=== PATIENT | female | born 1940 | race Caucasian/White ===

== ENCOUNTER 2020-10-26 08:07 | Outpatient (REF) | payer MEDICARE, SELFPAY ==
[2020-10-26 09:08] LABS: MANUAL DIFF FLAG NO
[2020-10-26 09:15] LABS: Basophils Absolute Auto 0.1 X10*3/uL (0.0-0.2); Basophils Percent Auto 1.1 % (0-2); Eosinophils Absolute Auto 0.1 X10*3/uL (0.0-0.4); Eosinophils Percent Auto 2.1 % (0-4); Hematocrit 38.9 % (37-47); Hemoglobin 12.4 g/dl (12.0-16.0); Imm Gran Abs Auto 0.01 X10*3/uL (0.00-0.03); Imm Gran Pct Auto 0.2 % (0.0-0.4); Lymphocytes Absolute Auto 2.2 X10*3/uL (1.2-4.9); Lymphocytes Percent Auto 32.9 % (20-40); Mean Corpuscular HGB Conc 31.9 g/dl (31.0-35.0); Mean Corpuscular Volume 87.8 fL (80-98); Mean Platelet Volume 10.6 fL (9.4-12.3); Monocytes Absolute Auto 0.7 X10*3/uL (0.1-1.2); Monocytes Percent Auto 11.2 % (2-11); Neutrophils Absolute Auto 3.5 X10*3/uL (2.0-8.3); Neutrophils Percent Auto 52.5 % (45-73); Platelet Count 296 X10*3/uL (160-400); Red Blood Count 4.43 X10*6/uL (4.20-5.50); Red Cell Distribution Width 13.1 % (11.0-16.0); White Blood Count 6.6 X10*3/uL (4.8-10.8)
[2020-10-26 09:27] LABS: Appearance Urine CLEAR; Color Urine YELLOW; Glucose Urine UA NEG (NEG); Leukocyte Esterase Urine NEG (NEG); Nitrite Urine NEG (NEG); Urine Blood NEG (NEG); Urine Ketones NEG (NEG); Urine Protein NEG (NEG-TRACE)
[2020-10-26 09:39] LABS: Alanine Aminotransferase 8 U/L (0-31); Albumin Level 4.3 g/dL (3.5-5.0); Alkaline Phosphatase 101 U/L (39-117); Anion Gap 11 (12-20); Aspartate Amino Transferase 13 U/L (5-31); Bilirubin Total 0.9 mg/dL (0.0-1.0); Blood Urea Nitrogen 17 mg/dL (9-16); Calcium 9.2 mg/dL (8.4-10.2); Carbon Dioxide 30 mmol/L (22-29); Chloride 104 mmol/L (96-108); Cholesterol 167 mg/dL; Estimated Glomerular Filt Rate > 60; Glucose Random 97 mg/dL (60-115); HDL Cholesterol 55 mg/dL; LDL Cholesterol Calculated 91 mg/dl; Potassium 4.1 mmol/l (3.3-5.1); Sodium 141 mmol/L (135-145); Total Protein 6.9 g/dL (6.5-8.0); Triglycerides 109 mg/dL
[2020-10-26 09:48] LABS: Reflex LDLD? No
[2020-10-26 09:49] LABS: Estimated Average Glucose 105 mg/dL; Hemoglobin A1c % 5.3 %
[2020-10-26 10:02] LABS: Microalbum/Creatinine Ratio Ur 17.9 ug/mg cr
== END 2020-10-26 08:08 | disposition home or self-care (01) ==
LOC: HO.LAB 08:07
PROVIDERS: PCP Internal Medicine; Visit Provider Internal Medicine
DX: Z00.00 Encounter for general adult medical examination without abnormal findings (principal); R73.09 Other abnormal glucose; E78.00 Pure hypercholesterolemia, unspecified; D72.820 Lymphocytosis (symptomatic); Z87.448 Personal history of other diseases of urinary system; R09.89 Other specified symptoms and signs involving the circulatory and respiratory systems
CPT/HCPCS: 36415; 80053; 80061; 81003; 82043; 83036; 85025

== ENCOUNTER 2020-11-11 14:43 | Outpatient (REF) | payer MEDICARE, SELFPAY ==
--- NOTE | ~2020-11-11 | MM_ITS ---
EXAMINATION: BONE DENSITOMETRY CLINICAL INDICATION: Menopausal. COMPARISON: Previous BD dated 10/23/2018 and baseline BD dated 04/09/2008. TECHNIQUE: Using a Zazum DXA System (software version: 13.1) manufactured by [employer], dual-energy x-ray absorptiometry was performed of the lumbar spine and left hip. The images are of good technical quality. Summary results are attached. FINDINGS: AP SPINE L1-L2 L3 and L4 are excluded due to increased density from degenerative change. Current: BMD 1.028 g/cm2, Z-score 0.9, T-score -1.1, osteopenia, 0.7% increase from previous, 0.6% increase from baseline (<5% change is not significant). Prior: BMD 1.021 g/cm2. Baseline: BMD 1.022 g/cm2. LEFT FEMUR, NECK: Current: BMD 0.679 g/cm2, Z-score -0.3, T-score -2.6, osteoporosis. Prior: BMD 0.712 g/cm2. Baseline: BMD 0.794 g/cm2. LEFT FEMUR, TOTAL: Current: BMD 0.713 g/cm2, Z-score -0.2, T-score -2.3, osteopenia, 1.9% decrease from previous, 14.5% decrease from baseline (<5% change is not significant). Prior: BMD 0.727 g/cm2. Baseline: BMD 0.834 g/cm2. IDENTIFIED RISK FACTORS: Menopause, height loss, secondary osteoporosis. HISTORY OF FRACTURE: None listed. MEDICATIONS: Vitamin D. MM/XR DEXA axial skeleton IMPRESSION: 1. DIAGNOSIS: Osteoporosis based on the lowest T-score value of -2.6 in the femoral neck applying World Health Organization criteria. 2. 10-YEAR FRACTURE RISK PREDICTION, FRAX: Major osteoporotic fracture (clinical spine, forearm, hip or shoulder) 20.1%. Hip fracture 7.2%. 3. Treatment Recommendations: NOF guidelines recommend consideration for treatment in postmenopausal women and men age 50 and older presenting with the following: -A hip or vertebral (clinical or morphometric) fracture. -T-score less than or equal to -2.5 at the femoral neck or spine after appropriate evaluation to exclude secondary causes. -Low bone mass at the hip or spine and a 10-year fracture probability by FRAX of greater than or equal to 3% for hip fracture or greater than or equal to 20% for major osteoporotic fracture based on the [place] adapted WHO algorithm. 4. Other Recommendations: All treatment decisions require clinical judgment and consideration of individual patient factors, including patient preferences, comorbidities, previous drug use, risk factors not captured in the FRAX model (e.g. frailty, falls, vitamin D deficiency, increased bone turnover, interval significant decline in bone density) and possible under or overestimation of fracture risk by FRAX. Additional medical evaluation for secondary cause of low bone mineral density may be appropriate. FUTURE SCAN RECOMMENDATION: People with diagnosed cases of osteoporosis or at high risk for fracture should have regular bone mineral density tests. For patients eligible for Medicare, routine testing is allowed once every 2 years. The testing frequency can be increased to one year for patients who have rapidly progressing disease, those who are receiving or discontinuing medical therapy to restore bone mass, or have additional risk factors.
== END 2020-11-11 14:44 | disposition home or self-care (01) ==
LOC: HO.MAMMO 14:43
PROVIDERS: Visit Provider Internal Medicine
DX: Z13.820 Encounter for screening for osteoporosis (principal); Z78.0 Asymptomatic menopausal state; R29.890 Loss of height
CPT/HCPCS: 77080

== ENCOUNTER 2021-05-03 10:15 | Outpatient (REF) | payer MEDICARE, SELFPAY ==
[2021-05-03 10:52] LABS: Estimated Average Glucose 108 mg/dL; Hemoglobin A1c % 5.4 %
[2021-05-03 11:06] LABS: Alanine Aminotransferase 8 U/L (0-31); Albumin Level 4.2 g/dL (3.5-5.0); Alkaline Phosphatase 96 U/L (39-117); Aspartate Amino Transferase 13 U/L (5-31); Bilirubin Direct 0.4 mg/dL (0.0-0.5); Bilirubin Total 1.4 mg/dL (0.0-1.0); Cholesterol 213 mg/dL; Glucose Fasting 97 mg/dL (60-99); HDL Cholesterol 54 mg/dL; LDL Cholesterol Calculated 138 mg/dl; Total Protein 6.9 g/dL (6.5-8.0); Triglycerides 107 mg/dL
[2021-05-03 11:22] LABS: Reflex LDLD? No
== END 2021-05-03 10:16 | disposition home or self-care (01) ==
LOC: HO.LNP 10:15
PROVIDERS: Visit Provider Internal Medicine
DX: E78.00 Pure hypercholesterolemia, unspecified (principal); R73.09 Other abnormal glucose
CPT/HCPCS: 80061; 80076; 82947; 83036

== ENCOUNTER 2021-12-20 10:44 | Outpatient (REF) | payer MEDICARE, SELFPAY ==
[2021-12-20 10:47] LABS: MANUAL DIFF FLAG NO
[2021-12-20 10:55] LABS: Basophils Absolute Auto 0.1 X10*3/uL (0.0-0.2); Basophils Percent Auto 1.1 % (0-2); Eosinophils Absolute Auto 0.2 X10*3/uL (0.0-0.4); Eosinophils Percent Auto 2.2 % (0-4); Hemoglobin 12.3 g/dl (12.0-16.0); Imm Gran Abs Auto 0.02 X10*3/uL (0.00-0.03); Imm Gran Pct Auto 0.3 % (0.0-0.4); Lymphocytes Absolute Auto 2.6 X10*3/uL (1.2-4.9); Lymphocytes Percent Auto 34.8 % (20-40); Mean Corpuscular HGB Conc 31.5 g/dl (31.0-35.0); Mean Corpuscular Hemoglobin 27.8 pg (27.0-33.0); Mean Platelet Volume 10.7 fL (9.4-12.3); Monocytes Absolute Auto 0.8 X10*3/uL (0.1-1.2); Monocytes Percent Auto 10.9 % (2-11); Neutrophils Absolute Auto 3.8 x10*3/uL (2.0-8.3); Neutrophils Percent Auto 50.7 % (45-73); Platelet Count 315 X10*3/uL (160-400); Red Blood Count 4.43 X10*6/uL (4.20-5.50); Red Cell Distribution Width 13.3 % (11.0-16.0); White Blood Count 7.4 X10*3/uL (4.8-10.8)
[2021-12-20 10:56] LABS: Appearance Urine CLEAR; Color Urine YELLOW; Glucose Urine UA NEG (NEG); Leukocyte Esterase Urine 1+ (NEG); Nitrite Urine NEG (NEG); Specific Gravity - Urine 1.015 (1.005-1.025); Urine Blood NEG (NEG); Urine Ketones NEG (NEG); Urine Protein NEG (NEG-TRACE)
[2021-12-20 11:06] LABS: Alanine Aminotransferase 12 U/L (0-31); Albumin Level 4.3 g/dL (3.5-5.0); Alkaline Phosphatase 117 U/L (39-117); Anion Gap 12 (12-20); Aspartate Amino Transferase 15 U/L (5-31); Bilirubin Total 0.8 mg/dL (0.0-1.0); Blood Urea Nitrogen 18 mg/dL (9-16); Calcium 9.6 mg/dL (8.4-10.2); Carbon Dioxide 26 mmol/L (22-29); Chloride 106 mmol/L (96-108); Cholesterol 172 mg/dL; Estimated Glomerular Filt Rate 59; Glucose Fasting 102 mg/dL (60-99); HDL Cholesterol 58 mg/dL; LDL Cholesterol Calculated 98 mg/dl; Potassium 4.2 mmol/L (3.3-5.1); Sodium 140 mmol/L (135-145); Total Protein 7.1 g/dL (6.5-8.0); Triglycerides 81 mg/dL
[2021-12-20 11:07] LABS: Estimated Average Glucose 108 mg/dL; Hemoglobin A1C 118.4112 umol/L; Hemoglobin A1c % 5.4 %
[2021-12-20 11:25] LABS: Creatinine Urine 100.74 mg/dL; Microalbum/Creatinine Ratio Ur 11.9 ug/mg cr
[2021-12-20 11:35] LABS: Bacteria Urine 1+ /LPF; Mucus Urine 2+ /LPF; RBC Urine 0-2 /HPF (0); Squamous Epithelial Cell Urine 1+ /LPF
== END 2021-12-20 10:45 | disposition home or self-care (01) ==
LOC: HO.LNP 10:44
PROVIDERS: PCP Internal Medicine; Visit Provider Internal Medicine
DX: Z00.00 Encounter for general adult medical examination without abnormal findings (principal); R73.03 Prediabetes; D72.820 Lymphocytosis (symptomatic); E78.00 Pure hypercholesterolemia, unspecified; I10 Essential (primary) hypertension
CPT/HCPCS: 80053; 80061; 81001; 81003; 82043; 83036; 85025

== ENCOUNTER 2022-07-03 10:41 | Outpatient (REF) | payer MEDICARE, SELFPAY ==
[2022-07-03 11:44] LABS: Estimated Average Glucose 105 mg/dL; Hemoglobin A1c % 5.3 %
[2022-07-03 11:50] LABS: Alanine Aminotransferase 13 U/L (0-31); Albumin Level 4.4 g/dL (3.5-5.0); Alkaline Phosphatase 105 U/L (39-117); Aspartate Amino Transferase 16 U/L (5-31); Bilirubin Direct 0.4 mg/dL (0.0-0.5); Cholesterol 182 mg/dL; Glucose Fasting 103 mg/dL (60-99); HDL Cholesterol 58 mg/dL; LDL Cholesterol Calculated 106 mg/dl; Triglycerides 92 mg/dL
[2022-07-03 13:55] LABS: Reflex LDLD? No
== END 2022-07-03 10:42 | disposition home or self-care (01) ==
LOC: HO.LNP 10:41
PROVIDERS: Visit Provider Internal Medicine
DX: E78.00 Pure hypercholesterolemia, unspecified (principal); R73.03 Prediabetes
CPT/HCPCS: 80061; 80076; 82947; 83036

== ENCOUNTER 2022-12-29 10:57 | Outpatient (REF) | payer MEDICARE, SELFPAY ==
[2022-12-29 11:02] LABS: MANUAL DIFF FLAG NO
[2022-12-29 11:51] LABS: Basophils Absolute Auto 0.1 X10*3/uL (0.0-0.2); Eosinophils Absolute Auto 0.1 X10*3/uL (0.0-0.4); Eosinophils Percent Auto 2.1 % (0-4); Hematocrit 39.7 % (37.0-47.0); Hemoglobin 12.8 g/dl (12.0-16.0); Imm Gran Abs Auto 0.01 X10*3/uL (0.00-0.03); Imm Gran Pct Auto 0.1 % (0.0-0.4); Lymphocytes Absolute Auto 2.2 X10*3/uL (1.2-4.9); Lymphocytes Percent Auto 32.2 % (20-40); Mean Corpuscular HGB Conc 32.2 g/dl (31.0-35.0); Mean Corpuscular Hemoglobin 28.4 pg (27.0-33.0); Mean Corpuscular Volume 88.2 fL (80.0-98.0); Monocytes Absolute Auto 0.8 X10*3/uL (0.1-1.2); Monocytes Percent Auto 11.7 % (2-11); Neutrophils Absolute Auto 3.6 x10*3/uL (2.0-8.3); Neutrophils Percent Auto 52.9 % (45-73); Platelet Count 320 X10*3/uL (160-400); Red Cell Distribution Width 13.2 % (11.0-16.0); White Blood Count 6.8 X10*3/uL (4.8-10.8)
[2022-12-29 12:08] LABS: Alanine Aminotransferase 7 U/L (0-31); Albumin Level 4.2 g/dL (3.5-5.0); Alkaline Phosphatase 110 U/L (39-117); Anion Gap 14 (12-20); Aspartate Amino Transferase 13 U/L (5-31); Bilirubin Total 1.2 mg/dL (0.0-1.0); Blood Urea Nitrogen 17 mg/dL (9-16); Calcium 9.4 mg/dL (8.4-10.2); Carbon Dioxide 26 mmol/L (22-29); Chloride 106 mmol/L (96-108); Cholesterol 194 mg/dL; Estimated Glomerular Filt Rate > 60; Glucose Fasting 99 mg/dL (60-99); HDL Cholesterol 53 mg/dL; LDL Cholesterol Calculated 119 mg/dl; Sodium 142 mmol/L (135-145); Total Protein 6.9 g/dL (6.5-8.0); Triglycerides 112 mg/dL
[2022-12-29 12:10] LABS: Estimated Average Glucose 108 mg/dL; Hemoglobin A1C 115.6139 umol/L; Hemoglobin A1c % 5.4 %
== END 2022-12-29 10:58 | disposition home or self-care (01) ==
LOC: HO.LNP 10:57
PROVIDERS: Visit Provider Internal Medicine
DX: Z00.00 Encounter for general adult medical examination without abnormal findings (principal); R73.03 Prediabetes; D72.820 Lymphocytosis (symptomatic); E78.00 Pure hypercholesterolemia, unspecified; I10 Essential (primary) hypertension
CPT/HCPCS: 80053; 80061; 83036; 85025

== ENCOUNTER 2023-01-04 16:24 | Outpatient (REF) | payer MEDICARE, SELFPAY ==
[2023-01-04 17:32] LABS: Creatinine Urine 51.75 mg/dL; Microalbum/Creatinine Ratio Ur 11.5 ug/mg cr
[2023-01-04 17:53] LABS: Appearance Urine Cloudy; Color Urine Yellow; Glucose Urine UA Negative (Negative); Leukocyte Esterase Urine Small (1+) (Negative); Nitrite Urine Negative (Negative); UMIC TRIGGER UACC YES; Urine Blood Negative (Negative); Urine Ketones Negative (Negative); Urine Protein Negative (Neg-Trace)
[2023-01-04 18:06] LABS: Bacteria Urine None Seen (None Seen); Hyaline Casts Urine 0-2 /LPF (0-2); RBC Urine 0-2 /HPF (0-2); Squamous Epithelial Cell Urine 0-2 /HPF (0-2); UACC Culture Trigger YES; WBC Urine 0-5 /HPF (0-5)
== END 2023-01-04 16:25 | disposition home or self-care (01) ==
LOC: HO.LNP 16:24
PROVIDERS: Visit Provider Internal Medicine
DX: I10 Essential (primary) hypertension (principal); R73.03 Prediabetes
CPT/HCPCS: 81001; 82043; 87086

== ENCOUNTER 2023-06-29 11:55 | Outpatient (REF) | payer MEDICARE, SELFPAY ==
[2023-06-29 12:15] LABS: Estimated Average Glucose 105 mg/dL; Hemoglobin A1c % 5.3 % (<6.0)
[2023-06-29 12:54] LABS: Alanine Aminotransferase 9 U/L (0-31); Albumin Level 4.1 g/dL (3.5-5.0); Alkaline Phosphatase 104 U/L (39-117); Aspartate Amino Transferase 14 U/L (5-31); Bilirubin Direct 0.3 mg/dL (0.0-0.5); Bilirubin Total 0.9 mg/dL (0.0-1.0); Glucose Fasting 101 mg/dL (60-99); Total Protein 7.2 g/dL (6.5-8.0)
[2023-06-29 12:55] LABS: Cholesterol 179 mg/dL (<200); HDL Cholesterol 56 mg/dL (>40); LDL Cholesterol Calculated 106 mg/dL (<100); Triglycerides 87 mg/dL (<150)
[2023-06-29 13:58] LABS: Reflex LDLD? No
== END 2023-06-29 11:56 | disposition home or self-care (01) ==
LOC: HO.LNP 11:55
PROVIDERS: Visit Provider Internal Medicine
DX: E78.00 Pure hypercholesterolemia, unspecified (principal); R73.09 Other abnormal glucose
CPT/HCPCS: 80061; 80076; 82947; 83036

== ENCOUNTER 2023-08-23 15:20 | Outpatient (REF) | payer MEDICARE, SELFPAY ==
[2023-08-23 17:43] LABS: Appearance Urine Clear; Color Urine Yellow; Glucose Urine UA Negative (Negative); Leukocyte Esterase Urine Moderate (2+) (Negative); Nitrite Urine Negative (Negative); PH 6.5 (5.0-9.0); Specific Gravity - Urine <= 1.005 (1.005-1.025); UMIC TRIGGER UACC YES; Urine Blood Negative (Negative); Urine Ketones Negative (Negative); Urine Protein Negative (Neg-Trace)
[2023-08-23 18:15] LABS: Bacteria Urine None Seen (None Seen); Hyaline Casts Urine 0-2 /LPF (0-2); RBC Urine 0-2 /HPF (0-2); Squamous Epithelial Cell Urine 0-2 /HPF (0-2); UACC Culture Trigger YES
== END 2023-08-23 15:21 | disposition home or self-care (01) ==
LOC: HO.LAB 15:20
PROVIDERS: PCP Internal Medicine; Visit Provider Internal Medicine
DX: N39.0 Urinary tract infection, site not specified (principal)
CPT/HCPCS: 81001; 87086

== ENCOUNTER 2024-01-01 11:00 | Outpatient (REF) | payer MEDICARE, SELFPAY ==
[2024-01-01 11:04] LABS: MANUAL DIFF FLAG NO
[2024-01-01 11:34] LABS: Basophils Absolute Auto 0.1 X10*3/uL (0.0-0.2); Basophils Percent Auto 1.5 % (0-2); Eosinophils Absolute Auto 0.1 X10*3/uL (0.0-0.4); Eosinophils Percent Auto 2.1 % (0-4); Hematocrit 41.1 % (37.0-47.0); Hemoglobin 12.9 g/dl (12.0-16.0); Imm Gran Abs Auto 0.01 X10*3/uL (0.00-0.03); Imm Gran Pct Auto 0.2 % (0.0-0.4); Lymphocytes Absolute Auto 2.4 X10*3/uL (1.2-4.9); Lymphocytes Percent Auto 35.9 % (20-40); Mean Corpuscular HGB Conc 31.4 g/dl (31.0-35.0); Mean Corpuscular Hemoglobin 27.7 pg (27.0-33.0); Mean Corpuscular Volume 88.4 fL (80.0-98.0); Mean Platelet Volume 11.3 fL (9.4-12.3); Monocytes Absolute Auto 0.8 X10*3/uL (0.1-1.2); Monocytes Percent Auto 11.7 % (2-11); Neutrophils Absolute Auto 3.2 x10*3/uL (2.0-8.3); Neutrophils Percent Auto 48.6 % (45-73); Platelet Count 332 X10*3/uL (160-400); Red Blood Count 4.65 X10*6/uL (4.20-5.50); Red Cell Distribution Width 14.2 % (11.0-16.0); White Blood Count 6.6 X10*3/uL (4.8-10.8)
[2024-01-01 11:36] LABS: Estimated Average Glucose 100 mg/dL; Hemoglobin A1c % 5.1 % (<6.0)
[2024-01-01 11:37] LABS: Alanine Aminotransferase 9 U/L (0-31); Albumin Level 4.4 g/dL (3.5-5.0); Alkaline Phosphatase 107 U/L (39-117); Anion Gap 13 (12-20); Aspartate Amino Transferase 16 U/L (5-31); Bilirubin Total 0.9 mg/dL (0.0-1.0); Blood Urea Nitrogen 17 mg/dL (9-16); Calcium 10.2 mg/dL (8.4-10.2); Carbon Dioxide 29 mmol/L (22-29); Chloride 104 mmol/L (96-108); Cholesterol 182 mg/dL (<200); Estimated Glomerular Filt Rate 59; Glucose Fasting 97 mg/dL (60-99); HDL Cholesterol 71 mg/dL (>40); LDL Cholesterol Calculated 92 mg/dL (<100); Potassium 3.6 mmol/L (3.3-5.1); Sodium 142 mmol/L (135-145); Total Protein 7.6 g/dL (6.5-8.0); Triglycerides 98 mg/dL (<150)
[2024-01-01 11:40] LABS: Appearance Urine Clear; Color Urine Yellow; Glucose Urine UA Negative (Negative); Leukocyte Esterase Urine Small (1+) (Negative); Nitrite Urine Negative (Negative); Specific Gravity - Urine <= 1.005 (1.005-1.025); UMIC TRIGGER UACC YES; Urine Blood Negative (Negative); Urine Ketones Negative (Negative); Urine Protein Negative (Neg-Trace)
[2024-01-01 12:44] LABS: Creatinine Urine 26.08 mg/dL; Microalbumin Urine < 5.0 mg/L
[2024-01-01 15:04] LABS: Bacteria Urine None Seen (None Seen); Hyaline Casts Urine 0-2 /LPF (0-2); RBC Urine 0-2 /HPF (0-2); Squamous Epithelial Cell Urine 0-2 /HPF (0-2); UACC Culture Trigger YES; WBC Urine 0-5 /HPF (0-5)
== END 2024-01-01 11:01 | disposition home or self-care (01) ==
LOC: HO.LNP 11:00
PROVIDERS: Visit Provider Internal Medicine
DX: Z00.00 Encounter for general adult medical examination without abnormal findings (principal); R73.03 Prediabetes; E78.00 Pure hypercholesterolemia, unspecified; I10 Essential (primary) hypertension
CPT/HCPCS: 80053; 80061; 81001; 82043; 82570; 83036; 85025; 87086

== ENCOUNTER 2024-06-19 12:19 | Outpatient (AMB) | payer MEDICARE, SELFPAY ==
--- NOTE | 2024-06-19 12:20 | AM.OFFWIN_ITS ---
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 Started 1 week ago. Patient Tobacco Use Status: Former Tobacco user Allergies No Known Allergies Allergy (Verified 06/19/24 12:32) Do you need a note to return to daycare/school/sports/work: No HPI HPI Comments History of Present Illness Details 84 y/o female patient who presents to [facility] in clinic with c/o Urin liliane symptoms for few days now. C/o Urinary burning, urgency and frequency. PFSH Social History Patient Tobacco Use Status: Former Tobacco user Review of Systems Const All systems reviewed & are unremarkable except as noted in HPI and below Physical Exam Vital Signs: Last Vital Signs Temp 97.9 F 06/19/24 12:21 Pulse 96 06/19/24 12:21 BP 132/86 06/19/24 12:21 Pulse Ox 99 06/19/24 12:21 Oxygen Delivery Method Room Air 06/19/24 12:21 BMI result Body Mass Index 25.5 Const General: cooperative Orientation/consciousness: patient oriented x3 Resp Effort & Inspection: normal respiratory effort Auscultation: clear to auscultation bilaterally Cardio Heart sounds: S1 normal heart sound present and S2 normal heart sound present General: Yes no CVA tenderness Back/Spine/Pelvis Back: no CVA tenderness Neuro General: patient oriented x3, gait normal and moves all extremities Psych Speech and movement: Normal speech and movement present Results AMB Urinalysis, Automated UA Leukoctes 125 Shahram/uL Last Edit by Yasir Quezada CMA on 06/19/24 12:36 UA Nitrite Negative Last Edit by Yasir Quezada CMA on 06/19/24 12:36 UA Urobilinogen 0.2 mg/dL Last Edit by Yasir Quezada CMA on 06/19/24 12:36 UA Protein 0 mg/dL Last Edit by Yasir Quezada CMA on 06/19/24 12:36 UA pH 6.0 Last Edit by Yasir Quezada CMA on 06/19/24 12:36 UA Blood 0 Deandre/uL Last Edit by Yasir Quezada CMA on 06/19/24 12:36 UA Specific Addison 1.005 Last Edit by Yasir Quezada CMA on 06/19/24 12:36 UA Ketone Negative Last Edit by Yasir Quezada CMA on 06/19/24 12:36 UA Bilirubin 0 mg/dL Last Edit by Yasir Quezada CMA on 06/19/24 12:36 UA Glucose 0 mg/dL Last Edit by Yasir Quezada CMA on 06/19/24 12:36 Results Reviewed Results Reviewed: Laboratory Last Values Urine pH (Auto) 6.0 06/19/24 12:34 Specific Addison (Auto) 1.005 06/19/24 12:34 Urine Protein (Auto) 0 mg/dL 06/19/24 12:34 Glucose (UA)(Auto) 0 mg/dL 06/19/24 12:34 Urine Ketones (Auto) Negative 06/19/24 12:34 Urine Blood (Auto) 0 Deandre/uL 06/19/24 12:34 Urine Nitrite (Auto) Negative 06/19/24 12:34 Urine Bilirubin (Auto) 0 mg/dL 06/19/24 12:34 Urine Urobilinogen (Auto) 0.2 mg/dL 06/19/24 12:34 Leukocyte Esterase (Auto) 125 Shahram/uL 06/19/24 12:34 Assessment & Plan Assessment & Plan (1) Urinary tract infection symptoms: Code(s): R39.9 - Unspecified symptoms and signs involving the genitourinary system Plan: Push fluids Ordered Macrobid Orders: Orders AMB Urinalysis Automated Today Z13.9 - Encounter for screening, unspecified Medications: New nitrofurantoin monohyd/m-cryst 100 mg (Macrobid) must administer with a meal/food 100 mg PO Q12H 7 days 14 caps 0RF R39.9 - Unspecified symptoms and signs involving the genitourinary system Coding Level of Care Code New Pt Level 3 (98428) Diagnoses Urinary tract infection symptoms R39.9 Time Spent (min) 15
[2024-06-19 12:21] VITALS: BP 132/86; PULSE 96; TEMP 36.6; O2SAT 99; BMI 25.5
== END 2024-06-19 12:46 | disposition home or self-care (01) ==
PROVIDERS: PCP Internal Medicine; Visit Provider Nurse Practitioner Family
DX: R35.0 Frequency of micturition (principal); R30.9 Painful micturition, unspecified
CPT/HCPCS: 81003; 99203

== ENCOUNTER 2024-07-10 10:49 | Outpatient (REF) | payer MEDICARE, SELFPAY ==
[2024-07-10 12:26] LABS: Estimated Average Glucose 103 mg/dL; Hemoglobin A1c % 5.2 % (<6.0); Total Hemoglobin (HGBA1C) 2903.4953 umol/L
[2024-07-10 12:37] LABS: Alanine Aminotransferase 9 U/L (0-31); Albumin Level 4.2 g/dL (3.5-5.0); Alkaline Phosphatase 92 U/L (39-117); Aspartate Amino Transferase 15 U/L (5-31); Bilirubin Direct 0.3 mg/dL (0.0-0.5); Bilirubin Total 0.7 mg/dL (0.0-1.0); Cholesterol 163 mg/dL (<200); Glucose Fasting 100 mg/dL (60-99); HDL Cholesterol 61 mg/dL (>40); LDL Cholesterol Calculated 89 mg/dL (<100); Total Protein 7.3 g/dL (6.5-8.0); Triglycerides 66 mg/dL (<150)
[2024-07-10 12:57] LABS: Reflex LDLD? No
== END 2024-07-10 10:50 | disposition home or self-care (01) ==
LOC: HO.LNP 10:49
PROVIDERS: Visit Provider Internal Medicine
DX: E78.00 Pure hypercholesterolemia, unspecified (principal); R73.09 Other abnormal glucose
CPT/HCPCS: 80061; 80076; 82947; 83036

== ENCOUNTER 2024-07-31 12:01 | Outpatient (AMB) | payer MEDICARE, SELFPAY ==
[2024-07-31 12:13] VITALS: BP 138/80; PULSE 90; TEMP 36.9; O2SAT 98; BMI 26.1
--- NOTE | 2024-07-31 12:13 | AM.OFFWIN_ITS ---
Intake Vital Signs 07/31/24 12:13 Height 4 ft 10 in Weight 125 lb 2 oz BMI 26.1 BP 138/80 Blood Pressure Location Lt brachial Position Sitting Pulse 90 Pulse Source Pulse Oximeter Temp 98.4 F Temp Source Oral Pulse Oximetry (%) 98 Oxygen Delivery Method Room Air Intake Visit Reasons: EP ? UTI Patient Tobacco Use Status: Former Tobacco user Allergies No Known Allergies Allergy (Verified 07/31/24 12:14) Do you need a note to return to daycare/school/sports/work: No HPI HPI Comments History of Present Illness Details Patient is an 84-year-old female complaining of a few days of burning with urination, increased frequency of urination. She denies any blood in her urine, low back pain or fevers. She denies a history of kidney stones. She tells me she was just diagnosed with a UTI and took a medication for that she has never taken before and had difficulty with the timing of the medication and taking it with food and she feels like her symptoms mostly resolved but never went away completely and now she feels like they are happening again. She is requesting not to get the same medication she got last time. [facility] Social History Patient Tobacco Use Status: Former Tobacco user Review of Systems Const All systems reviewed & are unremarkable except as noted in HPI and below Physical Exam Vital Signs: BMI result Body Mass Index 26.1 Const General: cooperative, healthy appearing, comfortable and no acute distress Orientation/consciousness: patient oriented x3 HEENT Head: Yes normal to inspection Ears: hearing grossly normal bilaterally General nose exam: Normal external nose present Face and sinus: Yes normal facial exam Neck Neck: Yes normal visual inspection, Yes trachea midline and Yes supple Resp Effort & Inspection: normal respiratory effort and able to speak in complete sentences Skin General skin exam: no rashes or lesions noted Neuro General: patient oriented x3 Psych Appearance: grossly normal Speech and movement: Normal speech and movement present Attitude: cooperative Thought process: Normal thought process present Insight: Good insight present (Psych) Judgement: Good judgement present (Psych) Results AMB Urinalysis, Automated UA Leukoctes 15 Shahram/uL Last Edit by BRODY Bradley on 07/31/24 12:3 1 UA Nitrite Negative Last Edit by BRODY Bradley on 07/31/24 12:31 UA Urobilinogen 0.2 mg/dL Last Edit by BRODY Bradley on 07/31/24 12:31 UA Protein 0 mg/dL Last Edit by BRODY Bradley on 07/31/24 12:31 UA pH 6.0 Last Edit by BRODY Bradley on 07/31/24 12:31 UA Blood 0 Deandre/uL Last Edit by Matthew Donahue CCM on 07/31/24 12:31 UA Specific [place] 1.010 Last Edit by BRODY Bradley on 07/31/24 12:31 UA Ketone Negative Last Edit by BRODY Bradley on 07/31/24 12:31 UA Bilirubin 0 mg/dL Last Edit by BRODY Bradley on 07/31/24 12:31 UA Glucose 0 mg/dL Last Edit by BRODY Bradley on 07/31/24 12:31 Assessment & Plan Assessment & Plan (1) UTI (urinary tract infection): Code(s): N39.0 - Urinary tract infection, site not specified Qualifiers: Urinary tract infection type: acute cystitis Hematuria presence: without hematuria Qualified Code(s): N30.00 - Acute cystitis without hematuria Plan: Patient was prescribed Macrobid on June 19, sounds like her symptoms never really went away and she may not have taken it properly. I am prescribing cefuroxime twice a day for 5 days. Urinalysis was positive for leukocyte esterase negative for nitrites or blood Plan See above Orders: Orders AMB Urinalysis Automated Today Z13.9 - Encounter for screening, unspecified Medications: New cefuroxime axetil 500 mg PO Q12H 10 tabs 0RF Coding Level of Care Code New Pt Level 3 (48118) Diagnoses Acute cystitis without hematuria N30.00 Urinary tract infection type: acute cystitis Hematuria presence: without hematuria
== END 2024-07-31 13:00 | disposition home or self-care (01) ==
PROVIDERS: PCP Internal Medicine; Visit Provider Physician Assistant
DX: N30.00 Acute cystitis without hematuria (principal); Z13.9 Encounter for screening, unspecified

== ENCOUNTER → 2024-07-31 12:01 | Outpatient (BNVA) | payer MEDICARE, SELFPAY | PROVIDERS: PCP Internal Medicine; Visit Provider Physician Assistant | DX: N30.00 Acute cystitis without hematuria (principal) | CPT/HCPCS: 81003; 99202 ==

== ENCOUNTER 2024-10-06 13:29 | Outpatient (AMB) | payer MEDICARE, SELFPAY ==
--- OUTSIDE RECORDS SUMMARY | 2024-10-06 13:32 | XMS_ITS ---
Author Organization [facility] Address [address] [place] [address] Care Team Providers Care Special Diet Cook Name Role Phone Robert RICHMOND, Crescencio Primary Care Provider Petros Munroe Jr, Enzo Bolaños REASON FOR VISIT Pt no show Encounters Encounter Location Date Provider Diagnosis [facility] [address] [facility] [address] [place] [address] 08/14/2024 Enzo Munroe Jr PLAN OF TREATMENT Next Appt Details Provider Name:Enzo laboy Jr, 11/20/2024 02:55:00 PM, [address] [facility], [address], [place], [address],
--- OUTSIDE RECORDS SUMMARY | 2024-10-06 13:32 | XMS_ITS ---
Author Organization [facility] Address [address] [place] [address] Care Team Providers Care Bag Builder Name Role Phone Robert RICHMOND, Crescencio Primary Care Provider Petros Munroe Jr, Enzo Bolaños REASON FOR VISIT question regarding medication Encounters Encounter Location Date Provider Diagnosis [facility] [address] [place] [address] 08/11/2024 Enzo Munroe Jr PLAN OF TREATMENT Next Appt Details Provider Name:Enzo laboy Jr, 11/20/2024 02:55:00 PM, [address] [facility], [address], [place], [address],
--- OUTSIDE RECORDS SUMMARY | 2024-10-06 13:32 | XMS_ITS | Patient Health Record ---
Author Organization [facility] Address [address] [facility] [address] [place] [address] Care Team Providers Care Die Casting Machine Maintainer Name Role Phone Robert RICHMOND, Crescencio Primary Care Provider Enzo Donaldson Jr Unavailable [phone] ALLERGIES Allergen (clinical drug ingredient) Drug/Non Drug Allergy documented on EMR Reaction Allergy Type Onset Date Status Codeine Phosphate Unknown Drug Allergy Active REASON FOR REFERRAL Referring Provider First Name Crescencio Referring Provider Last Name Robert Referring Provider Speciality Internal M edicine Referred Organization [facility] Referred Provider Enzo Munroe Jr Referred Address [address] [place] [address], [address],[place], [place],[address], Referred Provider Specialty Gastroentero logy General Notes Carmencita Quick 024 11:27:23 AM EDT > call dr forbes's office [phone] to request a new [place] referral for visit with Dr. Munroe on 08-14-2024, Carmencita Quick 07/03/2024 09:07:10 AM EDT > REQUESTED REFERRAL FROM Abdelrahman SMITH Dawn 07/15/2024 02:02:15 PM EDT > spoke with Bryanna at Dr. Forbes's office and she was told by Ashutosh at [place] that no referral is required since Dr. Forbes and Dr. Munroe are in the same [facility]. Conf _# [id number] Referral Priority Routine Referred Organization [facility] Referred Provider Enzo Munroe Jr Referred Address [address] [facility], [address],[place], [place],[address], Referred Provider Specialty Gastroentero logy General Notes Carmencita Quick 023 11:16:25 AM EDT > no referral required per Dr. Forbes's office since patient is in the same [facility]. Referral Priority Routine MEDICATIONS Medication SIG (Take, Route, Frequency, Duration) Notes Start Date End Date Status Ursodiol 300 MG TAKE 1 CAPSULE BY MO UTH THREE TIMES DAILY *APPOINTMENT NEEDED FOR FURTHER REFILLS* for 30 Active Vitamin D 1000 UNIT 1 tablet Orally Once a day Active Atorvastatin Calcium 20mg Active Ursodiol 250 MG take 1 tablet by jessika th 4 times a day for 30 days Active Latanoprost 0.005 % INSTILL 1 DROP INTO EACH EYE AT BEDTIME Ophthalmic for 18 Active amLODIPine Besylate 10 MG TAKE 1 TABLET BY MOUTH ONCE DAILY Oral for 90 Active IMMUNIZATIONS Vaccine Route Administration Date Status Comme nts Influenza Unknown 10/08/2018 Administered Influenza Unknown 08/09/2019 Administered Influenza Unknown 08/08/2023 Administered SOCIAL HISTORY Tobacco Use: Social History Observation Description Date Details (start date - stop date) Former Smoker NA - NA Sex Assigned At : Social History Observation Description Sex Assigned At Unknown Tobacco Use/Smoking Question Answer Notes Patient is a former smoker How long has it been since you last smoked? > 10 years PROBLEMS Problem Type ICD Code Onset Dates Problem Status W/U Status Risk SNOMED Code Notes Problem Biliary cirrhosis (K74.5) Active confirmed 3284261 Problem Gastroesophageal reflux disease, unspecified whether esophagitis present (K21.9) Active confirmed [id number] Encounters Encounter Location Date Provider Diagnosis [facility] [address] [place] [address] 08/14/2024 Enzo Munroe Jr [facility] [address] [place] [address] 08/11/2024 Enzo Munroe Jr [facility] [address] [place] [address] 08/14/2024 Enzo Munroe Jr PLAN OF TREATMENT Future Test Test Name Order Date COLONOSCOPY 07/16/2014 Next Appt Details Provider Name:Enzo laboy Jr, 11/20/2024 02:55:00 PM, [address] [facility], [address], [place], [address], Insurance Providers Payer Name Payer Address Payer Phone Subscriber Number Group Number Insured Name Patient Relationship to Insured Coverage Start Date Coverage End Date [facility] [address] [place] [phone] [id number] GILBERT RENÉ Self - patient is the insured MEDICAL (GENERAL) HISTORY Medical History History ICD Code hyperlipidemia colonoscopy 09/23/14, hyperplastic polyp , followup p.r.n. 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 On ursodiol. Surgical History Surgery Date(Month/Year) lasik bilateral eyes
--- OUTSIDE RECORDS SUMMARY | 2024-10-06 13:32 | XMS_ITS ---
Author Organization [facility] Address [address] [place] [address] Care Team Providers Care Field Crop Technical Officer Name Role Phone Robert RICHMOND, Crescencio Primary Care Provider Petros Munroe Jr, Enzo Bolaños REASON FOR VISIT Patient presents today for biliary cirrhosis Encounters Encounter Location Date Provider Diagnosis [facility] [address] [place] [address] 08/14/2024 Enzo Mnuroe Jr PLAN OF TREATMENT Next Appt Details Provider Name:Enzo laboy Jr, 11/20/2024 02:55:00 PM, [address], [address], [place], [address],
--- OUTSIDE RECORDS SUMMARY | 2024-10-06 13:32 | XMS_ITS ---
Author Organization Crescencio Jones MD Address [address] [place] [phone] Care Team Providers Care Public Events Facilities Rental Manager Name Role Phone Crescencio Jones Primary Care Provider [phone] ALLERGIES Allergen (clinical drug ingredient) Drug/Non Drug Allergy documented on EMR Reaction Allergy Type Onset Date Status codeine Codeine Sulfate n/v Drug Allergy A ctive REASON FOR VISIT 6 month MEDICATIONS Medication SIG (Take, Route, Frequency, Duration) [...] 1 TABLET BY MOUTH ONCE DAILY Active VITAL SIGNS BMI 24.02 kg/m2 07/17/2024 Blood pressure systolic 112 mm Hg 07/17/20 24 Blood pressure diastolic 64 mm Hg 024 Height 60 in 07/17/2024 Weight 123 lbs 07/17/2024 weight is down 4 pounds sin e 4-2-24 Encounters Encounter Location Date Provider Diagnosis Crescencio Jones MD [address] [place] [phone] 07/17/2024 Crescencio Jones Shortness of breath on exertion R06.02 ; Prediabetes R73.09 ; Pure hypercholesterolemia E78.00 and Essential (primary) hypertension I10 ASSESSMENTS Encounter Date Diagnosis Assessment Notes Treatment Notes Treatment Clinical Notes 07/17/2024 Shortness of breath on exertion (ICD-10 - R06.02) has not been active. sounds as though she has just lost her conditioning. advised her to get active. does not sound cardiac at all. 07/17/2024 Prediabetes (ICD-10 - R73.09) stable, will cntinue to monitor, no need for medication at this time 07/17/2024 Pure hypercholestero lemia (ICD-10 - E78.00) stable, will cntinue current regiment 07/17/2024 Essential (primary) hypertension (ICD-10 - I10) stable, will continue current regiment PLAN OF TREATMENT Medication Medication Name Sig Start Date Stop [...] regiment Next Appt Details Provider Name:Crescencio hernandez, 01/06/2025 07:00:00 AM, [address] [place] [address], [address], [phone], Provider Name:Crescencio hernandez, 01/13/2025 09:30:00 AM, [address] [place] [address], [address], [phone], Progress Notes * Examination Category Sub-Category Detail Notes General Examination GENERAL APPEARANCE: alert, w ell hydrated, in no distress HEART: regular rate and rhy thm, no murmurs, rubs, gallops LUNGS: no wheezes, rales, r honchi, good air movement, clear to auscultation bilaterally SKIN: good turgor
--- OUTSIDE RECORDS SUMMARY | 2024-10-06 13:33 | XMS_ITS ---
Author Organization Crescencio Jones MD Address [address] [place] [phone] Care Team Providers Care Superintendent Pipelines Name Role Phone Crescencio Jones Primary Care Provider REASON FOR VISIT [place] Referral Encounters Encounter Location Date Provider Diagnosis Crescencio Jones MD [address] [place] [address] [address] [place], [place] [phone] 07/15/2024 Crescencio Jones PLAN OF TREATMENT Next Appt Details Provider Name:Crescencio hernandez, 01/06/2025 07:00:00 AM, [address] [place] [address], [place] [address], [place], [place], [phone], Provider Name:Crescencio hernandez, 01/13/2025 09:30:00 AM, [address] [place] [address], [place] [address], [place], [place], [phone],
--- OUTSIDE RECORDS SUMMARY | 2024-10-06 13:33 | XMS_ITS | Patient Health Record ---
Author Organization Crescencio Jones MD Address [address] [place], [place] [phone] Care Team Providers Care Channel Development Director Name Role Phone Crescencio Jones Primary Care Provider [phone] ALLERGIES Allergen (clinical drug ingredient) Drug/Non Drug Allergy documented on EMR Reaction Allergy Type Onset Date Status codeine Codeine Sulfate n/v Drug Allergy A ctive RESULTS Component Value Reference Range Notes Leslie Colin Reviewed date:01/01/2024 11:47:33 AM Interpretation: Performing Lab:[facility], [address] [place] [phone] Notes/Report: Leslie Colin See Note Specimen held untested for 24 hours; Call to request Chemistry testing. Urine Culture Reviewed date:01/02/2024 04:49:00 PM Interpretation: Performing Lab:[facility], [address] [place] [phone] Notes/Report: Urine Culture No growth. Complete Blood Count Auto Di ff Reviewed date:01/01/2024 12:44:50 PM Interpretation: Performing Lab:[facility], [address] [place] [phone] Notes/Report: White Blood Count 6.6 4.8-10.8 X10*3/uL Red Blood Count 4.65 4.20-5.50 X10*6/uL Hemoglobin 12.9 12.0-16.0 g/dl Hematocrit 41.1 37.0-47.0 % Mean Corpuscular Volume 88.4 80.0-98.0 fL Mean Corpuscular Hemoglobin 27.7 27.0-33.0 pg Mean Corpuscular HGB Conc 31.4 31.0-35.0 g/dl Red Cell Distribution Width 14.2 11.0-16.0 % Platelet Count 332 160-400 X10*3/uL Mean Platelet Volume 11.3 9.4-12.3 fL Neutrophils Percent Auto 48.6 45-73 % Imm Gran Pct Auto 0.2 0.0-0.4 % Lymphocytes Percent Auto 35.9 20-40 % Monocytes Percent Auto 11.7 2-11 % Eosinophils Percent Auto 2.1 0-4 % Basophils Percent Auto 1.5 0-2 % NRBC Pct Auto 0.0 0.0-0.2 /100WBC Neutrophils Absolute Auto 3.2 2.0-8.3 x10*3/u L Imm Gran Abs Auto 0.01 0.00-0.03 X10*3/uL Lymphocytes Absolute Auto 2.4 1.2-4.9 X10*3/u L Monocytes Absolute Auto 0.8 0.1-1.2 X10*3/uL Eosinophils Absolute Auto 0.1 0.0-0.4 X10*3/u L Basophils Absolute Auto 0.1 0.0-0.2 X10*3/uL NRBC Abs Auto 0.000 0.0-0.012 X10*3/uL Comprehensive Big Arm. Panel Fa st Reviewed date:01/01/2024 12:44:31 PM Interpretation: Performing Lab:[facility], [address] [place] [phone] Notes/Report: Sodium 142 135-145 mmol/L Potassium 3.6 3.3-5.1 mmol/L Chloride 104 96-108 mmol/L Carbon Dioxide 29 22-29 mmol/L Anion Gap 13 12-20 Blood Urea Nitrogen 17 9-16 mg/dL Creatinine 0.91 0.5-1.4 mg/dL Estimated Glomerular Filt Rate 59 NOTE: For -[place]ib[place] individuals, multiply the result by 1.210. Chronic Kidney Disease: Estimated GFR < 60 mL/min/1.73m2 Severe Kidney Disease: Estimated GFR < 15 mL/min/1.73m2 Glucose Fasting 97 60-99 mg/dL Calcium 10.2 8.4-10.2 mg/dL Bilirubin Total 0.9 0.0-1.0 mg/dL Aspartate Amino Transferase 16 5-31 U/L Alanine Aminotransferase 9 0-31 U/L Total Protein 7.6 6.5-8.0 g/dL Albumin Level 4.4 3.5-5.0 g/dL Alkaline Phosphatase 107 39-117 U/L Lipid Panel Reviewed date:01/01/2024 11:47:02 AM Interpretation: Performing Lab:[facility], [address] [place] [phone] Notes/Report: Triglycerides 98 <150 mg/dL Desirable Triglyceride: less than 150 mg/dL Borderline High Triglyceride 150-199 mg/dL High Triglyceride: 200-499 mg/dL Very High Triglyceride: greater than or equal to 5OO mg/dL Cholesterol 182 <200 mg/dL Desirable Cholesterol: less than 200 mg/dL Borderline High Cholesterol: 200-239 mg/dL High Cholesterol: greater than 239 mg/dL LDL Cholesterol Calculated 92 <100 mg/dL Desirable LDL: less than 100 mg/dL Near Optimal/Above Optimal LDL: 110-129 mg/dL Borderline High LDL: 130-159 mg/dL High LDL: 160-189 mg/dL Very High LDL: greater than or equal to 190 mg/dL HDL Cholesterol 71 >40 mg/dL Desirable HDL: greater than 40 mg/dL Note: This HDL assay may give artificially low results in patients with liver disease. Microalbumin, Random Reviewed date:01/01/2024 12:47:30 PM Interpretation: Performing Lab:[facility], [address] [place] [phone] Notes/Report: Creatinine Urine 26.08 Microalbumin Urine < 5.0 Microalbum/Creatinine Ratio Ur TNP <30 ug/mg cr Unable to calculate albumin/creatinine ratio due to low microalbumin or creatinine result. Hemoglobin A1c Reviewed date:01/01/2024 11:45:05 AM Interpretation: Performing Lab:[facility], [address] [place] [phone] Notes/Report: Hemoglobin A1c % 5.1 <6.0 % Hemoglobin A1C Reference Range Adults: 4.8 - 6.0 % Non diabetic: < 6.0 % Goal: < 7.0 % Additional Action Suggested: > 8.0 % Note: Hemoglobin A1c results are invalid for patients with abnormal amounts of HbF. Blood transfusions may impact the HbA1c concentration in the patient sample. Estimated Average Glucose 100 eAG = Estimated average glucose which is %A1C expressed as average glucose, using the formula of the R3N-Wxxrajf Average Glucose study (ADAG), Diabetes Care, Vol.31,#8, 2007 UA ClnCatch+Micro w/rflx Cul t Reviewed date:01/02/2024 04:48:43 PM Interpretation: Performing Lab:[facility], [address] [place] [phone] Notes/Report: Urine, Clean Catch Color Urine Yellow Appearance Urine Clear PH 7.0 5.0-9.0 Glucose Urine UA Negative Negative mg/dL Urine Blood Negative Negative Specific Stacy - Urine <= 1.005 1.005-1.025 Urine Protein Negative Neg-Trace mg/dL Urine Ketones Negative Negative mg/dL Nitrite Urine Negative Negative Leukocyte Esterase Urine Small (1+) Negative RBC Urine 0-2 0-2 /HPF WBC Urine 0-5 0-5 /HPF Squamous Epithelial Cell Urine 0-2 0-2 /HPF Bacteria Urine None Seen None Seen Hyaline Casts Urine 0-2 0-2 /LPF Hold Gold Reviewed date:07/10/2024 12:21:45 PM Interpretation: Performing Lab:[address] [phone] Notes/Report: Leslie Colin See Note Specimen held untested for 24 hours; Call to request Chemistry testing. Liver Panel Reviewed date:07/10/2024 04:17:04 PM Interpretation: Performing Lab:[facility], [address] [place] [phone] Notes/Report: Bilirubin Total 0.7 0.0-1.0 mg/dL Bilirubin Direct 0.3 0.0-0.5 mg/dL Aspartate Amino Transferase 15 5-31 U/L Alanine Aminotransferase 9 0-31 U/L Total Protein 7.3 6.5-8.0 g/dL Albumin Level 4.2 3.5-5.0 g/dL Alkaline Phosphatase 92 39-117 U/L Glucose Fasting Reviewed date:07/10/2024 01:04:19 PM Interpretation: Performing Lab:[facility], [address] [place] [phone] Notes/Report: Glucose Fasting 100 60-99 mg/dL A fasting glucose from 100-125 mg/dl is considered impaired (pre-diabetes). Lipid Panel with Reflex Reviewed date:07/10/2024 04:20:47 PM Interpretation: Performing Lab:[facility], [address] [place] [phone] Notes/Report: Triglycerides 66 <150 mg/dL Desirable Triglyceride: [...] A1c Reviewed date:07/10/2024 12:32:52 PM Interpretation: Performing Lab:[facility], [address] [place] [phone] Notes/Report: Hemoglobin A1c % 5.2 <6.0 % [...] average glucose, using the formula of the X9V-Czzrjsv Average Glucose study (ADAG), Diabetes Care, Vol.31,#8, 2007 REASON FOR REFERRAL No Information MEDICATIONS Medication SIG (Take, Route, Frequency, Duration) Notes Start Date End Date Status Cholecalciferol 25 MCG (1000 UT) 1 capsule Orally Once a day for 30 day(s) Active Ursodiol 250 MG 1 tab QID Acti ve amLODIPine Besylate 10 MG TAKE 1 TABLET BY MOUTH ONCE DAILY for 100 Active Aspir-Low 81 MG 1 tablet Orally Once a day for 30 day(s) Not-Taking Atorvastatin Calcium 10 MG TAKE 1 TABLET BY MOUTH ONCE DAILY Active IMMUNIZATIONS Vaccine Route Administration Date Status Commadele nts Shingles Unknown 02/22/2012 Administered Flu Vaccine Unknown 08/22/2012 Administered PPSV23 (Pnemovax) Unknown 08/22/2012 Administered Flu Vaccine IM Intramuscular 08/28/2013 Administered TDaP IM Intramuscular 08/28/2013 Administered [id number] A - Lot # Flu Vaccine IM Intramuscular 09/17/2014 Administered zFluzone Quadrivalent IM Intramuscular 08/09/2015 Administered Fluarix Quadrivalent IM Intramuscular 09/25/2016 Administe red Fluarix Quadrivalent IM Intramuscular 09/24/2017 Administe red Prevnar 13 IM Intramuscular 10/04/2017 Administered Fluarix Quadrivalent IM Intramuscular 09/03/2018 Administadele red PPSV23 (Pnemovax) IM Intramuscular 10/17/2018 Administered Fluarix Quadrivalent Unknown 09/15/2019 Administered Fluarix Quadrivalent IM Intramuscular 08/13/2020 Administe red SARS-COV-2 Pfizer Unknown 11/18/2020 Administered SARS-COV-2 Pfizer Unknown 12/09/2020 Administered SARS-COV-2 Pfizer Unknown 08/31/2021 Administered Influenza High Dose Unknown 10/11/2021 Administered Influenza High Dose Unknown 08/28/[address] [facility] Influenza High Dose IM Intramuscular 06/29/2023 Administer ed Influenza High Dose IM Intramuscular 07/10/2024 Administer ed SOCIAL HISTORY Tobacco Use: Social History Observation Description Date Details (start date - stop date) Former Smoker NA - NA Sex Assigned At : Social History Observation Description Sex Assigned At Unknown Tobacco Use/Smoking Question Answer Notes Patient is a former smoker How long has it been since y ou last smoked? > 10 years Additional Findings: Tobacco Non-User Fo rmer smoker, currently using no form of tobacco Alcohol Screen Question Answer Notes Did you have a drink contain ing alcohol in the past year? Yes How often did you have a dri nk containing alcohol in the past year? Monthly or less (1 point) How many drinks did you have on a typical day when you were drinking in the past year? 1 or 2 drinks (0 point) How often did you have 6 or more drinks on one occasion in the past year? Never (0 point) Points 1 Interpretation Negative PROBLEMS Problem Type ICD Code Onset Dates Problem Status W/U Status Risk SNOMED Code Notes Problem Age-related osteoporosis without current pathological fracture (M81.0) Active confirmed 96676771 Problem Lymphocytosis (D72.820) Active confirmed 26255977 Problem Essential (primary) hypertension (I10) Active confirmed Essential hypertension (39690205) Problem Other specified menopausal and perimenopausal disorders (N95.8) Active confirmed 349192913 Problem Abnormal results of liver function studies (R94.5) Active confirmed 588920988 Problem Prediabetes (R73.09) Active confirmed 9 014673 Problem History of hematuria (Z87.448) Active confirmed 223009316 Problem Pure hypercholesterolemia (E78.00) Active confirmed 256292436 Problem Osteopenia determine d by x-ray (M85.80) Active confirmed 897129244 Problem Biliary cirrhosis (K74.5) Active confirmed 2813251 VITAL SIGNS Blood pressure diastolic 64 mm Hg 07/17/2024 carine ght is down 4 pounds since 01-08-24 Height 60 in 07/17/2024 weight is down 4 pounds since 01-08-24 Blood pressure systolic 112 mm Hg 07/17/2024 weig ht is down 4 pounds since 01-08-24 Weight 123 lbs 07/17/2024 weight is down 4 pounds since 01-08-24 BMI 24.02 kg/m2 07/17/2024 weight is down 4 pounds since 01-08-24 Encounters Encounter Location Date Provider Diagnosis Crescencio Jones MD [address] [place] [address] [address] [place] [id number] 01/08/2024 Crescencio Jones Prediabetes R73.09 ; Annual physical exam Z00.00 ; Pure hypercholesterolemia E78.00 ; Abnormal results of liver function studies R94.5 ; Biliary cirrhosis K74.5 ; Essential (primary) hypertension I10 ; Colon cancer screening Z12.11 and Depression screening Z13.31 Crescencio Jones MD [address] [place] [address] [address] [place] [id number] 01/01/2024 Crescencio Jones Blood tests for rout ine general physical examination Z00.00 ; Prediabetes R73.09 ; Pure hypercholesterolemia E78.00 and Essential (primary) hypertension I10 Crescencio Jones MD [address] [place] [address] Drive [address] [place] [id number] 07/10/2024 Crescencio Jones Pure hypercholestero lemia E78.00 ; Prediabetes R73.09 and Encounter for immunization Z23 Crescencio Jones MD [address] [place] [id number] 07/17/2024 Crescencio Jones Shortness of breath on exertion R06.02 ; Prediabetes R73.09 ; Pure hypercholesterolemia E78.00 and Essential (primary) hypertension I10 Crescencio Jones MD [address] [place] [id number] 10/11/2023 Crescencio Jones MD [address] [place] [id number] 02/07/2024 Crescencio Jones MD [address] [id number] 07/03/2024 Crescencio Jones MD [address] [place] [id number] 07/15/2024 Crescencio Jones ASSESSMENTS Encounter Date Diagnosis Assessment Notes Treatment Notes Treatment Clinical Notes 01/08/2024 Annual physical exam (ICD-10 - Z00.00) labs reviewed and discussed with patient 01/08/2024 Prediabetes (ICD-10 - R73.09) excellent a1c, no need for medication 01/01/2024 Prediabetes (ICD-10 - R73.09) 01/01/[address] ine general physical examination (ICD-10 - Z00.00) 07/10/2024 Prediabetes (ICD-10 - R73.09) 07/10/2024 Pure hypercholestero lemia (ICD-10 - E78.00) 07/17/2024 Shortness of breath on exertion (ICD-10 - R06.02) has not been active. sounds as though she has just lost her conditioning. advised her to get active. does not sound cardiac at all. 01/08/2024 Pure hypercholestero lemia (ICD-10 - E78.00) at goal, will continue current regiment 01/01/2024 Pure hypercholestero lemia (ICD-10 - E78.00) 07/10/2024 Encounter for immuni zation (ICD-10 - Z23) 07/17/2024 Prediabetes (ICD-10 - R73.09) stable, will cntinue to monitor, no need for medication at this time 01/08/2024 Abnormal results of liver function studies (ICD-10 - R94.5) are normal at present, will contiue to monitor 01/01/2024 Essential (primary) hypertension (ICD-10 - I10) 07/17/2024 Pure hypercholestero lemia (ICD-10 - E78.00) stable, will cntinue current regiment 01/08/2024 Biliary cirrhosis (I CD-10 - K74.5) on ursadiol, stable, will contiue current regiment 07/17/2024 Essential (primary) hypertension (ICD-10 - I10) stable, will continue current regiment 01/08/2024 Essential (primary) hypertension (ICD-10 - I10) stable, will contiue current regiment 01/08/2024 Colon cancer screeni ng (ICD-10 - Z12.11) guaiac negative 01/08/2024 Depression screening (ICD-10 - Z13.31) negative screen PLAN OF TREATMENT Pending Test Test Name Order Date Electrocardiogram (EKG) 10/24/2019 Electrocardiogram (EKG) 08/28/2013 Electrocardiogram (EKG) 10/04/2017 Electrocardiogram (EKG) 10/17/2018 BONE DENSITY DEXA 10/24/2019 Future Test Test Name Order Date BONE DENSITY DEXA 12/01/2020 Next Appt Details Provider Name:Crescencio hernandez, 01/06/2025 07:00:00 AM, [address] [place] [address], [address], [phone], Provider Name:Crescencio Banerjee ier, 01/13/2025 09:30:00 AM, [address] [place] [address], [place] [address], [place], [place], [phone], Insurance Providers Payer Name Payer Address Payer Phone Subscriber Number Group Number Insured Name Patient Relationship to Insured Coverage Start Date Coverage End Date [facility] [address] [place] [phone] [id number] Cynthia Michele Self - patient is the insured MEDICAL (GENERAL) HISTORY Medical History History ICD Code hematuria worked up 2008 colonoscopy 2003; colon[facility] Dr[facility] Munroe osteoporosis doesn't want meds 2020
--- OUTSIDE RECORDS SUMMARY | 2024-10-06 13:33 | XMS_ITS ---
Author Organization Crescencio Jones MD Address [address] [place], [place] [phone] Care Team Providers Care Product Manager Name Role Phone Crescencio Jones Primary Care Provider [phone] RESULTS Component Value Reference Range Notes Liver Panel Reviewed date:07/10/2024 04:17:04 PM Interpretation: Performing Lab:[facility], [address] [place] [place] [phone] Notes/Report: Bilirubin Total 0.7 0.0-1.0 mg/dL Bilirubin Direct 0.3 0.0-0.5 mg/dL Aspartate Amino Transferase 15 5-31 U/L Alanine Aminotransferase 9 0-31 U/L Total Protein 7.3 6.5-8.0 g/dL Albumin Level 4.2 3.5-5.0 g/dL Alkaline Phosphatase 92 39-117 U/L Glucose Fasting Reviewed date:07/10/2024 01:04:19 PM Interpretation: Performing Lab:[facility], [address] [place] [phone] Notes/Report: Glucose Fasting 100 60-99 mg/dL A fasting glucose from 100-125 mg/dl is considered impaired (pre-diabetes). Lipid Panel with Reflex Reviewed date:07/10/2024 04:20:47 PM Interpretation: Performing Lab:[facility], [address] [place] [place] [phone] Notes/Report: Triglycerides 66 <150 mg/dL Desirable Triglyceride: [...] A1c Reviewed date:07/10/2024 12:32:52 PM Interpretation: Performing Lab:[facility], [address] [place] [place] [phone] Notes/Report: Hemoglobin A1c % 5.2 <6.0 % [...] average glucose, using the formula of the Z4C-Doubgxx Average Glucose study (ADAG), Diabetes Care, Vol.31,#8, May. 2007 REASON FOR VISIT fasting lipids IMMUNIZATIONS Vaccine Route Administration Date Status Comme nts Influenza High Dose IM Intramuscular 07/10/2024 Administer ed Encounters Encounter Location Date Provider Diagnosis Crescencio Jones MD [address] [place] [address] [place] [id number] 07/10/2024 Crescencio Jones Pure hypercholestero lemia E78.00 ; Prediabetes R73.09 and Encounter for immunization Z23 ASSESSMENTS Encounter Date Diagnosis Assessment Notes Treatment Notes Treatment Clinical Notes 07/10/2024 Pure hypercholestero lemia (ICD-10 - E78.00) 07/10/2024 Prediabetes (ICD-10 - R73.09) 07/10/2024 Encounter for immuni zation (ICD-10 - Z23) PLAN OF TREATMENT Next Appt Details Provider Name:Crescencio hernandez, 01/06/2025 07:00:00 AM, [address], [address], [place], [phone], Provider Name:Crescencio hernandez, 01/13/2025 09:30:00 AM, [address], [address], [place], [phone],
--- NOTE | 2024-10-06 13:46 | MHC.OFFWIV ---
Intake Vital Signs 10/06/24 13:59 BP 130/78 Blood Pressure Location Rt brachial Position Sitting Pulse 80 Pulse Source Pulse Oximeter Temp 97.8 F Temp Source Oral Pulse Oximetry (%) 98 Oxygen Delivery Method Room Air Intake Visit Reasons: EP UTI? Intake Note: Patient here for burning when urinating, feels off which has been going on for about 1 month. Patient Tobacco Use Status: Former Tobacco user Allergies No Known Allergies Allergy (Verified 10/06/24 13:58) HPI EP UTI? HPI Details This note is constructed using voice recognition software. While every effort has been made to ensure accuracy, dental chair assembler errors may have been included. The patient is a 84 year old female who presents to the clinic today with burning with urination intermittently for the past month. She denies urinary frequency, urgency, change in color or volume of urine. She notes she was treated for a UTI 2 months ago, and the symptoms got better, but she got worried due to the burning in the urination. She denies fever, chills, back pain, suprapubic pain. [facility] Social History Patient Tobacco Use Status: Former Tobacco user Review of Systems Const All systems reviewed & are unremarkable except as noted in HPI and below Physical Exam Vital Signs: Last Vital Signs Temp 97.8 F 10/06/24 13:59 Pulse 80 10/06/24 13:59 BP 130/78 10/06/24 13:59 Pulse Ox 98 10/06/24 13:59 Oxygen Delivery Method Room Air 10/06/24 13:59 Const General: cooperative, healthy appearing, comfortable, no acute distress and alert Orientation/consciousness: patient oriented x3 Limitations: no limitations Resp Effort & Inspection: normal respiratory effort and able to speak in complete sentences Other: Deferred General: Yes no CVA tenderness Back/Spine/Pelvis Back: no CVA tenderness Skin General skin exam: no rashes or lesions noted, elasticity normal and turgor normal Neuro General: patient oriented x3 Psych Appearance: grossly normal Mental Status: mental status grossly normal Speech and movement: Normal speech and movement present Affect: normal affect Assessment & Plan Assessment & Plan (1) Dysuria: Code(s): R30.0 - Dysuria Plan: In office urine not consistent with UTI. Urine sent for urinalysis, micro and culture appropriate to verify. Advised to increase hydration. Advised follow up as needed with worsening or failure to resolve. Plan See above for full details and plan. Orders: Orders UA CC w/rflx Micro + Cult Today R30.0 - Dysuria Coding Level of Care Code Est Pt Level 3 (99705) Diagnoses Dysuria R30.0
[2024-10-06 13:59] VITALS: BP 130/78; PULSE 80; TEMP 36.6; O2SAT 98
== END 2024-10-06 14:17 | disposition home or self-care (01) ==
PROVIDERS: PCP Internal Medicine; Visit Provider Registered Nurse
DX: R30.0 Dysuria (principal)

== ENCOUNTER 2024-10-06 13:29 | Outpatient (REF) | payer MEDICARE, SELFPAY ==
[2024-10-06 16:22] LABS: Appearance Urine Clear; Color Urine Yellow; Glucose Urine UA Negative (Negative); Leukocyte Esterase Urine Negative (Negative); Nitrite Urine Negative (Negative); PH 6.5 (5.0-9.0); Specific Gravity - Urine <= 1.005 (1.005-1.025); Urine Blood Negative (Negative); Urine Ketones Negative (Negative); Urine Protein Negative (Neg-Trace)
== END 2024-10-06 13:30 | disposition home or self-care (01) ==
LOC: HO.LNP 13:29
PROVIDERS: PCP Internal Medicine; Visit Provider Registered Nurse
DX: R30.0 Dysuria (principal)
CPT/HCPCS: 81003; 99212

== ENCOUNTER 2025-01-06 09:50 | Outpatient (REF) | payer MEDICARE, SELFPAY ==
[2025-01-06 09:53] LABS: MANUAL DIFF FLAG NO
[2025-01-06 10:05] LABS: Basophils Absolute Auto 0.1 X10*3/uL (0.0-0.2); Eosinophils Absolute Auto 0.1 X10*3/uL (0.0-0.4); Eosinophils Percent Auto 1.3 % (0-4); Hematocrit 32.2 % (37.0-47.0); Hemoglobin 10.1 g/dl (12.0-16.0); Imm Gran Abs Auto 0.03 X10*3/uL (0.00-0.03); Imm Gran Pct Auto 0.4 % (0.0-0.4); Lymphocytes Percent Auto 29.7 % (20-40); Mean Corpuscular HGB Conc 31.4 g/dl (31.0-35.0); Mean Corpuscular Volume 76.7 fL (80.0-98.0); Mean Platelet Volume 10.9 fL (9.4-12.3); Monocytes Absolute Auto 0.7 X10*3/uL (0.1-1.2); Monocytes Percent Auto 10.6 % (2-11); Neutrophils Absolute Auto 3.9 x10*3/uL (2.0-8.3); Platelet Count 360 X10*3/uL (160-400); Red Cell Distribution Width 15.2 % (11.0-16.0); White Blood Count 6.8 X10*3/uL (4.8-10.8)
[2025-01-06 10:18] LABS: Estimated Average Glucose 111 mg/dL; Hemoglobin A1c % 5.5 % (<6.0)
[2025-01-06 10:21] LABS: Alanine Aminotransferase 10 U/L (0-31); Albumin Level 4.3 g/dL (3.5-5.0); Alkaline Phosphatase 113 U/L (39-117); Anion Gap 10 (12-20); Aspartate Amino Transferase 19 U/L (5-31); Bilirubin Total 0.7 mg/dL (0.0-1.0); Blood Urea Nitrogen 14 mg/dL (9-16); Calcium 9.8 mg/dL (8.4-10.2); Carbon Dioxide 26 mmol/L (22-29); Chloride 108 mmol/L (96-108); Cholesterol 166 mg/dL (<200); Estimated Glomerular Filt Rate 57; Glucose Fasting 107 mg/dL (60-99); HDL Cholesterol 67 mg/dL (>40); LDL Cholesterol Calculated 87 mg/dL (<100); Potassium 3.7 mmol/L (3.3-5.1); Sodium 140 mmol/L (135-145); Total Protein 7.2 g/dL (6.5-8.0); Triglycerides 64 mg/dL (<150)
--- OUTSIDE RECORDS SUMMARY | 2025-01-06 11:31 | XMS_ITS ---
Author Organization [facility] Address [address] [place] [phone] Care Team Providers Care Pump House Operator Name Role Phone Crescencio Jones MD Primary Care Provider Enzo Donaldson Jr Allergies Allergen (clinical drug ingredient) Drug/Non Drug Allergy documented on EMR Reaction Allergy Type Onset Date Status Codeine Phosphate Unknown Drug Allergy Active REASON FOR VISIT Patient presents today for biliary cirrhosis Medications Medication SIG (Take, Route, Frequency, Duration) Notes Start Date End Date Status Ursodiol 250 MG take 1 tablet by jessika 4 times a day for 30 days Active Ursodiol 300 MG TAKE 1 CAPSULE BY [facility] THREE TIMES DAILY *APPOINTMENT NEEDED FOR FURTHER REFILLS* for 30 Active Atorvastatin Calcium 20mg Active Latanoprost 0.005 % INSTILL 1 DROP INTO EACH EYE AT BEDTIME Ophthalmic for 18 Active Vitamin D 1000 UNIT 1 tablet Orally Once a day Active amLODIPine Besylate 10 MG TAKE 1 TABLET BY MOUTH ONCE DAILY Oral for 90 Active Social History Tobacco Use: Social History Observation Description Date Details (start date - stop date) Former Smoker NA - NA Tobacco Use/Smoking Question Answer Notes Patient is a former smoker How long has it been since you last smoked? > 10 years Vital Signs Blood pressure systolic 00 mm Hg 11/20/19 25 Blood pressure diastolic 00 mm Hg 025 Height 60 in 11/20/2024 Weight 120 lbs 11/20/2024 BMI 23.43 kg/m2 11/20/2024 Encounters Encounter Location Date Provider Diagnosis [facility] [address] [place] [phone] 11/20/2024 Enzo Munroe Jr Biliary cirrhosis K74.5 Assessments Encounter Date Diagnosis (ICD Code) Assessment Notes Treatment Notes Treatment Clinical Notes Section Notes 11/20/2024 Biliary cirrhosis (ICD-10 - K74.5) Liver disease - resources material was printed She is doing very well at this time. She'll continue ursodiol. Liver function tests will be rechecked at her followup office visit with her PCP. Followup with us will be in one year. Plan Of Treatment Treatment Notes Assessment Notes Biliary cirrhosis Liver disease - reso urces material was printed Next Appt Details Follow Up: 1 Year, Reason: Provider Name:Enzo laboy Jr, 02/04/2026 01:15:00 PM, [address] [place] [address], [address], [place], [phone], Progress Notes * GILBERTRONALD PAIGESOPHIEOB:1940 (84 yo F)Acc No.[id number]:11/20/2024 Progress Notes Patient:?RENÉ HUNT Provider:?Enzo Munroe MD :1940???Age:84 Y???Sex:Female D ate:11/20/2024 Address:[address] [place] [address] Pcp:Crescencio Jones MD Subjective: * Chief Complaints: * ???1. Patient presents today for biliary cirrhosis. * HPI: ???New symptom(s):? Nayana is a pleasant 84-year-old woman seen today in followup of primary biliary cirrhosis. Since we saw her last, she's been doing well. She has no complaints of jaundice, pruritus, or fatigue. She continues on ursodiol tablets, 250 mg 2-4 tablets daily. Liver function tests were last checked in July and were normal. We reviewed this today. 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 On ursodiol., Hx of chronic uti's. * Surgical History:?lasik bila teral eyes . * Family History:?Father: dece ased 77 yrs, diagnosed with HTN (hypertension).?Mother: .?Siblings: has a sister with thyroid cancer. One sister from obesity Has a brother with coronary No other family history of colon cancer or polyps.? no known hx of colon ca polyps or liver ds. * Social History:?Tobacco Use:?Tobacco Use/Smoking?Patient is a?former smoker,?How long has it been since you last smoked??> 10 years.?Drugs/Alcohol:?Alcohol Screen?Points: 2, Interpretation: Negative.?Miscellaneous:?Marital status: Single. Occupation: Works at [employer] nov 2023. * Medications:?Taking Atorvast atin Calcium 20mg , Taking Vitamin D 1000 UNIT Tablet 1 tablet Orally Once a day, Taking Latanoprost 0.005 % Solution INSTILL 1 DROP INTO EACH EYE AT BEDTIME Ophthalmic , Taking amLODIPine Besylate 10 MG Tablet TAKE 1 TABLET BY MOUTH ONCE DAILY Oral , Taking Ursodiol 250 MG Tablet take 1 tablet by mouth 4 times a day , Taking Ursodiol 300 MG Capsule TAKE 1 CAPSULE BY MOUTH THREE TIMES DAILY *APPOINTMENT NEEDED FOR FURTHER REFILLS* , Medication List reviewed and reconciled with the patient * Allergies:?Codeine Phosphate . Objective: * Vitals:?Wt: 120 lbs, Ht: 60 in, BMI:23.43 Index, BP: 00/00 mm Hg. * Examination: ???General Examination: ???On examination today, she appears well. Skin is anicteric. Lungs are clear. Heart shows a regular rate and rhythm. Abdomen is soft without focal mass or tenderness. Extremities are without edema. Assessment: * Assessment: 1.?Biliary cirrhosis - K74.5 (Primary)? She is doing very well at th is time. She'll continue ursodiol. Liver function tests will be rechecked at her followup office visit with her PCP. Followup with us will be in one year. Plan: * Treatment: * Preventive Medicine:? ??Urinary Incontinence:?Urinary Incontinence?Assessment:?Absent,?Plan of care documented:?No, reason not specified.? ??Screenings:?Fall Risk Screening?Fall Risk Assessment:?No falls in the past year,?Screening:?No falls in the past year,?Assessment:?Not performed, no reason specified,?Plan of Care:?Not documented, no reason specified.? * Follow Up:?1 Year * * Sign off status: Completed true * Provider:?Enzo Munroe MD Date:?0 11/20/2024 Generated for Printi karlo/Jacquelin/eTransmitting on:?01/06/2025 11:31 AM EDT History and Physical Notes * HPI (History of Present Illness) Category Sub-Category Detail Notes Category Not es New symptom(s) Nayana is a ple asant 84-year-old woman seen today in followup of primary biliary cirrhosis. Since we saw her last, she's been doing well. She has no complaints of jaundice, pruritus, or fatigue. She continues on ursodiol tablets, 250 mg 2-4 tablets daily. Liver function tests were last checked in July and were normal. We reviewed this today. Examination Category Sub-Category Detail Notes Category Not es General Examination On exami nation today, she appears well. Skin is anicteric. Lungs are clear. Heart shows a regular rate and rhythm. Abdomen is soft without focal mass or tenderness. Extremities are without edema.
--- OUTSIDE RECORDS SUMMARY | 2025-01-06 11:31 | XMS_ITS ---
Author Organization Crescencio Jones MD Address [address] [place] [phone] Care Team Providers Care Manager Strategic Sourcing Name Role Phone Crescencio Jones Primary Care [...] kg/m2 07/17/2024 weight is down 4 pounds [facility] e 4-2-24 Encounters Encounter Location Date Provider Diagnosis Crescencio Jones MD [address] [place] [phone] 07/17/2024 Crescencio Jones Shortness of breath on [...] current regiment Next Appt Details Provider Name:Crescencio Banerjee ier, 01/13/2025 09:30:00 AM, [address] [place] [address], [facility], [place], [place], [phone], Progress Notes * Cynthia MICHELE MDOB:[birth year] (84 yo F)Acc No.[id number]:07/17/2024 Progress Notes Patient:?Cynthia Michele Provider:?Crescencio Jones MD :1940???Age:84 Y???Sex:Female D ate:07/17/2024 Address:[address] [place], [place] [phone] Subjective: * Chief Complaints: * ???6 month * HPI: ???Symptom(s):? patient is s 84 yo female here for 6 month follow up. gets winded if she does too much. climbing stairs. [facility] and not short of breath. no chest pain. * ROS:?General/Constitutional:?Denies?Chills.?Denies?Fatigue.?Denies?Fever.?Denies?Headache.?ENT:?Patient denies?decreased sense of smell , any loss of taste , sore throat.?Denies?Sore throat.?Respiratory:?Denies?Cough.?Denies?Shortness of breath at rest.?Denies?Shortness of breath with exertion.?Cardiovascular:?Denies?Chest pain at rest.?Denies?Chest pain with exertion.?Denies?Dizziness.?Admits?Shortness of breath,?SOB? with exertion.?Gastrointestinal:?Denies?Diarrhea.?Denies?Nausea.?Musculoskeletal:?Patient denies?muscle aches.?Peripheral Vascular:?Patient denies?red and blue toes.? * Medical History:? * Surgical History:? * Hospitalization/Major Diagno stic Procedure:? * Medications:?TakingCholecalc iferol 25 MCG (1000 UT) Capsule 1 capsule [...] List reviewed and reconciled with the patientNot-Taking/PRN Aspir-Low 81 MG Tablet Delayed Release 1 tablet Orally Once a dayMedication List reviewed and reconciled with the patient * Allergies:?Codeine Sulfate: n/vyes[Allergies Verified] Objective: * Vitals:?Ht: 60, Wt:123, BMI: 24.02, BP:112/64 weight is down 4 pounds since 01-08-24. * ???Past Orders: ???Lab:Liver Panel (Order Da te 07/10/2024) (Collection Date - 07/10/2024) ? Value Reference Range ?Bilirubin Total 0.7 0.0- 1.0 - mg/dL ?Bilirubin Direct 0.3 0.0 -0.5 - mg/dL ?Aspartate Amino Transferase 15 5-31 - U/L ?Alanine Aminotransferase 9 0-31 - U/L ?Total Protein 7.3 6.5-8. 0 - g/dL ?Albumin Level 4.2 3.5-5. 0 - g/dL ?Alkaline Phosphatase 92 39-117 - U/L ???Lab:Glucose Fasting (Orde r - 07/10/2024) (Collection Date - 07/10/2024) ? Value Reference Range ?Glucose Fasting 100 H 60-9 9 - mg/dL ???Lab:Lipid Panel with Refl ex (Order Date - 07/10/2024) (Collection Date - 07/10/2024) ? Value Reference Range ?Triglycerides 66 <150 - mg/dL ?Cholesterol 163 <200 - m g/dL ?LDL Cholesterol Calculated 89 <100 - mg/dL ?HDL Cholesterol 61 >40 - mg/dL ???Lab:Hemoglobin A1c (Order Date - 07/10/2024) (Collection Date - 07/10/2024) ? Value Reference Range ?Hemoglobin A1c % 5.2 <6. 0 - % ?Estimated Average Glucose 103 - mg/dL * Examination: ???General Examination: ?GENERAL APPEARANCE:? alert, well hydrated, in no distress .?SKIN:? good turgor.?HEART:? regular rate and rhythm, no murmurs, rubs, gallops.?LUNGS:? no wheezes, rales, rhonchi, good air movement, clear to auscultation bilaterally.? Assessment: * Assessment: 1.?Shortness of breath on ex ertion - R06.02 (Primary)?2.?Prediabetes - R73.09?3.?Pure hypercholesterolemia - E78.00?4.?Essential (primary) hypertension - I10? Plan: * Treatment: 2.?Prediabetes? Notes: stable, will cntinue to monitor, no need for medication at this time?? 3.?Pure hypercholesterolemia ? Continue Atorvastatin Calcium Tablet, 10 MG, TAKE 1 TABLET BY MOUTH ONCE DAILY.?? Notes: stable, will cntinue current regiment?? 4.?Essential (primary) hyper tension? Continue amLODIPine Besylate Tablet, 10 MG, Take 1 tablet by mouth once daily.?? Notes: stable, will continue current regiment?? * Procedure Codes:? * * Sign off status: Completed true * Provider:?Crescencio Jones MD Date:?1 Generated for Justin dietrich/Jacquelin/eTransmitting on:?01/06/2025 11:31 AM EDT History and Physical [...]
--- OUTSIDE RECORDS SUMMARY | 2025-01-06 11:31 | XMS_ITS ---
Author Organization Crescencio Jones MD Address [address] [facility] [address] [place] [phone] Care Team Providers Care Director Of Nursing Name Role Phone Crescencio Jones Primary Care Provider [phone] REASON FOR VISIT [place] Referral Encounters Encounter Location Date Provider Diagnosis Crescencio Jones MD [address] [facility] [address] [place] [phone] 07/15/2024 Crescencio Jones Plan Of Treatment Next Appt Details Provider Name:Crescencio Banerjee ier, 01/13/2025 09:30:00 AM, [address] [place] [address], Suite [facility], [place], [place], [phone], Progress Notes * Cynthia MICHELE MDOB:[birth year] (84 yo F)Acc No.[id number]:07/15/2024 Patient:?Cynthia Michele :1940???Age:84 Y???Sex:Female Address:[address] [place] [phone] * true * Date:? Generated for Printi karlo/Jacquelin/eTransmitting on:?01/06/2025 11:30 AM EDT
--- OUTSIDE RECORDS SUMMARY | 2025-01-06 11:31 | XMS_ITS | Patient Health Record ---
Author Organization [facility] Address [address] [place] [address] Care Team Providers Care Bioprocess Development Engineer Name Role Phone Robert RICHMOND, Crescencio Primary Care Provider Enzo Donaldson Jr Unavailable Allergies Allergen (clinical drug ingredient) Drug/Non Drug Allergy documented on EMR Reaction Allergy Type Onset Date Status Codeine Phosphate Unknown Drug Allergy Active Reason For Referral Referring Provider First Name Crescencio Referring Provider Last Name Robert Referring Provider Speciality Internal M edicine Referred Organization [facility] Referred Provider Enzo Munroe Jr Referred Address [address], [address] [facility],[place], [place],[address],[place] Referred Provider Specialty Gastroentero logy General Notes Carmencita Quick 2023 11:27:23 AM EDT > call dr forbes's office [phone] to request a new [place] referral for visit with Dr. Munroe on 08-14-2024, Carmencita Quick 07/03/2024 09:07:10 AM EDT > REQUESTED REFERRAL FROM Abdelrahman SMITH Dawn 07/15/2024 02:02:15 PM EDT > spoke with Bryanna at Dr. Forbes's office and she was told by Ashutosh at [facility] that no referral is required since Dr. Forbes and Dr. Munroe are in the same [facility]. Conf _# [id number] Referral Priority Routine Referred Organization [facility] Referred Provider Enzo Munroe Jr Referred Address [address],[place], [place],[address],[place] Referred Provider Specialty Gastroentero logy General Notes Carmencita Quick 023 11:16:25 AM EDT > no referral required per Dr. Forbes's office since patient is in the same [facility]. Referral Priority Routine Medications Medication SIG (Take, Route, Frequency, Duration) Notes Start Date End Date Status amLODIPine Besylate 10 MG TAKE 1 TABLET BY MOUTH ONCE DAILY Oral for 90 Active Ursodiol 250 MG take 1 tablet by jessika 4 times a day for 90 days Active Ursodiol 300 MG TAKE 1 CAPSULE BY [facility] THREE TIMES DAILY *APPOINTMENT NEEDED FOR FURTHER REFILLS* for 30 Active Atorvastatin Calcium 20mg Active Latanoprost 0.005 % INSTILL 1 DROP INTO EACH EYE AT BEDTIME Ophthalmic for 18 Active Vitamin D 1000 UNIT 1 tablet Orally Once a day Active Immunizations Vaccine Route Administration Date Status Comme nts Influenza Unknown 10/08/2018 Administered Influenza Unknown 08/09/2019 Administered Influenza Unknown 08/08/2023 Administered Social History Tobacco Use: Social History Observation Description Date Details (start date - stop date) Former Smoker NA - NA Tobacco Use/Smoking Question Answer Notes Patient is a former smoker How long has it been since you last smoked? > 10 years Problems Problem Type SNOMED Code ICD Code Onset Dates Problem Status W/U Status Risk Notes Problem 0798569 Biliary cirrhosi s (K74.5) Active confirmed Problem 134797210 Gastroesophageal reflux disease, unspecified whether esophagitis present (K21.9) Active confirmed Vital Signs Blood pressure diastolic 00 mm Hg 11/20/2024 Height 60 in 11/20/2024 Blood pressure systolic 00 mm Hg 11/20/2024 Weight 120 lbs 11/20/2024 BMI 23.43 kg/m2 11/20/2024 Encounters Encounter Location Date Provider Diagnosis [facility] [address] [place] [phone] 11/20/2024 Enzo Munroe Jr Biliary cirrhosis K74.5 [facility] [address] [place] [phone] 08/11/2024 Enzo Munroe Jr [facility] [address] [place] [phone] 08/14/2024 Enzo Munroe Jr [facility] [address] [place] [phone] 12/17/2024 Enzo Munroe Jr Biliary cirrhosis K74.5 Assessments [...] with us will be in one year. 12/17/2024 Biliary cirrhosis (ICD-10 - K74.5) Plan Of Treatment Future Test Test Name Order Date COLONOSCOPY 07/16/2014 Next Appt Details Provider Name:Enzo Lernerif laboy , 02/04/2026 01:15:00 PM, [address], [place], [address], Insurance Providers Payer Name Payer Address Payer Phone Subscriber Number Group Number Insured Name Patient Relationship to Insured Coverage Start Date Coverage End Date [facility] [address] [place] [phone] [id number] RENÉ HUNT Self - patient is the insured Medical (General) History Medical History History ICD Code hyperlipidemia colonoscopy 09/23/14, hyperplastic polyp , followup p.r.n. 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 On ursodiol. hx of chronic uti's Surgical History Surgery Date(Month/Year) lasik bilateral eyes
--- OUTSIDE RECORDS SUMMARY | 2025-01-06 11:31 | XMS_ITS ---
Author Organization [facility] Address [address] [place] [address] [place] [phone] Care Team Providers Care Engine Buildup Mechanic Name Role Phone Crescencio Jones MD Primary Care Provider Petros Munroe Jr, Enzo Bolaños Medications Medication SIG (Take, Route, Fr equency, Duration) Notes Start Date End Date Status Ursodiol 250 MG take 1 tablet by jessika th 4 times a day for 90 days Active Encounters Encounter Location Date Provider Diagnosis [facility] [address] [place] [phone] 12/17/2024 Enzo Munroe Jr Biliary cirrhosis K74.5 Assessments Encounter Date Diagnosis (ICD Code) Assessment Notes Treatment Notes Treatment Clinical Notes Section Notes 12/17/2024 Biliary cirrhosis (ICD-10 - K74.5) Plan Of Treatment Medication Medication Name Sig Start Date Stop Date Notes Ursodiol 250 MG take 1 tablet by jessika th 4 times a day for 90 days Next Appt Details Provider Name:Enzo laboy Jr, 02/04/2026 01:15:00 PM, [address] [place] [address], Suite [facility], [place], [address], Progress Notes * RONALD HUNTSOPHIEOB:1940 (84 yo F)Acc No.[id number]:12/17/2024 Patient:?RENÉ HUNT :1940???Age:84 Y???Sex:Female Address:[address] [place] [address] * Refills? Refill Ursodiol Tablet, 250 MG, 360, take 1 tablet by mouth 4 times a day, 90 days, Refills=3 * true * Date:? Generated for Justin dietrich/Jacquelin/Shirlene on:?01/06/2025 11:30 AM EDT
--- OUTSIDE RECORDS SUMMARY | 2025-01-06 11:31 | XMS_ITS ---
Author Organization Crescencio Jones MD Address [address] [place], [place] [phone] Care Team Providers Care Packing House Laborer Name Role Phone Crescencio Jones Primary Care Provider [phone] Results Component Value Reference Range Notes Complete Blood Count Auto Di ff (Not yet reviewed by provider) Interpretation: Performing Lab:[facility], [address] [place] [phone] Notes/Report: White Blood Count 6.8 4.8-10.8 X10*3/uL [...] NRBC Abs Auto 0.000 0.0-0.012 X10*3/uL [facility] [place]. Panel Fa (Not yet reviewed by provider) Interpretation: Performing Lab:[facility], [address] [place] [phone] Notes/Report: Sodium 140 135-145 mmol/L Potassium 3.7 [...] Alkaline Phosphatase 113 39-117 U/L Lipid Panel (Not yet reviewe d by provider) Interpretation: Performing Lab:[facility], [address] [place] [phone] Notes/Report: Triglycerides 64 <150 mg/dL Desirable Triglyceride: [...] in patients with liver disease. Hemoglobin A1c (Not yet revi ewed by provider) Interpretation: Performing Lab:[facility], [address] [place] [phone] Notes/Report: Hemoglobin A1c % 5.5 <6.0 % [...] average glucose, using the formula of the P8G-Fwscwut Average Glucose study (ADAG), Diabetes Care, Vol.31,#8, May. 2007 REASON FOR VISIT yearly fasting labs Encounters Encounter Location Date Provider Diagnosis Crescencio Jones MD [address] [place] [address] [address] [place], [place] [phone] 01/06/2025 Crescencio Jones Blood tests for rout [...] Treatment Pending Test Test Name Order Date Complete Blood Count Auto Diff 5 Comprehensive [place]. Panel Fast Lipid Panel 01/06/2025 Microalbumin, Random 01/06/2025 Hemoglobin A1c 01/06/2025 UA ClnCatch+Micro w/rflx Cult 01/06/2025 Next Appt Details Provider Name:Crescencio Banerjee ier, 01/13/2025 09:30:00 AM, [address] [facility], [address], [place], [phone], Progress Notes * Cynthia MICHELE MDOB:[birth year] (84 yo F)Acc No.[id number]:01/06/2025 Progress Note Patient:?GILBERT Cynthia M Provider:?Crescencio Jones MD :1940???Age:84 Y???Sex:Female D ate:01/06/2025 Address:[address] [place], [place] [phone] Subjective: * Chief Complaints: * ???1. Yearly fasting labs. * Medical History:? Objective: * Vitals:? Assessment: * Assessment: 1.?Blood tests for routine g eneral physical examination - Z00.00 (Primary)???2.?Prediabetes - R73.09???3.?Pure hypercholesterolemia - E78.00???4.?Essential (primary) hypertension - I10??? Plan: * Treatment: 2.?Prediabetes?LAB: Complete Blood Count Auto Diff (Collection Date & Time - 01/06/2025 07:00 AM) ?LAB: [facility] [place]. Panel Fast (Collection Date & Time - 01/06/2025 07:00 AM) ?LAB: Lipid Panel (Collection Date & Time - 01/06/2025 07:00 AM) ?LAB: Microalbumin, Random ?LAB: Hemoglobin A1c (Collection Date & Time - 01/06/2025 07:00 AM) ?LAB: UA ClnCatch+Micro w/rflx Cult 3.?Pure hypercholesterolemia ?LAB: Complete Blood Count Auto Diff (Collection Date & Time - 01/06/2025 07:00 AM) ?LAB: [facility] [place]. Panel Fast (Collection Date & Time - 01/06/2025 07:00 AM) ?LAB: Lipid Panel (Collection Date & Time - 01/06/2025 07:00 AM) ?LAB: Microalbumin, Random ?LAB: Hemoglobin A1c (Collection Date & Time - 01/06/2025 07:00 AM) ?LAB: UA ClnCatch+Micro w/rflx Cult 4.?Essential (primary) hyper tension?LAB: Complete Blood Count Auto Diff (Collection Date & Time - 01/06/2025 07:00 AM) ?LAB: Comprehensive [place]. Panel Fast (Collection Date & Time - 01/06/2025 07:00 AM) ?LAB: Lipid Panel (Collection Date & Time - 01/06/2025 07:00 AM) ?LAB: Microalbumin, Random ?LAB: Hemoglobin A1c (Collection Date & Time - 01/06/2025 07:00 AM) ?LAB: UA ClnCatch+Micro w/rflx Cult * Procedure Codes:?97766 VENIP UNCT, ROUTINE* * * The named appointment provid er may or may not be the originator of this progress note, and it is not deemed complete until electronically signed by the appointment provider. Sign off status: Pending * Provider:?Crescencio Jones MD Date:?0 01/06/2025 Generated for Justin dietrich/Jacquelin/Evetteitting on:?01/06/2025 11:30 AM EDT
--- OUTSIDE RECORDS SUMMARY | 2025-01-06 11:31 | XMS_ITS ---
Author Organization [facility] Address [address] [place] [phone] Care Team Providers Care Automatic Pinsetter Adjuster Name Role Phone Crescencio Jones MD Primary Care Provider Petros Munroe Jr, Enzo Bolaños REASON FOR VISIT Pt no show Encounters Encounter Location Date Provider Diagnosis [facility] [address] [facility] [address] [place] [phone] 08/14/2024 Enzo Munroe Jr Plan Of Treatment Next Appt Details Provider Name:Enzo laboy Jr, 02/04/2026 01:15:00 PM, [address], [address], [place], [address], Progress Notes * RONALD HUNTSOPHIEOB:1940 (84 yo F)Acc No.[id number]:08/14/2024 Patient:?RENÉ HUNT :1940???Age:84 Y???Sex:Female Address:[address] [place] [address] * true * Date:? Generated for Printi ng/Fajohnsong/eTransmitting on:?01/06/2025 11:31 AM EDT
== END 2025-01-06 09:51 | disposition home or self-care (01) ==
LOC: HO.LNP 09:50
PROVIDERS: Visit Provider Internal Medicine
DX: Z00.00 Encounter for general adult medical examination without abnormal findings (principal); R73.09 Other abnormal glucose; E78.00 Pure hypercholesterolemia, unspecified; I10 Essential (primary) hypertension
CPT/HCPCS: 80053; 80061; 83036; 85025

== ENCOUNTER 2025-01-13 13:14 | Outpatient (REF) | payer MEDICARE, SELFPAY ==
[2025-01-13 13:16] LABS: MANUAL DIFF FLAG NO
[2025-01-13 13:22] LABS: Appearance Urine Clear; Color Urine Yellow; Glucose Urine UA Negative (Negative); Leukocyte Esterase Urine Small (1+) (Negative); Nitrite Urine Negative (Negative); PH 7.5 (5.0-9.0); Specific Gravity - Urine <= 1.005 (1.005-1.025); UMIC TRIGGER UACC YES; Urine Blood Negative (Negative); Urine Ketones Negative (Negative); Urine Protein Negative (Neg-Trace)
[2025-01-13 13:23] LABS: Basophils Absolute Auto 0.1 X10*3/uL (0.0-0.2); Basophils Percent Auto 1.3 % (0-2); Eosinophils Absolute Auto 0.1 X10*3/uL (0.0-0.4); Hematocrit 30.9 % (37.0-47.0); Hemoglobin 9.7 g/dl (12.0-16.0); Imm Gran Abs Auto 0.02 X10*3/uL (0.00-0.03); Imm Gran Pct Auto 0.3 % (0.0-0.4); Lymphocytes Absolute Auto 1.6 X10*3/uL (1.2-4.9); Lymphocytes Percent Auto 26.9 % (20-40); Mean Corpuscular HGB Conc 31.4 g/dl (31.0-35.0); Mean Corpuscular Hemoglobin 23.6 pg (27.0-33.0); Mean Corpuscular Volume 75.2 fL (80.0-98.0); Mean Platelet Volume 11.3 fL (9.4-12.3); Monocytes Absolute Auto 0.8 X10*3/uL (0.1-1.2); Monocytes Percent Auto 12.6 % (2-11); NRBC Pct Auto 0.8 /100WBC (0.0-0.2); Neutrophils Absolute Auto 3.4 x10*3/uL (2.0-8.3); Neutrophils Percent Auto 57.9 % (45-73); Platelet Count 312 X10*3/uL (160-400); Red Blood Count 4.11 X10*6/uL (4.20-5.50); Red Cell Distribution Width 15.6 % (11.0-16.0); White Blood Count 5.9 X10*3/uL (4.8-10.8)
[2025-01-13 13:40] LABS: Bacteria Urine 1+ (None Seen); Hyaline Casts Urine 0-2 /LPF (0-2); RBC Urine 0-2 /HPF (0-2); Squamous Epithelial Cell Urine 0-2 /HPF (0-2); UACC Culture Trigger YES; WBC Urine 0-5 /HPF (0-5)
[2025-01-13 13:59] LABS: Microalbumin Urine < 5.0 mg/L
[2025-01-13 14:18] LABS: Iron 21 mcg/dL (30-160); Percent Iron Saturation 5 % (15-50); Total Iron Binding Capacity 389 mcg/dL (228-428); Unsaturated Iron Binding 368 ug/dL
--- OUTSIDE RECORDS SUMMARY | 2025-01-13 16:08 | XMS_ITS ---
Author Organization Crescencio Jones MD Address [address] [place], [place] [phone] Care Team Providers Care Wood Buffer Name Role Phone Crescencio Jones Primary Care Provider [phone] Allergies Allergen (clinical drug ingredient) Drug/Non Drug Allergy documented on EMR Reaction Allergy Type Onset Date Status codeine Codeine Sulfate n/v Drug Allergy A ctive Results Component Value Reference Range Notes Complete Blood Count Auto Di ff (Not yet reviewed by provider) Interpretation: Performing Lab:[facility], [address] [place] [phone] Notes/Report: White Blood Count 5.9 4.8-10.8 X10*3/uL [...] Abs Auto 0.050 0.0-0.012 X10*3/uL IRON PROFILE (Not yet review ed by provider) Interpretation: Performing Lab:[address] [phone] Notes/Report: Iron 21 30-160 mcg/dL Total Iron Binding Capacity 389 228-428 mcg/d L Percent Iron Saturation 5 15-50 % Unsaturated Iron Binding 368 Microalbumin, Random (Not ye t reviewed by provider) Interpretation: Performing Lab:[address] [phone] Notes/Report: Creatinine Urine 17.30 Microalbumin Urine < 5.0 Microalbum/Creatinine Ratio Ur TNP <30 ug/mg cr Unable to calculate albumin/creatinine ratio due to low microalbumin or creatinine result. UA ClnCatch+Micro w/rflx Cul t (Not yet reviewed by provider) Interpretation: Performing Lab:[facility], [address] [place] [phone] Notes/Report: Urine, Clean Catch Color Urine Yellow Appearance Urine Clear PH 7.5 5.0-9.0 Glucose Urine UA Negative Negative mg/dL Urine Blood Negative Negative Specific [place] - Urine <= 1.005 1.005-1.025 Urine Protein Negative Neg-Trace mg/dL Urine Ketones Negative Negative mg/dL Nitrite Urine Negative Negative Leukocyte Esterase Urine Small (1+) Negative RBC Urine 0-2 0-2 /HPF WBC Urine 0-5 0-5 /HPF Squamous Epithelial Cell Urine 0-2 0-2 /HPF Bacteria Urine 1+ None Seen Hyaline Casts Urine 0-2 0-2 /LPF Occult Blood, Stool, Guaiac Reviewed date:01/13/2025 10:47:09 AM Interpretation:Negative Performing Lab: Notes/Report: Negative Occult Blood, Stool, Guaiac Neg REASON FOR VISIT annual visit, Draw CBC [...] kg/m2 01/13/2025 weight is down 2 pounds [facility] 10--24 Encounters Encounter Location Date Provider Diagnosis Crescencio Jones MD [address] [place] [address] [place] [phone] 01/13/2025 Crescencio Jones Annual physical exam Z00.00 [...] screening guaiac negative Depression screening negative screen Pending Test Test Name Order Date Complete Blood Count Auto Diff IRON PROFILE 01/13/2025 Microalbumin, Random 01/13/2025 UA ClnCatch+Micro w/rflx Cult 01/13/2025 Next Appt Details Follow Up: 6 Months, Reason: Provider Name:Crescencio hernandez, 07/27/2025 07:00:00 AM, [address] [place] [address], [address], [place], [place], [phone], Provider Name:Crescencio hernandez, 08/03/2025 01:30:00 PM, [address] [place] [address], [address], [place], [place], [phone], Provider Name:Crescencio Banerjee ier, 01/11/2026 07:15:00 AM, [address], [address], [place], [phone], Provider Name:Crescencio Banerjee ier, 01/18/2026 01:00:00 PM, [address], [address], [place], [phone], Progress Notes * Cynthia MICHELE MDOB:[birth year] (84 yo F)Acc No.[id number]:01/13/2025 Progress Notes Patient:?GILBERT Cynthia Mik Provider:?Crescencio Jones MD :1940???Age:84 Y???Sex:Female D ate:01/13/2025 Address:[address] [place], [place] [phone] Subjective: * Chief Complaints: * ???1. Annual visit. 2. Draw [facility]. * HPI: ???Depression Screening:?PHQ-9?Little interest or pleasure in doing things?Not at all,?Feeling down, depressed, or hopeless?Not at all,?Trouble falling or staying asleep, or sleeping too much?Not at all,?Feeling tired or having little energy?Not at all,?Poor appetite or overeating?Not at all,?Feeling bad about yourself or that you are a failure, or have let yourself or your family down?Not at all,?Trouble concentrating on things, such as reading the newspaper or watching television?Not at all,?Moving or speaking so slowly that other people could have noticed; or the opposite, being so fidgety or restless that you have been moving around a lot more than usual?Not at all,?Thoughts that you would be better off or of hurting yourself in some way?Not at all,?Total Score?0.?Interpretation and Intervention?Depression Screening Findings?Negative,?Follow-Up for Depression?: review of PHQ-9 found negative result, no follow-up needed.?Communication Needs:?Communication Needs?Does the patient have a hearing impairment?No,?Does the patient have a vision impairment??Yes,?If yes, what is the vision impairment??Glasses,?Does the patient have a cognition impairment??No.?Fall Risk:?History?Have you had any falls with injury in the past year??No,?Have you had two or more falls in the past year??No.?Symptom(s):? patient is a 84 yo female here for annual visit with review of recent labs and follow up of chronic issues here for yearly exam, goes to the [facility] 3 times per week. ???SDOH Questions:?SDOH Questions?In the past year have you been worried about losing housing??No,?In the past year have you or any family members you live with been unable to get any of the following when it was really needed? Check all that apply:?None.? * ROS:?General/Constitutional:?Change in appetite?denies.?Chills?denies.?Fever?denies.?Ophthalmologic:?Blurred vision?denies.?Discharge?denies.?Pain?denies.?ENT:?Decreased hearing?denies.?Sore throat?denies.?Swollen glands?denies.?Endocrine:?Cold intolerance?denies.?Excessive thirst?denies.?Heat intolerance?denies.?Weight loss?denies.?Respiratory:?Cough?denies.?Shortness of breath at rest?denies.?Shortness of breath with exertion?denies.?Wheezing?denies.?Cardiovascular:?Chest pain at rest?denies.?Chest pain with exertion?denies.?Irregular heartbeat?denies.?Shortness of breath?denies.?Gastrointestinal:?Abdominal pain?denies.?Change in bowel habits?denies.?Diarrhea?denies.?Nausea?denies.?Rectal bleeding?denies.?Vomiting?denies .?Genitourinary:?Blood in urine?denies.?Difficulty urinating?denies.?Frequent urination?denies.?Urinary incontinence?Denies.?Musculoskeletal:?Painful joints?denies.?Weakness?denies.?Skin:?Dry skin?denies.?Itching?denies.?Denies?Mole(s),? changes in moles, new moles or any lesions of concern.?Denies?Photosensitivity.?Rash?denies.?Neurologic:?Dizziness?denies.?Fainting?denies.?Headache?denies.? * Medical History:?Hematuria w orked up 2008, colonoscopy 2003; colonoscopy 09/25/[address] Alicia, Osteoporosis doesn't want meds 2020. * Family History:?Father: dece ased 77 yrs.?Mother: 94 yrs.?2 sister(s) . 4 son(s) , 2 daughter(s) . .? 2 sisters and 1 brother Father-Cardiac Mother- old age, No pertinent family medical history. olderst son Bipolar. No substance abuse in family, No pertinent family medical history, No pertinent family medical history. * Social History:?Tobacco Use:?Tobacco Use/Smoking?Patient is a?former smoker,?How long has it been since you last smoked??> 10 years,?Additional Findings: Tobacco Non-User?Former smoker, currently using no form of tobacco.?Drugs/Alcohol:?Alcohol Screen?Did you have a drink containing alcohol in the past year??Yes,?How often did you have a drink containing alcohol in the past year??Monthly or less (1 point),?How many drinks did you have on a typical day when you were drinking in the past year??1 or 2 drinks (0 point),?How often did you have 6 or more drinks on one occasion in the past year??Never (0 point),?Points?1,?Interpretation?Negative.?Miscellaneous:?Caffeine: yes, frequency:, 1-2 cups per day. Children: yes. Exercise: no. Home smoke detector use: yes. Housing: owning. Marital status: single. Occupation: works full-time. Pets: none. Travel outside of the [place]: no. * Medications:?Taking Cholecal ciferol 25 MCG (1000 UT) Capsule 1 capsule Orally Once a day , Taking Ursodiol 250 MG Tablet 1 tab QID , Taking Atorvastatin Calcium 10 MG Tablet TAKE 1 TABLET BY MOUTH ONCE DAILY , Taking amLODIPine Besylate 10 MG Tablet TAKE 1 TABLET BY MOUTH ONCE DAILY , Not-Taking/PRN Aspir-Low 81 MG Tablet Delayed Release 1 tablet Orally Once a day , Medication List reviewed and reconciled with the patient * Allergies:?Codeine Sulfate: n/v. Objective: * Vitals:?Ht: 60, Wt: 121, BMI :23.63, BP:124/70, Wt-k.89. weight is down 2 pounds since 07-17-24. * ???Past Orders: ???Lab:Hemoglobin A1c (Order Date - 01/06/2025) (Collection Date & Time - 01/06/2025 07:00 AM) ? Value Reference Range ?Hemoglobin A1c % 5.5 <6. 0 - % ?Estimated Average Glucose 111 - mg/dL ???Lab:Complete Blood Count Auto Diff (Order Date - 01/06/2025) (Collection Date & Time - 01/06/2025 07:00 AM) ? Value Reference Range ?White Blood Count 6.8 4. 8-10.8 - X10*3/uL ?Red Blood Count 4.20 4.20 -5.50 - X10*6/uL ?Hemoglobin 10.1 L 12.0-16.0 - g/dl ?Hematocrit 32.2 L 37.0-47.0 - % ?Mean Corpuscular Volume 76.7 L 80.0-98.0 - fL ?Mean Corpuscular Hemoglobin 24.0 L 27.0-33.0 - pg ?Mean Corpuscular HGB Conc 31.4 31.0-35.0 - g/dl ?Red Cell Distribution Width 15.2 11.0-16.0 - % ?Platelet Count 360 160-4 00 - X10*3/uL ?Mean Platelet Volume 10.9 9.4-12.3 - fL ?Neutrophils Percent Auto 57.0 45-73 - % ?Imm Gran Pct Auto 0.4 0. 0-0.4 - % ?Lymphocytes Percent Auto 29.7 20-40 - % ?Monocytes Percent Auto 10.6 2-11 - % ?Eosinophils Percent Auto 1.3 0-4 - % ?Basophils Percent Auto 1.0 0-2 - % ?NRBC Pct Auto 0.0 0.0-0. 2 - /100WBC ?Neutrophils Absolute Auto 3.9 2.0-8.3 - x10*3/uL ?Imm Gran Abs Auto 0.03 0. 00-0.03 - X10*3/uL ?Lymphocytes Absolute Auto 2.0 1.2-4.9 - X10*3/uL ?Monocytes Absolute Auto 0.7 0.1-1.2 - X10*3/uL ?Eosinophils Absolute Auto 0.1 0.0-0.4 - X10*3/uL ?Basophils Absolute Auto 0.1 0.0-0.2 - X10*3/uL ?NRBC Abs Auto 0.000 0.0-0. 012 - X10*3/uL ???Lab:Comprehensive [place]. P ignacio Fast (Order Date - 01/06/2025) (Collection Date & Time - 01/06/2025 07:00 AM) ? Value Reference Range ?Sodium 140 135-145 - mmo l/L ?Bilirubin Total 0.7 0.0- 1.0 - mg/dL ?Aspartate Amino Transferase 19 5-31 - U/L ?Alanine Aminotransferase 10 0-31 - U/L ?Total Protein 7.2 6.5-8. 0 - g/dL ?Albumin Level 4.3 3.5-5. 0 - g/dL ?Alkaline Phosphatase 113 39-117 - U/L ?Potassium 3.7 3.3-5.1 - mmol/L ?Chloride 108 96-108 - mm ol/L ?Carbon Dioxide 26 22-29 - mmol/L ?Anion Gap 10 L 12-20 - ?Blood Urea Nitrogen 14 9-16 - mg/dL ?Creatinine 0.94 0.5-1.4 - mg/dL ?Estimated Glomerular Filt Rate 57 - ?Glucose Fasting 107 H 60-9 9 - mg/dL ?Calcium 9.8 8.4-10.2 - m g/dL ???Lab:Lipid Panel (Order Da te - 01/06/2025) (Collection Date & Time - 01/06/2025 07:00 AM) ? Value Reference Range ?Triglycerides 64 <150 - mg/dL ?Cholesterol 166 <200 - m g/dL ?LDL Cholesterol Calculated 87 <100 - mg/dL ?HDL Cholesterol 67 >40 - mg/dL * Examination: ???General Examination: ?GENERAL APPEARANCE:?well developed, well nourished, in no acute distress.?HEAD:?normocephalic, atraumatic.?EYES:?pupils equal, round, reactive to light and accommodation, sclera non-icteric.?EARS:?normal.?ORAL CAVITY:?mucosa moist.?THROAT:?clear.?NECK/THYROID:?neck supple, full range of motion, no cervical lymphadenopathy, no bruits.?SKIN:?warm and dry, no suspicious lesions.?HEART:?regular rate and rhythm, S1, S2 normal, no murmurs.?LUNGS:?clear to auscultation bilaterally.?BREASTS:?No mass, no lump.?ABDOMEN:?soft, nontender, nondistended, bowel sounds present, normal, no organomegaly , no masses palpable.?RECTAL EXAM:?stool guaiac negative, no masses palpable.?FEMALE GENITOURINARY:?not done.?EXTREMITIES:?no clubbing, cyanosis, or edema.?NEUROLOGIC:?nonfocal, motor strength normal upper and lower extremities, sensory exam intact.? Assessment: * Assessment: 1.?Annual physical exam - Z0 0.00 (Primary)???2.?Prediabetes - R73.09???3.?Essential (primary) hypertension - I10???4.?Anemia - D64.9???5.?Pure hypercholesterolemia - E78.00???6.?Colon cancer screening - Z12.11???7.?Depression screening - Z13.31??? Plan: * Treatment: 2.?Prediabetes?LAB: IRON PROFILE (Collection Date & Time - 01/13/2025 09:30 AM) ?LAB: Microalbumin, Random (Collection Date & Time - 01/13/2025 09:30 AM) ?LAB: UA ClnCatch+Micro w/rflx Cult (Collection Date & Time - 01/13/2025 09:30 AM) Notes: doing well, no need for medication at this time?? 3.?Essential (primary) hyper tension? Continue amLODIPine Besylate Tablet, 10 MG, TAKE 1 TABLET BY MOUTH ONCE DAILY.?LAB: IRON PROFILE (Collection Date & Time - 01/13/2025 09:30 AM) ?LAB: Microalbumin, Random (Collection Date & Time - 01/13/2025 09:30 AM) ?LAB: UA ClnCatch+Micro w/rflx Cult (Collection Date & Time - 01/13/2025 09:30 AM) Notes: well controlled, will contnue current regiment?? 4.?Anemia?LAB: Complete Blood Count Auto Diff (Collection Date & Time - 01/13/2025 09:30 AM) Notes: have explained to her that if she has an iron defi will need to send her back to dr alicia, labs pending?? 5.?Pure hypercholesterolemia ? Continue Atorvastatin Calcium Tablet, 10 MG, TAKE 1 TABLET BY MOUTH ONCE DAILY.?? Notes: stable, will continue current regiment?? 6.?Colon cancer screening?LAB: Occult Blood, Stool, Guaiac (Collection Date & Time - 01/13/2025)?Negative ? Value Reference Range ?Occult Blood, Stool, Guaiac Neg Notes: guaiac negative??7.?Depression screening? Notes: negative screen?? * Procedure Codes:?66106 VENIP UNCT, ROUTINE*, 50626 TEST FOR BLOOD, FECES * Follow Up:?6 Months * * The named appointment provid er may or may not be the originator of this progress note, and it is not deemed complete until electronically signed by the appointment provider. Sign off status: Pending * Provider:?Crescencio Jones MD Date:?0 01/13/2025 Generated for Justin dietrich/Jacquelin/Evetteitting on:?01/13/2025 04:08 PM EDT History and Physical Notes * HPI (History of Present Illness) Category Sub-Category Detail Notes Category Not es Symptom(s) patient is a 84 yo female here for annual visit with review of recent labs and follow up of chronic issues here for yearly exam[facility] Depression Screening PHQ-9 [...] had two or more falls in the st year?: No Communication Needs Communication Needs Does the patient have a hearing impairment: No Does the patient have a vision impairmen t?: Yes ?If yes, what is the vision impairment?: Glasses Does the patient have a cognition impair ment?: No Examination Category Sub-Category Detail Notes Category Not es General Examination GENERAL APPEARANCE: well dev eloped, well nourished, in no acute distress HEAD: normocephalic, atrau matic EYES: pupils equal, round, reactive to light and accommodation, sclera non- icteric EARS: normal THROAT: clear NECK/THYROID: neck supple, [...]
--- OUTSIDE RECORDS SUMMARY | 2025-01-13 16:08 | XMS_ITS ---
Author Organization Crescencio Jones MD Address [address] [place] [phone] Care Team Providers Care Orthopedic Radiologic Technologist Name Role Phone Crescencio Jones Primary Care Provider [phone] Results Component Value Reference Range Notes Complete Blood Count Auto Di ff Reviewed date:01/06/2025 02:01:38 PM Interpretation: Performing Lab:[facility], [address] [place] [phone] Notes/Report: White Blood Count 6.8 4.8-10.8 X10*3/uL [...] NRBC Abs Auto 0.000 0.0-0.012 X10*3/uL Comprehensive [place]. Panel Fa st Reviewed date:01/06/2025 12:23:15 PM Interpretation: Performing Lab:[address] [phone] Notes/Report: Sodium 140 135-145 mmol/L Potassium 3.7 [...] Panel Reviewed date:01/06/2025 12:21:16 PM Interpretation: Performing Lab:[address] [phone] Notes/Report: Triglycerides 64 <150 mg/dL Desirable Triglyceride: [...] A1c Reviewed date:01/06/2025 12:21:25 PM Interpretation: Performing Lab:[facility], [address] [place] [phone] Notes/Report: Hemoglobin A1c % 5.5 <6.0 % [...] average glucose, using the formula of the T1Q-Aazppud Average Glucose study (ADAG), Diabetes Care, Vol.31,#8, May. 2007 REASON FOR VISIT yearly fasting labs Encounters Encounter Location Date Provider Diagnosis Crescencio Jones MD [address] [place] [address] [address] [place], [place] [phone] 01/06/2025 Crescencio Jones Blood tests for rout [...] Next Appt Details Provider Name:Crescencio Banerjee ier, 07/27/2025 07:00:00 AM, [address], [address], [place], [phone], Provider Name:Crescencio aBnerjee ier, 08/03/2025 01:30:00 PM, [address], [address], [place], [phone], Provider Name:Crescencio Banerjee ier, 01/11/2026 07:15:00 AM, [address] [place] [address] Drive, [address], [place], [phone], Provider Name:Crescencio Banerjee ier, 01/18/2026 01:00:00 PM, [address] [place] [address], [address], [place], [phone], Progress Notes * Cynthia MICHELE MDOB:[birth year] (84 yo F)Acc No.[id number]:01/06/2025 Progress Note Patient:?Cynthia MICHELE M Provider:?Crescencio Jones MD :1940???Age:84 Y???Sex:Female D ate:01/06/2025 Address:[address] [place], [place] [phone] Subjective: * Chief Complaints: * ???1. Yearly fasting labs. * Medical History:? Objective: * Vitals:? Assessment: * Assessment: 1.?Blood tests for routine g eneral physical examination - Z00.00 (Primary)???2.?Prediabetes - R73.09???3.?Pure hypercholesterolemia - E78.00???4.?Essential (primary) hypertension - I10??? Plan: * Treatment: 2.?Prediabetes?LAB: Microalbumin, Random ?LAB: UA ClnCatch+Micro w/rflx Cult ?LAB: Complete Blood Count Auto Diff (Collection Date & Time - 01/06/2025 07:00 AM) ?LAB: Comprehensive [place]. Panel Fast (Collection Date & Time 01/06/2025 07:00 AM) ?LAB: Lipid Panel (Collection Date & Time 01/06/2025 07:00 AM) ?LAB: Hemoglobin A1c (Collection Date & Time - 01/06/2025 07:00 AM) 3.?Pure hypercholesterolemia ?LAB: Microalbumin, Random ?LAB: UA ClnCatch+Micro w/rflx Cult ?LAB: Complete Blood Count Auto Diff (Collection Date & Time - 01/06/2025 07:00 AM) ?LAB: Comprehensive [place]. Panel Fast (Collection Date & Time 01/06/2025 07:00 AM) ?LAB: Lipid Panel (Collection Date & Time 01/06/2025 07:00 AM) ?LAB: Hemoglobin A1c (Collection Date & Time 01/06/2025 07:00 AM) 4.?Essential (primary) hyper tension?LAB: Microalbumin, Random ?LAB: UA ClnCatch+Micro w/rflx Cult ?LAB: Complete Blood Count Auto Diff (Collection Date & Time - 01/06/2025 07:00 AM) ?LAB: Comprehensive [place]. Panel Fast (Collection Date & Time 01/06/2025 07:00 AM) ?LAB: Lipid Panel (Collection Date & Time 01/06/2025 07:00 AM) ?LAB: Hemoglobin A1c (Collection Date & Time - 01/06/2025 07:00 AM) * Procedure Codes:?77967 VENIP UNCT, ROUTINE* * * The named appointment provid er may or may not be the originator of this progress note, and it is not deemed complete until electronically signed by the appointment provider. Sign off status: Pending * Provider:?Crescencio Jones MD Date:?0 01/06/2025 Generated for Navini ng/Cesarg/eTransmitting on:?01/13/2025 04:08 PM EDT
--- OUTSIDE RECORDS SUMMARY | 2025-01-13 16:08 | XMS_ITS ---
Author Organization [facility] Address [address] [place] [address] [place] [address] Care Team Providers Care Castings Drafter Name Role Phone Crescencio Jones MD Primary Care Provider Petros Munroe Jr, Enzo Bolaños [phone] Medications Medication SIG (Take, Route, Fr equency, Duration) Notes Start Date End Date Status Ursodiol 250 MG take 1 tablet by jessika th 4 times a day for 90 days Active Encounters Encounter Location Date Provider Diagnosis [facility] [address] [place] [address] 12/17/2024 Enzo Munroe Jr Biliary cirrhosis K74.5 [...] Provider Name:Enzo laboy Jr, 02/04/2026 01:15:00 PM, [address] [place] [address], Suite [facility], [place], [address], Progress Notes * RONALD HUNTSOPHIEOB:1940 (84 yo F)Acc No.[id number]:12/17/2024 Patient:?RENÉ HUNT :1940???Age:84 Y???Sex:Female Address:[address] [place] [address] * Refills? Refill Ursodiol Tablet, 250 MG, 360, take 1 tablet by mouth 4 times a day, 90 days, Refills=3 * true * Date:? Generated for Justin dietrich/Jacquelin/Shirlene on:?01/13/2025 04:07 PM EDT
--- OUTSIDE RECORDS SUMMARY | 2025-01-13 16:08 | XMS_ITS | Patient Health Record ---
Author Organization [facility] Address [address] [place] [address] Care Team Providers Care Labor Arbitrator Name Role Phone Robert RICHMOND, Crescencio Primary Care Provider Enzo Donaldson Jr Unavailable [phone] Allergies Allergen (clinical drug ingredient) Drug/Non Drug Allergy documented on EMR Reaction Allergy Type Onset Date Status Codeine Phosphate Unknown Drug Allergy Active Reason For Referral Referring Provider First Name Crescencio Referring Provider Last Name Robert Referring Provider Speciality Internal M edicine Referred Organization [facility] Referred Provider Enzo Munroe Jr Referred Address [address], [address] [facility],[place],[address],[place] Referred Provider Specialty Gastroentero logy General Notes Carmencita Quick 2023 11:27:23 AM EDT > call dr forbes's office [phone] to request a [place] referral for visit with Dr. Munroe on 08-14-2024, Carmencita Quick 07/03/2024 09:07:10 AM EDT > REQUESTED REFERRAL FROM Abdelrahman SMITH Dawn 07/15/2024 02:02:15 PM EDT > spoke with Bryanna at Dr. Forbes's office and she was told by Ashutosh at [facility] that no referral is required since Dr. Forbes and Dr. Munroe are in the same [facility]. Conf _# [id number] Referral Priority Routine Referred Organization [facility] Referred Provider Enzo Munroe Jr Referred Address [address], [address],[place], [place],[address],[place] Referred Provider Specialty Gastroentero logy General Notes Carmencita Quick 023 11:16:25 AM EDT > no referral required per Dr. Forbes's office since patient is in the same [place] [facility]. Referral Priority Routine Medications Medication SIG (Take, Route, Frequency, Duration) Notes Start Date End Date Status amLODIPine Besylate 10 MG TAKE 1 TABLET BY MOUTH ONCE DAILY Oral for 90 Active Ursodiol 250 MG take 1 tablet by jessika 4 times a day for 90 days Active Ursodiol 300 MG TAKE 1 CAPSULE BY [facility] THREE TIMES DAILY *APPOINTMENT NEEDED FOR [...] Problem Status W/U Status Risk Notes Problem [id number] Biliary cirrhosi s (K74.5) Active confirmed Problem 875457403 Gastroesophageal reflux disease, unspecified whether esophagitis present (K21.9) Active confirmed Vital Signs Blood pressure diastolic 00 mm Hg 11/20/2024 Height 60 in 11/20/2024 Blood pressure systolic 00 mm Hg 11/20/2024 Weight 120 lbs 11/20/2024 BMI 23.43 kg/m2 11/20/2024 Encounters Encounter Location Date Provider Diagnosis [facility] [address] [place] [phone] 11/20/2024 Enzo Munroe Jr Biliary cirrhosis K74.5 [facility] [address] [place] [phone] 08/11/2024 Enzo Munroe Jr [facility] [address] [place] [phone] 08/14/2024 Enzo Munroe Jr [facility] [address] [place] [phone] 12/17/2024 Enzo Munroe Jr Biliary cirrhosis K74.5 [...] Lernerif laboy , 02/04/2026 01:15:00 PM, [address], [address], [place], [address], Insurance Providers Payer Name Payer Address Payer Phone Subscriber Number Group Number Insured Name Patient Relationship to Insured Coverage Start Date Coverage End Date [facility] [address] [place] [address] [id number] RENÉ HUNT Self - patient is the insured Medical (General) History Medical History History ICD Code hyperlipidemia colonoscopy 09/23/14, hyperplastic polyp , followup p.r.n. 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 On ursodiol. hx of chronic uti's Surgical History Surgery Date(Month/Year) lasik bilateral eyes
--- OUTSIDE RECORDS SUMMARY | 2025-01-13 16:08 | XMS_ITS ---
Author Organization [facility] Address [address] [place] [address] Care Team Providers Care Plant Operations Manager Name Role Phone Crescencio Jones MD Primary Care Provider Petros Munroe Jr, Enzo Bolaños [phone] REASON FOR VISIT Pt no show Encounters Encounter Location Date Provider Diagnosis [facility] [address] [facility] [address] [place] [phone] 08/14/2024 Enzo Munroe Jr Plan Of Treatment Next Appt Details Provider Name:Enzo laboy Jr, 02/04/2026 01:15:00 PM, [address], [address], [place], [address], Progress Notes * RONALD HUNTSOPHIEOB:1940 (84 yo F)Acc No.[id number]:08/14/2024 Patient:?RENÉ HUNT :1940???Age:84 Y???Sex:Female Address:[address] [place] [address] * true * Date:? Generated for Printi ng/Fajohnsong/eTransmitting on:?01/13/2025 04:08 PM EDT
--- OUTSIDE RECORDS SUMMARY | 2025-01-13 16:09 | XMS_ITS ---
Author Organization Crescencio Jones MD Address [address] [place] [phone] Care Team Providers Care Ship Liner Name Role Phone Crescencio Jones Primary Care [...] kg/m2 07/17/2024 weight is down 4 pounds [facility] 4-2-24 Encounters Encounter Location Date Provider Diagnosis Crescencio Jones MD [address] [place] [phone] 07/17/2024 Crescencio Jones Shortness of breath on [...] continue current regiment Next Appt Details Provider Name:Cerscencio hernandez, 07/27/2025 07:00:00 AM, [address] [place] [address], [phone], Provider Name:Crescencio hernandez, 08/03/2025 01:30:00 PM, [address] [place] [address], [phone], Provider Name:Crescencio hernandez, 01/11/2026 07:15:00 AM, [address] [place] [address], [phone], Provider Name:Crescencio hernandez, 01/18/2026 01:00:00 PM, [address] [place] [address], [phone], Progress Notes * Cynthia MICHELE MDOB:[birth year] (84 yo F)Acc No.[id number]:07/17/2024 Progress Notes Patient:?Cynthia Michele Provider:?Crescencio Jones MD :1940???Age:84 Y???Sex:Female D ate:07/17/2024 Address:[address] [place] [address] [address]nie [address] [id number] Subjective: * Chief Complaints: * ???6 month * HPI: ???Symptom(s):? patient is s 84 yo female here for 6 month follow up. gets winded if she does too much. climbing stairs. goes to exercise at [employer] and not short of breath. no chest [...] ???Past Orders: ???Lab:Liver Panel (Order Da te - 07/10/2024) (Collection Date - 07/10/2024) ? Value Reference Range ?Bilirubin Total 0.7 0.0- 1.0 - mg/dL ?Bilirubin Direct 0.3 0.0 -0.5 - mg/dL ?Aspartate Amino Transferase 15 5-31 - U/L ?Alanine Aminotransferase 9 0-31 - U/L ?Total Protein 7.3 6.5-8. 0 - g/dL ?Albumin Level 4.2 3.5-5. 0 - g/dL ?Alkaline Phosphatase 92 39-117 - U/L ???Lab:Glucose Fasting (Orde r Date - 07/10/2024) (Collection Date - 07/10/2024) [...] Provider:?Crescencio Jones MD Date:?1 Generated for Justin dietrich/Jacquelin/eTindiosmti on:?01/13/2025 04:08 PM EDT History and Physical [...]
--- OUTSIDE RECORDS SUMMARY | 2025-01-13 16:09 | XMS_ITS ---
Author Organization [facility] Address [address] [place] [phone] Care Team Providers Care Staff Midwife Name Role Phone Crescencio Jones MD Primary [...] 300 MG TAKE 1 CAPSULE BY [facility] THREE TIMES DAILY *APPOINTMENT NEEDED [...] 11/20/2024 Encounters Encounter Location Date Provider Diagnosis [facility] [address] [place] [phone] 11/20/2024 Enzo Munroe Jr Biliary cirrhosis K74.5 [...] Provider Name:Enzo laboy Jr, 02/04/2026 01:15:00 PM, [address] [place] [address], [address], [place], [address], Progress Notes * GILBERTRONALD PAIGESOPHIEOB:1940 (84 yo F)Acc No.[id number]:11/20/2024 Progress Notes Patient:?RENÉ HUNT Provider:?Enzo Munroe MD :1940???Age:84 Y???Sex:Female D ate:11/20/2024 Address:[address] [place] [address] Pcp:Crescencio Jones MD Subjective: * Chief Complaints: [...] Interpretation: Negative.?Miscellaneous:?Marital status: Single. Occupation: Works at [employer] nov 2023. * Medications:?Taking Atorvast atin Calcium [...] Munroe MD Date:?0 11/20/2024 Generated for Printi ng/Fajohnsong/eTransmitting on:?01/13/2025 04:08 PM EDT History and Physical [...]
== END 2025-01-13 13:15 | disposition home or self-care (01) ==
LOC: HO.LNP 13:14
PROVIDERS: Visit Provider Internal Medicine
DX: Z00.00 Encounter for general adult medical examination without abnormal findings (principal); D64.9 Anemia, unspecified; R73.03 Prediabetes; I10 Essential (primary) hypertension
CPT/HCPCS: 81001; 82570; 83540; 85025; 87086

== ENCOUNTER 2025-02-18 13:34 | Outpatient (REF) | payer MEDICARE, SELFPAY | END 2025-02-18 13:35 | disposition home or self-care (01) | LOC: HO.LNP 13:34 | PROVIDERS: PCP Internal Medicine; Visit Provider Physician Assistant | DX: N30.00 Acute cystitis without hematuria (principal) | CPT/HCPCS: 81003; 87086; 99212 ==

== ENCOUNTER 2025-02-18 13:34 | Outpatient (AMB) | payer MEDICARE, SELFPAY ==
[2025-02-18 13:38] VITALS: BP 120/70; PULSE 77; TEMP 36.4; O2SAT 100
--- NOTE | 2025-02-18 13:38 | AM.OFFWIN_ITS ---
Intake Vital Signs 02/18/25 13:38 Height 4 ft 10 in BP 120/70 Blood Pressure Location Rt brachial Position Sitting Pulse 77 Pulse Source Pulse Oximeter Temp 97.5 F Temp Source Oral Pulse Oximetry (%) 100 Oxygen Delivery Method Room Air Intake Visit Reasons: EP ? UTI * Patient Tobacco Use Status: Former Tobacco user Allergies No Known Allergies Allergy (Verified 02/18/25 13:38) Do you need a note to return to daycare/school/sports/work: No HPI HPI Comments History of Present Illness Details History of Present Illness - The patient is an 84-year-old female p resenting with her daughter with urinary symptoms and associated abdominal discomfort. - The patient suspects the presence of a UTI due to occasional abdominal pressure and nighttime burning sensation during urination. - She denies hematuria and fever and harjit ks back pain to a chronic condition unrelated to her current complaint. - Experiencing occasional urgency to uri jaime, without increased frequency. - Dr. Munroe addresses her gastritis a nd plans an upper endoscopy at the end of the month due to pressure and aggravation in the stomach region. The patient currently experiences anemia and nausea, treating GERD with omeprazole. Physical Exam General: Cooperative, healthy appearing, comfortable, no acute distress and well developed Orientation: Patient oriented x3 Limitations: No limitations Head: Normal to inspection Ears: Hearing grossly normal bilaterally Nose: Normal External nose present Face and sinus: Normal facial exam Eyes: Appearance normal, both eyes and all related structures Neck: Normal visual inspection and Yes full ROM Respiratory: Normal respiratory effort and able to speak in complete sentences. Skin: No rashes or lesions noted Neuro: Patient oriented x3 Extremities: Normal to inspection [facility] Social History Patient Tobacco Use Status: Former Tobacco user Review of Systems Const All systems reviewed & are unremarkable except as noted in HPI and below Physical Exam Vital Signs: Last Vital Signs Temp 97.5 F 02/18/25 13:38 Pulse 77 02/18/25 13:38 BP 120/70 02/18/25 13:38 Pulse Ox 100 02/18/25 13:38 Oxygen Delivery Method Room Air 02/18/25 13:38 Assessment & Plan Assessment & Plan (1) UTI (urinary tract infection): Code(s): N39.0 - Urinary tract infection, site not specified Qualifiers: Urinary tract infection type: acute cystitis Hematuria presence: without hematuria Qualified Code(s): N30.00 - Acute cystitis without hematuria Plan: UA neg for blood or infection, culture likely contaminated. Will treat based on symptoms. The patient will receive antibiotics for a suspected urinary tract infection despite negative urinalysis, due to nocturnal burning sensation and perceived urgency. She will temporarily replace omeprazole with Tums during antibiotic therapy to prevent interaction. Further, a clean catch urine culture will be conducted to confirm infection presence. She will follow up with Dr. Jones if symptoms persist. An upper endoscopy is planned with Dr. Munroe for ongoing stomach symptoms and anemia evaluation later in the month. Patient was informed and verbally consented to the use of an ambient scribe for clinic note documentation during this visit. Medications: New cefuroxime axetil 500 mg PO Q12H 10 tabs 0RF Coding Level of Care Code Est Pt Level 3 (60549) Diagnoses Acute cystitis without hematuria N30.00 Urinary tract infection type: acute cystitis Hematuria presence: without hematuria
--- OUTSIDE RECORDS SUMMARY | 2025-02-18 13:38 | XMS_ITS ---
Author Organization [facility] Address [address] [place] [address] [place] [phone] Care Team Providers Care Special Population Paraprofessional Name Role Phone Crescencio Jones MD Primary Care Provider Enzo Donaldson Jr Unavailable Medications Medication SIG (Take, Route, Fr equency, Duration) Notes Start Date End Date Status Ursodiol 250 MG take 1 tablet by jessika th 4 times a day for 90 days Active Encounters Encounter Location Date Provider Diagnosis [facility] [address] [place] [address] [place] [phone] 12/17/2024 Enzo Munroe Jr Biliary cirrhosis K74.5 [...] Name:Enzo laboy Jr, 03/06/2025 11:00:00 AM, [address] [place] [address], [phone], Provider Name:Enzo laboy Jr, 02/04/2026 01:15:00 PM, [address] [place] [address], [place] [address], [place], [phone], Progress Notes * JELANI HUNTOB:1940 (84 yo F)Acc No.[id number]:12/17/2024 Patient:?GILBERT, RENÉ :1940???Age:84 Y???Sex:Female Address:[address] [place] [address] * Refills? Refill Ursodiol Tablet, 250 MG, 360, take 1 tablet by mouth 4 times a day, 90 days, Refills=3 * true * Date:? Generated for Justin dietrich/Jacquelin/Kwamesmitting on:?02/18/2025 01:38 PM EDT
--- OUTSIDE RECORDS SUMMARY | 2025-02-18 13:39 | XMS_ITS ---
Author Organization [facility] Address [address] [place] [phone] Care Team Providers Care Setter Out Name Role Phone Crescencio Jones MD Primary [...] 300 MG TAKE 1 CAPSULE BY MO [facility] THREE TIMES DAILY *APPOINTMENT NEEDED FOR [...] 11/20/2024 Encounters Encounter Location Date Provider Diagnosis [facility] [address] [place] [phone] 11/20/2024 Enzo Munroe Jr Biliary cirrhosis K74.5 [...] Provider Name:Enzo laboy Jr, 03/06/2025 11:00:00 AM, [address] [place] [address], [phone], Provider Name:Enzo laboy Jr, 02/04/2026 01:15:00 PM, [address] [place] [address], [facility], [place], [phone], Progress Notes * JELANI HUNTOB:1940 (84 yo F)Acc No.[id number]:11/20/2024 Progress Notes Patient:?RENÉ HUNT Provider:?Enzo Munroe MD :1940???Age:84 Y???Sex:Female D ate:11/20/2024 Address:[address] [place] [address] Pcp:Crescencio Jones MD Subjective: * Chief Complaints: [...] Interpretation: Negative.?Miscellaneous:?Marital status: Single. Occupation: Works at [employer]/ [employer] nov 2023. * Medications:?Taking Atorvast atin Calcium [...] MD Date:?0 11/20/2024 Generated for Justin dietrich/Jacquelin/eTransmitting on:?02/18/2025 01:39 PM EDT History and Physical Notes * [...]
--- OUTSIDE RECORDS SUMMARY | 2025-02-18 13:39 | XMS_ITS ---
Author Organization Crescencio Jones MD Address [address] [place], [place] [phone] Care Team Providers Care C T Tech Name Role Phone Crescencio Jones Primary Care [...] ff Reviewed date:01/14/2025 07:55:49 AM Interpretation: Performing Lab:[facility], [address] [place] [phone] Notes/Report: White Blood Count 5.9 4.8-10.8 X10*3/uL [...] PROFILE Reviewed date:01/15/2025 10:45:18 AM Interpretation: Performing Lab:[facility], [address] [place] [phone] Notes/Report: Iron 21 30-160 mcg/dL Total Iron Binding Capacity 389 228-428 mcg/d L Percent Iron Saturation 5 15-50 % Unsaturated Iron Binding 368 Microalbumin, Random Reviewed date:01/15/2025 06:41:26 PM Interpretation: Performing Lab:[facility], [address] [place] [phone] Notes/Report: Creatinine Urine 17.30 Microalbumin Urine < 5.0 Microalbum/Creatinine Ratio Ur TNP <30 ug/mg cr Unable to calculate albumin/creatinine ratio due to low microalbumin or creatinine result. UA ClnCatch+Micro w/rflx Cul t Reviewed date:01/14/2025 07:57:02 AM Interpretation: Performing Lab:[facility], [address] [place] [phone] Notes/Report: Urine, Clean Catch Color Urine Yellow Appearance Urine Clear PH 7.5 5.0-9.0 Glucose Urine UA Negative Negative mg/dL Urine Blood Negative Negative Specific Y[place]y - Urine <= 1.005 1.005-1.025 Urine Protein [...] kg/m2 01/13/2025 weight is down [address] [facility] 07-17-24 Encounters Encounter Location Date Provider Diagnosis Crescencio Jones MD [address] [place] [address] [address] [place], [place] [phone] 01/13/2025 Crescencio Jones Annual physical exam Z00.00 [...] Reason: Provider Name:Crescencio hernandez, 07/27/2025 07:00:00 AM, [address] [place] [address], [address], [place], [place], [phone], Provider Name:Crescencio hernandez, 08/03/2025 01:30:00 PM, [address] [place] [address], [address], [place], [place], [phone], Provider Name:Crescencio hernandez, 01/11/2026 07:15:00 AM, [address] [place] [address], [address], [place], [phone], Provider Name:Crescencio finkr, 01/18/2026 01:00:00 PM, [address] [facility], [address], [place], [phone], Progress Notes * Cynthia MICHELE MDOB:[birth year] (84 yo F)Acc No.[id number]:01/13/2025 Progress Notes Patient:?GILBERT Cynthia Mik Provider:?Crescencio Jones MD :1940???Age:84 Y???Sex:Female D ate:01/13/2025 Address:[address] [place], [place] [phone] Subjective: * Chief Complaints: * ???[facility] * HPI: ???Depression Screening:?PHQ-9?Little interest or [...] here for yearly exam, goes to the [facility] 3 times per week. ???SDOH Questions:?SDOH [...] Auto 0.000 0.0-0. 012 - X10*3/uL ???Lab:[facility] [place]. P ignacio Fast (Order Date - 01/06/2025) [...] negative??7.?Depression screening? Notes: negative screen?? * Procedure Codes:?49664 VENIP UNCT, ROUTINE*70409 TEST FOR BLOOD, FECES * Follow Up:?6 Months * * Sign off status: Completed true * Provider:?Crescencio Jones MD Date:?0 01/13/2025 Generated for Printi ng/Fajohnsong/eTransmitting on:?02/18/2025 01:39 PM EDT History and Physical [...]
--- OUTSIDE RECORDS SUMMARY | 2025-02-18 13:39 | XMS_ITS ---
Author Organization Crescencio Jones MD Address [address] [place] [phone] Care Team Providers Care Printed Circuit Designer Name Role Phone Crescencio Jones Primary Care Provider Results Component Value Reference Range Notes Complete Blood Count Auto Di ff Reviewed date:01/06/2025 02:01:38 PM Interpretation: Performing Lab:[facility], [address] [place] [phone] Notes/Report: White Blood Count 6.8 4.8-10.8 X10*3/uL [...] NRBC Abs Auto 0.000 0.0-0.012 X10*3/uL [facility] [place]. Panel Fa st Reviewed date:01/06/2025 12:23:15 PM Interpretation: Performing Lab:[address] [phone] Notes/Report: Sodium 140 135-145 mmol/L Potassium 3.7 [...] Panel Reviewed date:01/06/2025 12:21:16 PM Interpretation: Performing Lab:[address] [phone] Notes/Report: Triglycerides 64 <150 mg/dL Desirable Triglyceride: [...] A1c Reviewed date:01/06/2025 12:21:25 PM Interpretation: Performing Lab:[facility], [address] [place] [phone] Notes/Report: Hemoglobin A1c % 5.5 <6.0 % [...] average glucose, using the formula of the T2N-Qjohnld Average Glucose study (ADAG), Diabetes Care, Vol.31,#8, May. 2007 REASON FOR VISIT yearly fasting labs Encounters Encounter Location Date Provider Diagnosis Crescencio Jones MD [address] [place] [address] [address] [place], [place] [phone] 01/06/2025 Crescencio Jones Blood tests for rout [...] 07:00:00 AM, [address], [address], [place], [phone], Provider Name:Crescencio Banerjee ier, 08/03/2025 01:30:00 PM, [address], [address], [place], [phone], Provider Name:Crescencio Banerjee ier, 01/11/2026 07:15:00 AM, [address] [place] [address] Drive, [address], [place], [phone], Provider Name:Crescencio Banerjee ier, 01/18/2026 01:00:00 PM, [address] [place] [address], [address], [place], [phone], Progress Notes * Cynthia MICHELE MDOB:[birth year] (84 yo F)Acc No.[id number]:01/06/2025 Progress Note Patient:?Cynthia MICHELE M Provider:?Crescencio Jones MD :1940???Age:84 Y???Sex:Female D ate:01/06/2025 Address:[address] [place], [place] [phone] Subjective: * Chief Complaints: * ???1. Yearly [...] Time - 01/06/2025 07:00 AM) ?LAB: [facility] [place]. Panel Fast (Collection Date & Time 01/06/2025 07:00 AM) ?LAB: Lipid Panel (Collection Date & Time 01/06/2025 07:00 AM) ?LAB: Hemoglobin A1c (Collection Date & Time - 01/06/2025 07:00 AM) 3.?Pure hypercholesterolemia ?LAB: Microalbumin, Random ?LAB: UA ClnCatch+Micro w/rflx Cult ?LAB: Complete Blood Count Auto Diff (Collection Date & Time - 01/06/2025 07:00 AM) ?LAB: [facility] [place]. Panel Fast (Collection Date & Time 01/06/2025 07:00 AM) ?LAB: Lipid Panel (Collection Date & Time 01/06/2025 07:00 AM) ?LAB: Hemoglobin A1c (Collection Date & Time 01/06/2025 07:00 AM) 4.?Essential (primary) hyper tension?LAB: Microalbumin, Random ?LAB: UA ClnCatch+Micro w/rflx Cult ?LAB: Complete Blood Count Auto Diff (Collection Date & Time - 01/06/2025 07:00 AM) ?LAB: [facility] [place]. Panel Fast (Collection Date & Time 01/06/2025 07:00 AM) ?LAB: Lipid Panel (Collection Date & Time 01/06/2025 07:00 AM) ?LAB: Hemoglobin A1c (Collection Date & Time - 01/06/2025 07:00 AM) * Procedure Codes:?55516 VENIP UNCT, ROUTINE* * * The named appointment provid er may or may not be the originator of this progress note, and it is not deemed complete until electronically signed by the appointment provider. Sign off status: Pending * Provider:?Crescencio Jones MD Date:?0 01/06/2025 Generated for Navini ng/Fajohnsong/eTransmitting on:?02/18/2025 01:38 PM EDT
--- OUTSIDE RECORDS SUMMARY | 2025-02-18 13:39 | XMS_ITS ---
Author Organization [facility] Address [address] [place] [phone] Care Team Providers Care Manager Ed Name Role Phone Crescencio Jones MD Primary Care Provider nEzo Donaldson Jr Unavailable Allergies Allergen (clinical drug [...] 300 MG TAKE 1 CAPSULE BY MO [facility] THREE TIMES DAILY *APPOINTMENT NEEDED FOR FURTHER [...] 02/11/2025 Encounters Encounter Location Date Provider Diagnosis [facility] [address] [place] [address] 02/11/2025 Enzo Munroe Jr Anemia D64.9 ; Nausea R11.0 and Biliary cirrhosis K74.5 Assessments Encounter Date Diagnosis (ICD Code) Assessment Notes Treatment Notes Treatment Clinical Notes Section Notes 02/11/2025 Anemia (ICD-10 - D64.9) We discussed her symptoms today. We recommended a trial of omeprazole 20 mg daily for her upper GI symptoms. Because of these and her iron deficiency anemia, she should have endoscopy and colonoscopy. We discussed this in detail. She declines colonoscopy at this time. We will arrange upper endoscopy for further evaluation. She will start iron supplementation . Follow-up will be pending the results of endoscopy. Today's visit was 30 minutes. 02/11/2025 Nausea (ICD-10 - R11.0) We discussed her symptoms today. We recommended a trial of omeprazole 20 mg daily for her upper GI symptoms. Because of these and her iron deficiency anemia, she should have endoscopy and colonoscopy. We discussed this in detail. She declines colonoscopy at this time. We will arrange upper endoscopy for further evaluation. She will start iron supplementation . Follow-up will be pending the results of endoscopy. Today's visit was 30 minutes. 02/11/2025 Biliary cirrhosis (ICD-10 - K74.5) We discussed her symptoms today. We recommended a trial of omeprazole 20 mg daily for her upper GI symptoms. Because of these and her iron deficiency anemia, she should have endoscopy and colonoscopy. We discussed this in detail. She declines colonoscopy at this time. We will arrange upper endoscopy for further evaluation. She will start iron supplementation . Follow-up will be pending the results of endoscopy. Today's visit was 30 minutes. Plan Of Treatment Medication Medication Name Sig Start Date Stop Date Notes Omeprazole 20 MG 1 capsule 1/2 to 1 h our before morning meal Orally Once a day for 30 days 02/11/2025 Ferrous Sulfate 325 (65 Fe) MG 1 tablet Orally daily for 30 days 02/11/2025 Future Test Test Name Order Date UPPER GI ENDOSCOPY 02/11/2025 Next Appt Details Follow Up: 1 Year, Reason: Provider Name:Enzo laboy Jr, 03/06/2025 11:00:00 AM, [address] [facility] , [place], [place], [phone], Provider Name:Enzo laboy Jr, 02/04/2026 01:15:00 PM, [address] [facility], [address], [place], [phone], Progress Notes * JELANI HUNTOB:1940 (84 yo F)Acc No.[id number]:02/11/2025 Progress Notes Patient:?CYNTHIA HUNT Provider:?Enzo Munroe MD :1940???Age:84 Y???Sex:Female D ate:02/11/2025 Address:[address] [place], [place] [phone] Pcp:Crescencio Jones MD Subjective: * Chief Complaints: * ???1. Patient presents today for ? IRON LOW. * HPI: ???New symptom(s):? Cynthia is a pleasant 84-year-old woman seen today in follow-up. She was last seen in November of this year for follow-up of primary biliary cirrhosis. Liver function tests were normal and she continues on ursodiol. She is referred by her primary care provider for iron deficiency in the setting of anemia with a hematocrit of 32.2 on 01/06. Stool occult blood testing was negative on 01/13. Follow-up laboratory studies showed a hematocrit of 30.9 on 01/13 with an iron saturation of 5. She reports no rectal bleeding. Her stomach bothers her and she reports nauseous with the ursodiol. She went from capsules to pills which helped lessen the nausea. She does have some constipation. She last underwent colonoscopy in 2013. This showed a hyperplastic polyp. We reviewed this today. * Medical History:?Hyperlipide [...] Interpretation: Negative.?Miscellaneous:?Marital status: Single. Occupation: Works at [employer]/ [employer] nov 2023. * Medications:?Taking Atorvast atin Calcium [...] BP: 001/01 mm Hg, Temp: 98.3, Wt-k.69. * Examination: ???General Examination: ???On examination today she presents as a well-appearing female in no acute distress. Skin is anicteric. Lungs are clear. Heart shows a regular rate and rhythm. Abdomen is soft without focal masses or tenderness. Extremities are without edema. Assessment: * Assessment: 1.?Anemia - D64.9 (Primary)? ??2.?Nausea - R11.0???3.?Biliary cirrhosis - K74.5??? We discussed her symptoms to day. We recommended a trial of omeprazole 20 mg daily for her upper GI symptoms. Because of these and her iron deficiency anemia, she should have endoscopy and colonoscopy. We discussed this in detail. She declines colonoscopy at this time. We will arrange upper endoscopy for further evaluation. She will start iron supplementation. Follow-up will be pending the results of endoscopy. Today's visit was 30 minutes. Plan: * Treatment: 2.?Nausea? Start Omeprazole Capsule Delayed Release, 20 MG, 1 capsule 1/2 to 1 hour before morning meal, Orally, Once a day, 30 days, 30, Refills 5.?Procedure: UPPER GI ENDOSCOPY (Ordered for 02/11/2025)* sched for 03/06/25 at 11:00 a [facility] * Procedure Codes:?G9902 Pt sc rn tbco and id as user, G9744 PATIENT NOT ELIG D/T ACTIVE DX HTN * Preventive Medicine:? ??Urinary Incontinence:?Urinary Incontinence?Assessment:?Absent,?Plan of care documented:?No, reason not specified.? ??Screenings:?Fall Risk Screening?Fall Risk Assessment:?No falls in the past year,?Screening:?No falls in the past year,?Assessment:?Not performed, no reason specified,?Plan of Care:?Not documented, no reason specified.? * Follow Up:?1 Year * * Sign off status: Completed true * Provider:?Enzo Munroe MD Date:?0 02/11/2025 Generated for Justin dietrich/Jacquelin/Evetteitting on:?02/18/2025 01:38 PM EDT History and Physical Notes * HPI (History of Present Illness) Category Sub-Category Detail Notes Category Not es New symptom(s) Cynthia is a pleasant 84-year-old woman seen today in follow-up. She was last seen in November of this year for follow-up of primary biliary cirrhosis. Liver function tests were normal and she continues on ursodiol. She is referred by her primary care provider for iron deficiency in the setting of anemia with a hematocrit of 32.2 on 01/06. Stool occult blood testing was negative on 01/13. Follow-up laboratory studies showed a hematocrit of 30.9 on 01/13 with an iron saturation of 5. She reports no rectal bleeding. Her stomach bothers her and she reports nauseous with the ursodiol. She went from capsules to pills which helped lessen the nausea. She does have some constipation. She last underwent colonoscopy in 2013. This showed a hyperplastic polyp. We reviewed this today. Examination Category Sub-Category Detail Notes Category Not es General Examination On exami nation today she presents as a well-appearing female in no acute distress. Skin is anicteric. Lungs are clear. Heart shows a regular rate and rhythm. Abdomen is soft without focal masses or tenderness. Extremities are without edema.
--- OUTSIDE RECORDS SUMMARY | 2025-02-18 13:39 | XMS_ITS ---
Author Organization Crescencio Jones MD Address [address] [place] [phone] Care Team Providers Care Office Helper Name Role Phone Crescencio Jones Primary Care [...] kg/m2 07/17/2024 weight is down 4 pounds [facility] e 4-2-24 Encounters Encounter Location Date Provider Diagnosis Crescencio Jones MD [address] [place] [phone] 07/17/2024 Crescencio Jones Shortness of breath on [...] Details Provider Name:Crescencio hernandez, 07/27/2025 07:00:00 AM, [address] [place] [address], [phone], Provider Name:Crescencio hernandez, 08/03/2025 01:30:00 PM, [address] [place] [address], [phone], Provider Name:Crescencio hernandez, 01/11/2026 07:15:00 AM, [address] [place] [address], [phone], Provider Name:Crescencio hernandez, 01/18/2026 01:00:00 PM, [address] [place] [address], [phone], Progress Notes * Cynthia MICHELE MDOB:[birth year] (84 yo F)Acc No.[id number]:07/17/2024 Progress Notes Patient:?Cynthia Michele Provider:?Crescencio Jones MD :1940???Age:84 Y???Sex:Female D ate:07/17/2024 Address:[address] [place] [address] [address]nie [address] [id number] Subjective: * Chief Complaints: * ???6 month * HPI: ???Symptom(s):? patient is s 84 yo female here for 6 month follow up. gets winded if she does too much. climbing stairs. goes to exercise at [employer] and not short of breath. no chest [...] Jones MD Date:?1 Generated for Justin dietrich/Jacquelin/eTransmitting on:?02/18/2025 01:39 PM [...]
--- OUTSIDE RECORDS SUMMARY | 2025-02-18 13:39 | XMS_ITS | Patient Health Record ---
Author Organization [facility] Address [address] [place] [address] Care Team Providers Care Curb Setter Name Role Phone Robert RICHMOND, Crescencio Primary Care Provider Enzo Donaldson Jr Unavailable [phone] Allergies Allergen (clinical drug ingredient) Drug/Non Drug Allergy documented on EMR Reaction Allergy Type Onset Date Status Codeine Phosphate Unknown Drug Allergy Active Reason For Referral Referring Provider First Name Crescencio Referring Provider Last Name Robert Referring Provider Speciality Internal M edicine Referred Organization [facility] Referred Provider Enzo Munroe Jr Referred Address [address], [address],[place], [place],[address],[place] Referred Provider Specialty Gastroentero logy General Notes Carmencita Quick 024 11:27:23 AM EDT > call dr forbes's office [phone] to request a [place] referral for visit with Dr. Munroe on 08-14-2024, Carmencita Quick 07/03/2024 09:07:10 AM EDT > REQUESTED REFERRAL FROM Abdelrahman SMITH Dawn 07/15/2024 02:02:15 PM EDT > spoke with Bryanna at Dr. Forbes's office and she was told by Ashutosh at [place] that no referral is required since Dr. Forbes and Dr. Munroe are in the same [facility]. Conf _# [id number] Referral Priority Routine Referred Organization [facility] Referred Provider Enzo Munroe Jr Referred Address [address],[place], [place],[address],[place] Referred Provider Specialty Gastroentero logy General Notes Carmencita Quick 023 11:16:25 AM EDT > no referral required per Dr. Forbes's office since patient is in the same [facility]. Referral Priority Routine Medications Medication SIG (Take, Route, Frequency, Duration) Notes Start Date End Date Status Ursodiol 300 MG TAKE 1 CAPSULE BY MO [facility] THREE TIMES DAILY *APPOINTMENT NEEDED [...] Notes Problem Anemia (D64.9) Active confirmed Problem 1736212 Biliary cirrhosi s (K74.5) Active confirmed Problem 178664309 Gastroesophageal reflux disease, unspecified whether esophagitis present (K21.9) Active confirmed Vital Signs Temperature 98.3 degrees Fahrenheit 02/11/2025 Blood pressure diastolic 01 mm Hg 02/11/2025 Height 60 in 02/11/2025 Blood pressure systolic 001 mm Hg 02/11/2025 Weight 136 lbs 02/11/2025 BMI 26.56 kg/m2 02/11/2025 Encounters Encounter Location Date Provider Diagnosis [facility] [address] [place] [address] 11/20/2024 Enzo Munroe Jr Biliary cirrhosis K74.5 [facility] [address] [place] [address] 02/11/2025 Enzo Munroe Jr Anemia D64.9 ; Nausea R11.0 and Biliary cirrhosis K74.5 [facility] [address] [place] [address] 08/11/2024 Enzo Munroe Jr [facility] [address] [place], [place] [address], [place] [address] 08/14/2024 Enzo Munroe Jr [facility] [address] [place] [address] 12/17/2024 Enzo Munroe Jr Biliary cirrhosis K74.5 [...] with us will be in one year. 02/11/2025 Nausea (ICD-10 - R11.0) We discussed [...] endoscopy. Today's visit was 30 minutes. 02/11/2025 Anemia (ICD-10 - D64.9) We discussed [...] of endoscopy. Today's visit was 30 minutes. 12/17/2024 Biliary cirrhosis (ICD-10 - K74.5) 02/11/2025 Biliary cirrhosis (ICD-10 - K74.5) We [...] visit was 30 minutes. Plan Of Treatment Future Test Test Name Order Date COLONOSCOPY 07/16/2014 UPPER GI ENDOSCOPY 02/11/2025 Next Appt Details Provider Name:Enzobee laboy Jr, 03/06/2025 11:00:00 AM, [address] [facility] [facility] , [place], [place], [phone], Provider Name:Enzo Lamont laboy Jr, 02/04/2026 01:15:00 PM, [address] [place] [address], [facility] [address], [place], [address], Insurance Providers Payer Name Payer Address Payer Phone Subscriber Number Group Number Insured Name Patient Relationship to Insured Coverage Start Date Coverage End Date [facility] [address] [place] [address] [id number] RENÉ HUNT Self - patient is the insured Medical (General) History Medical History History ICD Code hyperlipidemia colonoscopy 09/23/14, hyperplastic polyp , followup p.r.n. 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 On ursodiol. hx of chronic uti's Surgical History Surgery Date(Month/Year) lasik bilateral eyes
--- OUTSIDE RECORDS SUMMARY | 2025-02-18 13:40 | XMS_ITS | Patient Health Record ---
Author Organization Crescencio Jones MD Address [address] [place], [place] [id number] Care Team Providers Care Geotechnical Intern Name Role Phone Crescencio Jones Primary Care Provider Allergies Allergen (clinical drug ingredient) Drug/Non Drug Allergy documented on EMR Reaction Allergy Type Onset Date Status codeine Codeine Sulfate n/v Drug Allergy A ctive Results Component Value Reference Range Notes Liver Panel Reviewed date:07/10/2024 04:17:04 PM Interpretation: Performing Lab:[address] [address] Notes/Report: Bilirubin Total 0.7 0.0-1.0 mg/dL Bilirubin Direct 0.3 0.0-0.5 mg/dL Aspartate Amino Transferase 15 5-31 U/L Alanine Aminotransferase 9 0-31 U/L Total Protein 7.3 6.5-8.0 g/dL Albumin Level 4.2 3.5-5.0 g/dL Alkaline Phosphatase 92 39-117 U/L Glucose Fasting Reviewed date:07/10/2024 01:04:19 PM Interpretation: Performing Lab:[address] [phone] Notes/Report: Glucose Fasting 100 60-99 mg/dL A fasting glucose from 100-125 mg/dl is considered impaired (pre-diabetes). Lipid Panel with Reflex Reviewed date:07/10/2024 04:20:47 PM Interpretation: Performing Lab:[facility], [address] [place] [phone] Notes/Report: Triglycerides 66 <150 mg/dL Desirable Triglyceride: [...] A1c Reviewed date:07/10/2024 12:32:52 PM Interpretation: Performing Lab:[facility], [address] [place] [phone] Notes/Report: Hemoglobin A1c % 5.2 <6.0 % [...] average glucose, using the formula of the N0Z-Guqptbh Average Glucose study (ADAG), Diabetes Care, Vol.31,#8, 2007 Complete Blood Count Auto Di ff Reviewed date:01/06/2025 02:01:38 PM Interpretation: Performing Lab:[facility], [address] [place] [phone] Notes/Report: White Blood Count 6.8 4.8-10.8 X10*3/uL [...] NRBC Abs Auto 0.000 0.0-0.012 X10*3/uL Comprehensive [place]. Panel Fa st Reviewed date:01/06/2025 12:23:15 PM Interpretation: Performing Lab:[facility], [address] [place] [phone] Notes/Report: Sodium 140 135-145 mmol/L Potassium 3.7 [...] Panel Reviewed date:01/06/2025 12:21:16 PM Interpretation: Performing Lab:[facility], [address] [place] [phone] Notes/Report: Triglycerides 64 <150 mg/dL Desirable Triglyceride: [...] A1c Reviewed date:01/06/2025 12:21:25 PM Interpretation: Performing Lab:[facility], [address] [place] [phone] Notes/Report: Hemoglobin A1c % 5.5 <6.0 % [...] average glucose, using the formula of the E3D-Pqacgre Average Glucose study (ADAG), Diabetes Care, Vol.31,#8, May. 2007 Occult Blood, Stool, Guaiac Reviewed date:01/13/2025 10:47:09 AM Interpretation:Negative Performing Lab: Notes/Report: Negative Occult Blood, Stool, Guaiac Neg Complete Blood Count Auto Di ff Reviewed date:01/14/2025 07:55:49 AM Interpretation: Performing Lab:[facility], [address] [place] [phone] Notes/Report: White Blood Count 5.9 4.8-10.8 X10*3/uL [...] PROFILE Reviewed date:01/15/2025 10:45:18 AM Interpretation: Performing Lab:[facility], [address] [place] [phone] Notes/Report: Iron 21 30-160 mcg/dL Total Iron Binding Capacity 389 228-428 mcg/dL Percent Iron Saturation 5 15-50 % Unsaturated Iron Binding 368 Microalbumin, Random Reviewed date:01/15/2025 06:41:26 PM Interpretation: Performing Lab:[facility], [address] [place] [phone] Notes/Report: Creatinine Urine 17.30 Microalbumin Urine < 5.0 Microalbum/Creatinine Ratio Ur TNP <30 ug/mg cr Unable to calculate albumin/creatinine ratio due to low microalbumin or creatinine result. UA ClnCatch+Micro w/rflx Cul t Reviewed date:01/14/2025 07:57:02 AM Interpretation: Performing Lab:[facility], [address] [place] [phone] Notes/Report: Urine, Clean Catch Color Urine Yellow Appearance Urine Clear PH 7.5 5.0-9.0 Glucose Urine UA Negative Negative mg/dL Urine Blood Negative Negative Specific [place] - Urine <= 1.005 1.005-1.025 Urine Protein Negative Neg-Trace mg/dL Urine Ketones Negative Negative mg/dL Nitrite Urine Negative Negative Leukocyte Esterase Urine Small (1+) Negative RBC Urine 0-2 0-2 /HPF WBC Urine 0-5 0-5 /HPF Squamous Epithelial Cell Urine 0-2 0-2 /HPF Bacteria Urine 1+ None Seen Hyaline Casts Urine 0-2 0-2 /LPF Hold Gold Reviewed date:07/10/2024 12:21:45 PM Interpretation: Performing Lab:[facility], [address] [place] [phone] Notes/Report: Hold Gold See Note Specimen held untested for 24 hours; Call to request Chemistry testing. UA CC w/rflx Micro + Cult Reviewed date:10/07/2024 04:45:12 PM Interpretation: Performing Lab:[facility], [address] [place] [phone] Notes/Report: Urine, Clean Catch Color Urine Yellow Appearance Urine Clear PH 6.5 5.0-9.0 Glucose Urine UA Negative Negative mg/dL Urine Blood Negative Negative Specific [place] - Urine <= 1.005 1.005-1.025 Urine Protein Negative Neg-Trace mg/dL Urine Ketones Negative Negative mg/dL Nitrite Urine Negative Negative Leukocyte Esterase Urine Negative Negative Hold Gold Reviewed date:01/06/2025 12:21:34 PM Interpretation: Performing Lab:[facility], [address] [place] [phone] Notes/Report: Leslie Cristi See Note Specimen held untested for 24 hours; Call to request Chemistry testing. Leslie Colin Reviewed date:01/15/2025 06:41:19 PM Interpretation: Performing Lab:[facility], [address] [place] [phone] Notes/Report: Leslie Colin See Note Specimen held untested for 24 hours; Call to request Chemistry testing. Urine Culture Reviewed date:01/15/2025 09:15:15 AM Interpretation: Performing Lab:[facility], [address] [place] [phone] Notes/Report: Urine Culture Report Result Urine Culture [...] Annette 01/30/2025 01:46:51 PM >was told to Shannan mederos Annette 02/06/2025 02:01:50 PM > was told on cancel list, Lashon Dinero 02/13/2025 09:15:59 AM >OFFICE NOTE RECD Referral Priority Routine Medications Medication SIG (Take, [...] 08/28/2013 Administered TDaP IM Intramuscular 08/28/2013 Administered [id number] - Lot # Flu Vaccine IM Intramuscular 09/17/2014 Administered zFluzone Quadrivalent IM Intramuscular 08/09/2015 Administered Fluarix Quadrivalent IM Intramuscular 09/25/2016 Adminyolande red Fluarix Quadrivalent IM Intramuscular 09/24/2017 Administe red Prevnar 13 IM Intramuscular 10/04/2017 Administered Fluarix Quadrivalent IM Intramuscular 09/03/2018 Administe red PPSV23 (Pnemovax) IM Intramuscular 10/17/2018 Administered Fluarix Quadrivalent Unknown 09/15/2019 Administered Fluarix Quadrivalent IM Intramuscular 08/13/2020 Adminnorberte red SARS-COV-2 Pfizer Unknown 11/18/2020 Administered SARS-COV-2 Pfizer Unknown 12/09/2020 Administered SARS-COV-2 Pfizer Unknown 08/31/2021 Administered Influenza High Dose Unknown 10/11/2021 Administered Influenza High Dose Unknown 08/28/2022 Administered Saida sommer's Influenza High Dose IM Intramuscular 06/29/2023 Administer [...] Problem Status W/U Status Risk Notes Problem 90443382 Age-related osteoporosis without current pathological fracture (M81.0) Active confirmed Problem 25847948 Lymphocytosis (D72.820) Active confirmed Problem Essential hypertension (63710290) Essential (primary) hypertension (I10) Active confirmed Problem 427427320 Other specified menopausal and perimenopausal disorders (N95.8) Active confirmed Problem 833578828 Abnormal results of liver function studies (R94.5) Active confirmed Problem 3320240 Prediabetes (R73.09) Active confirmed Problem 951902105 History of hemat uria (Z87.448) Active confirmed Problem 646359582 Pure hypercholesterolemia (E78.00) Active confirmed Problem 258566370 Osteopenia deter mined by x-ray (M85.80) Active confirmed Problem 9211246 Biliary cirrhosi s (K74.5) Active confirmed Vital [...] Crescencio Jones MD [address] [place] [id number] 07/10/2024 Crescencio Jones Pure hypercholestero lemia E78.00 ; Prediabetes R73.09 and Encounter for immunization Z23 Crescencio Jones MD [address] [place] [id number] 01/06/2025 Crescencio Jones Blood tests for rout ine general physical examination Z00.00 ; Prediabetes R73.09 ; Pure hypercholesterolemia E78.00 and Essential (primary) hypertension I10 Crescencio Jones MD [address] [place] [id number] 07/17/2024 Crescencio Jones Shortness of breath on exertion R06.02 ; Prediabetes R73.09 ; Pure hypercholesterolemia E78.00 and Essential (primary) hypertension I10 Crescencio Jones MD [address] [place] [id number] 01/13/2025 Crescencio Jones Annual physical exam Z00.00 ; Prediabetes R73.09 ; Essential (primary) hypertension I10 ; Anemia D64.9 ; Pure hypercholesterolemia E78.00 ; Colon cancer screening Z12.11 and Depression screening Z13.31 Crescencio Jones MD [address] [place] [id number] 07/03/2024 Crescencio Jones MD [address] [place] [id number] 07/15/2024 Crescencio Jones Assessments Encounter Date Diagnosis [...] DEXA 12/01/2020 Next Appt Details Provider Name:Crescencio finkr, 07/27/2025 07:00:00 AM, [address] [place] [address], [address], [phone], Provider Name:Crescencio finkr, 08/03/2025 01:30:00 PM, [address] [place] [address], [address], [phone], Provider Name:Crescencio Jc Chriss finkr, 01/11/2026 07:15:00 AM, [address] [place] [address], [address], [phone], Provider Name:Crescencio finkr, 01/18/2026 01:00:00 PM, [address] [place] [address], [address], [phone], Insurance Providers Payer Name Payer Address Payer Phone Subscriber Number Group Number Insured Name Patient Relationship to Insured Coverage Start Date Coverage End Date [employer] [address] [place] [phone] [id number] Cynthia Michele Self - patient is the insured Medical (General) History Medical History History ICD Code hematuria worked up 2008 colonoscopy 2003; colonoscopy 09/25/14 w [facility] Dr. Alicia osteoporosis doesn't want meds 2020
== END 2025-02-18 14:26 | disposition home or self-care (01) ==
PROVIDERS: PCP Internal Medicine; Visit Provider Physician Assistant
DX: N30.00 Acute cystitis without hematuria (principal); Z13.9 Encounter for screening, unspecified

== ENCOUNTER 2025-02-19 08:18 | Outpatient (REF) | payer MEDICARE, SELFPAY ==
--- OUTSIDE RECORDS SUMMARY | 2025-02-19 08:33 | XMS_ITS ---
Author Organization [facility] Address [address] [place] [address] Care Team Providers Care Rn Wound Care Name Role Phone Crescencio Jones MD Primary [...] 300 MG TAKE 1 CAPSULE BY MO [facility] THREE TIMES DAILY *APPOINTMENT NEEDED FOR FURTHER [...] 02/11/2025 Encounters Encounter Location Date Provider Diagnosis [facility] [address] [place] [address] 02/11/2025 Enzo Munroe Jr Anemia D64.9 ; [...] Name:Enzo laboy Jr, 03/06/2025 11:00:00 AM, [address] [facility] , [place], [place], [phone], Provider Name:Enzo laboy Jr, 02/04/2026 01:15:00 PM, [address] [facility], [address], [place], [address], Progress Notes * JELANI HUNTOB:1940 (84 yo F)Acc No.[id number]:02/11/2025 Progress Notes Patient:?CYNTHIA HUNT Provider:?Enzo Munroe MD :1940???Age:84 Y???Sex:Female D ate:02/11/2025 Address:[address] [place], [place] [phone] Pcp:Crescencio Jones MD Subjective: * Chief Complaints: [...] Interpretation: Negative.?Miscellaneous:?Marital status: Single. Occupation: Works at [employer] nov 2023. * Medications:?Taking Atorvast atin Calcium [...] 02/11/2025)* sched for 03/06/25 at 11:00 a [facility] * Procedure Codes:?G9902 Pt sc rn [...] MD Date:?0 02/11/2025 Generated for Justin dietrich/Jacquelin/Evetteitting on:?02/19/2025 08:33 AM EDT History and Physical Notes * [...]
--- OUTSIDE RECORDS SUMMARY | 2025-02-19 08:33 | XMS_ITS ---
Author Organization Crescencio Jones MD Address [address] [place] [phone] Care Team Providers Care After School Tutor Name Role Phone Crescencio Jones Primary Care Provider Results Component Value Reference Range Notes Complete Blood Count Auto Di ff Reviewed date:01/06/2025 02:01:38 PM Interpretation: Performing Lab:[facility], [address] [place] [phone] Notes/Report: White Blood Count 6.8 4.8-10.8 X10*3/uL [...] NRBC Abs Auto 0.000 0.0-0.012 X10*3/uL Comprehensive [place]. Panel Fa st Reviewed date:01/06/2025 12:23:15 PM Interpretation: Performing Lab:[address] [phone] Notes/Report: Sodium 140 135-145 mmol/L Potassium 3.7 [...] Panel Reviewed date:01/06/2025 12:21:16 PM Interpretation: Performing Lab:[address] [phone] Notes/Report: Triglycerides 64 <150 mg/dL Desirable Triglyceride: [...] A1c Reviewed date:01/06/2025 12:21:25 PM Interpretation: Performing Lab:[facility], [address] [place] [phone] Notes/Report: Hemoglobin A1c % 5.5 <6.0 % [...] average glucose, using the formula of the V2S-Chhzgrk Average Glucose study (ADAG), Diabetes Care, Vol.31,#8, May. 2007 REASON FOR VISIT yearly fasting labs Encounters Encounter Location Date Provider Diagnosis Crescencio Jones MD [address] [place] [address] [address] [place], [place] [phone] 01/06/2025 Crescencio Jones Blood tests for rout [...] 07:00:00 AM, [address], [address], [place], [phone], Provider Name:Crescencio Banerjee ier, 08/03/2025 01:30:00 PM, [address], [address], [place], [phone], Provider Name:Crescencio Banerjee ier, 01/11/2026 07:15:00 AM, [address] [place] [address] Drive, [address], [place], [phone], Provider Name:Crescencio Banerjee ier, 01/18/2026 01:00:00 PM, [address] [place] [address], [address], [place], [phone], Progress Notes * Cynthia MICHELE MDOB:[birth year] (84 yo F)Acc No.[id number]:01/06/2025 Progress Note Patient:?Cynthia MICHELE M Provider:?Crescencio Jones MD :1940???Age:84 Y???Sex:Female D ate:01/06/2025 Address:[address] [place], [place] [phone] Subjective: * Chief Complaints: * ???1. Yearly [...] Time - 01/06/2025 07:00 AM) ?LAB: [facility] [place]. Panel Fast (Collection Date & Time 01/06/2025 07:00 AM) ?LAB: Lipid Panel (Collection Date & Time 01/06/2025 07:00 AM) ?LAB: Hemoglobin A1c (Collection Date & Time - 01/06/2025 07:00 AM) 3.?Pure hypercholesterolemia ?LAB: Microalbumin, Random ?LAB: UA ClnCatch+Micro w/rflx Cult ?LAB: Complete Blood Count Auto Diff (Collection Date & Time - 01/06/2025 07:00 AM) ?LAB: Comprehensive [place]. Panel Fast (Collection Date & Time 01/06/2025 07:00 AM) ?LAB: Lipid Panel (Collection Date & Time 01/06/2025 07:00 AM) ?LAB: Hemoglobin A1c (Collection Date & Time 01/06/2025 07:00 AM) 4.?Essential (primary) hyper tension?LAB: Microalbumin, Random ?LAB: UA ClnCatch+Micro w/rflx Cult ?LAB: Complete Blood Count Auto Diff (Collection Date & Time - 01/06/2025 07:00 AM) ?LAB: Comprehensive [place]. Panel Fast (Collection Date & Time 01/06/2025 07:00 AM) ?LAB: Lipid Panel (Collection Date & Time 01/06/2025 07:00 AM) ?LAB: Hemoglobin A1c (Collection Date & Time - 01/06/2025 07:00 AM) * Procedure Codes:?86948 VENIP UNCT, ROUTINE* * * The named appointment provid er may or may not be the originator of this progress note, and it is not deemed complete until electronically signed by the appointment provider. Sign off status: Pending * Provider:?Crescencio Jones MD Date:?0 01/06/2025 Generated for Navini ng/Fajohnsong/eTransmitting on:?02/19/2025 08:33 AM EDT
--- OUTSIDE RECORDS SUMMARY | 2025-02-19 08:33 | XMS_ITS ---
Author Organization Crescencio Jones MD Address [address] [place], [place] [phone] Care Team Providers Care Ventilation Equipment Tender Name Role Phone Crescencio Jones Primary Care [...] ff Reviewed date:01/14/2025 07:55:49 AM Interpretation: Performing Lab:[facility], [address] [place] [phone] Notes/Report: White Blood Count 5.9 4.8-10.8 X10*3/uL [...] PROFILE Reviewed date:01/15/2025 10:45:18 AM Interpretation: Performing Lab:[facility], [address] [place] [phone] Notes/Report: Iron 21 30-160 mcg/dL Total Iron Binding Capacity 389 228-428 mcg/d L Percent Iron Saturation 5 15-50 % Unsaturated Iron Binding 368 Microalbumin, Random Reviewed date:01/15/2025 06:41:26 PM Interpretation: Performing Lab:[facility], [address] [place] [phone] Notes/Report: Creatinine Urine 17.30 Microalbumin Urine < 5.0 Microalbum/Creatinine Ratio Ur TNP <30 ug/mg cr Unable to calculate albumin/creatinine ratio due to low microalbumin or creatinine result. UA ClnCatch+Micro w/rflx Cul t Reviewed date:01/14/2025 07:57:02 AM Interpretation: Performing Lab:[facility], [address] [place] [phone] Notes/Report: Urine, Clean Catch Color Urine Yellow Appearance Urine Clear PH 7.5 5.0-9.0 Glucose Urine UA Negative Negative mg/dL Urine Blood Negative Negative Specific [place] - Urine <= 1.005 1.005-1.025 Urine Protein [...] kg/m2 01/13/2025 weight is down 2 pounds [facility] [place] 07-17-24 Encounters Encounter Location Date Provider Diagnosis Crescencio Jones MD [address] [place] [address] [address] [place], [place] [phone] 01/13/2025 Crescencio Jones Annual physical exam Z00.00 [...] Reason: Provider Name:Crescencio hernandez, 07/27/2025 07:00:00 AM, [address] [place] [address], [address], [place], [place], [phone], Provider Name:Crescencio hernandez, 08/03/2025 01:30:00 PM, [address] [place] [address], [address], [place], [place], [phone], Provider Name:Crescencio hernandez, 01/11/2026 07:15:00 AM, [address] [place] [address], [address], [place], [phone], Provider Name:Crescencio finkr, 01/18/2026 01:00:00 PM, [address] [facility], [address], [place], [phone], Progress Notes * Cynthia MICHELE MDOB:[birth year] (84 yo F)Acc No.[id number]:01/13/2025 Progress Notes Patient:?GILBERT Cynthia Mik Provider:?Crescencio Jones MD :1940???Age:84 Y???Sex:Female D ate:01/13/2025 Address:[address] [place], [place] [phone] Subjective: * Chief Complaints: * ???[facility] * HPI: ???Depression Screening:?PHQ-9?Little interest or pleasure [...] here for yearly exam, goes [facility] per [facility]. ???SDOH Questions:?SDOH Questions?In [...] Auto 0.000 0.0-0. 012 - X10*3/uL ???Lab:[facility] [place]. P ignacio Fast (Order Date - 01/06/2025) [...] negative??7.?Depression screening? Notes: negative screen?? * Procedure Codes:?28273 VENIP UNCT, ROUTINE*45889 TEST FOR BLOOD, FECES * Follow Up:?6 Months * * Sign off status: Completed true * Provider:?Crescencio Jones MD Date:?0 01/13/2025 Generated for Printi ng/Fajohnsong/eTransmitting on:?02/19/2025 08:33 AM EDT History and Physical [...]
--- OUTSIDE RECORDS SUMMARY | 2025-02-19 08:33 | XMS_ITS ---
Author Organization [facility] Address [address] [place] [address] [place] [address] Care Team Providers Care Printing Worker Supervisor Name Role Phone Crescencio Jones MD Primary Care Provider Enzo Donaldson Jr Unavailable Medications Medication SIG (Take, Route, Fr equency, Duration) Notes Start Date End Date Status Ursodiol 250 MG take 1 tablet by jessika th 4 times a day for 90 days Active Encounters Encounter Location Date Provider Diagnosis [facility] [address] [place] [phone] 12/17/2024 Enzo Munroe Jr Biliary cirrhosis K74.5 [...] Provider Name:Enzo laboy Jr, 03/06/2025 11:00:00 AM, [address] [place] [address], [phone], Provider Name:Enzo laboy Jr, 02/04/2026 01:15:00 PM, [address] [place] [address], [place] [address], [place], [phone], Progress Notes * JELANI HUNTOB:1940 (84 yo F)Acc No.[id number]:12/17/2024 Patient:?GILBERT, RENÉ :1940???Age:84 Y???Sex:Female Address:[address] [place] [address] * Refills? Refill Ursodiol Tablet, 250 MG, 360, take 1 tablet by mouth 4 times a day, 90 days, Refills=3 * true * Date:? Generated for Jutsin dietrich/Jacquelin/Kwamesmitting on:?02/19/2025 08:33 AM EDT
--- OUTSIDE RECORDS SUMMARY | 2025-02-19 08:34 | XMS_ITS ---
Author Organization Crescencio Jones MD Address [address] [place] [phone] Care Team Providers Care Exhibitor Sales Name Role Phone Crescencio Jones Primary Care Provider [phone] Allergies Allergen (clinical drug ingredient) Drug/Non Drug [...] kg/m2 07/17/2024 weight is down 4 pounds [facility] e 4-2-24 Encounters Encounter Location Date Provider Diagnosis Crescencio Jones MD [address] [place] [phone] 07/17/2024 Crescencio Jones Shortness of breath on [...] Details Provider Name:Crescencio hernandez, 07/27/2025 07:00:00 AM, [address] [place] [address], [phone], Provider Name:Crescencio hernandez, 08/03/2025 01:30:00 PM, [address] [place] [address], [phone], Provider Name:Crescencio hernandez, 01/11/2026 07:15:00 AM, [address] [place] [address], [phone], Provider Name:Crescencio hernandez, 01/18/2026 01:00:00 PM, [address] [place] [address], [phone], Progress Notes * Cynthia MICHELE MDOB:[birth year] (84 yo F)Acc No.[id number]:07/17/2024 Progress Notes Patient:?Cynthia Michele Provider:?Crescencio Jones MD :1940???Age:84 Y???Sex:Female D ate:07/17/2024 Address:[address] [place] [address] Donnie bell [id number] Subjective: * Chief Complaints: * ???6 month * HPI: ???Symptom(s):? patient is s 84 yo female here for 6 month follow up. gets winded if she does too much. climbing stairs. goes to exercise at [employer] and not short of breath. no chest [...] Jones MD Date:?1 Generated for Justin dietrich/Jacquelin/eTransmitting on:?02/19/2025 08:34 AM EDT History and Physical Notes * [...]
--- OUTSIDE RECORDS SUMMARY | 2025-02-19 08:34 | XMS_ITS ---
Author Organization [facility] Address [address] [place] [phone] Care Team Providers Care Automation Qa Analyst Name Role Phone Crescencio Jones MD Primary [...] 300 MG TAKE 1 CAPSULE BY [facility] THREE TIMES DAILY *APPOINTMENT NEEDED [...] 11/20/2024 Encounters Encounter Location Date Provider Diagnosis [facility] [address] [place] [phone] 11/20/2024 Enzo Munroe Jr Biliary cirrhosis K74.5 [...] Provider Name:Enzo laboy Jr, 03/06/2025 11:00:00 AM, [address] [place] [address], [phone], Provider Name:Enzo laboy Jr, 02/04/2026 01:15:00 PM, [address] [place] [address], [facility] [address], [place], [phone], Progress Notes * JELANI HUNTOB:1940 (84 yo F)Acc No.[id number]:11/20/2024 Progress Notes Patient:?RENÉ HUNT Provider:?Enzo Munroe MD :1940???Age:84 Y???Sex:Female D ate:11/20/2024 Address:[address] [place] [address] Pcp:Crescencio Jones MD Subjective: * Chief Complaints: [...] Interpretation: Negative.?Miscellaneous:?Marital status: Single. Occupation: Works at [employer] nov 2023. * Medications:?Taking Atorvast atin Calcium [...] Provider:?Enzo Munroe MD Date:?0 11/20/2024 Generated for Navini karlo/Jacquelin/eTransmitting on:?02/19/2025 08:33 AM EDT History and Physical [...]
--- OUTSIDE RECORDS SUMMARY | 2025-02-19 08:34 | XMS_ITS | Patient Health Record ---
Author Organization [facility] Address [address] [facility] [address] [place] [address] Care Team Providers Care Disease Control Inspector Name Role Phone Robert RICHMOND, Crescencio Primary Care Provider Enzo Donaldson Jr Unavailable [phone] Allergies Allergen (clinical drug ingredient) Drug/Non Drug Allergy documented on EMR Reaction Allergy Type Onset Date Status Codeine Phosphate Unknown Drug Allergy Active Reason For Referral Referring Provider First Name Crescencio Referring Provider Last Name Robert Referring Provider Speciality Internal M edicine Referred Organization [facility] Referred Provider Enzo Munroe Jr Referred Address [address] [facility], [facility],[place], [place],[address],[place] Referred Provider Specialty Gastroentero logy General Notes Carmencita Quick 024 11:27:23 AM EDT > call dr forbes's office [phone] to request a new crumpler referral for visit with Dr. Munroe on 08-14-2024, Carmencita Quick 07/03/2024 09:07:10 AM EDT > REQUESTED REFERRAL FROM Abdelrahman SMITH Dawn 07/15/2024 02:02:15 PM EDT > spoke with Bryanna at Dr. Forbes's office and she was told by Ashutosh at [place] that no referral is required since Dr. Forbes and Dr. Munroe are in the same [facility]. Conf _# [id number] Referral Priority Routine Referred Organization [facility] Referred Provider Enzo Munroe Jr Referred Address [address] [facility],[place], [place],[address],[place] Referred Provider Specialty Gastroentero logy General Notes Carmencita Quick 023 11:16:25 AM EDT > no referral required per Dr. Forbes's office since patient is in the same [facility]. Referral Priority Routine Medications Medication [...] Status W/U Status Risk Notes Problem Anemia (780838335) Anemia (D64.9) Active confirmed Problem 2256578 Biliary cirrhosi s (K74.5) Active confirmed Problem 668995327 Gastroesophageal reflux disease, unspecified whether esophagitis present (K21.9) Active confirmed Vital Signs Temperature 98.3 degrees Fahrenheit 02/11/2025 Blood pressure diastolic 01 mm Hg 02/11/2025 Height 60 in 02/11/2025 Blood pressure systolic 001 mm Hg 02/11/2025 Weight 136 lbs 02/11/2025 BMI 26.56 kg/m2 02/11/2025 Encounters Encounter Location Date Provider Diagnosis [facility] [address] [place] [address] 11/20/2024 Enzo Munroe Jr Biliary cirrhosis K74.5 [facility] [address] [place] [address] 02/11/2025 Enzo Munroe Jr Anemia D64.9 ; Nausea R11.[address] K74.5 [facility] [address] [place] [address] 08/11/[address] [facility] [address] [place] [address] 08/14/[address] [facility] [address] [place] [address] 12/17/2024 Enzo Munroe Jr Biliary cirrhosis K74.5 [...] Next Appt Details Provider Name:Enzo Miguel Rio laboy Jr, 03/06/2025 11:00:00 AM, [address] [place] [address], [phone], Provider Name:Enzo Miguel Rio laboy Jr, 02/04/2026 01:15:00 PM, [address] [place] [address], [facility] [address], [place], [address], Insurance Providers Payer Name Payer Address Payer Phone Subscriber Number Group Number Insured Name Patient Relationship to Insured Coverage Start Date Coverage End Date [facility] [address] [place] [phone] [id number] RENÉ HUNT Self - patient is the insured Medical (General) History Medical History History ICD Code hyperlipidemia colonoscopy 09/23/14, hyperplastic polyp , followup p.r.n. 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 On ursodiol. hx of chronic uti's Surgical History Surgery Date(Month/Year) lasik bilateral eyes
--- OUTSIDE RECORDS SUMMARY | 2025-02-19 08:34 | XMS_ITS | Patient Health Record ---
Author Organization Crescencio Jones MD Address [address] [place], [place] [address] Care Team Providers Care Casino Change Attendant Name Role Phone Crescencio Jones Primary Care Provider Allergies Allergen (clinical drug ingredient) Drug/Non Drug Allergy documented on EMR Reaction Allergy Type Onset Date Status codeine Codeine Sulfate n/v Drug Allergy A ctive Results Component Value Reference Range Notes Liver Panel Reviewed date:07/10/2024 04:17:04 PM Interpretation: Performing Lab:[address] [address] Notes/Report: Bilirubin Total 0.7 0.0-1.0 mg/dL Bilirubin Direct 0.3 0.0-0.5 mg/dL Aspartate Amino Transferase 15 5-31 U/L Alanine Aminotransferase 9 0-31 U/L Total Protein 7.3 6.5-8.0 g/dL Albumin Level 4.2 3.5-5.0 g/dL Alkaline Phosphatase 92 39-117 U/L Glucose Fasting Reviewed date:07/10/2024 01:04:19 PM Interpretation: Performing Lab:[address] [phone] Notes/Report: Glucose Fasting 100 60-99 mg/dL A fasting glucose from 100-125 mg/dl is considered impaired (pre-diabetes). Lipid Panel with Reflex Reviewed date:07/10/2024 04:20:47 PM Interpretation: Performing Lab:[facility], [address] [place] [phone] Notes/Report: Triglycerides 66 <150 mg/dL Desirable Triglyceride: [...] A1c Reviewed date:07/10/2024 12:32:52 PM Interpretation: Performing Lab:[facility], [address] [place] [phone] Notes/Report: Hemoglobin A1c % 5.2 <6.0 % [...] average glucose, using the formula of the I4F-Uwcacjo Average Glucose study (ADAG), Diabetes Care, Vol.31,#8, 2007 Complete Blood Count Auto Di ff Reviewed date:01/06/2025 02:01:38 PM Interpretation: Performing Lab:[facility], [address] [place] [phone] Notes/Report: White Blood Count 6.8 4.8-10.8 X10*3/uL [...] NRBC Abs Auto 0.000 0.0-0.012 X10*3/uL Comprehensive [place]. Panel Fa st Reviewed date:01/06/2025 12:23:15 PM Interpretation: Performing Lab:[facility], [address] [place] [phone] Notes/Report: Sodium 140 135-145 mmol/L Potassium 3.7 [...] Panel Reviewed date:01/06/2025 12:21:16 PM Interpretation: Performing Lab:[facility], [address] [place] [phone] Notes/Report: Triglycerides 64 <150 mg/dL Desirable Triglyceride: [...] A1c Reviewed date:01/06/2025 12:21:25 PM Interpretation: Performing Lab:[facility], [address] [place] [phone] Notes/Report: Hemoglobin A1c % 5.5 <6.0 % [...] average glucose, using the formula of the [id number]-[id number] Average Glucose study (ADAG), Diabetes Care, Vol.31,#8, May. 2007 Occult Blood, Stool, Guaiac Reviewed date:01/13/2025 10:47:09 AM Interpretation:Negative Performing Lab: Notes/Report: Negative Occult Blood, Stool, Guaiac Neg Complete Blood Count Auto Di ff Reviewed date:01/14/2025 07:55:49 AM Interpretation: Performing Lab:[facility], [address] [place] [phone] Notes/Report: White Blood Count 5.9 4.8-10.8 X10*3/uL [...] PROFILE Reviewed date:01/15/2025 10:45:18 AM Interpretation: Performing Lab:[facility], [address] [place] [phone] Notes/Report: Iron 21 30-160 mcg/dL Total Iron Binding Capacity 389 228-428 mcg/dL Percent Iron Saturation 5 15-50 % Unsaturated Iron Binding 368 Microalbumin, Random Reviewed date:01/15/2025 06:41:26 PM Interpretation: Performing Lab:[facility], [address] [place] [phone] Notes/Report: Creatinine Urine 17.30 Microalbumin Urine < 5.0 Microalbum/Creatinine Ratio Ur TNP <30 ug/mg cr Unable to calculate albumin/creatinine ratio due to low microalbumin or creatinine result. UA ClnCatch+Micro w/rflx Cul t Reviewed date:01/14/2025 07:57:02 AM Interpretation: Performing Lab:[facility], [address] [place] [phone] Notes/Report: Urine, Clean Catch Color Urine Yellow Appearance Urine Clear PH 7.5 5.0-9.0 Glucose Urine UA Negative Negative mg/dL Urine Blood Negative Negative Specific [place] - Urine <= 1.005 1.005-1.025 Urine Protein Negative Neg-Trace mg/dL Urine Ketones Negative Negative mg/dL Nitrite Urine Negative Negative Leukocyte Esterase Urine Small (1+) Negative RBC Urine 0-2 0-2 /HPF WBC Urine 0-5 0-5 /HPF Squamous Epithelial Cell Urine 0-2 0-2 /HPF Bacteria Urine 1+ None Seen Hyaline Casts Urine 0-2 0-2 /LPF Hold Gold Reviewed date:07/10/2024 12:21:45 PM Interpretation: Performing Lab:[facility], [address] [place] [phone] Notes/Report: Hold Gold See Note Specimen held untested for 24 hours; Call to request Chemistry testing. UA CC w/rflx Micro + Cult Reviewed date:10/07/2024 04:45:12 PM Interpretation: Performing Lab:[facility], [address] [place] [phone] Notes/Report: Urine, Clean Catch Color Urine Yellow Appearance Urine Clear PH 6.5 5.0-9.0 Glucose Urine UA Negative Negative mg/dL Urine Blood Negative Negative Specific [place] - Urine <= 1.005 1.005-1.025 Urine Protein Negative Neg-Trace mg/dL Urine Ketones Negative Negative mg/dL Nitrite Urine Negative Negative Leukocyte Esterase Urine Negative Negative Hold Gold Reviewed date:01/06/2025 12:21:34 PM Interpretation: Performing Lab:[facility], [address] [place] [phone] Notes/Report: Leslie Cristi See Note Specimen held untested for 24 hours; Call to request Chemistry testing. Leslie Colin Reviewed date:01/15/2025 06:41:19 PM Interpretation: Performing Lab:[facility], [address] [place] [phone] Notes/Report: Leslie Colin See Note Specimen held untested for 24 hours; Call to request Chemistry testing. Urine Culture Reviewed date:01/15/2025 09:15:15 AM Interpretation: Performing Lab:[facility], [address] [place] [phone] Notes/Report: Urine Culture Report Result Urine Culture 50,000 to 100,000 cfu/ml Urine Culture Mixed bacterial jasmnie a characteristic of Urine Culture urogenital contamination. [...] 08/28/2013 Administered TDaP IM Intramuscular 08/28/2013 Administered [id number] A - Lot # Flu Vaccine IM [...] Problem Status W/U Status Risk Notes Problem 76013924 Age-related osteoporosis without current pathological fracture (M81.0) Active confirmed Problem 51347585 Lymphocytosis (D72.820) Active confirm ed Problem Essential (prima ry) hypertension (I10) Active confirmed Problem 364077523 Other specified menopausal and perimenopausal disorders (N95.8) Active confirmed Problem 783712403 Abnormal results of liver function studies (R94.5) Active confirmed Problem 3359323 Prediabetes (R73.09) Active confirmed Problem 795731341 History of hemat uria (Z87.448) Active confirmed Problem 948062051 Pure hypercholesterolemia (E78.00) Active confirmed Problem 403406937 Osteopenia deter mined by x-ray (M85.80) Active confirmed Problem 0276002 Biliary cirrhosi s (K74.5) Active confirmed Vital [...] 07-17-24 Encounters Encounter Location Date Provider Diagnosis Crescencoi Jones MD [address] [place] [id number] 07/10/2024 Crescencio Jones Pure hypercholestero lemia E78.00 ; Prediabetes R73.09 and Encounter for immunization Z23 Crescencio Jones MD [address] [place] [id number] 01/06/2025 Crescencio Jones Blood tests for rout ine general physical examination Z00.00 ; Prediabetes R73.09 ; Pure hypercholesterolemia E78.00 and Essential (primary) hypertension I10 Crescencio Jones MD [address] [place] [id number] 07/17/2024 Crescencio Jones Shortness of breath on exertion R06.02 ; Prediabetes R73.09 ; Pure hypercholesterolemia E78.00 and Essential (primary) hypertension I10 Crescencio Jones MD [address] [place] [id number] 01/13/2025 Crescencio Jones Annual physical exam Z00.00 ; Prediabetes R73.09 ; Essential (primary) hypertension I10 ; Anemia D64.9 ; Pure hypercholesterolemia E78.00 ; Colon cancer screening Z12.11 and Depression screening Z13.31 Crescencio Jones MD [address] [place] [id number] 07/03/2024 Crescencio Jones MD [address] [place] [id number] 07/15/2024 Crescencio Jones Assessments Encounter Date Diagnosis [...] DEXA 12/01/2020 Next Appt Details Provider Name:Crescenciovinicio hernandez, 07/27/2025 07:00:00 AM, [address] [place] [address], [address], [phone], Provider Name:Crescencio finkr, 08/03/2025 01:30:00 PM, [address] [place] [address], [address], [phone], Provider Name:Crescenciovinicio finkr, 01/11/2026 07:15:00 AM, [address] [place] [address], [address], [phone], Provider Name:Crescenciovinicio finkr, 01/18/2026 01:00:00 PM, [address] [place] [address], [address], [phone], Insurance Providers Payer Name Payer Address Payer Phone Subscriber Number Group Number Insured Name Patient Relationship to Insured Coverage Start Date Coverage End Date [facility] [address] [place] [phone] [id number] Cynthia Michele Self - patient is the insured Medical (General) History Medical History History ICD Code hematuria worked up 2008 colonoscopy 2003; colonoscopy 09/25/14 w [facility] Dr. Alicia osteoporosis doesn't want meds 2020
== END 2025-02-19 08:19 | disposition home or self-care (01) ==
LOC: HO.LAB 08:18
PROVIDERS: Visit Provider Physician Assistant
DX: Z13.89 Encounter for screening for other disorder (principal)

== ENCOUNTER 2025-03-06 09:21 | Day surgery (SDC) | payer MEDICARE, SELFPAY ==
--- OUTSIDE RECORDS SUMMARY | 2025-02-11 13:06 | XMS_ITS ---
Author Organization [facility] Address [address] [place] [phone] Care Team Providers Care Piano Stringer Name Role Phone Crecsencio Jones MD Primary Care Provider Enzo Donaldson Jr Unavailable Allergies Allergen (clinical drug ingredient) Drug/Non Drug Allergy documented on EMR Reaction Allergy Type Onset Date Status Codeine Phosphate Unknown Drug Allergy Active REASON FOR VISIT Patient presents today for ? IRON LOW Medications Medication SIG (Take, Route, Frequency, Duration) Notes Start Date End Date Status Ursodiol 250 MG take 1 tablet by jessika 4 times a day for 90 days Active Omeprazole 20 MG 1 capsule 1/2 to 1 h our before morning meal Orally Once a day for 30 days 02/11/2025 Active Latanoprost 0.005 % INSTILL 1 DROP INTO EACH EYE AT BEDTIME Ophthalmic for 18 Active Vitamin D 1000 UNIT 1 tablet Orally Once a day Active Atorvastatin Calcium 20mg Active Ursodiol 300 MG TAKE 1 CAPSULE BY [facility] THREE TIMES DAILY *APPOINTMENT NEEDED FOR FURTHER REFILLS* for 30 Active Ferrous Sulfate 325 (65 Fe) MG 1 tablet Orally daily for 30 days 02/11/2025 Active amLODIPine Besylate 10 MG TAKE 1 [...] Problem Status W/U Status Risk Notes Problem Anemia (D64.9) Active confirmed Vital Signs Temperature 98.3 degrees Fahrenheit 02/12/20 25 Blood pressure systolic 001 mm Hg 02/12/20 25 Blood pressure diastolic 01 mm Hg 025 Height 60 in 02/11/2025 Weight 136 lbs 02/11/2025 BMI 26.56 kg/m2 02/11/2025 Encounters Encounter Location Date Provider Diagnosis [facility] [address] [facility] [address] [place] [phone] 02/11/2025 Enzo Munroe Jr Anemia D64.9 and Nausea R11.0 Assessments Encounter Date Diagnosis (ICD Code) Assessment Notes Treatment Notes Treatment Clinical Notes Section Notes 02/11/2025 Anemia (ICD-10 - D64.9) 02/11/2025 Nausea (ICD-10 - R11.0) Plan Of Treatment Medication Medication Name Sig Start Date Stop Date Notes Omeprazole 20 MG 1 capsule 1/2 to 1 h our before morning meal Orally Once a day for 30 days 02/11/2025 Ferrous Sulfate 325 (65 Fe) MG 1 tablet Orally daily for 30 days 02/11/2025 Future Test Test Name Order Date UPPER GI ENDOSCOPY 02/11/2025 Next Appt Details Provider Name:Enzo laboy Jr, 03/06/2025 11:00:00 AM, [address] [place] [address], [phone], Provider Name:Enzo laboy Jr, 02/04/2026 01:15:00 PM, [address] [place] [address], Suite [facility], [place], [address], Progress Notes * RONALD HUNTSOPHIEOB:1940 (84 yo F)Acc No.[id number]:02/11/2025 Progress Notes Patient:?RENÉ HUNT Provider:?Enzo Munroe MD :1940???Age:84 Y???Sex:Female D ate:02/11/2025 Address:[address] [place], [place] [phone] Pcp:Crescencio Jones MD Subjective: * Chief Complaints: * ???1. Patient presents today for ? IRON LOW. * Medical History:?Hyperlipide suman, Colonoscopy 09/23/14, hyperplastic [...] Interpretation: Negative.?Miscellaneous:?Marital status: Single. Occupation: Works at [employer]/ [employer] nov 2023. * Medications:?Taking Atorvast atin Calcium 20mg , Taking Vitamin D 1000 UNIT Tablet 1 tablet Orally Once a day , Taking Latanoprost 0.005 % Solution INSTILL 1 DROP INTO EACH EYE AT BEDTIME Ophthalmic , Taking amLODIPine Besylate 10 MG Tablet TAKE 1 TABLET BY MOUTH ONCE DAILY Oral , Taking Ursodiol 300 MG Capsule TAKE 1 CAPSULE BY MOUTH THREE TIMES DAILY *APPOINTMENT NEEDED FOR FURTHER REFILLS* , Taking Ursodiol 250 MG Tablet take 1 tablet by mouth 4 times a day , Medication List reviewed and reconciled with the patient * Allergies:?Codeine Phosphate . Objective: * Vitals:?Wt: 136 lbs, Ht: 60 in, BMI: 26.56 Index, BP: 001/01 mm Hg, Temp: 98.3, Wt-k.69. Assessment: * Assessment: 1.?Anemia - D64.9 (Primary)? ??2.?Nausea - R11.0??? Plan: * Treatment: 2.?Nausea? Start Omeprazole Capsule Delayed Release, 20 MG, 1 capsule 1/2 to 1 hour before morning meal, Orally, Once a day, 30 days, 30, Refills 5.?Procedure: UPPER GI ENDOSCOPY (Ordered for 02/11/2025)* sched for 03/06/25 at 11:00 a [facility] * Preventive Medicine:? ??Urinary Incontinence:?Urinary Incontinence?Assessment:?Absent,?Plan of care documented:?No, reason not specified.? ??Screenings:?Fall Risk Screening?Fall Risk Assessment:?No falls in the past year,?Screening:?No falls in the past year,?Assessment:?Not performed, no reason specified,?Plan of Care:?Not documented, no reason specified.? * * The named appointment provid er may or may not be the originator of this progress note, and it is not deemed complete until electronically signed by the appointment provider. Sign off status: Pending * Provider:?Enzo Munroe MD Date:?0 02/11/2025 Generated for Justin dietrich/Jacquelin/Shirlene on:?02/11/2025 01:06 PM EDT
--- OUTSIDE RECORDS SUMMARY | 2025-02-11 13:06 | XMS_ITS ---
Author Organization [facility] Address [address] [place] [address] [place] [address] Care Team Providers Care Rechecker Name Role Phone Crescencio Jones MD Primary Care Provider Enzo Donaldson Jr Unavailable Medications Medication SIG (Take, Route, Fr equency, Duration) Notes Start Date End Date Status Ursodiol 250 MG take 1 tablet by jessika th 4 times a day for 90 days Active Encounters Encounter Location Date Provider Diagnosis [facility] [address] [place] [address] 12/17/2024 Enzo Munroe Jr Biliary cirrhosis K74.5 [...] Provider Name:Enzo laboy Jr, 03/06/2025 11:00:00 AM, [address] [place] [address], [phone], Provider Name:Enzo laboy Jr, 02/04/2026 01:15:00 PM, [address] [place] [address], [place] [address], [place], [phone], Progress Notes * JELANI HUNTOB:1940 (84 yo F)Acc No.[id number]:12/17/2024 Patient:?GILBERT, RENÉ :1940???Age:84 Y???Sex:Female Address:[address] [place] [address] * Refills? Refill Ursodiol Tablet, 250 MG, 360, take 1 tablet by mouth 4 times a day, 90 days, Refills=3 * true * Date:? Generated for Justin dietrich/Jacquelin/Kwamesmitting on:?02/11/2025 01:06 PM EDT
--- OUTSIDE RECORDS SUMMARY | 2025-02-11 13:06 | XMS_ITS ---
Author Organization Crescencio Jones MD Address [address] [place], [place] [phone] Care Team Providers Care Alliance Director Name Role Phone Crescencio Jones Primary Care Provider [phone] Allergies Allergen (clinical drug ingredient) Drug/Non Drug Allergy documented on EMR Reaction Allergy Type Onset Date Status codeine Codeine Sulfate n/v Drug Allergy A ctive Results Component Value Reference Range Notes Occult Blood, Stool, Guaiac Reviewed date:01/13/2025 10:47:09 AM Interpretation:Negative Performing Lab: Notes/Report: Negative Occult Blood, Stool, Guaiac Neg Complete Blood Count Auto Di ff Reviewed date:01/14/2025 07:55:49 AM Interpretation: Performing Lab:[facility], [address] [place] [phone] Notes/Report: White Blood Count 5.9 4.8-10.8 X10*3/uL [...] PROFILE Reviewed date:01/15/2025 10:45:18 AM Interpretation: Performing Lab:[facility], [address] [place] [phone] Notes/Report: Iron 21 30-160 mcg/dL Total Iron Binding Capacity 389 228-428 mcg/d L Percent Iron Saturation 5 15-50 % Unsaturated Iron Binding 368 Microalbumin, Random Reviewed date:01/15/2025 06:41:26 PM Interpretation: Performing Lab:[facility], [address] [place] [phone] Notes/Report: Creatinine Urine 17.30 Microalbumin Urine < 5.0 Microalbum/Creatinine Ratio Ur TNP <30 ug/mg cr Unable to calculate albumin/creatinine ratio due to low microalbumin or creatinine result. UA ClnCatch+Micro w/rflx Cul t Reviewed date:01/14/2025 07:57:02 AM Interpretation: Performing Lab:[facility], [address] [place] [phone] Notes/Report: Urine, Clean Catch Color Urine Yellow Appearance Urine Clear PH 7.5 5.0-9.0 Glucose Urine UA Negative Negative mg/dL Urine Blood Negative Negative Specific Jerome - Urine <= 1.005 1.005-1.025 Urine Protein [...] kg/m2 01/13/2025 weight is down 2 pounds [facility] 07-17-24 Encounters Encounter Location Date Provider Diagnosis Crescencio Jones MD [address] [place] [address] [address] [place], [place] [phone] 01/13/2025 Cerscencio Jones Annual physical exam Z00.00 ; Prediabetes [...] Reason: Provider Name:Crescencio hernandez, 07/27/2025 07:00:00 AM, [address] [place] [address], [address], [place], [place], [phone], Provider Name:Crescencio hernandez, 08/03/2025 01:30:00 PM, [address] [place] [address], [address], [place], [place], [phone], Provider Name:Crescencio hernandez, 01/11/2026 07:15:00 AM, [address] [place] [address], [address], [place], [phone], Provider Name:Crescencio finkr, 01/18/2026 01:00:00 PM, [address] [facility], [address], [place], [phone], Progress Notes * Cynthia MICHELE MDOB:[birth year] (84 yo F)Acc No.[id number]:01/13/2025 Progress Notes Patient:?GILBERT Cynthia Mik Provider:?Crescencio Jones MD :1940???Age:84 Y???Sex:Female D ate:01/13/2025 Address:[address] [place], [place] [phone] Subjective: * Chief Complaints: * ???[facility] * HPI: ???Depression Screening:?PHQ-9?Little interest or pleasure [...] here for yearly exam, goes to [facility] times per week. ???SDOH Questions:?SDOH [...] or any lesions of concern.?Denies?Photosensitivity.?Rash?denies.?Neurologic:?Dizziness?denies.?Fainting?denies.?Headache?denies.? * Medical History:? * Surgical History:? * Hospitalization/Major Diagno stic Procedure:? * Family History:?Father: dece ased 77 yrs.?Mother: [...] outside of the [place]: no. * Medications:?TakingCholecalc iferol 25 MCG (1000 UT) [...] Sulfate: n/vyes[Allergies Verified] Objective: * Vitals:?Ht: 60, Wt: 121, BMI [...] Auto 0.000 0.0-0. 012 - X10*3/uL ???Lab:[facility] [place]. P ignacio Fast (Order Date - 01/06/2025) [...] negative??7.?Depression screening? Notes: negative screen?? * Procedure Codes:?41682 VENIP UNCT, ROUTINE*06099 TEST FOR BLOOD, FECES * Follow Up:?6 Months * * Sign off status: Completed true * Provider:?Crescencio Jones MD Date:?0 01/13/2025 Generated for Printi ng/Fajohnsong/eTransmitting on:?02/11/2025 09:44 AM EDT History and Physical Notes * [...]
--- OUTSIDE RECORDS SUMMARY | 2025-02-11 13:06 | XMS_ITS ---
Author Organization Crescencio Jones MD Address [address] [place] [phone] Care Team Providers Care Research Recruiter Name Role Phone Crescencio Jones Primary Care Provider Results Component Value Reference Range Notes Complete Blood Count Auto Di ff Reviewed date:01/06/2025 02:01:38 PM Interpretation: Performing Lab:[facility], [address] [place] [phone] Notes/Report: White Blood Count 6.8 4.8-10.8 X10*3/uL [...] NRBC Abs Auto 0.000 0.0-0.012 X10*3/uL [facility] [place]. Panel Fa st Reviewed date:01/06/2025 12:23:15 PM Interpretation: Performing Lab:[address] [phone] Notes/Report: Sodium 140 135-145 mmol/L Potassium 3.7 [...] Panel Reviewed date:01/06/2025 12:21:16 PM Interpretation: Performing Lab:[address] [phone] Notes/Report: Triglycerides 64 <150 mg/dL Desirable Triglyceride: [...] A1c Reviewed date:01/06/2025 12:21:25 PM Interpretation: Performing Lab:[facility], [address] [place] [phone] Notes/Report: Hemoglobin A1c % 5.5 <6.0 % [...] average glucose, using the formula of the K9Y-Yiszyrm Average Glucose study (ADAG), Diabetes Care, Vol.31,#8, May. 2007 REASON FOR VISIT yearly fasting labs Encounters Encounter Location Date Provider Diagnosis Crescencio Jones MD [address] [place] [address] [address] [place], [place] [phone] 01/06/2025 Crescencio Jones Blood tests for rout [...] 07:00:00 AM, [address], [address], [place], [phone], Provider Name:Crescencio Banerjee ier, 08/03/2025 01:30:00 PM, [address], [address], [place], [phone], Provider Name:Crescencio Banerjee ier, 01/11/2026 07:15:00 AM, [address] [place] [address] Drive, [address], [place], [phone], Provider Name:Crescencio Banerjee ier, 01/18/2026 01:00:00 PM, [address] [place] [address], [address], [place], [phone], Progress Notes * Cynthia MICHELE MDOB:[birth year] (84 yo F)Acc No.[id number]:01/06/2025 Progress Note Patient:?Cynthia MICHELE M Provider:?Crescencio Jones MD :1940???Age:84 Y???Sex:Female D ate:01/06/2025 Address:[address] [place], [place] [phone] Subjective: * Chief Complaints: * ???1. Yearly [...] Time - 01/06/2025 07:00 AM) ?LAB: [facility] [place]. Panel Fast (Collection Date & Time 01/06/2025 07:00 AM) ?LAB: Lipid Panel (Collection Date & Time 01/06/2025 07:00 AM) ?LAB: Hemoglobin A1c (Collection Date & Time - 01/06/2025 07:00 AM) 3.?Pure hypercholesterolemia ?LAB: Microalbumin, Random ?LAB: UA ClnCatch+Micro w/rflx Cult ?LAB: Complete Blood Count Auto Diff (Collection Date & Time - 01/06/2025 07:00 AM) ?LAB: [facility] [place]. Panel Fast (Collection Date & Time 01/06/2025 07:00 AM) ?LAB: Lipid Panel (Collection Date & Time 01/06/2025 07:00 AM) ?LAB: Hemoglobin A1c (Collection Date & Time 01/06/2025 07:00 AM) 4.?Essential (primary) hyper tension?LAB: Microalbumin, Random ?LAB: UA ClnCatch+Micro w/rflx Cult ?LAB: Complete Blood Count Auto Diff (Collection Date & Time - 01/06/2025 07:00 AM) ?LAB: [facility] [place]. Panel Fast (Collection Date & Time 01/06/2025 07:00 AM) ?LAB: Lipid Panel (Collection Date & Time 01/06/2025 07:00 AM) ?LAB: Hemoglobin A1c (Collection Date & Time - 01/06/2025 07:00 AM) * Procedure Codes:?37696 VENIP UNCT, ROUTINE* * * The named appointment provid er may or may not be the originator of this progress note, and it is not deemed complete until electronically signed by the appointment provider. Sign off status: Pending * Provider:?Crescencio Jones MD Date:?0 01/06/2025 Generated for Navini ng/Cesarg/eTransmitting on:?02/11/2025 09:44 AM EDT
--- OUTSIDE RECORDS SUMMARY | 2025-02-11 13:07 | XMS_ITS | Patient Health Record ---
Author Organization Crescencio Jones MD Address [address] [place], [place] [address] Care Team Providers Care Orthopedically Impaired Teacher Name Role Phone Crescencio Jones Primary Care Provider [phone] Allergies Allergen (clinical drug ingredient) Drug/Non Drug Allergy documented on EMR Reaction Allergy Type Onset Date Status codeine Codeine Sulfate n/v Drug Allergy A ctive Results Component Value Reference Range Notes Liver Panel Reviewed date:07/10/2024 04:17:04 PM Interpretation: Performing Lab:[address] [phone] Notes/Report: Bilirubin Total 0.7 0.0-1.0 mg/dL Bilirubin Direct 0.3 0.0-0.5 mg/dL Aspartate Amino Transferase 15 5-31 U/L Alanine Aminotransferase 9 0-31 U/L Total Protein 7.3 6.5-8.0 g/dL Albumin Level 4.2 3.5-5.0 g/dL Alkaline Phosphatase 92 39-117 U/L Glucose Fasting Reviewed date:07/10/2024 01:04:19 PM Interpretation: Performing Lab:[address] [phone] Notes/Report: Glucose Fasting 100 60-99 mg/dL A fasting glucose from 100-125 mg/dl is considered impaired (pre-diabetes). Lipid Panel with Reflex Reviewed date:07/10/2024 04:20:47 PM Interpretation: Performing Lab:[facility], [address] [place] [phone] Notes/Report: Triglycerides 66 <150 mg/dL Desirable Triglyceride: [...] A1c Reviewed date:07/10/2024 12:32:52 PM Interpretation: Performing Lab:[facility], [address] [place] [phone] Notes/Report: Hemoglobin A1c % 5.2 <6.0 % [...] average glucose, using the formula of the X9N-Icjeugx Average Glucose study (ADAG), Diabetes Care, Vol.31,#8, 2007 Complete Blood Count Auto Di ff Reviewed date:01/06/2025 02:01:38 PM Interpretation: Performing Lab:[facility], [address] [place] [phone] Notes/Report: White Blood Count 6.8 4.8-10.8 X10*3/uL [...] NRBC Abs Auto 0.000 0.0-0.012 X10*3/uL Comprehensive Cecil. Panel Fa st Reviewed date:01/06/2025 12:23:15 PM Interpretation: Performing Lab:[facility], [address] [place] [phone] Notes/Report: Sodium 140 135-145 mmol/L Potassium 3.7 [...] Panel Reviewed date:01/06/2025 12:21:16 PM Interpretation: Performing Lab:[facility], [address] [place] [phone] Notes/Report: Triglycerides 64 <150 mg/dL Desirable Triglyceride: [...] A1c Reviewed date:01/06/2025 12:21:25 PM Interpretation: Performing Lab:[facility], [address] [place] [phone] Notes/Report: Hemoglobin A1c % 5.5 <6.0 % [...] average glucose, using the formula of the Q4R-Foeisas Average Glucose study (ADAG), Diabetes Care, Vol.31,#8, May. 2007 Occult Blood, Stool, Guaiac Reviewed date:01/13/2025 10:47:09 AM Interpretation:Negative Performing Lab: Notes/Report: Negative Occult Blood, Stool, Guaiac Neg Complete Blood Count Auto Di ff Reviewed date:01/14/2025 07:55:49 AM Interpretation: Performing Lab:[facility], [address] [place] [phone] Notes/Report: White Blood Count 5.9 4.8-10.8 X10*3/uL [...] PROFILE Reviewed date:01/15/2025 10:45:18 AM Interpretation: Performing Lab:[facility], [address] [place] [phone] Notes/Report: Iron 21 30-160 mcg/dL Total Iron Binding Capacity 389 228-428 mcg/dL Percent Iron Saturation 5 15-50 % Unsaturated Iron Binding 368 Microalbumin, Random Reviewed date:01/15/2025 06:41:26 PM Interpretation: Performing Lab:[facility], [address] [place] [phone] Notes/Report: Creatinine Urine 17.30 Microalbumin Urine < 5.0 Microalbum/Creatinine Ratio Ur TNP <30 ug/mg cr Unable to calculate albumin/creatinine ratio due to low microalbumin or creatinine result. UA ClnCatch+Micro w/rflx Cul t Reviewed date:01/14/2025 07:57:02 AM Interpretation: Performing Lab:[facility], [address] [place] [phone] Notes/Report: Urine, Clean Catch Color Urine Yellow Appearance Urine Clear PH 7.5 5.0-9.0 Glucose Urine UA Negative Negative mg/dL Urine Blood Negative Negative Specific [place]ero - Urine <= 1.005 1.005-1.025 Urine Protein Negative Neg-Trace mg/dL Urine Ketones Negative Negative mg/dL Nitrite Urine Negative Negative Leukocyte Esterase Urine Small (1+) Negative RBC Urine 0-2 0-2 /HPF WBC Urine 0-5 0-5 /HPF Squamous Epithelial Cell Urine 0-2 0-2 /HPF Bacteria Urine 1+ None Seen Hyaline Casts Urine 0-2 0-2 /LPF Hold Gold Reviewed date:07/10/2024 12:21:45 PM Interpretation: Performing Lab:[facility], [address] [place] [phone] Notes/Report: Hold Gold See Note Specimen held untested for 24 hours; Call to request Chemistry testing. UA CC w/rflx Micro + Cult Reviewed date:10/07/2024 04:45:12 PM Interpretation: Performing Lab:[facility], [address] [place] [phone] Notes/Report: Urine, Clean Catch Color Urine Yellow Appearance Urine Clear PH 6.5 5.0-9.0 Glucose Urine UA Negative Negative mg/dL Urine Blood Negative Negative Specific [place] - Urine <= 1.005 1.005-1.025 Urine Protein Negative Neg-Trace mg/dL Urine Ketones Negative Negative mg/dL Nitrite Urine Negative Negative Leukocyte Esterase Urine Negative Negative Hold Gold Reviewed date:01/06/2025 12:21:34 PM Interpretation: Performing Lab:[facility], [address] [place] [phone] Notes/Report: Leslie Colin See Note Specimen held untested for 24 hours; Call to request Chemistry testing. Leslie Colin Reviewed date:01/15/2025 06:41:19 PM Interpretation: Performing Lab:[facility], [address] [place] [phone] Notes/Report: Leslie Colin See Note Specimen held untested for 24 hours; Call to request Chemistry testing. Urine Culture Reviewed date:01/15/2025 09:15:15 AM Interpretation: Performing Lab:[facility], [address] [place] [phone] Notes/Report: Urine Culture Report Result Urine Culture 50,000 to 100,000 cfu/ml Urine Culture Mixed bacterial jasmine a characteristic of Urine Culture urogenital contamination. Reason For Referral Reason Iron Deficiency Diagnosis 1 Iron deficiency (E61 .1) Referral Organization Crescencio Jones MD Referring Provider First Name Crescencio Referring Provider Last Name Robert Referring Provider Speciality Internal M edicine Referred Provider Enzo Alicia Referred Provider Specialty Gastroentero logy General Notes Bryanna Campbell 0 01/15/2025 10:42:56 AM >info faxShannan cabrera Annette 01/30/2025 01:46:51 PM >was told to refShannan quevedo Annette 02/06/2025 02:01:50 PM > was told on cancel list Referral Priority Routine Medications Medication SIG (Take, [...] 250 MG 1 tab QID Acti ve Immunizations Vaccine Route Administration Date Status Comme nts Shingles Unknown 02/22/2012 Administered Flu Vaccine Unknown 08/22/2012 Administered PPSV23 (Pnemovax) Unknown 08/22/2012 Administered Flu Vaccine IM Intramuscular 08/28/2013 Administered TDaP IM Intramuscular 08/28/2013 Administered [id number] A - Lot # Flu Vaccine IM Intramuscular 09/17/2014 Administered zFluzone Quadrivalent IM Intramuscular 08/09/2015 Administered Fluarix Quadrivalent IM Intramuscular 09/25/2016 Adminyolande red Fluarix Quadrivalent IM Intramuscular 09/24/2017 Administe red Prevnar 13 IM Intramuscular 10/04/2017 Administered Fluarix Quadrivalent IM Intramuscular 09/03/2018 Adminyolande red PPSV23 (Pnemovax) IM Intramuscular 10/17/2018 Administered Fluarix Quadrivalent Unknown 09/15/2019 Administered Fluarix Quadrivalent IM Intramuscular 08/13/2020 Adminnorberte red SARS-COV-2 Pfizer Unknown 11/18/2020 Administered SARS-COV-2 Pfizer Unknown 12/09/2020 Administered SARS-COV-2 Pfizer Unknown 08/31/2021 Administered Influenza High Dose Unknown 10/11/2021 Administered Influenza High Dose Unknown 08/28/2022 [address] [facility] Influenza High Dose IM Intramuscular 06/29/2023 Administer ed Influenza High Dose IM Intramuscular 07/10/2024 Administer ed Social History Tobacco Use: Social History Observation [...] Never (0 point) Points 1 Interpretation Negative Problems Problem Type SNOMED Code ICD Code Onset Dates Problem Status W/U Status Risk Notes Problem 87500686 Age-related osteoporosis without current pathological fracture (M81.0) Active confirmed Problem 58558202 Lymphocytosis (D72.820) Active confirmed Problem Essential hypertension (67256851) Essential (primary) hypertension (I10) Active confirmed Problem 994134650 Other specified menopausal and perimenopausal disorders (N95.8) Active confirmed Problem 883808504 Abnormal results of liver function studies (R94.5) Active confirmed Problem 7759756 Prediabetes (R73.09) Active confirmed Problem 315081361 History of hemat uria (Z87.448) Active confirmed Problem 649962463 Pure hypercholesterolemia (E78.00) Active confirmed Problem 606446325 Osteopenia deter mined by x-ray (M85.80) Active confirmed Problem 3694029 Biliary cirrhosi s (K74.5) Active confirmed Vital Signs Blood pressure diastolic 70 mm Hg 01/13/2025 carine ght is down 2 pounds since 07-17-24 Height 60 in 01/13/2025 weight is down 2 pounds since 07-17-24 Blood pressure systolic 124 mm Hg 01/13/2025 weig ht is down 2 pounds since 07-17-24 Weight 121 lbs 01/13/2025 weight is down 2 pounds since 07-17-24 BMI 23.63 kg/m2 01/13/2025 weight is down 2 pounds since 07-17-24 Encounters Encounter Location Date Provider Diagnosis Crescencio Jones MD [address] [place] [id number] 07/10/2024 Crescencio Jones Pure hypercholestero lemia E78.00 ; Prediabetes R73.09 and Encounter for immunization Z23 Crescencio Jones MD [address] [place] [address] Drive [address] [place] [id number] 01/06/2025 Crescencio Jones Blood tests for rout ine general physical examination Z00.00 ; Prediabetes R73.09 ; Pure hypercholesterolemia E78.00 and Essential (primary) hypertension I10 Crescencio Jones MD [address] [place] [address] Drive [address] [place] [id number] 07/17/2024 Crescencio Jones Shortness of breath on exertion R06.02 ; Prediabetes R73.09 ; Pure hypercholesterolemia E78.00 and Essential (primary) hypertension I10 Crescencio Jones MD [address] [place] [address] Drive [address] [place] [id number] 01/13/2025 Crescencio Jones Annual physical exam Z00.00 ; Prediabetes R73.09 ; Essential (primary) hypertension I10 ; Anemia D64.9 ; Pure hypercholesterolemia E78.00 ; Colon cancer screening Z12.11 and Depression screening Z13.31 Crescencio Jones MD [address] [place], [place] [id number] 07/03/2024 Crescencio Jones MD [address] [place] [id number] 07/15/2024 Crescencio Jones Assessments Encounter Date Diagnosis (ICD Code) Assessment Notes Treatment Notes Treatment Clinical Notes Section Notes 07/10/2024 Pure hypercholesterolemia (ICD-10 - E78.00) 07/10/2024 Prediabetes (ICD-10 - R73.09) 01/06/[address] ine general physical examination (ICD-10 - Z00.00) 07/17/2024 Shortness of breath on exertion (ICD-10 - R06.02) has not been active. sounds as though she has just lost her conditioning. advised her to get active. does not sound cardiac at all. 01/13/2025 Annual physical exam (ICD-10 - Z00.00) labs reviewed and discussed with patient 01/13/2025 Prediabetes (ICD-10 - R73.09) doing well, no need for medication at this time 07/10/2024 Encounter for immunization (ICD-10 - Z23) 01/06/2025 Prediabetes (ICD-10 - R73.09) 07/17/2024 Prediabetes (ICD-10 - R73.09) stable, will cntinue to monitor, no need for medication at this time 01/13/2025 Essential (primary) hypertension (ICD-10 - I10) well controlled, will contnue current regiment 01/06/2025 Pure hypercholesterolemia (ICD-10 - E78.00) 07/17/2024 Pure hypercholesterolemia (ICD-10 - E78.00) stable, will cntinue current regiment 01/13/2025 Anemia (ICD-10 - D64.9) have explained to her that if she has an iron defi will need to send her back to dr alicia, labs pending 01/06/2025 Essential (primary) hypertension (ICD-10 - I10) 07/17/2024 Essential (primary) hypertension (ICD-10 - I10) stable, will continue current regiment 01/13/2025 Pure hypercholesterolemia (ICD-10 - E78.00) stable, will continue current regiment 01/13/2025 Colon cancer screeni ng (ICD-10 - Z12.11) guaiac negative 01/13/2025 Depression screening (ICD-10 - Z13.31) negative screen Plan Of Treatment Pending Test Test Name Order Date Electrocardiogram (EKG) 10/17/2018 Electrocardiogram (EKG) 10/24/2019 Electrocardiogram (EKG) 08/28/2013 Electrocardiogram (EKG) 10/04/2017 Microalbumin, Random 01/06/2025 UA ClnCatch+Micro w/rflx Cult 01/06/2025 BONE DENSITY DEXA 10/24/2019 Future Test Test Name Order Date BONE DENSITY DEXA 12/01/2020 Next Appt Details Provider Name:Crescenciovinicio Banerjee ier, 07/27/2025 07:00:00 AM, [address] [place] [address], [address], [phone], Provider Name:Crescencio Banerjee ier, 08/03/2025 01:30:00 PM, [address] [place] [address], [address], [phone], Provider Name:Crescenciovinicio Banerjee ier, 01/11/2026 07:15:00 AM, [address] [place] [address], [address], [phone], Provider Name:Crescencio Jc Chriss ier, 01/18/2026 01:00:00 PM, [address] [place] [address], [address], [phone], Insurance Providers Payer Name Payer Address Payer Phone Subscriber Number Group Number Insured Name Patient Relationship to Insured Coverage Start Date [facility]age End Date [facility] [address] [place] [phone] [id number] Cynthia Michele Self - patient is the insured Medical (General) History Medical History History ICD Code hematuria worked up 2008 colonoscopy 2003; colonoscopy 09/25/14 w [facility] Dr. Alicia osteoporosis doesn't want meds 2020
--- OUTSIDE RECORDS SUMMARY | 2025-02-11 13:07 | XMS_ITS ---
Author Organization Crescencio Jones MD Address [address] [place] [phone] Care Team Providers Care Educational Administration Teacher Name Role Phone Crescencio Jones Primary [...] kg/m2 07/17/2024 weight is down 4 pounds [facility] e 4-2-24 Encounters Encounter Location Date Provider Diagnosis Crescencio Jones MD [address] [place] [id number] 07/17/2024 Crescencio Jones Shortness of breath on [...] regiment Next Appt Details Provider Name:Crescencio hernandez, 07/27/2025 07:00:00 AM, [address] [place] [address], [phone], Provider Name:Crescencio hernandez, 08/03/2025 01:30:00 PM, [address] [place] [address], [phone], Provider Name:Crescencio hernandez, 01/11/2026 07:15:00 AM, [address] [place] [address], [phone], Provider Name:Crescencio hernandez, 01/18/2026 01:00:00 PM, [address] [place] [address], [phone], Progress Notes * Cynthia MICHELE MDOB:[birth year] (84 yo F)Acc No.[id number]:07/17/2024 Progress Notes Patient:?Cynthia Michele Provider:?Crescencio Jones MD :1940???Age:84 Y???Sex:Female D ate:07/17/2024 Address:[address] [place] [address] Donnie bell [id number] Subjective: * Chief Complaints: * ???6 month * HPI: ???Symptom(s):? patient is s 84 yo female here for 6 month follow up. gets winded if she does too much. climbing stairs. goes to exercise at [employer] and not short of breath. no chest [...] Jones MD Date:?1 Generated for Justin dietrich/Jacquelin/eTindiosmti on:?02/11/2025 09:44 AM EDT History and Physical [...]
--- OUTSIDE RECORDS SUMMARY | 2025-02-11 13:07 | XMS_ITS ---
Author Organization [facility] Address [address] [place] [phone] Care Team Providers Care Histotechnologist Name Role Phone Crescencio Jones MD Primary [...] 300 MG TAKE 1 CAPSULE BY MO [facility] THREE TIMES DAILY *APPOINTMENT NEEDED FOR [...] Encounters Encounter Location Date Provider Diagnosis [facility] [address] [place] [phone] 11/20/2024 Enzo Munroe Jr Biliary cirrhosis K74.5 [...] 1 Year, Reason: Provider Name:Enzo laboy Jr, 03/06/2025 11:00:00 AM, [address] [place] [address], [phone], Provider Name:Enzo laboy Jr, 02/04/2026 01:15:00 PM, [address] [place] [address], [facility] [address], [place], [phone], Progress Notes * JELANI HUNTOB:1940 (84 yo F)Acc No.[id number]:11/20/2024 Progress Notes Patient:?RENÉ HUNT Provider:?Enzo Munroe MD :1940???Age:84 Y???Sex:Female D ate:11/20/2024 Address:[address] [place] [address] Pcp:Crescencio Jones MD Subjective: * Chief Complaints: [...] Interpretation: Negative.?Miscellaneous:?Marital status: Single. Occupation: Works at [employer] Book[employer] nov 2023. * Medications:?Taking Atorvast atin Calcium [...] Provider:?Enzo Munroe MD Date:?0 11/20/2024 Generated for Justin dietrich/Jacquelin/eTransmitting on:?02/11/2025 01:06 PM EDT History and Physical Notes * [...]
--- OUTSIDE RECORDS SUMMARY | 2025-02-11 13:07 | XMS_ITS | Patient Health Record ---
Author Organization [facility] Address [address] [facility] [place] [address] Care Team Providers Care Chopping Machine Operator Name Role Phone Robert RICHMOND, Crescencio Primary Care Provider Enzo Donaldson Jr Unavailable [phone] Allergies Allergen (clinical drug ingredient) Drug/Non Drug Allergy documented on EMR Reaction Allergy Type Onset Date Status Codeine Phosphate Unknown Drug Allergy Active Reason For Referral Referring Provider First Name Crescencio Referring Provider Last Name Robert Referring Provider Speciality Internal M edicine Referred Organization [facility] Referred Provider Enzo Munroe Jr Referred Address [address] [facility], [address] [facility],[place], [place],[address],[place] Referred Provider Specialty Gastroentero logy General Notes Carmencita Quick 024 11:27:23 AM EDT > call dr forbes's office [phone] to request a [place] referral for visit with Dr. Munroe on 08-14-2024, Carmencita Quick 07/03/2024 09:07:10 AM EDT > REQUESTED REFERRAL FROM Abdelrahman SMITH Dawn 07/15/2024 02:02:15 PM EDT > spoke with Bryanna at Dr. Forbes's office and she was told by Ashutosh at [facility] that no referral is required since Dr. Forbes and Dr. Munroe are in the same [facility]. Conf _# [id number] Referral Priority Routine Referred Organization [facility] Referred Provider Enzo Munroe Jr Referred Address [address] [facility],[place], [place],[address],[place] Referred Provider Specialty Gastroentero logy General Notes Carmencita Quick 023 11:16:25 AM EDT > no referral required per Dr. Forbes's office since patient is in the same [place] [facility]. Referral Priority Routine Medications Medication SIG (Take, Route, Frequency, Duration) Notes Start Date End Date Status Ursodiol 300 MG TAKE 1 CAPSULE BY MO [facility] THREE TIMES DAILY *APPOINTMENT NEEDED FOR FURTHER REFILLS* for 30 Active Ursodiol 250 MG take 1 tablet by jessika 4 times a day for 90 days Active Omeprazole 20 MG 1 capsule 1/2 to 1 h our before morning meal Orally Once a day for 30 days 02/11/2025 Active Latanoprost 0.005 % INSTILL 1 DROP INTO EACH EYE AT BEDTIME Ophthalmic for 18 Active Ferrous Sulfate 325 (65 Fe) MG 1 tablet Orally daily for 30 days 02/11/2025 Active amLODIPine Besylate 10 MG TAKE 1 TABLET BY MOUTH ONCE DAILY Oral for 90 Active Vitamin D 1000 UNIT 1 tablet Orally Once a day Active Atorvastatin Calcium 20mg Active Immunizations Vaccine Route Administration Date Status Comme nts Influenza Unknown 10/08/2018 Administered Influenza Unknown 08/09/2019 Administered Influenza Unknown 08/08/2023 Administered Influenza Unknown 05/28/2024 Administered Social History Tobacco Use: Social History Observation Description Date Details (start date - stop date) Former Smoker NA - NA Tobacco Use/Smoking Question Answer Notes Patient is a former smoker How long has it been since you last smoked? > 10 years Problems Problem Type SNOMED Code ICD Code Onset Dates Problem Status W/U Status Risk Notes Problem Anemia (D64.9) Active confirmed Problem 8028424 Biliary cirrhosi s (K74.5) Active confirmed Problem 733416823 Gastroesophageal reflux disease, unspecified whether esophagitis present (K21.9) Active confirmed Vital Signs Temperature 98.3 degrees Fahrenheit 02/11/2025 Blood pressure diastolic 01 mm Hg 02/11/2025 Height 60 in 02/11/2025 Blood pressure systolic 001 mm Hg 02/11/2025 Weight 136 lbs 02/11/2025 BMI 26.56 kg/m2 02/11/2025 Encounters Encounter Location Date Provider Diagnosis [facility] [address] [place] [phone] 02/11/2025 Enzo Munroe Jr Anemia D64.9 and Nausea R11.0 [facility] [address] [place] [phone] 11/20/2024 Enzo Munroe Jr Biliary cirrhosis K74.5 [facility] [address] [place] [phone] 08/11/2024 Enzo Munroe Jr [facility] [address] [place] [phone] 08/14/2024 Enzo Munroe Jr [facility] [address] [place] [phone] 12/17/2024 Enzo Munroe Jr Biliary cirrhosis K74.5 Assessments Encounter Date Diagnosis (ICD Code) Assessment Notes Treatment Notes Treatment Clinical Notes Section Notes 02/11/2025 Nausea (ICD-10 - R11.0) 02/11/2025 Anemia (ICD-10 - D64.9) 11/20/2024 Biliary cirrhosis (ICD-10 - K74.5) Liver disease - resources material was printed She is doing very well at this time. She'll continue ursodiol. Liver function tests will be rechecked at her followup office visit with her PCP. Followup with us will be in one year. 12/17/2024 Biliary cirrhosis (ICD-10 - K74.5) Plan Of Treatment Future Test Test Name Order Date COLONOSCOPY 07/16/2014 UPPER GI ENDOSCOPY 02/11/2025 Next Appt Details Provider Name:Enzo Miguel Rio benoit Bynum, 03/06/2025 11:00:00 AM, [address] [place] [address], [phone], Provider Name:Enzo Miguel Rio benoit Bynum, 02/04/2026 01:15:00 PM, [address] [place] [address], Suite [facility], [place], [address], Insurance Providers Payer Name Payer Address Payer Phone Subscriber Number Group Number Insured Name Patient Relationship to Insured Coverage Start Date Coverage End Date [facility] [address] [place] [phone] [id number] RENÉ HUNT Self - patient is the insured Medical (General) History Medical History History ICD Code hyperlipidemia colonoscopy 09/23/14, hyperplastic polyp , followup p.r.n. 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 On ursodiol. hx of chronic uti's Surgical History Surgery Date(Month/Year) lasik bilateral eyes
[2025-03-04 11:55] VITALS: BMI 26.6
--- NOTE | 2025-03-05 09:20 | HO.ANESPROP2 ---
HPI - Anesthesia Eval Consult details Narrative: 84yo F for Upper Endoscopy Cirrhosis PMFSH Active Problems Active Problems: All Active Problems UTI (urinary tract infection) (Acute) Past Medical History Medical History (Updated 03/04/25 @ 11:41 by Garima Muller RN) Hepatitis Cirrhosis HTN (hypertension) Hyperlipidemia Anemia Surgical History Surgical History (Updated 03/04/25 @ 11:41 by Garima Muller RN) Hx of LASIK H/O colonoscopy Social History Social History Patient Tobacco Use Status: Former Tobacco user Meds Allergies Allergy/AdvReac Type Severity Reaction Status Date / Time codeine Allergy Unknown Verified 03/04/25 11:37 Home Medications ?Medication ?Instructions ?Recorded ?Confirmed ?Last Taken ?Type amlodipine 10 mg tablet 10 mg PO DAILY 06/19/24 03/04/25 Unknown History atorvastatin 10 mg tablet 20 mg PO DAILY 06/19/24 03/04/25 Unknown History latanoprost 0.005 % eye drops 1 drp ophthalmic (eye) BEDTIME 06/19/24 03/04/25 Unknown History cholecalciferol (vitamin D3) 25 25 mcg PO DAILY 03/04/25 03/04/25 Unknown History mcg (1,000 unit) capsule (Vitamin D3) ursodiol 300 mg capsule 300 mg PO TID 03/04/25 03/04/25 Unknown History Exam Height,Weight and Vital Signs: Height 5 ft Weight 61.689 kg Pertinent Lab Results Pertinent Lab Results: Laboratory Tests 01/06/25 01/13/25 07:00 09:30 WBC 5.9 Hgb 9.7 L Hct 30.9 L Plt Count 312 Sodium 140 Potassium 3.7 Chloride 108 Carbon Dioxide 26 BUN 14 Creatinine 0.94 Assessment and Plan Assessment Anesthesia Assessment: Chart Reviewed
[2025-03-06 09:34] VITALS: BMI 26.3
[2025-03-06 09:48] VITALS: BMI 26.3
[2025-03-06 10:04] VITALS: BP 115/51; PULSE 86; RESP 16; TEMP 37.2; O2SAT 98
[2025-03-06] MEDS: Lactated Ringers 1,000 ML 100 ML IVCONT (10:04)
--- NOTE | 2025-03-06 10:06 | HO.ANESPROP2 ---
[facility] Active Problems Active Problems: All Active Problems UTI (urinary tract infection) (Acute) Past Medical History Medical History Hepatitis Cirrhosis HTN (hypertension) Hyperlipidemia Anemia Functional capacity: independent ambulation Patient : No Family History Family history of problems with anesthesia: No Surgical History Surgical History Hx of LASIK H/O colonoscopy History of Problems with Anesthesia: No Social History Social History Patient Tobacco Use Status: Former Tobacco user Use of substances other than those prescribed or required for medical reasons: No Have you been hit, kicked, punched, or otherwise hurt by someone within the past year? If so, by whom?: No Are you DNR?: No Advance Directives: No Advance Directives Information Provided: Yes Meds Allergies Allergy/AdvReac Type Severity Reaction Status Date / Time codeine Allergy Unknown Verified 03/04/25 11:37 Active Medications: Current Medications Lactated Ringer's (Lr) 1,000 mls @ 100 mls/hr IVCONT .Q10H AILEEN Last Admin: 03/06/25 10:04 Dose: 100 mls/hr Home Medications ?Medication ?Instructions ?Recorded ?Confirmed ?Last Taken ?Type amlodipine 10 mg tablet 10 mg PO DAILY 06/19/24 03/06/25 03/06/25 05:30 History atorvastatin 10 mg tablet 20 mg PO DAILY 06/19/24 03/06/25 Unknown History latanoprost 0.005 % eye drops 1 drp ophthalmic (eye) BEDTIME 06/19/24 03/06/25 Unknown History cholecalciferol (vitamin D3) 25 25 mcg PO DAILY 03/04/25 03/06/25 Unknown History mcg (1,000 unit) capsule (Vitamin D3) ursodiol 300 mg capsule 300 mg PO TID 03/04/25 03/06/25 Unknown History Exam Height,Weight and Vital Signs: Height 5 ft Weight 61 kg Last Vital Signs Temp 98.9 F 03/06/25 10:04 Pulse 86 03/06/25 10:04 Resp 16 03/06/25 10:04 BP 115/51 L 03/06/25 10:04 Pulse Ox 98 03/06/25 10:04 O2 Del Method Room Air 03/06/25 10:04 Airway Mallampati Class: II TM Dist: >3cm Neck ROM: Full Denture: Upper and Lower Heart: RRR Lungs: CTA Assessment and Plan Assessment Anesthesia Assessment: Anesthesia Plan Discussed Final Anesthetic Review Family History of Problems with Anesthesia: No History of Problems with Anesthesia: No NPO: Yes ASA Class: III Final Preanesthetic Review: Meds/Allgs Chart Reviewed, Consent Obtained/Reviewed and Anes Risks/Benef Reviewed Patient Risk: Low Procedure Risk: Low Anesthetic Plan Anesthetic Plan: MAC: Disposition: Standard PACU
--- NOTE | 2025-03-06 10:18 | MHC.SHP ---
Pre-Procedural Eval Section A - 24 Hr Update-Section A only Date of Service: 03/06/25 The patient is an INPATIENT: No Changes since office visit: No Cold of Flu in the past 2 weeks, No New Medical Problems, No Changes in Medication and No Patient answered all questions The patient has been examined within 24 hours of the surgical procedure. The History & Physical has been completed within 30 days and I have reviewed it.: Yes Section B - Complete if H&P > 30 days Chief Complaint: anemia,nausea Allergies: Allergies Allergy/AdvReac Type Severity Reaction Status Date / Time codeine Allergy Unknown Verified 03/06/25 10:10 Plan I have reviewed the history and physical and performed a pertinent physical examination on my patient. No changes have occurred unless specified. Time Spent With Patient Time: Total time managing care of this patient today ____ minutes.
--- NOTE | 2025-03-06 10:29 | HO.ANESPROP2 ---
[facility] Active Problems Active Problems: All Active Problems UTI (urinary tract infection) (Acute) Past Medical History Medical History Hepatitis Cirrhosis HTN (hypertension) Hyperlipidemia Anemia Functional capacity: independent ambulation Family History Family history of problems with anesthesia: No Surgical History Surgical History Hx of LASIK H/O colonoscopy History of Problems with Anesthesia: No Social History Social History Patient Tobacco Use Status: Former Tobacco user Use of substances other than those prescribed or required for medical reasons: No Have you been hit, kicked, punched, or otherwise hurt by someone within the past year? If so, by whom?: No Are you DNR?: No Advance Directives: No Advance Directives Information Provided: Yes Patient : No Meds Allergies Allergy/AdvReac Type Severity Reaction Status Date / Time codeine Allergy Unknown Verified 03/06/25 10:10 Active Medications: Current Medications Lactated Ringer's (Lr) 1,000 mls @ 100 mls/hr IVCONT .Q10H AILEEN Last Admin: 03/06/25 10:04 Dose: 100 mls/hr Naloxone HCl (Naloxone Hcl 0.4 Mg/Ml Vial) 0.04 mg IVPUSH Q5M PRN PRN Reason: Excessive sedation or RR < 8 Home Medications ?Medication ?Instructions ?Recorded ?Confirmed ?Last Taken ?Type amlodipine 10 mg tablet 10 mg PO DAILY 06/19/24 03/06/25 03/06/25 05:30 History atorvastatin 10 mg tablet 20 mg PO DAILY 06/19/24 03/06/25 Unknown History latanoprost 0.005 % eye drops 1 drp ophthalmic (eye) BEDTIME 06/19/24 03/06/25 Unknown History cholecalciferol (vitamin D3) 25 25 mcg PO DAILY 03/04/25 03/06/25 Unknown History mcg (1,000 unit) capsule (Vitamin D3) ursodiol 300 mg capsule 300 mg PO TID 03/04/25 03/06/25 Unknown History Exam Height,Weight and Vital Signs: Height 5 ft Weight 61 kg Last Vital Signs Temp 98.9 F 03/06/25 10:04 Pulse 86 05/30/25 10:04 Resp 16 03/06/25 10:04 BP 115/51 L 03/06/25 10:04 Pulse Ox 98 03/06/25 10:04 O2 Del Method Room Air 03/06/25 10:04 Airway Mallampati Class: II TM Dist: >3cm Neck ROM: Full Denture: Upper (k) and Lower Heart: RRR Lungs: CTA Assessment and Plan Assessment Anesthesia Assessment: Anesthesia Plan Discussed Final Anesthetic Review Family History of Problems with Anesthesia: No History of Problems with Anesthesia: No NPO: Yes ASA Class: III Final Preanesthetic Review: Meds/Allgs Chart Reviewed, Consent Obtained/Reviewed and Anes Risks/Benef Reviewed Patient Risk: Low Procedure Risk: Low Anesthetic Plan Anesthetic Plan: MAC: Disposition: Standard PACU
[2025-03-06 10:38] VITALS: BP 123/54; PULSE 89; RESP 16; TEMP 36.3; O2SAT 95
--- NOTE | 2025-03-06 10:38 | P.BOP_ITS ---
Brief Operative Note Date of Service: 03/06/25 Pre-op diagnosis: anemia nausea Post-op diagnosis: same Surgeon: Enzo Munroe MD Anesthesia: MAC Was an Hotel Service Manager used for this Procedure?: No Estimated blood loss (mL): 2 Pathology: other Disposition: PACU
[2025-03-06 10:53] VITALS: BP 125/53; PULSE 74; RESP 18; TEMP 36.2; O2SAT 98
--- NOTE | 2025-03-06 10:58 | OP_ITS ---
DATE OF SERVICE: 03/06/2025 SURGEON: Enzo Munroe MD INDICATIONS: Anemia. PREOPERATIVE DIAGNOSIS: POSTOPERATIVE DIAGNOSIS: PROCEDURE PERFORMED: Upper endoscopy with biopsy. ESTIMATED BLOOD LOSS: COMPLICATIONS: ANESTHESIA: Monitored anesthesia care. ASSISTANTS: SPECIMENS: PROCEDURE DESCRIPTION: A history and physical performed. The risks and benefits of the procedure were explained to the patient. Informed consent was obtained. The patient was placed in the left lateral decubitus position. The Olympus video gastroscope was introduced into the esophagus, stomach, and duodenum. Examination was performed. The scope was removed. She tolerated the procedure well and was taken to recovery area in stable condition. FINDINGS: 1. Esophagus: There was erosive esophagitis involving the last 2 cm of the esophagus. There was a small hiatal hernia. There were no bleeding areas or mass lesions. 2. Stomach showed no evidence of masses, ulcers, or polyps. Antral biopsies were obtained to evaluate for H pylori. 3. Duodenum: The bulb and second portion were normal. Biopsies were obtained from the second portion to evaluate for malabsorption. IMPRESSION: 1. Erosive esophagitis. 2. Hiatal hernia. RECOMMENDATION: Follow up the biopsy results. MD SARAH Newman/ROLANDO / [id number]
== END 2025-03-06 11:12 | disposition home or self-care (01) ==
PROVIDERS: PCP Internal Medicine; Visit Provider Internal Medicine Gastroenterology
PROC: 0DJ08ZZ Inspection of Upper Intestinal Tract, Via Natural or Artificial Opening Endoscopic (ICD-10-PCS; CPT 43235; principal; 2025-03-06 11:00)
DX: D64.9 Anemia, unspecified (principal); R11.0 Nausea; K20.80 Other esophagitis without bleeding; K44.9 Diaphragmatic hernia without obstruction or gangrene
CPT/HCPCS: 43239; 88305; 88313; 88342; J2003; J2704

== ENCOUNTER 2025-07-27 10:13 | Outpatient (REF) | payer MEDICARE, SELFPAY ==
--- OUTSIDE RECORDS SUMMARY | 2024-02-07 07:27 | XMS_ITS ---
Author Organization Crescencio Jones MD Address [address] [place] [address] [place] [phone] Care Team Providers Care Architect Naval Name Role Phone Crescencio Jones Primary Care Provider [phone] REASON FOR VISIT tracey referral Encounters Encounter Location Date Provider Diagnosis Crescencio Jones MD [address] [place] [address] [place] [address] [phone] 02/07/2024 Crescencio Jones Plan Of Treatment Next Appt Details Provider Name:Crescencio hernandez, 08/03/2025 11:30:00 AM, [address] [place] [address], [address], [phone], Provider Name:Crescencio hernandez, 01/11/2026 07:15:00 AM, [address] [place] [address], [phone], Provider Name:Crescencio hernandez, 01/18/2026 01:00:00 PM, [address] [place] [address], [phone], Progress Notes * Cynthia MICHELE MDOB:[birth year] (83 yo F)Acc No.[id number]:02/07/2024 Patient: Tirso Cynthia moses :1940 A ge:83 Y S ex:Female Address:[address] [place] [id number] * true * Date: Generated for Justin dietrich/Jacquelin/Shirlene on: 1 11:52 AM EDT
--- OUTSIDE RECORDS SUMMARY | 2024-07-03 05:07 | XMS_ITS ---
Author Organization Crescencio Jones MD Address [address] [place] [address] [place] [phone] Care Team Providers Care Food Beverage Manager Name Role Phone Crescencio Jones Primary Care Provider REASON FOR VISIT Verónica referral Encounters Encounter Location Date Provider Diagnosis Crescencio Jones MD [address] [place] [address] [place] [phone] 07/03/2024 Crescencio Jones Plan Of Treatment Next Appt Details Provider Name:Crescencio hernandez, 08/03/2025 11:30:00 AM, [address] [place] [address], [address], [phone], Provider Name:Crescencio hernandez, 01/11/2026 07:15:00 AM, [address] [place] [address], [phone], Provider Name:Crescencio hernandez, 01/18/2026 01:00:00 PM, [address] [place] [address], [phone], Progress Notes * Cynthia MICHELE MDOB:[birth year] (84 yo F)Acc No.[id number]:07/03/2024 Patient: Tirso Cynthia moses :1940 A ge:84 Y S ex:Female Address:[address] [place] [phone] * true * Date: Generated for Justin dietrich/Jacquelin/Shirlene on: 1 11:51 AM EDT
--- OUTSIDE RECORDS SUMMARY | 2024-07-10 03:30 | XMS_ITS ---
Author Organization Crescencio Jones MD Address [address] [place], [place] [phone] Care Team Providers Care Locker Room Manager Name Role Phone Crescencio Jones Primary Care Provider [phone] Results Component Value Reference Range Notes Liver Panel Reviewed date:07/10/2024 04:17:04 PM Interpretation: Performing Lab:[facility], [address] [place] [phone] Notes/Report: Bilirubin Total 0.7 0.0-1.0 mg/dL Bilirubin Direct 0.3 0.0-0.5 mg/dL Aspartate Amino Transferase 15 5-31 U/L Alanine Aminotransferase 9 0-31 U/L Total Protein 7.3 6.5-8.0 g/dL Albumin Level 4.2 3.5-5.0 g/dL Alkaline Phosphatase 92 39-117 U/L Glucose Fasting Reviewed date:07/10/2024 01:04:19 PM Interpretation: Performing Lab:[facility], [address] [place] [phone] Notes/Report: Glucose Fasting 100 60-99 mg/dL A fasting glucose from 100-125 mg/dl is considered impaired (pre-diabetes). Lipid Panel with Reflex Reviewed date:07/10/2024 04:20:47 PM Interpretation: Performing Lab:[facility], [address] [place] [phone] Notes/Report: Triglycerides 66 <150 mg/dL Desirable Triglyceride: [...] A1c Reviewed date:07/10/2024 12:32:52 PM Interpretation: Performing Lab:[facility], [address] [place] [phone] Notes/Report: Hemoglobin A1c % 5.2 <6.0 % [...] average glucose, using the formula of the O3V-Icyxqmd Average Glucose study (ADAG), Diabetes Care, Vol.31,#8, May. 2007 REASON FOR VISIT fasting lipids Immunizations Vaccine Route Administration Date Status Comme nts Influenza High Dose IM Intramuscular 07/10/2024 Administer ed Encounters Encounter Location Date Provider Diagnosis Crescencio Jones MD [address] [place] [address] [place] [phone] 07/10/2024 Crescencio Jones Pure hypercholestero lemia E78.00 ; Prediabetes R73.09 and Encounter for immunization Z23 Assessments Encounter Date Diagnosis (ICD Code) Assessment Notes Treatment Notes Treatment Clinical Notes Section Notes 07/10/2024 Pure hypercholesterolemia (ICD-10 - E78.00) 07/10/2024 Prediabetes (ICD-10 - R73.09) 07/10/2024 Encounter for immunization (ICD-10 - Z23) Plan Of Treatment Next Appt Details Provider Name:Crescencio Banerjee ier, 08/03/2025 11:30:00 AM, [address] [facility], [address], [place], [place], [phone], Provider Name:Crescencio Banerjee mary, 01/11/2026 07:15:00 AM, [address] [facility], [address], [place], [place], [phone], Provider Name:Crescencio Banerjee mary, 01/18/2026 01:00:00 PM, [address] [facility], [address], [place], [place], [phone], Progress Notes * Cynthia MICHELE MDOB:[birth year] (85 yo F)Acc No.[id number]:07/10/2024 Progress Note Patient: Cynthia DOWELL Provider: Tamara Jones MD :1940 A ge:84 Y S ex:Female Date:07/10/2024 Address:[address] [place], [place] [phone] Subjective: * Chief Complaints: * 1 . [...] * Procedure Codes: 3 6415 VENIPUNCT, ROUTINE*, 21988 FLU VACC PRSV FREE INC ANTIG, G0008 ADMN FLU VAC NO FEE SCHED SAME DAY * * The named appointment provid er may or may not be the originator of this progress note, and it is not deemed complete until electronically signed by the appointment provider. Sign off status: Pending * Provider: Tamara Jones MD Date: Generated for Justin dietrich/Jacquelin/Shirlene on: 11:51 AM EDT
--- OUTSIDE RECORDS SUMMARY | 2024-07-15 10:04 | XMS_ITS ---
Author Organization Crescencio Jones MD Address [address] [place] [address] [place] [phone] Care Team Providers Care Supervisor Bottle House Cleaners Name Role Phone Crescencio Jones Primary Care Provider REASON FOR VISIT Verónica Referral Encounters Encounter Location Date Provider Diagnosis Crescencio Jones MD [address] [place] [address] [place] [phone] 07/15/2024 Crescencio Jones Plan Of Treatment Next Appt Details Provider Name:Crescencio hernandez, 08/03/2025 11:30:00 AM, [address] [place] [address], [address], [phone], Provider Name:Crescencio hernandez, 01/11/2026 07:15:00 AM, [address] [place] [address], [phone], Provider Name:Crescencio hernandez, 01/18/2026 01:00:00 PM, [address] [place] [address], [phone], Progress Notes * Cynthia MICHELE MDOB:[birth year] (84 yo F)Acc No.[id number]:07/15/2024 Patient: Tirso Cynthia moses :1940 A ge:84 Y S ex:Female Address:[address] [place] [phone] * true * Date: Generated for Justin dietrich/Jacquelin/Shirlene on: 1 11:50 AM EDT
--- OUTSIDE RECORDS SUMMARY | 2024-07-17 05:15 | XMS_ITS ---
Author Organization Crescencio Jones MD Address [address] [place] [phone] Care Team Providers Care Microgrinder Operator Name Role Phone Crescencio Jones Primary Care Provider [phone] Allergies Allergen (clinical drug ingredient) Drug/Non Drug Allergy documented on EMR Reaction Allergy Type Onset Date Status codeine Codeine Sulfate n/v Drug Allergy A ctive REASON FOR VISIT 6 month Medications Medication SIG (Take, Route, Frequency, Duration) Notes Start Date End Date Status Cholecalciferol 25 MCG (1000 UT) 1 capsule Orally Once a day for 30 day(s) Active Ursodiol 250 MG 1 tab QID Acti ve amLODIPine Besylate 10 MG Take 1 tablet by mouth once daily Active Aspir-Low 81 MG 1 tablet Orally Once a day for 30 day(s) Not-Taking Atorvastatin Calcium 10 MG TAKE 1 TABLET BY MOUTH ONCE DAILY Active Vital Signs Blood pressure systolic 112 mm Hg 07/17/20 24 Blood pressure diastolic 64 mm Hg 024 Height 60 in 07/17/2024 Weight 123 lbs 07/17/2024 BMI 24.02 kg/m2 07/17/2024 weight is down 4 pounds [facility] e 4-2-24 Encounters Encounter Location Date Provider Diagnosis Crescencio Jones MD [address] [place] [phone] 07/17/2024 Crescencio Jones Shortness of breath on exertion R06.02 ; Prediabetes R73.09 ; Pure hypercholesterolemia E78.00 and Essential (primary) hypertension I10 Assessments Encounter Date Diagnosis (ICD Code) Assessment Notes Treatment Notes Treatment Clinical Notes Section Notes 07/17/2024 Shortness of breath on exertion (ICD-10 - R06.02) has not been active. sounds as though she has just lost her conditioning. advised her to get active. does not sound cardiac at all. 07/17/2024 Prediabetes (ICD-10 - R73.09) stable, will cntinue to monitor, no need for medication at this time 07/17/2024 Pure hypercholesterolemia (ICD-10 - E78.00) stable, will cntinue current regiment 07/17/2024 Essential (primary) hypertension (ICD-10 - I10) stable, will continue current regiment Plan Of Treatment Medication Medication Name Sig Start Date Stop Date Notes amLODIPine Besylate 10 MG Take 1 tablet by mouth once daily Atorvastatin Calcium 10 MG TAKE 1 TABLET BY MOUTH ONCE DAILY Treatment Notes Assessment Notes Shortness of breath on exertion has not been active. sounds as though she has just lost her conditioning. advised her to get active. does not sound cardiac at all. Prediabetes stable, will cntinue to monitor, no need for medication at this time Pure hypercholesterolemia stable, will c ntinue current regiment Essential (primary) hypertension stable, will continue current regiment Next Appt Details Provider Name:Crescencio hernandez, 08/03/2025 11:30:00 AM, [address] [place] [address], [address], [phone], Provider Name:Crescencio hernandez, 01/11/2026 07:15:00 AM, [address] [place] [address], [phone], Provider Name:Crescencio hernandez, 01/18/2026 01:00:00 PM, [address] [place] [address], [address], [phone], Progress Notes * Cynthia MICHELE MDOB:[birth year] (84 yo F)Acc No.[id number]:07/17/2024 Progress Notes Patient: Tirso Cynthia moses Provider: Tamara Jones MD :1940 A ge:84 Y S ex:Female Date:07/17/2024 Address:[address] [place] [address] [id number] Subjective: * Chief Complaints: * 6 month * HPI: S ymptom(s): patient is s 84 yo female here for 6 month follow up. gets winded if she does too much. climbing stairs. [facility] and not short of breath. no chest pain. * ROS: G eneral/Constitutional: Denies C hills. D enies F atigue. D enies F ever. D enies H eadache. E NT: Patient denies d ecreased sense of smell , any loss of taste , sore throat. D enies S ore throat. R espiratory: Denies C ough. D enies S hortness of breath at rest. D enies S hortness of breath with exertion. C ardiovascular: Denies C hest pain at rest. D enies C hest pain with exertion. D enies D izziness. A dmits S hortness of breath, S OB with exertion. G astrointestinal: Denies D iarrhea. D enies N ausea. M usculoskeletal: Patient denies m uscle aches. P eripheral Vascular: Patient denies r ed and blue toes. * Medical History: * Surgical History: * Hospitalization/Major Diagno stic Procedure: * Medications: T akingCholecalciferol 25 MCG (1000 UT) Capsule 1 capsule Orally Once a dayamLODIPine Besylate 10 MG Tablet Take 1 tablet by mouth once daily Ursodiol 250 MG Tablet 1 tab QIDAtorvastatin Calcium 10 MG Tablet TAKE 1 TABLET BY MOUTH ONCE DAILY Taking Cholecalciferol 25 MCG (1000 UT) Capsule 1 capsule Orally Once a dayTaking amLODIPine Besylate 10 MG Tablet Take 1 tablet by mouth once daily Taking Ursodiol 250 MG Tablet 1 tab QIDTaking Atorvastatin Calcium 10 MG Tablet TAKE 1 TABLET BY MOUTH ONCE DAILY Not-Taking/PRNAspir-Low 81 MG Tablet Delayed Release 1 tablet Orally Once a dayMedication List reviewed and reconciled with the patientNot-Taking/PRN Aspir- Low 81 MG Tablet Delayed Release 1 tablet Orally Once a dayMedication List reviewed and reconciled with the patient * Allergies: C odeine Sulfate: n/vyes[Allergies Verified] Objective: * Vitals: H t: 60, Wt:123, BMI:24.02, BP:112/64 weight is down 4 pounds since 01-08-24. * P ast Orders: L ab:Liver Panel (Order Date - 07/10/2024) (Collection Date - 07/10/2024) Value Reference Range Bilirubin Total 0.7 0.0-1.0 - mg/dL Bilirubin Direct 0.3 0.0-0.5 - mg/dL Aspartate Amino Transferase 15 5-31 - U/L Alanine Aminotransferase 9 0-31 - U/L Total Protein 7.3 6.5-8.0 - g/dL Albumin Level 4.2 3.5-5.0 - g/dL Alkaline Phosphatase 92 39-117 - U/L L ab:Glucose Fasting (Order Date - 07/10/2024) (Collection Date - 07/10/2024) Value Reference Range Glucose Fasting 100 H 60-99 - mg/dL L ab:Lipid Panel with Reflex (Order Date - 07/10/2024) (Collection Date - 07/10/2024) Value Reference Range Triglycerides 66 <150 - mg/dL Cholesterol 163 <200 - mg/dL LDL Cholesterol Calculated 89 <100 - mg/dL HDL Cholesterol 61 >40 - mg/dL L ab:Hemoglobin A1c (Order Date - 07/10/2024) (Collection Date - 07/10/2024) Value Reference Range Hemoglobin A1c % 5.2 <6.0 - % Estimated Average Glucose 103 - mg/dL * Examination: G eneral Examination: GENERAL APPEARANCE: alert, well hydrated, in no distress . SKIN: good turgor. HEART: regular rate and rhythm, no murmurs, rubs, gallops. LUNGS: no wheezes, rales, rhonchi, good air movement, clear to auscultation bilaterally. Assessment: * Assessment: 1. S hortness of breath on exertion - R06.02 (Primary) 2 . P rediabetes - R73.09 3 . P ure hypercholesterolemia - E78.00 4 . E ssential (primary) hypertension - I10 Plan: * Treatment: 2. P rediabetes Notes: stable, will cntinue to monitor, no need for medication at this time 3. P ure hypercholesterolemia Continue Atorvastatin Calcium Tablet, 10 MG, TAKE 1 TABLET BY MOUTH ONCE DAILY. Notes: stable, will cntinue current regiment 4. E ssential (primary) hypertension Continue amLODIPine Besylate Tablet, 10 MG, Take 1 tablet by mouth once daily. Notes: stable, will continue current regiment * Procedure Codes: * * Sign off status: Completed true * Provider: Tamara Jones MD Date: Generated for Justin dietrich/Jacquelin/Evetteitting on: 11:52 AM EDT History and Physical Notes * HPI (History of Present Illness) Category Sub-Category Detail Notes Category Not es Symptom(s) patient is s 84 yo female here for 6 month follow up. gets winded if she does too much. climbing stairs. [facility] and not short of breath. no chest pain. Examination Category Sub-Category Detail Notes Category Not es General Examination GENERAL APPEARANCE: alert, w ell hydrated, in no distress HEART: regular rate and rhy thm, no murmurs, rubs, gallops LUNGS: no wheezes, rales, r honchi, good air movement, clear to auscultation bilaterally SKIN: good turgor
--- OUTSIDE RECORDS SUMMARY | 2024-08-14 09:15 | XMS_ITS ---
Author Organization [facility] Address [address] [facility] [address] [place] [address] Care Team Providers Care Sales And Marketing Engineer Name Role Phone Crescencio Jones MD Primary Care Provider Petros Munroe Jr, Enzo Bolaños REASON FOR VISIT Patient presents today for biliary cirrhosis Encounters Encounter Location Date Provider Diagnosis [facility] [address] [facility] [address] [place] [phone] 08/14/2024 Enzo uMnroe Jr Plan Of Treatment Next Appt Details Provider Name:Enzo laboy Jr, 12/24/2025 03:35:00 PM, [address] [place] [address], Suite [facility], [place], [address], Provider Name:Enzo laboy Jr, 02/04/2026 01:15:00 PM, [address] [place] [address], [place] [address], [place], [phone], Progress Notes * JELANI HUNTOB:1940 (85 yo F)Acc No.[id number]:08/14/2024 Progress Notes Patient: RENÉ DOWELL Provider: Tomasz Munroe MD :1940 A ge:84 Y S ex:Female Date:08/14/2024 Address:[address] [place], [place] [phone] Pcp:Crescencio Jones MD Subjective: * Chief Complaints: [...] Date: 10/14/2023 Generated for Justin dietrich/Jacquelin/Shirlene on: 11:52 AM EDT
--- OUTSIDE RECORDS SUMMARY | 2025-01-06 03:00 | XMS_ITS ---
Author Organization Crescencio Jones MD Address [address] [place] [phone] Care Team Providers Care Inside Sales Territory Manager Name Role Phone Crescencio Jones Primary Care Provider [phone] Results Component Value Reference Range Notes Complete Blood Count Auto Di ff Reviewed date:01/06/2025 02:01:38 PM Interpretation: Performing Lab:[facility], [address] [place] [phone] Notes/Report: White Blood Count 6.8 4.8-10.8 X10*3/uL [...] NRBC Abs Auto 0.000 0.0-0.012 X10*3/uL Comprehensive [place]. Panel Fa st Reviewed date:01/06/2025 12:23:15 PM Interpretation: Performing Lab:[address] [phone] Notes/Report: Sodium 140 135-145 mmol/L Potassium 3.7 [...] Panel Reviewed date:01/06/2025 12:21:16 PM Interpretation: Performing Lab:[address] [phone] Notes/Report: Triglycerides 64 <150 mg/dL Desirable Triglyceride: [...] A1c Reviewed date:01/06/2025 12:21:25 PM Interpretation: Performing Lab:[facility], [address] [place] [phone] Notes/Report: Hemoglobin A1c % 5.5 <6.0 % [...] average glucose, using the formula of the T1O-Nhapsko Average Glucose study (ADAG), Diabetes Care, Vol.31,#8, May. 2007 REASON FOR VISIT yearly fasting labs Encounters Encounter Location Date Provider Diagnosis Crescencio Jones MD [address] [place] [address] [address] [place], [place] [phone] 01/06/2025 Crescencio Jones Blood tests for rout [...] Provider Name:Crescencio Banerjee ier, 08/03/2025 11:30:00 AM, [address] [place] [address], [address], [place], [place], [phone], Provider Name:Crescencio Banerjee ier, 01/11/2026 07:15:00 AM, [address] [place] [address], [address], [place], [place], [phone], Provider Name:Crescencio Banerjee ier, 01/18/2026 01:00:00 PM, [address] [place] [address], Suite [facility], [place], [place], [phone], Progress Notes * Cynthia MICHELE MDOB:[birth year] (85 yo F)Acc No.[id number]:01/06/2025 Progress Note Patient: Tirso Cynthia VILLATORO Provider: Tamara Jones MD :1940 A ge:84 Y S ex:Female Date:01/06/2025 Address:[address] [place], [place] [phone] Subjective: * Chief Complaints: * 1 . [...] - 01/06/2025 07:00 AM) L AB: Comprehensive [place]. Panel Fast (Collection Date & Time - [...] - 01/06/2025 07:00 AM) L AB: Comprehensive [place]. Panel Fast (Collection Date & Time - [...] - 01/06/2025 07:00 AM) L AB: Comprehensive [place]. Panel Fast (Collection Date & Time - [...] MD Date: 0 01/06/2025 Generated for Justin dietrich/Jacquelin/Evetteitting on: 1 11:53 AM EDT
--- OUTSIDE RECORDS SUMMARY | 2025-01-13 05:30 | XMS_ITS ---
Author Organization Crescencio Jones MD Address [address] [place], [place] [id number] Care Team Providers Care Alumni Relations Manager Name Role Phone Crescencio Jones Primary Care Provider [phone] Allergies Allergen (clinical drug ingredient) Drug/Non Drug Allergy documented on EMR Reaction Allergy Type Onset Date Status codeine Codeine Sulfate n/v Drug Allergy A ctive Results Component Value Reference Range Notes Occult Blood, Stool, Guaiac Reviewed date:01/13/2025 10:47:09 AM Interpretation:Negative Performing Lab: Notes/Report: Negative Occult Blood, Stool, Guaiac Neg Complete Blood Count Auto Di ff Reviewed date:01/14/2025 07:55:49 AM Interpretation: Performing Lab:[facility], [address] [place] [phone] Notes/Report: White Blood Count 5.9 4.8-10.8 X10*3/uL [...] PROFILE Reviewed date:01/15/2025 10:45:18 AM Interpretation: Performing Lab:[facility], [address] [place] [phone] Notes/Report: Iron 21 30-160 mcg/dL Total Iron Binding Capacity 389 228-428 mcg/d L Percent Iron Saturation 5 15-50 % Unsaturated Iron Binding 368 Microalbumin, Random Reviewed date:01/15/2025 06:41:26 PM Interpretation: Performing Lab:[facility], [address] [place] [phone] Notes/Report: Creatinine Urine 17.30 Microalbumin Urine < 5.0 Microalbum/Creatinine Ratio Ur TNP <30 ug/mg cr Unable to calculate albumin/creatinine ratio due to low microalbumin or creatinine result. UA ClnCatch+Micro w/rflx Cul t Reviewed date:01/14/2025 07:57:02 AM Interpretation: Performing Lab:[facility], [address] [place] [phone] Notes/Report: Urine, Clean Catch Color Urine Yellow Appearance Urine Clear PH 7.5 5.0-9.0 Glucose Urine UA Negative Negative mg/dL Urine Blood Negative Negative Specific [place] - Urine <= 1.005 1.005-1.025 Urine Protein [...] kg/m2 01/13/2025 weight is down 2 pounds [facility] 07-17-24 Encounters Encounter Location Date Provider Diagnosis Crescencio Jones MD [address] [place] [address] [address] [place], [place] [phone] 01/13/2025 Crescencio Jones Annual physical exam Z00.00 [...] Up: 6 Months, Reason: Provider Name:Crescencio hernandez, 08/03/2025 11:30:00 AM, [address] [place] [address], [address], [place], [place], [phone], Provider Name:Crescencio hernandez, 01/11/2026 07:15:00 AM, [address] [place] [address], [address], [place], [place], [phone], Provider Name:Crescencio hernandez, 01/18/2026 01:00:00 PM, [address], [address], [place], [phone], Progress Notes * Cynthia MICHELE MDOB:[birth year] (84 yo F)Acc No.[id number]:01/13/2025 Progress Notes Patient: Cynthia DOWELL Provider: Tamara Jones MD :1940 A ge:84 Y S ex:Female Date:01/13/2025 Address:[address] [place], [place] [phone] Subjective: * Chief Complaints: * A [facility] * HPI: D epression [...] here for yearly exam, goes to [facility] per week. S STEVO Questions: [...] Auto 0.000 0.0-0.012 - X10*3/uL L ab:Comprehensive [place]. Panel Fast (Order Date - 01/06/2025) (Collection [...] screen?? * Procedure Codes: 3 6415 VENIPUNCT, ROUTINE*08584 TEST FOR BLOOD, FECES * Follow Up: 6 Months * * Sign off status: Completed true * Provider: Tamara Jones MD Date: 0 01/13/2025 Generated for Justin dietrich/Jacquelin/Evetteitting on: 1 11:53 AM EDT History and Physical Notes * HPI (History of Present Illness) Category Sub-Category Detail Notes Category Not es Symptom(s) patient is a 84 yo female here for annual visit with review of recent labs and follow up of chronic issues here for yearly exam, goes to [facility] 3 times per week Depression Screening PHQ-9 [...]
--- OUTSIDE RECORDS SUMMARY | 2025-03-06 07:00 | XMS_ITS ---
Author Organization [facility] Address [address] [place] [address] Care Team Providers Care Tapper Supervisor Name Role Phone Crescencio Jones MD Primary Care Provider Enzo Donaldson Jr [phone] REASON FOR VISIT fe def anemia,nausea Medications Medication SIG (Take, Route, Frequency, Duration) Notes Start Date End Date Status Omeprazole 20 MG 1 capsule 1/2 to 1 h our before morning meal Orally Once a day; Duration: 30 days 02/11/2025 Active Ferrous Sulfate 325 (65 Fe) MG 1 tablet Orally daily; Duration: 30 days 02/11/2025 Active Vitamin D 1000 UNIT 1 tablet Orally Once a day Active Latanoprost 0.005 % INSTILL 1 DROP INTO EACH EYE AT BEDTIME Ophthalmic; Duration: 18 Active Atorvastatin Calcium 20mg Active Ursodiol 250 MG take 1 tablet by jessika 4 times a day; Duration: 90 days Active amLODIPine Besylate 10 MG TAKE 1 TABLET BY MOUTH ONCE DAILY Oral; Duration: 90 Active Ursodiol 300 MG TAKE 1 CAPSULE BY MO [facility] THREE TIMES DAILY *APPOINTMENT NEEDED FOR FURTHER REFILLS*; Duration: 30 Active Encounters Encounter Location Date Provider Diagnosis [facility] Outpatient [address] [place], [place] [phone] 03/06/2025 Enzo Munroe Jr Anemia D64.9 ; Nausea R11.0 and Erosive esophagitis K22.10 Assessments Encounter Date Diagnosis (ICD Code) Assessment Notes Treatment Notes Treatment Clinical Notes Section Notes 03/06/2025 Anemia (ICD-10 - D64.9) e 03/06/2025 Nausea (ICD-10 - R11.0) e 03/06/2025 Erosive esophagitis (ICD-10 - K22.10) e Plan Of Treatment Next Appt Details Provider Name:Enzo laboy Jr, 12/24/2025 03:35:00 PM, [address] [facility], [address], [place], [address], Provider Name:Enzo laboy Jr, 02/04/2026 01:15:00 PM, [address] [facility], [address], [place], [address], Progress Notes * JELANI HUNTOB:1940 (85 yo F)Acc No.[id number]:03/06/2025 EGD/MAC Patient: RENÉ DOWELL Provider: Tomasz Munroe MD :1940 A ge:84 Y S ex:Female Date:03/06/2025 Address:[address] [place] [address] Pcp:Crescencio Jones MD Subjective: * Chief Complaints: * 1 . Fe def anemia,nausea. * Medical History: * Medications: T aking Atorvastatin Calcium 20mg , Taking Vitamin D 1000 [...] mouth 4 times a day , Taking Omeprazole 20 MG Capsule Delayed Release 1 capsule 1/2 to 1 hour before morning meal Orally Once a day , Taking Ferrous Sulfate 325 (65 Fe) MG Tablet 1 tablet Orally daily Objective: * Vitals: Assessment: * Assessment: 1. A nemia - D64.9 (Primary) 2 . N ausea - R11.0 3 . E rosive esophagitis - K22.10 e Plan: * Treatment: * Procedure Codes: 4 3239 UPPER GI ENDOSCOPY, BIOPSY * * The named appointment provid er may or may not be the originator of this progress note, and it is not deemed complete until electronically signed by the appointment provider. Sign off status: Pending * Provider: Tomasz Munroe MD Date: 0 03/06/2025 Generated for Justin dietrich/Jacquelin/Shirlene on: 11:50 AM EDT
--- OUTSIDE RECORDS SUMMARY | 2025-03-20 07:16 | XMS_ITS ---
Author Organization [facility] Address [address] [place] [phone] Care Team Providers Care Web Content Editor Name Role Phone Crescencio Jones Primary Care Provider [phone] REASON FOR VISIT ins referral for Encounters Encounter Location Date Provider Diagnosis Crescencio Jones MD [address] [place] [address] [place] [phone] 03/20/2025 Crescencio Jones Plan Of Treatment Next Appt Details Provider Name:Crescencio hernandez, 08/03/2025 11:30:00 AM, [address] [place] [address], [phone], Provider Name:Crescencio hernandez, 01/11/2026 07:15:00 AM, [address] [place] [address], [phone], Provider Name:Crescencio hernandez, 01/18/2026 01:00:00 PM, [address] [place] [address], [phone], Progress Notes * Cynthia MICHELE MDOB:[birth year] (85 yo F)Acc No.[id number]:03/20/2025 Patient: Tirso Cynthia VILLATORO :1940 A ge:84 Y S ex:Female Address:[address] [place] [id number] * * Date:
--- OUTSIDE RECORDS SUMMARY | 2025-06-24 06:40 | XMS_ITS ---
Author Organization [facility] Address [address] [facility] [address] [place] [phone] Care Team Providers Care Patient Care Coordinator Name Role Phone Crescencio Jones MD Primary Care Provider Petros Munroe Jr, Enzo Bolaños REASON FOR VISIT gerd Encounters Encounter Location Date Provider Diagnosis [facility] [address] [facility] [address] [place] [phone] 06/24/2025 Enzo Munroe Jr Plan Of Treatment Next Appt Details Provider Name:Enzo laboy Jr, 12/24/2025 03:35:00 PM, [address] [place] [address], [address], [place], [address], Provider Name:Enzo laboy Jr, 02/04/2026 01:15:00 PM, [address] [place] [address], Suite [facility], [place], [address], Progress Notes * RONALD HUNTSOPHIEOB:1940 (85 yo F)Acc No.[id number]:06/24/2025 Progress Notes Patient: RENÉ DOWELL Provider: Tomasz Munroe MD :1940 A ge:85 Y S ex:Female Date:06/24/2025 Address:[address] [place], [place] [phone] Pcp:Crescencio Jones MD Subjective: * Chief Complaints: [...] 06/24/2025 Generated for Justin dietrich/Jacquelin/Shirlene on: 1 11:51 AM EDT
--- OUTSIDE RECORDS SUMMARY | 2025-07-23 11:15 | XMS_ITS ---
Author Organization [facility] Address [address] [place] [phone] Care Team Providers Care Switchboard Operator Helper Name Role Phone Crescencio Jones MD Primary Care Provider Enzo Donaldson Jr Unavailable [phone] Allergies Allergen (clinical drug ingredient) Drug/Non Drug Allergy documented on EMR Reaction Allergy Type Onset Date Status Codeine Phosphate Unknown Drug Allergy Active REASON FOR VISIT Patient presents today for gerd Medications Medication SIG (Take, Route, Frequency, Duration) Notes Start Date End Date Status Latanoprost 0.005 % INSTILL 1 DROP INTO EACH EYE AT BEDTIME Ophthalmic; Duration: 18 Active Ursodiol 250 MG take 1 tablet by 4 times a day; Duration: 90 days Active amLODIPine Besylate 10 MG TAKE 1 TABLET BY MOUTH ONCE DAILY Oral; Duration: 90 Active Omeprazole 40 MG 1 capsule 1/2 to 1 h our before morning meal Orally Once a day; Duration: 90 days 02/11/2025 Not-Taking Ferrous Sulfate 325 (65 Fe) MG 1 tablet Orally daily; Duration: 30 days 02/11/2025 Not-Taking Atorvastatin Calcium 20mg Active Vitamin D 1000 UNIT 1 tablet Orally Once a day Active Pantoprazole Sodium 40 MG 1 tablet 1/2 t o 1 hour before morning meal Orally Once a day; Duration: 30 days 07/23/2025 Active Ferrous Gluconate 324 (38 Fe) MG 1 tablet Orally daily; Duration: 30 days 04/06/2025 Not-Taking Social History Tobacco Use: Social History Observation Description Date Details (start date - stop date) Former Smoker NA - NA Tobacco Use/Smoking Question Answer Notes Patient is a former smoker How long has it been since you last smoked? > 10 years AUDIT-C (Standard) Question Answer Notes Did you have a drink containing alcohol in the p ast year? No Points 0 Interpretation Negative Problems Problem Type SNOMED Code ICD Code Onset Dates Problem Status W/U Status Risk Notes Problem Erosive esophagitis (79387278) Erosive esophagitis (K22.10) Active confirmed Vital Signs Temperature 97.8 degrees Fahrenheit 07/23/20 25 Blood pressure systolic 001 mm Hg 07/23/20 25 Blood pressure diastolic 01 mm Hg 025 Height 60 in 07/23/2025 Weight 121.4 lbs 07/23/2025 BMI 23.71 kg/m2 07/23/2025 Encounters Encounter Location Date Provider Diagnosis [facility] [address] [place] [address] 07/23/2025 Enzo Munroe Jr Erosive esophagitis K22.10 ; Gastroesophageal reflux disease, unspecified whether esophagitis present K21.9 and Biliary cirrhosis K74.5 Assessments Encounter Date Diagnosis (ICD Code) Assessment Notes Treatment Notes Treatment Clinical Notes Section Notes 07/23/2025 Erosive esophagitis (ICD-10 - K22.10) We discussed erosive esophagitis and gastroesophageal reflux disease today. We discussed iron deficiency anemia. We discussed primary biliary cirrhosis. We asked her to try Protonix for her GI symptoms and healing of her erosive esophagitis. She is focused on the ursodiol as one of the causes of her stomach discomfort so we suggested stopping this for now while we work on getting her symptoms under better control. Her liver function tests were normal in in January so it does not seem particularly risky to stop ursodiol. Since she is intolerant of oral iron, if she is still iron deficiency may benefit from intravenous iron infusions. We discussed this today. She will see us in follow-up in 6 months. 07/23/2025 Gastroesophageal reflux disease, unspecified whether esophagitis present (ICD-10 - K21.9) We discussed erosive esophagitis and gastroesophageal reflux disease today. We discussed iron deficiency anemia. We discussed primary biliary cirrhosis. We asked her to try Protonix for her GI symptoms and healing of her erosive esophagitis. She is focused on the ursodiol as one of the causes of her stomach discomfort so we suggested stopping this for now while we work on getting her symptoms under better control. Her liver function tests were normal in in January so it does not seem particularly risky to stop ursodiol. Since she is intolerant of oral iron, if she is still iron deficiency may benefit from intravenous iron infusions. We discussed this today. She will see us in follow-up in 6 months. 07/23/2025 Biliary cirrhosis (ICD-10 - K74.5) We discussed erosive esophagitis and gastroesophageal reflux disease today. We discussed iron deficiency anemia. We discussed primary biliary cirrhosis. We asked her to try Protonix for her GI symptoms and healing of her erosive esophagitis. She is focused on the ursodiol as one of the causes of her stomach discomfort so we suggested stopping this for now while we work on getting her symptoms under better control. Her liver function tests were normal in in January so it does not seem particularly risky to stop ursodiol. Since she is intolerant of oral iron, if she is still iron deficiency may benefit from intravenous iron infusions. We discussed this today. She will see us in follow-up in 6 months. Plan Of Treatment Medication Medication Name Sig Start Date Stop Date Notes Pantoprazole Sodium 40 MG 1 tablet 1/2 t o 1 hour before morning meal Orally Once a day; Duration: 30 days 07/23/2025 Next Appt Details Follow Up: 1 Year, Reason: Provider Name:Enzo laboy Jr, 12/24/2025 03:35:00 PM, [address] [place] [address], [place] [address], [place], [phone], Provider Name:Enzo laboy Jr, 02/04/2026 01:15:00 PM, [address] [place] [address], [place] [address], [place], [phone], Progress Notes * JELANI HUNTOB:1940 (85 yo F)Acc No.[id number]:07/23/2025 Progress Notes Patient: CYNTHIA DOWELL Provider: Tomasz Munroe MD :1940 A ge:85 Y S ex:Female Date:07/23/2025 Address:[address] [place], [place] [phone] Pcp:Crescencio Jones MD Subjective: * Chief Complaints: * 1 . Patient presents today for gerd. * HPI: N ew symptom(s): Cynthia is a pleasant 85-year-old woman seen today in follow-up of iron deficiency anemia. She underwent upper endoscopy in February of this year which showed a 2 cm area of erosive esophagitis. Her omeprazole was increased to 40 mg. Since the endoscopy, she complains of epigastric pain which she associates with taking ursodiol. She stopped taking omeprazole after about 1 month as she did not think it was helping her burning pain in the epigastric area. She stopped iron after about 3 weeks because she found her stomach did not tolerate it very well. She still complains of epigastric burning. She has stomach upset, bloating, and constipation. She has no dysphagia, hematemesis, or melena. She is seeing Dr. Jones in follow-up next week for her iron deficiency anemia. 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 On ursodiol., Hx of chronic uti's, EGD 03/01, erosive esophagitis,. * Surgical History: l asik bilateral eyes . * Family History: F ather: 77 yrs, diagnosed with HTN (hypertension). M other: . S iblings: has a sister with thyroid cancer. One sister from obesity Has a brother with coronary No other family history of colon cancer or polyps. no known hx of colon ca polyps or liver ds. * Social History: T obacco Use: T obacco Use/Smoking P atient is a f ormer smoker, H ow long has it been since you last smoked? > 10 years. D rugs/Alcohol: A lcohol Screen P oints: 2, Interpretation: Negative. M iscellaneous: M arital status: Single. Occupation: Works at [employer]/ [employer] nov 2023. D rug/Alcohol: A DARNELL-C (Standard) D id you have a drink containing alcohol in the past year? N o,?Points 0 , I nterpretation N egative. * Medications: T aking Atorvastatin Calcium 20mg [...] by mouth 4 times a day , Not-Taking/PRN Ferrous Sulfate 325 (65 Fe) MG Tablet 1 tablet Orally daily , Not-Taking/PRN Omeprazole 40 MG Capsule Delayed Release 1 capsule 1/2 to 1 hour before morning meal Orally Once a day , Not-Taking/PRN Ferrous Gluconate 324 (38 Fe) MG Tablet 1 tablet Orally daily , Medication List reviewed and reconciled with the patient * Allergies: C odeine Phosphate. Objective: * Vitals: W t: 121.4 lbs, Ht: 60 in, BMI: 23.71 Index, BP: 001/01 mm Hg, Temp: 97.8, Wt-k.07. * Examination: G eneral Examination: O n examination today, she appears well. Skin is anicteric. Lungs are clear. Heart shows a regular rate and rhythm. Abdomen is soft without focal masses or tenderness. Extremities are without edema. Assessment: * Assessment: 1. E rosive esophagitis - K22.10 (Primary) 2 . G astroesophageal reflux disease, unspecified whether esophagitis present - K21.9 3 . B iliary cirrhosis - K74.5 We discussed erosive esophag itis and gastroesophageal reflux disease today. We discussed iron deficiency anemia. We discussed primary biliary cirrhosis. We asked her to try Protonix for her GI symptoms and healing of her erosive esophagitis. She is focused on the ursodiol as one of the causes of her stomach discomfort so we suggested stopping this for now while we work on getting her symptoms under better control. Her liver function tests were normal in in January so it does not seem particularly risky to stop ursodiol. Since she is intolerant of oral iron, if she is still iron deficiency may benefit from intravenous iron infusions. We discussed this today. She will see us in follow-up in 6 months. Plan: * Treatment: * Procedure Codes: 1 036F TOBACCO NON-USER, G9744 PATIENT NOT ELIG D/T ACTIVE DX HTN * Preventive Medicine: Urinary Incontinence: U rinary Incontinence A ssessment: A bsent, P ara of care documented: N o, reason not specified. Screenings: F all Risk Screening F all Risk Assessment: N o falls in the past year, S creening: N o falls in the past year, A ssessment: N ot performed, no reason specified, P ara of Care: N ot documented, no reason specified. * Follow Up: 1 Year * * Sign off status: Completed true * Provider: Tomasz Munroe MD Date: Generated for BuzzDashi karlo/Jacquelin/eTransmitting on: 11:52 AM EDT History and Physical Notes * HPI (History of Present Illness) Category Sub-Category Detail Notes Category Not es New symptom(s) Cynthia is a ple asant 85-year-old woman seen today in follow-up of iron deficiency anemia. She underwent upper endoscopy in February of this year which showed a 2 cm area of erosive esophagitis. Her omeprazole was increased to 40 mg. Since the endoscopy, she complains of epigastric pain which she associates with taking ursodiol. She stopped taking omeprazole after about 1 month as she did not think it was helping her burning pain in the epigastric area. She stopped iron after about 3 weeks because she found her stomach did not tolerate it very well. She still complains of epigastric burning. She has stomach upset, bloating, and constipation. She has no dysphagia, hematemesis, or melena. She is seeing Dr. Jones in follow-up next week for her iron deficiency anemia. Examination Category Sub-Category Detail Notes Category Not es General Examination On exami nation today, she appears well. Skin is anicteric. Lungs are clear. Heart shows a regular rate and rhythm. Abdomen is soft without focal masses or tenderness. Extremities are without edema.
--- OUTSIDE RECORDS SUMMARY | 2025-07-27 03:00 | XMS_ITS ---
Author Organization Crescencio Jones MD Address [address] [place] [phone] Care Team Providers Care Medical Resident Name Role Phone Crescencio Jones Primary Care Provider Results Component Value Reference Range Notes Hemoglobin A1c (Not yet revi ewed by provider) Interpretation: Performing Lab:[facility], [address] [place] [phone] Notes/Report: Hemoglobin A1c % 5.4 <6.0 % [...] average glucose, using the formula of the F4W-Tcngwmh Average Glucose study (ADAG), Diabetes Care, Vol.31,#8, May. 2007 REASON FOR VISIT fasting lipids Immunizations Vaccine Route Administration Date Status Comme nts Influenza High Dose IM Intramuscular 07/27/2025 Administer ed Encounters Encounter Location Date Provider Diagnosis Crescencio Jones MD [address] [facility] [address] [place] [phone] 07/27/2025 Crescencio Jones Prediabetes R73.09 ; Pure hypercholesterolemia E78.00 and Encounter for administration of vaccine Z23 Assessments Encounter Date Diagnosis (ICD Code) Assessment Notes Treatment Notes Treatment Clinical Notes Section Notes 07/27/2025 Prediabetes (ICD-10 - R73.09) 07/27/2025 Pure hypercholesterolemia (ICD-10 - E78.00) 07/27/2025 Encounter for administration of vaccine (ICD-10 - Z23) Plan Of Treatment Pending Test Test Name Order Date Liver Panel 07/27/2025 Glucose Fasting 07/27/2025 Lipid Panel with Reflex 07/27/2025 Hemoglobin A1c 07/27/2025 Next Appt Details Provider Name:Crescencio Banerjee ier, 08/03/2025 11:30:00 AM, [address] [place] [address], [address] [place] [address], [phone], Provider Name:Crescencio Banerjee ier, 01/11/2026 07:15:00 AM, [address] [place] [address], [address], [phone], Provider Name:Crescencio Banerjee ier, 01/18/2026 01:00:00 PM, [address] [place] [address], [address], [phone], Progress Notes * Cynthia MICHELE MDOB:[birth year] (85 yo F)Acc No.[id number]:07/27/2025 Progress Note Patient: Tirso SHAUNA Cynthia Mik Provider: Tamara Jones MD :1940 A ge:85 Y S ex:Female Date:07/27/2025 Address:[address] [place], [place] [phone] Subjective: * Chief Complaints: * 1 . Fasting lipids. * Medical History: Objective: * Vitals: Assessment: * Assessment: 1. P rediabetes - R73.09 (Primary) 2 . P ure hypercholesterolemia - E78.00? 3. E ncounter for administration of vaccine - Z23 Plan: * Treatment: 2. P ure hypercholesterolemia L AB: Liver Panel L AB: Glucose Fasting L AB: Lipid Panel with Reflex L AB: Hemoglobin A1c (Collection Date & Time - 07/27/2025 07:00 AM) * Immunizations: Influenza High Dose : 0.5 mL (Dose No:1) (Route: Intramuscular) given by Christa Paiz , Office Staff on Left Deltoid * Procedure Codes: 3 6415 VENIPUNCT, ROUTINE*, 92749 FLU VACC PRSV FREE INC ANTIG, G0008 ADMN FLU VAC NO FEE SCHED SAME DAY * * The named appointment provid er may or may not be the originator of this progress note, and it is not deemed complete until electronically signed by the appointment provider. Sign off status: Pending * Provider: Tamara Jones MD Date: Generated for Justin dietrich/Jacquelin/Evetteitting on: 11:51 AM EDT
[2025-07-27 11:19] LABS: Alanine Aminotransferase 10 U/L (0-31); Albumin Level 4.2 g/dL (3.5-5.0); Alkaline Phosphatase 104 U/L (39-117); Aspartate Amino Transferase 19 U/L (5-31); Cholesterol 173 mg/dL (<200); HDL Cholesterol 56 mg/dL (>40); Total Protein 6.7 g/dL (6.5-8.0); Triglycerides 93 mg/dL (<150)
--- OUTSIDE RECORDS SUMMARY | 2025-07-27 11:52 | XMS_ITS | Patient Health Record ---
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 Name Role Phone Robert RICHMOND, Crescencio Primary Care Provider Enzo Donaldson Jr Unavailable Allergies Allergen (clinical drug ingredient) Drug/Non Drug Allergy documented on EMR Reaction Allergy Type Onset Date Status Codeine Phosphate Unknown Drug Allergy Active Results Component Value Reference Range Notes Pathology Reviewed date:03/10/2025 03:17:44 PM Interpretation: Performing Lab:[facility], [address] [place] [phone] Notes/Report: Reason For Referral Referred Organization [facility] Referred Provider Enzo Munroe Jr Referred Address [address] [place] [address],[place] it[place] [address] [place] [phone], Referred Provider Specialty Gastroentero logy General Notes Carmencita Quick 023 11:16:25 AM EDT > no referral required per Dr. Jones's office since patient is in the same [place] [facility]. Referral Priority Routine Medications Medication SIG (Take, Route, Frequency, Duration) Notes Start Date End Date Status Atorvastatin Calcium 20mg Active Latanoprost 0.005 % INSTILL 1 DROP INTO EACH EYE AT BEDTIME Ophthalmic; Duration: 18 Active Vitamin D 1000 UNIT 1 tablet Orally Once a day Active Ursodiol 250 MG take 1 tablet by jessika th 4 times a day; Duration: 90 days Active amLODIPine Besylate 10 MG TAKE 1 TABLET BY MOUTH ONCE DAILY Oral; Duration: 90 Active Omeprazole 40 MG 1 capsule 1/2 to 1 h our before morning meal Orally Once a day; Duration: 90 days 02/11/2025 Not-Taking Ferrous Sulfate 325 (65 Fe) MG 1 tablet Orally daily; Duration: 30 days 02/11/2025 Not-Taking Pantoprazole Sodium 40 MG 1 tablet 1/2 t o 1 hour before morning meal Orally Once a day; Duration: 30 days 07/23/2025 Active Ferrous Gluconate 324 (38 Fe) MG 1 tablet Orally daily; Duration: 30 days 04/06/2025 Not-Taking Immunizations Vaccine Route Administration Date Status Comme [...] Status W/U Status Risk Notes Problem Anemia (895316899) Anemia (D64.9) Active confir med Problem Erosive esophagitis (09350908) Erosive esophagitis (K22.10) Active confirmed Problem Biliary cirrhosis (9121039) Biliary cirrhosis (K74.5) Active confirmed Problem Gastroesophageal reflux disease (404397279) Gastroesophageal reflux disease, unspecified whether esophagitis present (K21.9) Active confirmed Vital Signs Temperature 97.8 degrees Fahrenheit 07/23/2025 Blood pressure diastolic 01 mm Hg 07/23/2025 Height 60 in 07/23/2025 Blood pressure systolic 001 mm Hg 07/23/2025 Weight 121.4 lbs 07/23/2025 BMI 23.71 kg/m2 07/23/2025 Encounters Encounter Location Date Provider Diagnosis [facility] Outpatient [address], [place] [id number] 03/06/2025 Enzo Munroe Jr Anemia D64.9 ; Nausea R11.0 and Erosive esophagitis K22.10 [facility] [address] [place] [phone] 11/20/2024 Enzo Munroe Jr Biliary cirrhosis K74.5 [facility] [address] [place] [phone] 02/11/2025 Enzo Munroe Jr Anemia D64.9 ; Nausea R11.0 and Biliary cirrhosis K74.5 [facility] [address] [facility] [place] [address] 07/23/2025 Enzo Munroe Jr Erosive esophagitis K22.10 ; Gastroesophageal reflux disease, unspecified whether esophagitis present K21.9 and Biliary cirrhosis K74.5 [facility] [address] [facility] [place] [address] 08/11/2024 Enzo Munroe Jr [facility] [address] [facility] [place] [address] 08/14/2024 Enzo Munroe Jr [facility] [address] [place] [phone] 12/17/2024 Enzo Munroe Jr Biliary cirrhosis K74.5 [facility] [address] [place] [phone] 03/06/2025 Enzo Munroe Jr Nausea R11.0 [facility] [address] [place] [phone] 03/10/2025 Enzo Munroe Jr [facility] [address] [place] [phone] 03/10/2025 Enzo Munroe Jr [facility] [address] [place] [phone] 04/06/2025 Enzo Munroe Jr Assessments Encounter Date Diagnosis (ICD Code) Assessment Notes Treatment Notes Treatment Clinical Notes Section Notes 03/06/2025 Nausea (ICD-10 - R11.0) e 03/06/2025 Anemia (ICD-10 - D64.9) e 11/20/2024 Biliary cirrhosis (ICD-10 - K74.5) Liver [...] of endoscopy. Today's visit was 30 minutes. 07/23/2025 Erosive esophagitis (ICD-10 - K22.10) We [...] see us in follow-up in 6 months. 12/17/2024 Biliary cirrhosis (ICD-10 - K74.5) 03/06/2025 Nausea (ICD-10 - R11.0) 03/06/2025 Erosive esophagitis (ICD-10 - K22.10) e 02/11/2025 Biliary cirrhosis (ICD-10 - K74.5) We discussed he r symptoms today. We recommended a trial of [...] of endoscopy. Today's visit was 30 minutes. 07/23/2025 Biliary cirrhosis (ICD-10 - K74.5) We [...] follow-up in 6 months. Plan Of Treatment Future Test Test Name Order Date COLONOSCOPY 07/16/2014 UPPER GI ENDOSCOPY 02/11/2025 Next Appt Details Provider Name:Enzo laboy Jr, 12/24/2025 03:35:00 PM, [address], [address], [place], [address], Provider Name:Enzo laboy Jr, 02/04/2026 01:15:00 PM, [address], [address], [place], [address], Insurance Providers Payer Name Payer Address Payer Phone Subscriber Number Group Number Insured Name Patient Relationship to Insured Coverage Start Date Coverage End Date [facility] [address] [place] [phone] [id number] RENÉ HUNT Self - patient is the insured Medical (General) History Medical History History ICD Code hyperlipidemia colonoscopy 09/23/14, hyperplastic polyp , followup p.r.n. 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 On ursodiol. hx of chronic uti's EGD 03/01, erosive esophagitis, Surgical History Surgery Date(Month/Year) lasik bilateral eyes
--- OUTSIDE RECORDS SUMMARY | 2025-07-27 11:53 | XMS_ITS | Patient Health Record ---
Author Organization Crescencio Jones MD Address [address] [place], [place] [id number] Care Team Providers Care Circulation Crew Leader Name Role Phone Crescencio Jones Primary Care Provider Allergies Allergen (clinical drug ingredient) Drug/Non Drug Allergy documented on EMR Reaction Allergy Type Onset Date Status codeine Codeine Sulfate n/v Drug Allergy A ctive Results Component Value Reference Range Notes Complete Blood Count Auto Di ff Reviewed date:01/06/2025 02:01:38 PM Interpretation: Performing Lab:[facility], [address] [place] [phone] Notes/Report: White Blood Count 6.8 4.8-10.8 X10*3/uL [...] 0.0-0.2 /100WBC Neutrophils Absolute Auto 3.9 2.0-8.3 x10*3/uL Imm Gran Abs Auto 0.03 0.00-0.03 X10*3/uL Lymphocytes Absolute Auto 2.0 1.2-4.9 X10*3/uL Monocytes Absolute Auto 0.7 0.1-1.2 X10*3/uL Eosinophils Absolute Auto 0.1 0.0-0.4 X10*3/uL Basophils Absolute Auto 0.1 0.0-0.2 X10*3/uL NRBC Abs Auto 0.000 0.0-0.012 X10*3/uL Comprehensive [place]. Panel Fa Reviewed date:01/06/2025 12:23:15 PM Interpretation: Performing Lab:[address] [phone] Notes/Report: Sodium 140 135-145 mmol/L Potassium 3.7 [...] Panel Reviewed date:01/06/2025 12:21:16 PM Interpretation: Performing Lab:[facility], [address] [place] [phone] Notes/Report: Triglycerides 64 <150 mg/dL Desirable Triglyceride: [...] A1c Reviewed date:01/06/2025 12:21:25 PM Interpretation: Performing Lab:[facility], [address] [place] [phone] Notes/Report: Hemoglobin A1c % 5.5 <6.0 % [...] average glucose, using the formula of the W4A-Mqwsvpy Average Glucose study (ADAG), Diabetes Care, Vol.31,#8, 2007 Hemoglobin A1c (Not yet revi ewed by provider) Interpretation: Performing Lab:[facility], [address] [place] [phone] Notes/Report: Hemoglobin A1c % 5.4 <6.0 % [...] average glucose, using the formula of the Y6Z-Wdudlso Average Glucose study (ADAG), Diabetes Care, Vol.31,#8, May. 2007 Occult Blood, Stool, Guaiac Reviewed date:01/13/2025 10:47:09 AM Interpretation:Negative Performing Lab: Notes/Report: Negative Occult Blood, Stool, Guaiac Neg Complete Blood Count Auto Di ff Reviewed date:01/14/2025 07:55:49 AM Interpretation: Performing Lab:[facility], [address] [place] [phone] Notes/Report: White Blood Count 5.9 4.8-10.8 X10*3/uL [...] 0.0-0.2 /100WBC Neutrophils Absolute Auto 3.4 2.0-8.3 x10*3/uL Imm Gran Abs Auto 0.02 0.00-0.03 X10*3/uL Lymphocytes Absolute Auto 1.6 1.2-4.9 X10*3/uL Monocytes Absolute Auto 0.8 0.1-1.2 X10*3/uL Eosinophils Absolute Auto 0.1 0.0-0.4 X10*3/uL Basophils Absolute Auto 0.1 0.0-0.2 X10*3/uL NRBC Abs Auto 0.050 0.0-0.012 X10*3/uL IRON PROFILE Reviewed date:01/15/2025 10:45:18 AM Interpretation: Performing Lab:[facility], [address] [place] [phone] Notes/Report: Iron 21 30-160 mcg/dL Total Iron Binding Capacity 389 228-428 mcg/dL Percent Iron Saturation 5 15-50 % Unsaturated Iron Binding 368 Microalbumin, Random Reviewed date:01/15/2025 06:41:26 PM Interpretation: Performing Lab:[address] [phone] Notes/Report: Creatinine Urine 17.30 Microalbumin Urine < 5.0 Microalbum/Creatinine Ratio Ur TNP <30 ug/mg cr Unable to calculate albumin/creatinine ratio due to low microalbumin or creatinine result. UA ClnCatch+Micro w/rflx Cul t Reviewed date:01/14/2025 07:57:02 AM Interpretation: Performing Lab:[facility], [address] [place] [phone] Notes/Report: Urine, Clean Catch Color Urine Yellow Appearance Urine Clear PH 7.5 5.0-9.0 Glucose Urine UA Negative Negative mg/dL Urine Blood Negative Negative Specific [place] - Urine <= 1.005 1.005-1.025 Urine Protein Negative Neg-Trace mg/dL Urine Ketones Negative Negative mg/dL Nitrite Urine Negative Negative Leukocyte Esterase Urine Small (1+) Negative RBC Urine 0-2 0-2 /HPF WBC Urine 0-5 0-5 /HPF Squamous Epithelial Cell Urine 0-2 0-2 /HPF Bacteria Urine 1+ None Seen Hyaline Casts Urine 0-2 0-2 /LPF UA CC w/rflx Micro + Cult Reviewed date:10/07/2024 04:45:12 PM Interpretation: Performing Lab:[facility], [address] [place] [phone] Notes/Report: Urine, Clean Catch Color Urine Yellow Appearance Urine Clear PH 6.5 5.0-9.0 Glucose Urine UA Negative Negative mg/dL Urine Blood Negative Negative Specific [place] - Urine <= 1.005 1.005-1.025 Urine Protein Negative Neg-Trace mg/dL Urine Ketones Negative Negative mg/dL Nitrite Urine Negative Negative Leukocyte Esterase Urine Negative Negative Hold Gold Reviewed date:01/06/2025 12:21:34 PM Interpretation: Performing Lab:[facility], [address] [place] [phone] Notes/Report: Hold Gold See Note Specimen held untested for 24 hours; Call to request Chemistry testing. Hold Gold Reviewed date:01/15/2025 06:41:19 PM Interpretation: Performing Lab:[facility], [address] [place] [phone] Notes/Report: Hold Gold See Note Specimen held untested for 24 hours; Call to request Chemistry testing. Urine Culture Reviewed date:01/15/2025 09:15:15 AM Interpretation: Performing Lab:[facility], [address] [place] [phone] Notes/Report: Urine Culture Report Result Urine Culture 50,000 to 100,000 cfu/ml Urine Culture Mixed bacterial jasmine a characteristic of Urine Culture urogenital contamination. Urine Culture Reviewed date:02/22/2025 05:08:45 PM Interpretation: Performing Lab:[facility], [address] [place] [phone] Notes/Report: Urine Culture Report Result Urine Culture < 10,000 cfu/ml Pathology Reviewed date:03/09/2025 04:28:48 PM Interpretation: Performing Lab:[facility], [address] [place] [phone] Notes/Report: ------ Name: Cynthia Michele Age/Sex: 84/F : 1940 Unit#: [id number] Attend Dr: Enzo Alicia MD Re03/06/25 Status : [facility] Location: [facility] Disch: ------ SPEC : [id number] RECD : 03/06/25 STATUS: ARNAV GREEN NUM: [id number] ALEC: 03/06/25-[address]: Enzo Alicia MD ENTERED: 03/06/25 19 SP TYPE: Surgical OTHR DR: Crescencio Jones MD ORDERED: HE Stain/6, Gross Micro L4/2, IHC, Special st. 2/2, H. pylori, AB/PAS/2 Diagnosis A. Duodenum, biopsy: Duodenal mucosa within normal limits; preserved villous architecture and no increased intraepithelial lymphocytes seen. B. Stomach, antrum, biopsy: Gastric antral mucosa within normal limits; negative for Helicobacter pylori, intestinal metaplasia and dysplasia. Clinical History Pre-Op Dx: Anemia Post-Op Dx: Erosive esophagitis Microscopic Description A-B. Microscopic sec tions examined. No metaplastic changes are seen, supported by AB/PAS stains (A-B); no Helicobacter organisms are seen, supported by H. pylori immunostain (B). Material Received A. Duodenal bx's B. Antral bx's Gross Description Received in 2 parts. A. Received in forma harjit labeled ?duodenal biopsies? are 2 fragments of amaya-white soft tissue measuring 0.3 and 0.4 cm in greatest dimension which are wrapped in lens paper and entirely submitted f or microscopic examination, 2 pieces in cassette A. B. Received in forma harjit labeled ?antral biopsies? are 2 fragments of white soft tissue measuring 0.3 and 0. 3 cm in greatest dimension which are wrapped in lens paper and entirely submitted for micros copic examination, 2 pieces in cassette B. ([facility]) Special stains order ed and performed: AB/PAS on A-B; immunostain for H pylori on B. IHC S/NG Disclaimer NOTE: Unless otherwi se stated, all tissue is formalin-fixed and paraffin-embedded. Some or all of the immunohistochemical tests reported herein may have been developed and their performance characteristics determined by [facility]. They have not been cleared or appr eliazar by the U.S. Food and Drug Administration (FDA). However, the FDA has determined that such clearance or approval is not necessary. This laboratory is certified under the Clinical Laboratory Improvement Amendments of 1988 (CLIA) as qualified CONTINUED ON NEXT PAGE ------ Name: Cynthia Michele Age/Sex: 84/F : 1940 Unit#: [id number] Attend Dr: Enzo Alicia MD Re03/06/25 Status : [facility] Location: [facility] Disch: ------ SPEC : [id number] RECD : 03/06/25 STATUS: ARNAV GREEN NUM: [id number] ALEC: 03/06/25-1039 [facility] DR: Enzo Alicia MD ENTERED: 03/06/25- 19 SP TYPE: Surgical OTHR DR: Crescencio Jones MD ORDERED: HE Stain/6, Gross Micro L4/2, IHC, Special st. 2/2, H. pylori, AB/PAS/2 IHC S/NG Disclaimer (Continued) to perform high comp lexity clinical laboratory testing. Copies To: Crescencio Jones MD [facility] [address] [place] [address] Enzo Alicia MD [facility] [address] [place] [address] ------ Signed (signature on file) Aure Lucero MD 03/09/25 1438 ------ END OF REPORT Hold Gold (Not yet reviewed by provider) Interpretation: Performing Lab:[facility], [address] [place] [phone] Notes/Report: Hold Gold See Note Specimen held untested for 24 hours; Call to request Chemistry testing. Reason For Referral Reason Iron Deficiency Diagnosis 1 Iron deficiency (E61 .1) Referral Organization Crescencio Jones MD Referring Provider First Name Crescencio Referring Provider Last Name Robert Referring Provider Speciality Internal M edicine Referred Provider Enzo Alicia Referred Provider Specialty Gastroentero logy General Notes Bryanna Campbell 0 01/15/2025 10:42:56 AM >info faxedShannan Annette 01/30/2025 01:46:51 PM >was told to refShannan quevedo Annette 02/06/2025 02:01:50 PM > was told on cancel Rosette torres Patti A 02/13/2025 09:15:59 AM >OFFICE NOTE RECD Referral [...] BY MOUTH ONCE DAILY for 100 Active Atorvastatin Calcium 10 MG TAKE 1 TABLET BY MOUTH ONCE DAILY for 100 Active Ursodiol 250 MG 1 tab QID Acti ve Immunizations Vaccine Route Administration Date Status Comme nts Shingles Unknown 02/22/2012 Administered Flu Vaccine Unknown 08/22/2012 Administered PPSV23 (Pnemovax) Unknown 08/22/2012 Administered Flu Vaccine IM Intramuscular 08/28/2013 Administered TDaP IM Intramuscular 08/28/2013 Administered [id number] - Lot # Flu Vaccine IM [...] High Dose IM Intramuscular 07/10/2024 Administer ed Influenza High Dose IM Intramuscular 07/27/2025 Administer ed Social History Tobacco Use: Social [...] Problem Status W/U Status Risk Notes Problem 84477168 Age-related osteoporosis without current pathological fracture (M81.0) Active confirmed Problem 75515944 Lymphocytosis (D72.820) Active confirmed Problem Essential hypertension (96790312) Essential (primary) hypertension (I10) Active confirmed Problem 997042947 Other specified menopausal and perimenopausal disorders (N95.8) Active confirmed Problem 354710756 Abnormal results of liver function studies (R94.5) Active confirmed Problem 9574556 Prediabetes (R73.09) Active confirmed Problem 156358700 History of hemat uria (Z87.448) Active confirmed Problem 157970287 Pure hypercholesterolemia (E78.00) Active confirmed Problem 838257191 Osteopenia deter mined by x-ray (M85.80) Active confirmed Problem 9090520 Biliary cirrhosi s (K74.5) Active confirmed Vital [...] Diagnosis Crescencio Jones MD [address] [place] [id number] 01/06/2025 Crescencio Jones Blood tests for rout ine general physical examination Z00.00 ; Prediabetes R73.09 ; Pure hypercholesterolemia E78.00 and Essential (primary) hypertension I10 Crescencio Jones MD [address] [place] [address] Drive [address] [place] [id number] 07/27/2025 Crescencio Jones Prediabetes R73.09 ; Pure hypercholesterolemia E78.00 and Encounter for administration of vaccine Z23 Crescencio Jones MD [address] [place] [address] Drive [address] [place] [id number] 01/13/2025 Crescencio Jones Annual physical exam Z00.00 ; Prediabetes R73.09 ; Essential (primary) hypertension I10 ; Anemia D64.9 ; Pure hypercholesterolemia E78.00 ; Colon cancer screening Z12.11 and Depression screening Z13.31 Crescencio Jones MD [address] [place] [address] [address] [place], [place] [id number] 03/20/2025 Crescencio Jones Assessments Encounter Date Diagnosis (ICD Code) Assessment Notes Treatment Notes Treatment Clinical Notes Section Notes 01/06/[address] ine general physical examination (ICD-10 - Z00.00) 07/27/2025 Prediabetes (ICD-10 - R73.09) 07/27/2025 Pure hypercholesterolemia (ICD-10 - E78.00) 01/13/2025 Annual physical exam (ICD-10 - Z00.00) labs reviewed and discussed with patient 01/13/2025 Prediabetes (ICD-10 - R73.09) doing well, no need for medication at this time 01/06/2025 Prediabetes (ICD-10 - R73.09) 07/27/2025 Encounter for administration of vaccine (ICD-10 - Z23) 01/13/2025 Essential (primary) hypertension (ICD-10 - I10) well controlled, will contnue current regiment 01/06/2025 Pure hypercholesterolemia (ICD-10 - E78.00) 01/13/2025 Anemia (ICD-10 - D64.9) have explained to her that if she has an iron defi will need to send her back to dr alicia, labs pending 01/06/2025 Essential (primary) hypertension (ICD-10 - I10) 01/13/2025 Pure hypercholesterolemia (ICD-10 - E78.00) stable, will continue current regiment 01/13/2025 Colon cancer screeni ng (ICD-10 - Z12.11) guaiac negative 01/13/2025 Depression screening (ICD-10 - Z13.31) negative screen Plan Of Treatment Pending Test Test Name Order Date Electrocardiogram (EKG) 10/17/2018 Electrocardiogram (EKG) 10/24/2019 Electrocardiogram (EKG) 08/28/2013 Electrocardiogram (EKG) 10/04/2017 Liver Panel 07/27/2025 Glucose Fasting 07/27/2025 Lipid Panel with Reflex 07/27/2025 Microalbumin, Random 01/06/2025 Hold Gold 07/27/2025 Hemoglobin A1c 07/27/2025 UA ClnCatch+Micro w/rflx Cult 01/06/2025 BONE DENSITY DEXA 10/24/2019 Future Test Test Name Order Date BONE DENSITY DEXA 12/01/2020 Next Appt Details Provider Name:Crescencio Banerjee ier, 08/03/2025 11:30:00 AM, [address] [place] [address], [address], [place], [place], [phone], Provider Name:Crescencio Banerjee ier, 01/11/2026 07:15:00 AM, [address] [place] [address], [address], [place], [place], [phone], Provider Name:Crescencio Banerjee ier, 01/18/2026 01:00:00 PM, [address] [place] [address], Suite [facility], [place], [place], [phone], Insurance Providers Payer Name Payer Address Payer Phone Subscriber Number Group Number Insured Name Patient Relationship to Insured Coverage Start Date Coverage End Date [facility] [address] [place] [phone] [id number] Cynthia Michele Self - patient is the insured Medical (General) History Medical History History ICD Code hematuria worked up 2008 colonoscopy 2003; colonoscopy 09/25/[address] [facility] [address] Alicia osteoporosis doesn't want meds 2020
[2025-07-27 12:00] LABS: Reflex LDLD? No
== END 2025-07-27 10:14 | disposition home or self-care (01) ==
LOC: HO.LNP 10:13
PROVIDERS: Visit Provider Internal Medicine
DX: R73.09 Other abnormal glucose (principal); E78.00 Pure hypercholesterolemia, unspecified
CPT/HCPCS: 80061; 80076; 82947; 83036

== ENCOUNTER 2025-08-03 13:04 | Outpatient (REF) | payer MEDICARE, SELFPAY ==
--- OUTSIDE RECORDS SUMMARY | 2024-02-07 07:27 | XMS_ITS ---
Author Organization Crescencio Jones MD Address [address] [place] [address] [place] [phone] Care Team Providers Care Nutrition Director Name Role Phone Crescencio Jones Primary Care Provider REASON FOR VISIT tracey referral Encounters Encounter Location Date Provider Diagnosis Crescencio Jones MD [address] [place] [address] [place] [phone] 02/07/2024 Crescencio Jones Plan Of Treatment Next Appt Details Provider Name:Crescencio Banerjee iechristina, 08/31/2025 03:00:00 PM, [address] [place] [address], [address], [phone], Provider Name:Crescencio hernandez, 01/11/2026 07:15:00 AM, [address] [place] [address], [address], [phone], Provider Name:Crescencio hernandez, 01/18/2026 01:00:00 PM, [address] [place] [address], [address], [phone], Progress Notes * Cynthia MICHELE MDOB:[birth year] (83 yo F)Acc No.[id number]:02/07/2024 Patient: Tirso Cynthia moses :1940 A ge:83 Y S ex:Female Address:[address] [place] [id number] * true * Date: Generated for Justin dietrich/Jacquelin/Shirlene on: 1 04:35 PM EDT
--- OUTSIDE RECORDS SUMMARY | 2024-07-03 05:07 | XMS_ITS ---
Author Organization Crescencio Jones MD Address [address] [facility] [address] [place] [phone] Care Team Providers Care Tawer Name Role Phone Crescencio Jones Primary Care Provider REASON FOR VISIT Verónica referral Encounters Encounter Location Date Provider Diagnosis Crescencio Jones MD [address] [place] [address] [place] [phone] 07/03/2024 Crescencio Jones Plan Of Treatment Next Appt Details Provider Name:Crescencio hernandez, 08/31/2025 03:00:00 PM, [address] [place] [address], [address], [phone], Provider Name:Crescencio hernandez, 01/11/2026 07:15:00 AM, [address] [place] [address], [address], [phone], Provider Name:Crescencio hernandez, 01/18/2026 01:00:00 PM, [address] [place] [address], [address], [phone], Progress Notes * Cynthia MICHELE MDOB:[birth year] (84 yo F)Acc No.[id number]:07/03/2024 Patient: Tirso Cynthia moses :1940 A ge:84 Y S ex:Female Address:[address] [place] [phone] * true * Date: Generated for Justin dietrich/Jacquelin/Shirlene on: 1 04:34 PM EDT
--- OUTSIDE RECORDS SUMMARY | 2024-07-10 03:30 | XMS_ITS ---
Author Organization Crescencio Jones MD Address [address] [place], [place] [phone] Care Team Providers Care Textile Dyer Name Role Phone Crescencio Jones Primary Care Provider [phone] Results Component Value Reference Range Notes Liver Panel Reviewed date:07/10/2024 04:17:04 PM Interpretation: Performing Lab:[facility], [address] [place] [phone] Notes/Report: Bilirubin Total 0.7 0.0-1.0 mg/dL Bilirubin Direct 0.3 0.0-0.5 mg/dL Aspartate Amino Transferase 15 5-31 U/L Alanine Aminotransferase 9 0-31 U/L Total Protein 7.3 6.5-8.0 g/dL Albumin Level 4.2 3.5-5.0 g/dL Alkaline Phosphatase 92 39-117 U/L Glucose Fasting Reviewed date:07/10/2024 01:04:19 PM Interpretation: Performing Lab:[facility], [address] [place] [phone] Notes/Report: Glucose Fasting 100 60-99 mg/dL A fasting glucose from 100-125 mg/dl is considered impaired (pre-diabetes). Lipid Panel with Reflex Reviewed date:07/10/2024 04:20:47 PM Interpretation: Performing Lab:[facility], [address] [place] [phone] Notes/Report: Triglycerides 66 <150 mg/dL Desirable Triglyceride: less than 150 mg/dL Borderline High Triglyceride 150-199 mg/dL High Triglyceride: 200-499 mg/dL Very High Triglyceride: greater than or equal to 5OO mg/dL Cholesterol 163 <200 mg/dL Desirable Cholesterol: less than 200 mg/dL Borderline High Cholesterol: 200-239 mg/dL High Cholesterol: greater than 239 mg/dL LDL Cholesterol Calculated 89 <100 mg/dL Desirable LDL: less than 100 mg/dL Near Optimal/Above Optimal LDL: 110-129 mg/dL Borderline High LDL: 130-159 mg/dL High LDL: 160-189 mg/dL Very High LDL: greater than or equal to 190 mg/dL HDL Cholesterol 61 >40 mg/dL Desirable HDL: greater than 40 mg/dL Note: This HDL assay may give artificially low results in patients with liver disease. Hemoglobin A1c Reviewed date:07/10/2024 12:32:52 PM Interpretation: Performing Lab:[facility], [address] [place] [phone] Notes/Report: Hemoglobin A1c % 5.2 <6.0 % Hemoglobin A1C Reference Range Adults: 4.8 - 6.0 % Non diabetic: < 6.0 % Goal: < 7.0 % Additional Action Suggested: > 8.0 % Note: Hemoglobin A1c results are invalid for patients with abnormal amounts of HbF. Blood transfusions may impact the HbA1c concentration in the patient sample. Estimated Average Glucose 103 eAG = Estimated average glucose which is %A1C expressed as average glucose, using the formula of the W2L-Kxtaecg Average Glucose study (ADAG), Diabetes Care, Vol.31,#8, May. 2007 REASON FOR VISIT fasting lipids Immunizations Vaccine Route Administration Date Status Comme nts Influenza High Dose IM Intramuscular 07/10/2024 Administer ed Encounters Encounter Location Date Provider Diagnosis Crescencio Jones MD [address] [place] [address] [place] [phone] 07/10/2024 Crescencio Jones Pure hypercholestero lemia E78.00 ; Prediabetes R73.09 and Encounter for immunization Z23 Assessments Encounter Date Diagnosis (ICD Code) Assessment Notes Treatment Notes Treatment Clinical Notes Section Notes 07/10/2024 Pure hypercholesterolemia (ICD-10 - E78.00) 07/10/2024 Prediabetes (ICD-10 - R73.09) 07/10/2024 Encounter for immunization (ICD-10 - Z23) Plan Of Treatment Next Appt Details Provider Name:Crescencio Banerjee ier, 08/31/2025 03:00:00 PM, [address], [address], [place], [place], [phone], Provider Name:Crescencio Banerjee mary, 01/11/2026 07:15:00 AM, [address] [facility], [address], [place], [place], [phone], Provider Name:Crescencio Banerjee mary, 01/18/2026 01:00:00 PM, [address], [address], [place], [place], [phone], Progress Notes * Cynthia MICHELE MDOB:[birth year] (85 yo F)Acc No.[id number]:07/10/2024 Progress Note Patient: Cynthia DOWELL Provider: Tamara Jones MD :1940 A ge:84 Y S ex:Female Date:07/10/2024 Address:[address] [place], [place] [phone] Subjective: * Chief Complaints: * 1 . Fasting lipids. * Medical History: Objective: * Vitals: Assessment: * Assessment: 1. P ure hypercholesterolemia - E78.00 (Primary) 2 . P rediabetes - R73.09? 3. E ncounter for immunization - Z23 Plan: * Treatment: 2. P rediabetes L AB: Liver Panel (Collection Date & Time - 07/10/2024 07:30 AM) L AB: Glucose Fasting (Collection Date & Time - 07/10/2024 07:30 AM) L AB: Lipid Panel with Reflex (Collection Date & Time - 07/10/2024 07:30 AM) L AB: Hemoglobin A1c (Collection Date & Time - 07/10/2024 07:30 AM) * Immunizations: Influenza High Dose : 0.5 mL (Dose No:1) (Route: Intramuscular) given by Christa Paiz , Office Staff on Left Deltoid * Procedure Codes: 3 6415 VENIPUNCT, ROUTINE*, 18573 FLU VACC PRSV FREE INC ANTIG, G0008 ADMN FLU VAC NO FEE SCHED SAME DAY * * The named appointment provid er may or may not be the originator of this progress note, and it is not deemed complete until electronically signed by the appointment provider. Sign off status: Pending * Provider: Tamara Jones MD Date: Generated for Justin dietrich/Jacquelin/Shirlene on: 04:34 PM EDT
--- OUTSIDE RECORDS SUMMARY | 2024-07-15 10:04 | XMS_ITS ---
Author Organization Crescencio Jones MD Address [address] [place] [address] [place] [phone] Care Team Providers Care Enroller Name Role Phone Crescencio Jones Primary Care Provider [phone] REASON FOR VISIT Verónica Referral Encounters Encounter Location Date Provider Diagnosis Crescencio Jones MD [address] [place] [address] [place] [phone] 07/15/2024 Crescencio Jones Plan Of Treatment Next Appt Details Provider Name:Crescencio hernandez, 08/31/2025 03:00:00 PM, [address] [place] [address], [address], [phone], Provider Name:Crescencio hernandez, 01/11/2026 07:15:00 AM, [address] [place] [address], [phone], Provider Name:Crescencio hernandez, 01/18/2026 01:00:00 PM, [address] [place] [address], [phone], Progress Notes * Cynthia MICHELE MDOB:[birth year] (84 yo F)Acc No.[id number]:07/15/2024 Patient: Tirso Cynthia moses :1940 A ge:84 Y S ex:Female Address:[address] [place] [phone] * true * Date: Generated for Justin dietrich/Jacquelin/Shirlene on: 1 04:33 PM EDT
--- OUTSIDE RECORDS SUMMARY | 2024-07-17 05:15 | XMS_ITS ---
Author Organization Crescencio Jones MD Address [address] [place] [phone] Care Team Providers Care Chief Juvenile Probation Officer Name Role Phone Crescencio Jones Primary Care Provider Allergies Allergen (clinical drug ingredient) Drug/Non Drug [...] kg/m2 07/17/2024 weight is down 4 pounds [facility] e 4-2-24 Encounters Encounter Location Date Provider Diagnosis Crescencio Jones MD [address] [place] [phone] 07/17/2024 Crescencio Jones Shortness of breath on [...] regiment Next Appt Details Provider Name:Crescencio hernandez, 08/31/2025 03:00:00 PM, [address] [place] [address], [address], [phone], Provider Name:Crescencio hernandez, 01/11/2026 07:15:00 AM, [address] [place] [address], [address], [phone], Provider Name:Crescencio hernandez, 01/18/2026 01:00:00 PM, [address] [place] [address], [address], [phone], Progress Notes * Cynthia MICHELE MDOB:[birth year] (84 yo F)Acc No.[id number]:07/17/2024 Progress Notes Patient: Tirso Cynthia moses Provider: Tamara Jones MD :1940 A ge:84 Y S ex:Female Date:07/17/2024 Address:[address] [place] [address] [id number] Subjective: * Chief Complaints: * 6 month [...] MD Date: Generated for Justin dietrich/Jacquelin/Evetteitting on: 04:34 PM EDT History and Physical Notes * HPI [...]
--- OUTSIDE RECORDS SUMMARY | 2024-08-14 09:15 | XMS_ITS ---
Author Organization [facility] Address [address] [facility] [address] [place] [address] Care Team Providers Care Electrical Helper Name Role Phone Crescencio Jones MD Primary Care Provider Petros Munroe Jr, Enzo Bolaños REASON FOR VISIT Patient presents today for biliary cirrhosis Encounters Encounter Location Date Provider Diagnosis [facility] [address] [facility] [address] [place] [phone] 08/14/2024 Enzo Munroe Jr Plan Of Treatment Next Appt Details Provider Name:Enzo laboy Jr, 12/24/2025 03:35:00 PM, [address] [place] [address], Suite [facility], [place], [address], Provider Name:Enzo laboy Jr, 02/04/2026 01:15:00 PM, [address] [place] [address], [place] [address], [place], [address], Progress Notes * JELANI HUNTOB:1940 (85 yo F)Acc No.[id number]:08/14/2024 Progress Notes Patient: RENÉ DOWELL Provider: Tomasz Munroe MD :1940 A ge:84 Y S ex:Female Date:08/14/2024 Address:[address] [place], [place] [phone] Pcp:Crescencio Jones MD Subjective: * Chief Complaints: * 1 . Patient presents today for biliary cirrhosis. * Medical History: Objective: * Vitals: Assessment: Plan: * Treatment: * * The named appointment provid er may or may not be the originator of this progress note, and it is not deemed complete until electronically signed by the appointment provider. Sign off status: Pending * Provider: Tomasz Munroe MD Date: 10/14/2023 Generated for Justin dietrich/Jacquelin/Shirlene on: 04:35 PM EDT
--- OUTSIDE RECORDS SUMMARY | 2025-01-06 03:00 | XMS_ITS ---
Author Organization Crescencio Jones MD Address [address] [place] [phone] Care Team Providers Care Wad Impregnator Name Role Phone Crescencio Jones Primary Care Provider Results Component Value Reference Range Notes Complete Blood Count Auto Di ff Reviewed date:01/06/2025 02:01:38 PM Interpretation: Performing Lab:[facility], [address] [place] [phone] Notes/Report: White Blood Count 6.8 4.8-10.8 X10*3/uL [...] NRBC Abs Auto 0.000 0.0-0.012 X10*3/uL Comprehensive [place]. Panel Fa st Reviewed date:01/06/2025 12:23:15 PM Interpretation: Performing Lab:[address] [phone] Notes/Report: Sodium 140 135-145 mmol/L Potassium 3.7 [...] Panel Reviewed date:01/06/2025 12:21:16 PM Interpretation: Performing Lab:[address] [phone] Notes/Report: Triglycerides 64 <150 mg/dL Desirable Triglyceride: [...] A1c Reviewed date:01/06/2025 12:21:25 PM Interpretation: Performing Lab:[facility], [address] [place] [phone] Notes/Report: Hemoglobin A1c % 5.5 <6.0 % [...] average glucose, using the formula of the O6Z-Xfcfsff Average Glucose study (ADAG), Diabetes Care, Vol.31,#8, May. 2007 REASON FOR VISIT yearly fasting labs Encounters Encounter Location Date Provider Diagnosis Crescencio Jones MD [address] [place] [address] [address] [place], [place] [phone] 01/06/2025 Crescencio Jones Blood tests for rout [...] Name:Crescencio Banerjee ier, 08/31/2025 03:00:00 PM, [address], [address], [place], [place], [phone], Provider Name:Crescencio Banerjee ier, 01/11/2026 07:15:00 AM, [address] [place] [address] Drive, [address], [place], [place], [phone], Provider Name:Crescencio Banerjee ier, 01/18/2026 01:00:00 PM, [address], Suite [facility], [place], [place], [phone], Progress Notes * Cynthia MICHELE MDOB:[birth year] (85 yo F)Acc No.[id number]:01/06/2025 Progress Note Patient: Tirso Cynthia VILLATORO Provider: Tamara Jones MD :1940 A ge:84 Y S ex:Female Date:01/06/2025 Address:[address] [place], [place] [phone] Subjective: * Chief Complaints: * 1 . [...] - 01/06/2025 07:00 AM) L AB: Comprehensive [place]. Panel Fast (Collection Date & Time - [...] - 01/06/2025 07:00 AM) L AB: Comprehensive [place]. Panel Fast (Collection Date & Time - [...] - 01/06/2025 07:00 AM) L AB: Comprehensive [place]. Panel Fast (Collection Date & Time - [...] 0 01/06/2025 Generated for Justin dietrich/Jacquelin/Evetteitting on: 04:35 PM EDT
--- OUTSIDE RECORDS SUMMARY | 2025-01-13 05:30 | XMS_ITS ---
Author Organization Crescencio Jones MD Address [address] [place], [place] [phone] Care Team Providers Care Runner On Name Role Phone Crescencio Jones Primary Care Provider [phone] Allergies Allergen (clinical drug ingredient) Drug/Non Drug Allergy documented on EMR Reaction Allergy Type Onset Date Status codeine Codeine Sulfate n/v Drug Allergy A ctive Results Component Value Reference Range Notes Occult Blood, Stool, Guaiac Reviewed date:01/13/2025 10:47:09 AM Interpretation:Negative Performing Lab: Notes/Report: Negative Occult Blood, Stool, Guaiac Neg Complete Blood Count Auto Di ff Reviewed date:01/14/2025 07:55:49 AM Interpretation: Performing Lab:[facility], [address] [place] [phone] Notes/Report: White Blood Count 5.9 4.8-10.8 X10*3/uL [...] PROFILE Reviewed date:01/15/2025 10:45:18 AM Interpretation: Performing Lab:[facility], [address] [place] [phone] Notes/Report: Iron 21 30-160 mcg/dL Total Iron Binding Capacity 389 228-428 mcg/d L Percent Iron Saturation 5 15-50 % Unsaturated Iron Binding 368 Microalbumin, Random Reviewed date:01/15/2025 06:41:26 PM Interpretation: Performing Lab:[facility], [address] [place] [phone] Notes/Report: Creatinine Urine 17.30 Microalbumin Urine < 5.0 Microalbum/Creatinine Ratio Ur TNP <30 ug/mg cr Unable to calculate albumin/creatinine ratio due to low microalbumin or creatinine result. UA ClnCatch+Micro w/rflx Cul t Reviewed date:01/14/2025 07:57:02 AM Interpretation: Performing Lab:[facility], [address] [place] [phone] Notes/Report: Urine, Clean Catch Color Urine Yellow Appearance Urine Clear PH 7.5 5.0-9.0 Glucose Urine UA Negative Negative mg/dL Urine Blood Negative Negative Specific [place] - Urine <= 1.005 1.005-1.025 Urine Protein [...] kg/m2 01/13/2025 weight is down 2 pounds [facility] 07-17-24 Encounters Encounter Location Date Provider Diagnosis Crescencio Jones MD [address] [place] [address] [address] [place], [place] [phone] 01/13/2025 Crescencio Jones Annual physical exam Z00.00 [...] Up: 6 Months, Reason: Provider Name:Crescencio hernandez, 08/31/2025 03:00:00 PM, [address] [place] [address], [address], [place], [place], [phone], Provider Name:Crescencio hernandez, 01/11/2026 07:15:00 AM, [address] [place] [address], [address], [place], [place], [phone], Provider Name:Crescencio hernandez, 01/18/2026 01:00:00 PM, [address], [address], [place], [phone], Progress Notes * Cynthia MICHELE MDOB:[birth year] (84 yo F)Acc No.[id number]:01/13/2025 Progress Notes Patient: Cynthia DOWELL Provider: Tamara Jones MD :1940 A ge:84 Y S ex:Female Date:01/13/2025 Address:[address] [place], [place] [id number] Subjective: * Chief Complaints: * A nn[facility] * HPI: D epression Screening: PHQ-9 L [...] here for yearly exam, goes to [facility] times per [facility]. S STEVO [...] Auto 0.000 0.0-0.012 - X10*3/uL L ab:Comprehensive [place]. Panel Fast (Order Date - 01/06/2025) (Collection [...] screen?? * Procedure Codes: 3 6415 VENIPUNCT, ROUTINE*34162 TEST FOR BLOOD, FECES * Follow Up: 6 Months * * Sign off status: Completed true * Provider: Tamara Jones MD Date: 0 01/13/2025 Generated for Justin dietrich/Jacquelin/Evetteitting on: 1 04:35 PM EDT History and Physical Notes * HPI (History of Present Illness) Category Sub-Category Detail Notes Category Not es Symptom(s) patient is a 84 yo female here for annual visit with review of recent labs and follow up of chronic issues here for yearly exam, goes to [facility] per [facility] Depression Screening PHQ-9 [...] Total Score: 0 Interpretation and Intervention Depression Scree perez Findings: Negative Follow-Up for Depression: : review [...]
--- OUTSIDE RECORDS SUMMARY | 2025-03-06 07:00 | XMS_ITS ---
Author Organization [facility] Address [address] [place] [address] Care Team Providers Care Gis Instructor Name Role Phone Crescencio Jones MD Primary Care Provider Enzo Donaldson Jr [phone] REASON FOR VISIT fe def anemia,nausea Medications [...] 300 MG TAKE 1 CAPSULE BY MO [facility] THREE TIMES DAILY *APPOINTMENT NEEDED FOR FURTHER REFILLS*; Duration: 30 Active Encounters Encounter Location Date Provider Diagnosis [facility] Outpatient [address] [place], [place] [phone] 03/06/2025 Enzo Munroe Jr Anemia D64.9 ; Nausea R11.0 and Erosive esophagitis K22.10 Assessments Encounter Date Diagnosis (ICD Code) Assessment Notes Treatment Notes Treatment Clinical Notes Section Notes 03/06/2025 Anemia (ICD-10 - D64.9) e 03/06/2025 Nausea (ICD-10 - R11.0) e 03/06/2025 Erosive esophagitis (ICD-10 - K22.10) e Plan Of Treatment Next Appt Details Provider Name:Enzo laboy Jr, 12/24/2025 03:35:00 PM, [address] [facility], [address], [place], [address], Provider Name:Enzo laboy Jr, 02/04/2026 01:15:00 PM, [address] [facility], [address], [place], [address], Progress Notes * JELANI HUNTOB:1940 (85 yo F)Acc No.[id number]:03/06/2025 EGD/MAC Patient: RENÉ DOWELL Provider: Tomasz Munroe MD :1940 A ge:84 Y S ex:Female Date:03/06/2025 Address:[address] [place] [address] Pcp:Crescencio Jones MD Subjective: * Chief Complaints: [...] 0 03/06/2025 Generated for Justin dietrich/Jacquelin/Shirlene on: 04:33 PM EDT
--- OUTSIDE RECORDS SUMMARY | 2025-03-20 07:16 | XMS_ITS ---
Author Organization [facility] Address [address] [place] [address] [place] [phone] Care Team Providers Care Coverstitch Binder Name Role Phone Crescencio Jones Primary Care Provider [phone] REASON FOR VISIT ins referral for Encounters Encounter Location Date Provider Diagnosis Crescencio Jones MD [address] [place] [address] [place] [phone] 03/20/2025 Crescencio Jones Plan Of Treatment Next Appt Details Provider Name:Crescencio hernandez, 08/31/2025 03:00:00 PM, [address] [place] [address], [phone], Provider Name:Crescencio hernandez, 01/11/2026 07:15:00 AM, [address] [place] [address], [phone], Provider Name:Crescencio hernandez, 01/18/2026 01:00:00 PM, [address] [place] [address], [phone], Progress Notes * Cynthia MICHELE MDOB:[birth year] (85 yo F)Acc No.[id number]:03/20/2025 Patient: Tirso Cynthia VILLATORO :1940 A ge:84 Y S ex:Female Address:[address] [place] [id number] * * Date:
--- OUTSIDE RECORDS SUMMARY | 2025-06-24 06:40 | XMS_ITS ---
Author Organization [facility] Address [address] [facility] [address] [place] [phone] Care Team Providers Care Trust Clerk Name Role Phone Crescencio Jones MD Primary Care Provider Petros Munroe Jr, Enzo Bolaños REASON FOR VISIT gerd Encounters Encounter Location Date Provider Diagnosis [facility] [address] [facility] [address] [place] [phone] 06/24/2025 Enzo Munroe Jr Plan Of Treatment Next Appt Details Provider Name:Enzo laboy Jr, 12/24/2025 03:35:00 PM, [address] [place] [address], [address], [place], [address], Provider Name:Enzo laboy Jr, 02/04/2026 01:15:00 PM, [address] [place] [address], Suite [facility], [place], [address], Progress Notes * RONALD HUNTSOPHIEOB:1940 (85 yo F)Acc No.[id number]:06/24/2025 Progress Notes Patient: RENÉ DOWELL Provider: Tomasz Munroe MD :1940 A ge:85 Y S ex:Female Date:06/24/2025 Address:[address] [place] [phone] Pcp:Crescencio Jones MD Subjective: * Chief Complaints: * 1 . Gerd. * Medical History: Objective: * Vitals: Assessment: Plan: * Treatment: * * The named appointment provid er may or may not be the originator of this progress note, and it is not deemed complete until electronically signed by the appointment provider. Sign off status: Pending * Provider: Tomasz Munroe MD Date: 0 06/24/2025 Generated for Justin dietrich/Jacquelin/Shirlene on: 1 04:34 PM EDT
--- OUTSIDE RECORDS SUMMARY | 2025-07-27 03:00 | XMS_ITS ---
Author Organization Crescencio Jones MD Address [address] [place], [place] [phone] Care Team Providers Care Biologist Aide Name Role Phone Crescencio Jones Primary Care Provider [phone] Results Component Value Reference Range Notes Liver Panel Reviewed date:07/27/2025 12:42:19 PM Interpretation: Performing Lab:[facility], [address] [place] [phone] Notes/Report: Bilirubin Total 0.9 0.0-1.0 mg/dL Bilirubin Direct 0.3 0.0-0.5 mg/dL Aspartate Amino Transferase 19 5-31 U/L Alanine Aminotransferase 10 0-31 U/L Total Protein 6.7 6.5-8.0 g/dL Albumin Level 4.2 3.5-5.0 g/dL Alkaline Phosphatase 104 39-117 U/L Glucose Fasting Reviewed date:07/27/2025 12:42:02 PM Interpretation: Performing Lab:[facility], [address] [place] [phone] Notes/Report: Glucose Fasting 99 60-99 mg/dL Lipid Panel with Reflex Reviewed date:07/27/2025 12:46:22 PM Interpretation: Performing Lab:[facility], [address] [place] [phone] Notes/Report: Triglycerides 93 <150 mg/dL Desirable Triglyceride: [...] A1c Reviewed date:07/27/2025 12:41:53 PM Interpretation: Performing Lab:[facility], [address] [place] [phone] Notes/Report: Hemoglobin A1c % 5.4 <6.0 % [...] average glucose, using the formula of the P4U-Hjezbtu Average Glucose study (ADAG), Diabetes Care, Vol.31,#8, May. 2007 REASON FOR VISIT fasting lipids Immunizations Vaccine Route Administration Date Status Comme nts Influenza High Dose IM Intramuscular 07/27/2025 Administer ed Encounters Encounter Location Date Provider Diagnosis Crescencio Jones MD [address] [place] [address] [place] [phone] 07/27/2025 Crescencio Jnoes Prediabetes R73.09 ; Encounter for administration of vaccine Z23 and Pure hypercholesterolemia E78.00 Assessments Encounter Date Diagnosis (ICD Code) Assessment Notes Treatment Notes Treatment Clinical Notes Section Notes 07/27/2025 Prediabetes (ICD-10 - R73.09) 07/27/2025 Encounter for administration of vaccine (ICD-10 - Z23) 07/27/2025 Pure hypercholesterolemia (ICD-10 - E78.00) Plan Of Treatment Next Appt Details Provider Name:Crescencio hernandez, 08/31/2025 03:00:00 PM, [address], [address], [place], [place], [phone], Provider Name:Crescencio Banerjee ier, 01/11/2026 07:15:00 AM, [address], [address], [place], [place], [phone], Provider Name:Crescencio Banerjee danaer, 01/18/2026 01:00:00 PM, [address] [facility], [address], [place], [place], [phone], Progress Notes * Cynthia MICHELE MDOB:[birth year] (85 yo F)Acc No.[id number]:07/27/2025 Progress Note Patient: Cynthia DOWELL Provider: Tamara Jones MD :1940 A ge:85 Y S ex:Female Date:07/27/2025 Address:[address] [place], [place] [phone] Subjective: * Chief Complaints: * 1 . [...] * Procedure Codes: 3 6415 VENIPUNCT, ROUTINE*, 66417 FLU VACC PRSV FREE INC ANTIG, G0008 ADMN FLU VAC NO FEE SCHED SAME DAY * * The named appointment provid er may or may not be the originator of this progress note, and it is not deemed complete until electronically signed by the appointment provider. Sign off status: Pending * Provider: Tamara Jones MD Date: 1 Generated for Justin dietrich/Jacquelin/Shirlene on: 04:34 PM EDT
--- OUTSIDE RECORDS SUMMARY | 2025-08-03 07:30 | XMS_ITS ---
Author Organization Crescencio Jones MD Address [address] [place], [place] [phone] Care Team Providers Care 2Nd Pressman Name Role Phone Crescencio Jones Primary Care Provider Allergies Allergen (clinical drug ingredient) Drug/Non Drug Allergy documented on EMR Reaction Allergy Type Onset Date Status codeine Codeine Sulfate n/v Drug Allergy A ctive Results Component Value Reference Range Notes Complete Blood Count Auto Di ff (Not yet reviewed by provider) Interpretation: Performing Lab:[facility], [address] [place] [phone] Notes/Report: White Blood Count 5.8 4.8-10.8 X10*3/uL [...] Abs Auto 0.000 0.0-0.012 X10*3/uL IRON PROFILE (Not yet review ed by provider) Interpretation: Performing Lab:[facility], [address] [place] [phone] Notes/Report: Iron 11 30-160 mcg/dL Total Iron Binding Capacity 368 228-428 mcg/d L Percent Iron Saturation 3 15-50 % Unsaturated Iron Binding 357 TSH reflex Free T4 (Not yet reviewed by provider) Interpretation: Performing Lab:[facility], [address] [place] [phone] Notes/Report: TSH reflex Free T4 4.42 0.32-4.0 [...] Status W/U Status Risk Notes Problem Anxiety (04973711) Anxiety (F41.9) Active confirmed Vital Signs Blood pressure systolic 152 mm Hg 08/03/20 25 Blood pressure diastolic 60 mm Hg 025 Height 60 in 08/03/2025 Weight 121 lbs 08/03/2025 BMI 23.63 kg/m2 08/03/2025 Encounters Encounter Location Date Provider Diagnosis Crescencio Jones MD [address] [place] [address] [place] [phone] 08/03/2025 Crescencio Jones Biliary cirrhosis K74.5 ; [...] nderstanding of medication and directions for use Pending Test Test Name Order Date Complete Blood Count Auto Diff IRON PROFILE 08/03/2025 TSH reflex Free T4 08/03/2025 Next Appt Details Follow Up: 4 Weeks, Reason: Provider Name:Crescencio hernandez, 08/31/2025 03:00:00 PM, [address] [place] [address], [address] [place] [address], [phone], Provider Name:Crescencio hernandez, 01/11/2026 07:15:00 AM, [address] [place] [address], [address], [phone], Provider Name:Crescencio Banerjee ier, 01/18/2026 01:00:00 PM, [address] [facility] [address], [address], [place], [place], [phone], Progress Notes * Cynthia MICHELE MDOB:[birth year] (85 yo F)Acc No.[id number]:08/03/2025 Progress Notes Patient: Tirso ALLENCynthia PAIGE Provider: Tamara Jones MD :1940 A ge:85 Y S ex:Female Date:08/03/2025 Address:[address] [place], [place] [phone] Subjective: * Chief Complaints: * 1 . 6 month Patient would like to try Sertraline per her daughter. 2. Accompanied by daughter. * HPI: S ymptom(s): patient is a [...] enies S uicidal thoughts. * Medical History: H ematuria worked up 2008, colonoscopy 2003; colonoscopy 09/25/[address] Munroe, Osteoporosis doesn't want meds 2020. * Medications: T aking Pantoprazole Sodium 40 MG Tablet Delayed Release 1 tablet 1/2 to 1 hour before morning meal Orally Once a day , Taking Cholecalciferol 25 MCG (1000 UT) Capsule 1 capsule Orally Once a day , Taking Atorvastatin Calcium 10 MG Tablet TAKE 1 TABLET BY MOUTH ONCE DAILY , Taking amLODIPine Besylate 10 MG Tablet TAKE 1 TABLET BY MOUTH ONCE DAILY , Not-Taking/PRN Ursodiol 250 MG Tablet 1 tab QID , Not-Taking/PRN Aspir-Low 81 MG Tablet Delayed Release 1 tablet Orally Once a day , Medication List reviewed and reconciled with the patient * Allergies: C odeine Sulfate: n/v. Objective: * Vitals: H t: 60, Wt: [...] Treatment: 2. T hyroid disorder L AB: Complete Blood Count Auto Diff (Collection Date & Time - 08/03/2025 11:55 AM) L AB: IRON PROFILE (Collection Date & Time - 08/03/2025 11:55 AM) L AB: TSH reflex Free T4 (Collection Date & Time - 08/03/2025 11:55 AM) Notes: has a history of radiactive iodine, will continue to monitor, pending labs 3. I radha deficiency L AB: Complete Blood Count Auto Diff (Collection Date & Time - 08/03/2025 11:55 AM) L AB: IRON PROFILE (Collection Date & Time - 08/03/2025 11:55 AM) L AB: TSH reflex Free T4 (Collection Date & Time - 08/03/2025 11:55 AM) Notes: has stopped taking iron about 4 weeks, pending labs 4. A nxiety Start Sertraline HCl Tablet, 25 MG, 1 tablet, Orally, Once a day, 30 days, 30, Refills 3. ? L AB: Complete Blood Count Auto Diff (Collection Date & Time - 08/03/2025 11:55 AM) L AB: IRON PROFILE (Collection Date & Time - 08/03/2025 11:55 AM) L AB: TSH reflex Free T4 (Collection Date & Time - 08/03/2025 11:55 AM) Notes: patient verbalized understanding of medication and directions for use * Procedure Codes: 3 6415 VENIPUNCT, ROUTINE* * Follow Up: 4 Weeks * * The named appointment provid er may or may not be the originator of this progress note, and it is not deemed complete until electronically signed by the appointment provider. Sign off status: Pending * Provider: Tamara Jones MD Date: Generated for Justin dietrich/Jacquelin/Shirlene on: 04:35 PM EDT History and Physical Notes [...]
[2025-08-03 13:06] LABS: MANUAL DIFF FLAG NO
[2025-08-03 13:48] LABS: Hematocrit 26.8 % (37.0-47.0); Hemoglobin 7.9 g/dl (12.0-16.0); Imm Gran Abs Auto 0.01 X10*3/uL (0.00-0.03); Imm Gran Pct Auto 0.2 % (0.0-0.4); Lymphocytes Absolute Auto 1.8 X10*3/uL (1.2-4.9); Mean Corpuscular HGB Conc 29.5 g/dl (31.0-35.0); Mean Corpuscular Hemoglobin 22.1 pg (27.0-33.0); Mean Corpuscular Volume 74.9 fL (80.0-98.0); NRBC Abs Auto 0.000 X10*3/uL (0.0-0.012); NRBC Pct Auto 0.0 /100WBC (0.0-0.2); Platelet Count 365 X10*3/uL (160-400); Red Blood Count 3.58 X10*6/uL (4.20-5.50); White Blood Count 5.8 X10*3/uL (4.8-10.8)
[2025-08-03 14:12] LABS: Iron 11 mcg/dL (30-160); Percent Iron Saturation 3 % (15-50); Total Iron Binding Capacity 368 mcg/dL (228-428); Unsaturated Iron Binding 357 ug/dL
[2025-08-03 15:06] LABS: Free T4 (Free Thyroxine) 0.93 ng/dL (0.71-1.85)
--- OUTSIDE RECORDS SUMMARY | 2025-08-03 16:35 | XMS_ITS | Patient Health Record ---
Author Organization [facility] Address [address] [facility] [address] [place] [phone] Care Team Providers Care Correction Worker Name Role Phone Robert RICHMOND, Crescencio Primary Care Provider Enzo Donaldson Jr Unavailable Allergies Allergen (clinical drug ingredient) Drug/Non Drug Allergy documented on EMR Reaction Allergy Type Onset Date Status Codeine Phosphate Unknown Drug Allergy Active Results Component Value Reference Range Notes Pathology Reviewed date:03/10/2025 03:17:44 PM Interpretation: Performing Lab:[facility], [address] [place] [phone] Notes/Report: Reason For Referral Referred Organization [facility] Referred Provider Enzo Munroe Jr Referred Address [address] [place] [address],[place] [address] [place] [phone], Referred Provider Specialty Gastroentero logy General Notes Carmencita Quick 023 11:16:25 AM EDT > no referral required per Dr. Jones's office since patient is in the same [facility]ath of carel. Referral Priority Routine Medications Medication [...] Status W/U Status Risk Notes Problem Anemia (065988830) Anemia (D64.9) Active confir med Problem Erosive esophagitis (03789358) Erosive esophagitis (K22.10) Active confirmed Problem Biliary cirrhosis (8987702) Biliary cirrhosis (K74.5) Active confirmed Problem Gastroesophageal reflux disease (538902175) Gastroesophageal reflux disease, unspecified whether esophagitis present (K21.9) Active confirmed Vital Signs Temperature 97.8 degrees Fahrenheit 07/23/2025 Blood pressure diastolic 01 mm Hg 07/23/2025 Height 60 in 07/23/2025 Blood pressure systolic 001 mm Hg 07/23/2025 Weight 121.4 lbs 07/23/2025 BMI 23.71 kg/m2 07/23/2025 Encounters Encounter Location Date Provider Diagnosis [facility] Outpatient [address], [place] [phone] 03/06/2025 Enzo Munroe Jr Anemia D64.9 ; Nausea R11.0 and Erosive esophagitis K22.10 [facility] [address] [place] [phone] 11/20/2024 Enzo Munroe Jr Biliary cirrhosis K74.5 [facility] [address] [place] [phone] 02/11/2025 Enzo Munroe Jr Anemia D64.9 ; Nausea R11.0 and Biliary cirrhosis K74.5 [facility] [address] [place] [facility] [place] [phone] 07/23/2025 Enzo Munroe Jr Erosive esophagitis K22.10 ; Gastroesophageal reflux disease, unspecified whether esophagitis present K21.9 and Biliary cirrhosis K74.5 [facility] [address] [facility] [place] [address] 08/11/2024 Enzo Munroe Jr [facility] [address] [facility] [place] [address] 08/14/2024 Enzo Munroe Jr [facility] [address] [place] [phone] 12/17/2024 Enzo Munroe Jr Biliary cirrhosis K74.5 [facility] [address] [place] [phone] 03/06/2025 Enzo Munroe Jr Nausea R11.0 [facility] [address] [place] [phone] 03/10/2025 Enzo Munroe Jr [facility] [address] [place] [phone] 03/10/2025 Enzo Munroe Jr [facility] [address] [place] [phone] 04/06/2025 Enzo Munroe Jr Assessments Encounter Date [...] 03:35:00 PM, [address], [address], [place], [address], Provider Name:Enzo laboy Jr, 02/04/2026 01:15:00 PM, [address], [address], [place], [address], Insurance Providers Payer Name Payer Address Payer Phone Subscriber Number Group Number Insured Name Patient Relationship to Insured Coverage Start Date Coverage End Date [facility] [address] [place] [phone] [id number] RENÉ HUNT Self - patient is the [...]
--- OUTSIDE RECORDS SUMMARY | 2025-08-03 16:36 | XMS_ITS | Patient Health Record ---
Author Organization Crescencio Jones MD Address [address] [place], [place] [id number] Care Team Providers Care Supply Teacher Name Role Phone Crescencio Jones Primary Care Provider [phone] Allergies Allergen (clinical drug ingredient) Drug/Non Drug Allergy documented on EMR Reaction Allergy Type Onset Date Status codeine Codeine Sulfate n/v Drug Allergy A ctive Results Component Value Reference Range Notes Complete Blood Count Auto Di ff Reviewed date:01/06/2025 02:01:38 PM Interpretation: Performing Lab:[facility], [address] [place] [phone] Notes/Report: White Blood Count 6.8 4.8-10.8 X10*3/uL [...] NRBC Abs Auto 0.000 0.0-0.012 X10*3/uL Comprehensive [place]. Panel Fa Reviewed date:01/06/2025 12:23:15 PM Interpretation: Performing Lab:[address] [phone] Notes/Report: Sodium 140 135-145 mmol/L Potassium 3.7 [...] Panel Reviewed date:01/06/2025 12:21:16 PM Interpretation: Performing Lab:[facility], [address] [place] [phone] Notes/Report: Triglycerides 64 <150 mg/dL Desirable Triglyceride: [...] A1c Reviewed date:01/06/2025 12:21:25 PM Interpretation: Performing Lab:[facility], [address] [place] [phone] Notes/Report: Hemoglobin A1c % 5.5 <6.0 % [...] average glucose, using the formula of the J5R-Yincevn Average Glucose study (ADAG), Diabetes Care, Vol.31,#8, 2007 Liver Panel Reviewed date:07/27/2025 12:42:19 PM Interpretation: Performing Lab:[facility], [address] [place] [phone] Notes/Report: Bilirubin Total 0.9 0.0-1.0 mg/dL Bilirubin Direct 0.3 0.0-0.5 mg/dL Aspartate Amino Transferase 19 5-31 U/L Alanine Aminotransferase 10 0-31 U/L Total Protein 6.7 6.5-8.0 g/dL Albumin Level 4.2 3.5-5.0 g/dL Alkaline Phosphatase 104 39-117 U/L Glucose Fasting Reviewed date:07/27/2025 12:42:02 PM Interpretation: Performing Lab:[facility], [address] [place] [phone] Notes/Report: Glucose Fasting 99 60-99 mg/dL Lipid Panel with Reflex Reviewed date:07/27/2025 12:46:22 PM Interpretation: Performing Lab:[facility], [address] [place] [phone] Notes/Report: Triglycerides 93 <150 mg/dL Desirable Triglyceride: [...] A1c Reviewed date:07/27/2025 12:41:53 PM Interpretation: Performing Lab:[facility], [address] [place] [phone] Notes/Report: Hemoglobin A1c % 5.4 <6.0 % [...] average glucose, using the formula of the J2R-Besngvr Average Glucose study (ADAG), Diabetes Care, Vol.31,#8, May. 2007 Complete Blood Count Auto Di ff (Not yet reviewed by provider) Interpretation: Performing Lab:[facility], [address] [place] [phone] Notes/Report: White Blood Count 5.8 4.8-10.8 X10*3/uL [...] 0.0-0.2 /100WBC Neutrophils Absolute Auto 3.0 2.0-8.3 x10*3/uL Imm Gran Abs Auto 0.01 0.00-0.03 X10*3/uL Lymphocytes Absolute Auto 1.8 1.2-4.9 X10*3/uL Monocytes Absolute Auto 0.7 0.1-1.2 X10*3/uL Eosinophils Absolute Auto 0.2 0.0-0.4 X10*3/uL Basophils Absolute Auto 0.1 0.0-0.2 X10*3/uL NRBC Abs Auto 0.000 0.0-0.012 X10*3/uL IRON PROFILE (Not yet review ed by provider) Interpretation: Performing Lab:[facility], [address] [place] [phone] Notes/Report: Iron 11 30-160 mcg/dL Total Iron Binding Capacity 368 228-428 mcg/dL Percent Iron Saturation 3 15-50 % Unsaturated Iron Binding 357 TSH reflex Free T4 (Not yet reviewed by provider) Interpretation: Performing Lab:[address] [phone] Notes/Report: TSH reflex Free T4 4.42 0.32-4.0 uIU/mL Occult Blood, Stool, Guaiac Reviewed date:01/13/2025 10:47:09 AM Interpretation:Negative Performing Lab: Notes/Report: Negative Occult Blood, Stool, Guaiac Neg Complete Blood Count Auto Di ff Reviewed date:01/14/2025 07:55:49 AM Interpretation: Performing Lab:[address] [phone] Notes/Report: White Blood Count 5.9 4.8-10.8 X10*3/uL [...] PROFILE Reviewed date:01/15/2025 10:45:18 AM Interpretation: Performing Lab:[facility], [address] [place] [phone] Notes/Report: Iron 21 30-160 mcg/dL Total Iron Binding Capacity 389 228-428 mcg/dL Percent Iron Saturation 5 15-50 % Unsaturated Iron Binding 368 Microalbumin, Random Reviewed date:01/15/2025 06:41:26 PM Interpretation: Performing Lab:[facility], [address] [place] [phone] Notes/Report: Creatinine Urine 17.30 Microalbumin Urine < 5.0 Microalbum/Creatinine Ratio Ur TNP <30 ug/mg cr Unable to calculate albumin/creatinine ratio due to low microalbumin or creatinine result. UA ClnCatch+Micro w/rflx Cul t Reviewed date:01/14/2025 07:57:02 AM Interpretation: Performing Lab:[facility], [address] [place] [phone] Notes/Report: Urine, Clean Catch Color Urine Yellow Appearance Urine Clear PH 7.5 5.0-9.0 Glucose Urine UA Negative Negative mg/dL Urine Blood Negative Negative Specific [place] - Urine <= 1.005 1.005-1.025 Urine Protein [...] Cult Reviewed date:10/07/2024 04:45:12 PM Interpretation: Performing Lab:[facility], [address] [place] [phone] Notes/Report: Urine, Clean Catch Color Urine Yellow Appearance Urine Clear PH 6.5 5.0-9.0 Glucose Urine UA Negative Negative mg/dL Urine Blood Negative Negative Specific [place] - Urine <= 1.005 1.005-1.025 Urine Protein Negative Neg-Trace mg/dL Urine Ketones Negative Negative mg/dL Nitrite Urine Negative Negative Leukocyte Esterase Urine Negative Negative Hold Gold Reviewed date:01/06/2025 12:21:34 PM Interpretation: Performing Lab:[address] [phone] Notes/Report: Hold Gold See Note Specimen held untested for 24 hours; Call to request Chemistry testing. Hold Gold Reviewed date:01/15/2025 06:41:19 PM Interpretation: Performing Lab:[facility], [address] [place] [phone] Notes/Report: Hold Gold See Note Specimen held untested for 24 hours; Call to request Chemistry testing. Urine Culture Reviewed date:01/15/2025 09:15:15 AM Interpretation: Performing Lab:[facility], [address] [place] [phone] Notes/Report: Urine Culture Report Result Urine Culture 50,000 to 100,000 cfu/ml Urine Culture Mixed bacterial jasmine a characteristic of Urine Culture urogenital contamination. Urine Culture Reviewed date:02/22/2025 05:08:45 PM Interpretation: Performing Lab:[facility], [address] [place] [phone] Notes/Report: Urine Culture Report Result Urine Culture < 10,000 cfu/ml Pathology Reviewed date:03/09/2025 04:28:48 PM Interpretation: Performing Lab:[facility], [address] [place] [phone] Notes/Report: ------ Name: Cynthia Michele Age/Sex: 84/F : 1940 Unit#: [id number] Attend Dr: Enzo Alicia MD Re03/06/25 Status : [facility] Location: [facility] Disch: ------ SPEC : [id number] RECD : 03/06/25 STATUS: ARNAV GREEN NUM: [id number] ALEC: 03/06/25-[address] [facility] [address]: Enzo Alicia MD ENTERED: 03/06/25 19 [...] copic examination, 2 pieces in cassette B. ([facility]) Special stains order ed and performed: AB/PAS on A-B; immunostain for H pylori on B. IHC S/NG Disclaimer NOTE: Unless otherwi se stated, all tissue is formalin-fixed and paraffin-embedded. Some or all of the immunohistochemical tests reported herein may have been developed and their performance characteristics determined by [facility]. They have not been cleared or appr eliazar by the U.S. Food and Drug Administration (FDA). However, the FDA has determined that such clearance or approval is not necessary. This laboratory is certified under the Clinical Laboratory Improvement Amendments of 1988 (CLIA) as qualified CONTINUED ON NEXT PAGE ------ Name: Cynthia Michele Age/Sex: 84/F : 1940 Unit#: [id number] Attend Dr: Enzo Alicia MD Re03/06/25 Status : [facility] Location: [facility] Disch: ------ SPEC : [id number] RECD : 03/06/25 STATUS: ARNAV CHRichard NUM: [id number] ALEC: 03/06/25-[address] [facility] [address]: Enzo Alicia MD ENTERED: 03/06/25-11 19 SP TYPE: Surgical OTHR DR: Crescencio Jones MD ORDERED: HE Stain/6, Gross Micro L4/2, IHC, Special st. 2/2, H. pylori, AB/PAS/2 IHC S/NG Disclaimer (Continued) to perform high comp lexity clinical laboratory testing. Copies To: Crescencio Jones MD [facility] [address] [place] [address] Enzo Alicia MD [facility] [address] [place], [place] [phone] ------ Signed (signature on file) Aure Lucero MD 03/09/25 1438 ------ END OF REPORT Leslie Colin Reviewed date:07/27/2025 12:37:05 PM Interpretation: Performing Lab:[address] [phone] Notes/Report: Leslie Colin See Note Specimen held untested for 24 hours; Call to request Chemistry testing. Free T4 (Free Thyroxine) (No t yet reviewed by provider) Interpretation: Performing Lab:[address] [phone] Notes/Report: Free T4 (Free Thyroxine) 0.93 0.71-1.85 ng/dL Leslie Colin (Not yet reviewed by provider) Interpretation: Performing Lab:[address] [phone] Notes/Report: Leslie Colin See Note Specimen held [...] Annette 01/30/2025 01:46:51 PM >was told to refaxedShannan Annette 02/06/2025 02:01:50 PM > was told on cancel list, MigdaliaAna MariaEvonnepierre Corey 02/13/2025 09:15:59 AM >OFFICE NOTE RECD Referral [...] 250 MG 1 tab QID Not- Taking Cholecalciferol 25 MCG (1000 UT) 1 capsule Orally Once a day for 30 day(s) Active Pantoprazole Sodium 40 MG 1 tablet 1/2 t o 1 hour before morning meal Orally Once a day Active Sertraline HCl 25 MG 1 tablet Orally Onc e a day for 30 days 08/03/2025 Active Immunizations Vaccine Route Administration Date Status Comme nts Shingles Unknown 02/22/2012 Administered Flu Vaccine Unknown 08/22/2012 Administered PPSV23 (Pnemovax) Unknown 08/22/2012 Administered Flu Vaccine IM Intramuscular 08/28/2013 Administered TDaP IM Intramuscular 08/28/2013 Administered [id number] A - Lot # Flu Vaccine IM Intramuscular 09/17/2014 Administered zFluzone Quadrivalent IM Intramuscular 08/09/2015 Administered Fluarix Quadrivalent IM Intramuscular 09/25/2016 Administe red Fluarix Quadrivalent IM Intramuscular 09/24/2017 Adminnorberte red Prevnar 13 IM Intramuscular 10/04/2017 Administered [...] Problem Status W/U Status Risk Notes Problem 65496520 Age-related osteoporosis without current pathological fracture (M81.0) Active confirmed Problem 94054047 Lymphocytosis (D72.820) Active confirmed Problem Anxiety (64692231) Anxiety (F41.9) Active confirmed Problem Essential hypertension (65071176) Essential (primary) hypertension (I10) Active confirmed Problem 348427344 Other specified menopausal and perimenopausal disorders (N95.8) Active confirmed Problem 746626012 Abnormal results of liver function studies (R94.5) Active confirmed Problem 7233897 Prediabetes (R73.09) Active confirmed Problem 661210863 History of hemat uria (Z87.448) Active confirmed Problem 332416839 Pure hypercholesterolemia (E78.00) Active confirmed Problem 167508790 Osteopenia deter mined by x-ray (M85.80) Active confirmed Problem 2740793 Biliary cirrhosi s (K74.5) Active confirmed Vital Signs Blood pressure diastolic 60 mm Hg 08/03/2025 Height 60 in 08/03/2025 Blood pressure systolic 152 mm Hg 08/03/2025 Weight 121 lbs 08/03/2025 BMI 23.63 kg/m2 08/03/2025 Encounters Encounter Location Date Provider Diagnosis Crescencio Jones MD [address] [place], [place] [phone] 01/06/2025 Crescencio Jones Blood tests for rout ine general physical examination Z00.00 ; Prediabetes R73.09 ; Pure hypercholesterolemia E78.00 and Essential (primary) hypertension I10 Crescencio Jones MD [address] [place] [id number] 07/27/2025 Crescencio Jones Prediabetes R73.09 ; Encounter for administration of vaccine Z23 and Pure hypercholesterolemia E78.00 Crescencio Jones MD [address] [place] [id number] 08/03/2025 Crescencio Jones Biliary cirrhosis K7 4.5 ; Thyroid disorder E07.9 ; Iron deficiency E61.1 and Anxiety F41.9 Crescencio Jones MD [address] [place] [id number] 01/13/2025 Crescencio Jones Annual physical exam Z00.00 ; Prediabetes R73.09 ; Essential (primary) hypertension I10 ; Anemia D64.9 ; Pure hypercholesterolemia E78.00 ; Colon cancer screening Z12.11 and Depression screening Z13.31 Crescencio Jones MD [address] [place] [address] [phone] 03/20/2025 Crescencio Jones Assessments Encounter Date Diagnosis (ICD Code) Assessment Notes Treatment Notes Treatment Clinical Notes Section Notes 01/06/20[address] tests [address] ine general physical examination (ICD-10 - Z00.00) 07/27/2025 Prediabetes (ICD-10 - R73.09) 07/27/2025 Encounter for administration of vaccine (ICD-10 - Z23) 08/03/2025 Biliary cirrhosis (ICD-10 - K74.5) is not taking any meds now 08/03/2025 Thyroid disorder (ICD-10 - E07.9) has a history of radiactive iodine, will continue to monitor, pending labs 01/13/2025 Annual physical exam (ICD-10 - Z00.00) labs reviewed and discussed with patient 01/13/2025 Prediabetes (ICD-10 - R73.09) doing well, no need for medication at this time 01/06/2025 Prediabetes (ICD-10 - R73.09) 07/27/2025 Pure hypercholesterolemia (ICD-10 - E78.00) 08/03/2025 Iron deficiency (ICD -10 - E61.1) has stopped taking iron about 4 weeks, pending labs 01/13/2025 Essential (primary) hypertension (ICD-10 - I10) well controlled, will contnue current regiment 01/06/2025 Pure hypercholesterolemia (ICD-10 - E78.00) 08/03/2025 Anxiety (ICD-10 - F41.9) patient verbalized understanding of medication and directions for use 01/13/2025 Anemia (ICD-10 - D64.9) have explained [...] 08/28/2013 Electrocardiogram (EKG) 10/04/2017 Electrocardiogram (EKG) 10/17/2018 Complete Blood Count Auto Diff IRON PROFILE 08/03/2025 Free T4 (Free Thyroxine) 08/03/2025 TSH reflex Free T4 08/03/2025 Microalbumin, Random 01/06/2025 Hold Gold 08/03/2025 UA ClnCatch+Micro w/rflx Cult 01/06/2025 BONE DENSITY DEXA 10/24/2019 Future Test Test Name Order Date BONE DENSITY DEXA 12/01/2020 Next Appt Details Provider Name:Crescenciovinicio hernandez, 08/31/2025 03:00:00 PM, [address] [place] [address], [address] [place] [address], [phone], Provider Name:Crescencio hernandez, 01/11/2026 07:15:00 AM, [address] [place] [address], [address] [place] [address], [phone], Provider Name:Crescencio hernandez, 01/18/2026 01:00:00 PM, [address] [place] [address], [place] [address], [place], [place], [phone], Insurance Providers Payer Name Payer Address Payer Phone Subscriber Number Group Number Insured Name Patient Relationship to Insured Coverage Start Date Coverage End Date [facility] [address] [place] [phone] [id number] Cynthia Michele Self - patient is the insured Medical (General) History Medical History History ICD Code hematuria worked up 2008 colonoscopy 2003; colonoscopy 09/25/14 w [facility] Dr. Alicia osteoporosis doesn't want meds 2020
== END 2025-08-03 13:05 | disposition home or self-care (01) ==
LOC: HO.LNP 13:04
PROVIDERS: Visit Provider Internal Medicine
DX: E61.1 Iron deficiency (principal); E07.9 Disorder of thyroid, unspecified; F41.9 Anxiety disorder, unspecified
CPT/HCPCS: 83540; 84439; 84443; 85025

== ENCOUNTER 2025-08-24 10:51 | Outpatient (AMB) | payer MEDICARE, SELFPAY ==
[2025-08-24 11:02] VITALS: BP 140/70; PULSE 90; O2SAT 98
--- NOTE | 2025-08-24 11:02 | MHC.OFFWIV ---
Intake Vital Signs 08/24/25 11:02 Height 5 ft BP 140/70 H Blood Pressure Location Lt brachial Position Sitting Pulse 90 Pulse Source Pulse Oximeter Pulse Oximetry (%) 98 Intake Visit Reasons: EP-?uti Intake Note: pt is here for possible UTI unable to provide a urine sample. She states she had pressure and burning with urination for 2 days Patient Tobacco Use Status: Former Tobacco user Allergies codeine Allergy (Verified 08/24/25 11:02) Unknown Do you need a note to return to daycare/school/sports/work: No HPI HPI Comments History of Present Illness Details 85-year-old female presents with complaint of urinary symptoms for the past couple of days. She reports burning and discomfort with urination. States she has been evaluated here several times recently for similar concerns; prior urine cultures were negative on both occasions. Today she is unable to provide a urine sample. She denies fever, chills, nausea, or vomiting. [facility] Medical History (Updated 08/24/25 @ 12:06 by Criss Champagne NP) Dysuria Hepatitis Cirrhosis HTN (hypertension) Hyperlipidemia Anemia Surgical History Hx of LASIK H/O colonoscopy Social History Patient Tobacco Use Status: Former Tobacco user Review of Systems Const All systems reviewed & are unremarkable except as noted in HPI and below Physical Exam Vital Signs: Last Vital Signs Pulse 90 08/24/25 11:02 BP 140/70 H 08/24/25 11:02 Pulse Ox 98 08/24/25 11:02 Const General: no acute distress Orientation/consciousness: patient oriented x3 Resp Effort & Inspection: normal respiratory effort Cardio Rate: regular rate GI Other: Soft, non-tender, no suprapubic tenderness. General: Yes no CVA tenderness and Yes deferred Back/Spine/Pelvis Back: no CVA tenderness Neuro General: patient oriented x3 Assessment & Plan Assessment & Plan (1) Dysuria: Code(s): R30.0 - Dysuria Plan: Dysuria / Urinary discomfort ? recurrent, etiology unclea.r Prior negative cultures suggest non-infectious causes (e.g., atrophic vaginitis, urethral irritation, interstitial cystitis) or intermittent/low-count bacteriuria. No systemic symptoms to suggest pyelonephritis. Encouraged increased oral hydration. Attempt urine sample collection later today or tomorrow; Urine culture ordered - Pt to return for sample collection. Advised against empiric treatment due prior negative cultures. Consider evaluation for atrophic vaginitis - recommended referral to urogynecology/urology if symptoms continue with repeated negative cultures. Educated patient on red-flag symptoms: fever, flank pain, worsening symptoms ? advised to return promptly if they occur. Orders: Orders UA CC w/rflx Micro + Cult Today R30.0 - Dysuria Coding Level of Care Code Est Pt Level 4 (42162) Diagnoses Dysuria R30.0 Time Spent (min) 20
== END 2025-08-24 12:07 | disposition home or self-care (01) ==
PROVIDERS: PCP Internal Medicine; Visit Provider Nurse Practitioner Family
DX: R30.0 Dysuria (principal)

== ENCOUNTER 2025-08-24 10:51 | Outpatient (REF) | payer MEDICARE, SELFPAY ==
[2025-08-24 16:14] LABS: Appearance Urine Clear; Glucose Urine UA Negative (Negative); PH 6.5 (5.0-9.0); Specific Gravity - Urine <= 1.005 (1.005-1.025)
== END 2025-08-24 10:52 | disposition home or self-care (01) ==
LOC: HO.HMGCLDS 10:51
PROVIDERS: PCP Internal Medicine; Visit Provider Nurse Practitioner Family
DX: R30.0 Dysuria (principal)
CPT/HCPCS: 81003; 99212

== ENCOUNTER 2025-08-31 15:56 | Outpatient (REF) | payer MEDICARE, SELFPAY ==
--- NOTE | ~2025-08-31 | XR_ITS ---
EXAMINATION: XR CHEST CLINICAL INFORMATION: R06.02 SOB COMPARISON: None available. TECHNIQUE: 2 views of the chest were obtained. FINDINGS: The cardiac, hilar, and mediastinal contours are normal. Aortic mural calcifications. The lungs are mildly hyperaerated however clear bilaterally. No abnormal opacities. There is no pneumothorax or pleural effusion. There is no focal osseous or soft tissue abnormality. There are degenerative changes throughout the spine with mild right convex scoliosis. XR/XR chest 2V IMPRESSION: Mild pulmonary hyperaeration. No active pulmonary disease. Electronically signed by: John Klein MD 08/31/2025 04:15 PM EST
== END 2025-08-31 15:57 | disposition home or self-care (01) ==
LOC: HO.HMGCX 15:56
PROVIDERS: PCP Internal Medicine; Visit Provider Internal Medicine
DX: R06.02 Shortness of breath (principal)
CPT/HCPCS: 71046

== ENCOUNTER → 2025-08-31 16:02 | Outpatient (BNV) | payer MEDICARE, SELFPAY | PROVIDERS: PCP Internal Medicine; Visit Provider Radiology Diagnostic Radiology | DX: J98.4 Other disorders of lung (principal) | CPT/HCPCS: 71046 ==

== ENCOUNTER 2025-09-21 11:45 | Outpatient (REF) | payer MEDICARE, SELFPAY ==
--- OUTSIDE RECORDS SUMMARY | 2024-08-14 08:15 | XMS_ITS ---
Author Organization [facility] Address [address] [facility] [address] [place] [phone] Care Team Providers Care Grocery Cashier Name Role Phone Robert RICHMOND, Crescencio Primary Care Provider Petros Munroe Jr, Enzo Bolaños REASON FOR VISIT Patient presents today for biliary cirrhosis Encounters Encounter Location Date Provider Diagnosis [facility] [address] [facility] [address] [place] [phone] 08/14/2024 Enzo Munroe Jr Plan Of Treatment Next Appt Details Provider Name:Enzo laboy Jr, 12/24/2025 03:35:00 PM, [address] [place] [address], Suite [facility], [place], [phone], Provider Name:Enzo laboy Jr, 02/04/2026 01:15:00 PM, [address] [place] [address], [place] [address], [place], [phone], Progress Notes * JELANI HUNTOB:1940 (85 yo F)Acc No.[id number]:08/14/2024 Progress Notes Patient: RENÉ DOWELL Provider: Tomasz Munroe MD :1940 A ge:84 Y S ex:Female Date:08/14/2024 Address:[address] [place], [place] [phone] Pcp:Crescencio Jones MD Subjective: * Chief Complaints: * P atient presents today for biliary cirrhosis Billing Information: * Procedure Codes: * The named appointment provid er may or may not be the originator of this progress note, and it is not deemed complete until electronically signed by the appointment provider. Sign off status: Pending * Provider: Tomasz Munroe MD Date: 10/14/2023 Generated for Justin dietrich/Jacquelin/Shirlene on: 11/22/2024 10:00 PM EST
--- OUTSIDE RECORDS SUMMARY | 2025-01-06 02:00 | XMS_ITS ---
Author Organization Crescencio Jones MD Address [address] [place] [phone] Care Team Providers Care Stone Hand Name Role Phone Crescencio Jones Primary Care Provider Results Component Value Reference Range Notes Complete Blood Count Auto Di ff Reviewed date:01/06/2025 02:01:38 PM Interpretation: Performing Lab:[facility], [address] [place] [phone] Notes/Report: White Blood Count 6.8 4.8-10.8 X10*3/uL Red Blood Count 4.20 4.20-5.50 X10*6/uL Hemoglobin 10.1 12.0-16.0 g/dl Hematocrit 32.2 37.0-47.0 % Mean Corpuscular Volume 76.7 80.0-98.0 fL Mean Corpuscular Hemoglobin 24.0 27.0-33.0 pg Mean Corpuscular HGB Conc 31.4 31.0-35.0 g/dl Red Cell Distribution Width 15.2 11.0-16.0 % Platelet Count 360 160-400 X10*3/uL Mean Platelet Volume 10.9 9.4-12.3 fL Neutrophils Percent Auto 57.0 45-73 % Imm Gran Pct Auto 0.4 0.0-0.4 % Lymphocytes Percent Auto 29.7 20-40 % Monocytes Percent Auto 10.6 2-11 % Eosinophils Percent Auto 1.3 0-4 % Basophils Percent Auto 1.0 0-2 % NRBC Pct Auto 0.0 0.0-0.2 /100WBC Neutrophils Absolute Auto 3.9 2.0-8.3 x10*3/u L Imm Gran Abs Auto 0.03 0.00-0.03 X10*3/uL Lymphocytes Absolute Auto 2.0 1.2-4.9 X10*3/u L Monocytes Absolute Auto 0.7 0.1-1.2 X10*3/uL Eosinophils Absolute Auto 0.1 0.0-0.4 X10*3/u L Basophils Absolute Auto 0.1 0.0-0.2 X10*3/uL NRBC Abs Auto 0.000 0.0-0.012 X10*3/uL Comprehensive [place]. Panel Fa st Reviewed date:01/06/2025 12:23:15 PM Interpretation: Performing Lab:[address] [phone] Notes/Report: Sodium 140 135-145 mmol/L Potassium 3.7 3.3-5.1 mmol/L Chloride 108 96-108 mmol/L Carbon Dioxide 26 22-29 mmol/L Anion Gap 10 12-20 Blood Urea Nitrogen 14 9-16 mg/dL Creatinine 0.94 0.5-1.4 mg/dL Estimated Glomerular Filt Rate 57 Chronic Kidney Disease: Estimated GFR < 60 mL/min/1.73m2 Severe Kidney Disease: Estimated GFR < 15 mL/min/1.73m2 Glucose Fasting 107 60-99 mg/dL A fasting glucose from 100-125 mg/dl is considered impaired (pre-diabetes). Calcium 9.8 8.4-10.2 mg/dL Bilirubin Total 0.7 0.0-1.0 mg/dL Aspartate Amino Transferase 19 5-31 U/L Alanine Aminotransferase 10 0-31 U/L Total Protein 7.2 6.5-8.0 g/dL Albumin Level 4.3 3.5-5.0 g/dL Alkaline Phosphatase 113 39-117 U/L Lipid Panel Reviewed date:01/06/2025 12:21:16 PM Interpretation: Performing Lab:[address] [phone] Notes/Report: Triglycerides 64 <150 mg/dL Desirable Triglyceride: less than 150 mg/dL Borderline High Triglyceride 150-199 mg/dL High Triglyceride: 200-499 mg/dL Very High Triglyceride: greater than or equal to 5OO mg/dL Cholesterol 166 <200 mg/dL Desirable Cholesterol: less than 200 mg/dL Borderline High Cholesterol: 200-239 mg/dL High Cholesterol: greater than 239 mg/dL LDL Cholesterol Calculated 87 <100 mg/dL Desirable LDL: less than 100 mg/dL Near Optimal/Above Optimal LDL: 110-129 mg/dL Borderline High LDL: 130-159 mg/dL High LDL: 160-189 mg/dL Very High LDL: greater than or equal to 190 mg/dL HDL Cholesterol 67 >40 mg/dL Desirable HDL: greater than 40 mg/dL Note: This HDL assay may give artificially low results in patients with liver disease. Hemoglobin A1c Reviewed date:01/06/2025 12:21:25 PM Interpretation: Performing Lab:[facility], [address] [place] [phone] Notes/Report: Hemoglobin A1c % 5.5 <6.0 % Hemoglobin A1C Reference Range Adults: 4.8 - 6.0 % Non diabetic: < 6.0 % Goal: < 7.0 % Additional Action Suggested: > 8.0 % Note: Hemoglobin A1c results are invalid for patients with abnormal amounts of HbF. Blood transfusions may impact the HbA1c concentration in the patient sample. Estimated Average Glucose 111 eAG = Estimated average glucose which is %A1C expressed as average glucose, using the formula of the H0S-Xbzupwo Average Glucose study (ADAG), Diabetes Care, Vol.31,#8, May. 2007 REASON FOR VISIT yearly fasting labs Encounters Encounter Location Date Provider Diagnosis Crescencio Jones MD [address] [place] [address] [address] [place], [place] [phone] 01/06/2025 Crescencio Jones Blood tests for rout ine general physical examination Z00.00 ; Prediabetes R73.09 ; Pure hypercholesterolemia E78.00 and Essential (primary) hypertension I10 Assessments Encounter Date Diagnosis (ICD Code) Assessment Notes Treatment Notes Treatment Clinical Notes Section Notes 01/06/2025 Blood tests for rout ine general physical examination (ICD-10 - Z00.00) 01/06/2025 Prediabetes (ICD-10 - R73.09) 01/06/2025 Pure hypercholesterolemia (ICD-10 - E78.00) 01/06/2025 Essential (primary) hypertension (ICD-10 - I10) Plan Of Treatment Pending Test Test Name Order Date Microalbumin, Random 01/06/2025 UA ClnCatch+Micro w/rflx Cult 01/06/2025 Next Appt Details Provider Name:Crescencio Banerjee ier, 01/11/2026 07:15:00 AM, [address], [address], [place], [place], [phone], Provider Name:Crescencio Banerjee ier, 01/18/2026 01:00:00 PM, [address], [address], [place], [place], [phone], Progress Notes * Cynthia MICHELE MDOB:[birth year] (85 yo F)Acc No.[id number]:01/06/2025 Progress Note Patient: Tirso ALLENROYAL Cynthia Mik Provider: Tamara Jones MD :1940 A ge:84 Y S ex:Female Date:01/06/2025 Address:[address] [place], [place] [phone] Subjective: * Chief Complaints: * 1 . Yearly fasting labs. * Medical History: Objective: * Vitals: Assessment: * Assessment: 1. B lood tests for routine general physical examination - Z00.00 (Primary) 2 .?Prediabetes - R73.09 3 . P ure hypercholesterolemia - E78.00 ?4. E ssential (primary) hypertension - I10 Plan: * Treatment: 2. P rediabetes L AB: Microalbumin, Random L AB: UA ClnCatch+Micro w/rflx Cult L AB: Complete Blood Count Auto Diff (Collection Date & Time - 01/06/2025 07:00 AM) L AB: Comprehensive [place]. Panel Fast (Collection Date & Time - 01/06/2025 07:00 AM) L AB: Lipid Panel (Collection Date & Time - 01/06/2025 07:00 AM) L AB: Hemoglobin A1c (Collection Date & Time - 01/06/2025 07:00 AM) 3. P ure hypercholesterolemia L AB: Microalbumin, Random L AB: UA ClnCatch+Micro w/rflx Cult L AB: Complete Blood Count Auto Diff (Collection Date & Time - 01/06/2025 07:00 AM) L AB: Comprehensive [place]. Panel Fast (Collection Date & Time - 01/06/2025 07:00 AM) L AB: Lipid Panel (Collection Date & Time - 01/06/2025 07:00 AM) L AB: Hemoglobin A1c (Collection Date & Time - 01/06/2025 07:00 AM) 4. E ssential (primary) hypertension L AB: Microalbumin, Random L AB: UA ClnCatch+Micro w/rflx Cult L AB: Complete Blood Count Auto Diff (Collection Date & Time - 01/06/2025 07:00 AM) L AB: Comprehensive [place]. Panel Fast (Collection Date & Time - 01/06/2025 07:00 AM) L AB: Lipid Panel (Collection Date & Time - 01/06/2025 07:00 AM) L AB: Hemoglobin A1c (Collection Date & Time - 01/06/2025 07:00 AM) * Procedure Codes: 3 6415 VENIPUNCT, ROUTINE* * * The named appointment provid er may or may not be the originator of this progress note, and it is not deemed complete until electronically signed by the appointment provider. Sign off status: Pending * Provider: Tamara Jones MD Date: 0 01/06/2025 Generated for Justin dietrich/Jacquelin/Shirlene on: 1 11/22/2024 10:00 PM EST
--- OUTSIDE RECORDS SUMMARY | 2025-01-13 04:30 | XMS_ITS ---
Author Organization Crescencio Jones MD Address [address] [place], [place] [id number] Care Team Providers Care Aeronautical Engineer Name Role Phone Crescencio Jones Primary Care Provider Allergies Allergen (clinical drug ingredient) Drug/Non Drug Allergy documented on EMR Reaction Allergy Type Onset Date Status codeine Codeine Sulfate n/v Drug Allergy A ctive Results Component Value Reference Range Notes Occult Blood, Stool, Guaiac Reviewed date:01/13/2025 10:47:09 AM Interpretation:Negative Performing Lab: Notes/Report: Negative Occult Blood, Stool, Guaiac Neg Complete Blood Count Auto Di ff Reviewed date:01/14/2025 07:55:49 AM Interpretation: Performing Lab:[facility], [address] [place] [phone] Notes/Report: White Blood Count 5.9 4.8-10.8 X10*3/uL Red Blood Count 4.11 4.20-5.50 X10*6/uL Hemoglobin 9.7 12.0-16.0 g/dl Hematocrit 30.9 37.0-47.0 % Mean Corpuscular Volume 75.2 80.0-98.0 fL Mean Corpuscular Hemoglobin 23.6 27.0-33.0 pg Mean Corpuscular HGB Conc 31.4 31.0-35.0 g/dl Red Cell Distribution Width 15.6 11.0-16.0 % Platelet Count 312 160-400 X10*3/uL Mean Platelet Volume 11.3 9.4-12.3 fL Neutrophils Percent Auto 57.9 45-73 % Imm Gran Pct Auto 0.3 0.0-0.4 % Lymphocytes Percent Auto 26.9 20-40 % Monocytes Percent Auto 12.6 2-11 % Eosinophils Percent Auto 1.0 0-4 % Basophils Percent Auto 1.3 0-2 % NRBC Pct Auto 0.8 0.0-0.2 /100WBC Neutrophils Absolute Auto 3.4 2.0-8.3 x10*3/u L Imm Gran Abs Auto 0.02 0.00-0.03 X10*3/uL Lymphocytes Absolute Auto 1.6 1.2-4.9 X10*3/u L Monocytes Absolute Auto 0.8 0.1-1.2 X10*3/uL Eosinophils Absolute Auto 0.1 0.0-0.4 X10*3/u L Basophils Absolute Auto 0.1 0.0-0.2 X10*3/uL NRBC Abs Auto 0.050 0.0-0.012 X10*3/uL IRON PROFILE Reviewed date:01/15/2025 10:45:18 AM Interpretation: Performing Lab:[facility], [address] [place] [phone] Notes/Report: Iron 21 30-160 mcg/dL Total Iron Binding Capacity 389 228-428 mcg/d L Percent Iron Saturation 5 15-50 % Unsaturated Iron Binding 368 Microalbumin, Random Reviewed date:01/15/2025 06:41:26 PM Interpretation: Performing Lab:[facility], [address] [place] [phone] Notes/Report: Creatinine Urine 17.30 Microalbumin Urine < 5.0 Microalbum/Creatinine Ratio Ur TNP <30 ug/mg cr Unable to calculate albumin/creatinine ratio due to low microalbumin or creatinine result. UA ClnCatch+Micro w/rflx Cul t Reviewed date:01/14/2025 07:57:02 AM Interpretation: Performing Lab:[facility], [address] [place] [phone] Notes/Report: Urine, Clean Catch Color Urine Yellow Appearance Urine Clear PH 7.5 5.0-9.0 Glucose Urine UA Negative Negative mg/dL Urine Blood Negative Negative Specific [place] - Urine <= 1.005 1.005-1.025 Urine Protein Negative Neg-Trace mg/dL Urine Ketones Negative Negative mg/dL Nitrite Urine Negative Negative Leukocyte Esterase Urine Small (1+) Negative RBC Urine 0-2 0-2 /HPF WBC Urine 0-5 0-5 /HPF Squamous Epithelial Cell Urine 0-2 0-2 /HPF Bacteria Urine 1+ None Seen Hyaline Casts Urine 0-2 0-2 /LPF REASON FOR VISIT annual visit, Draw CBC TIBC Medications Medication SIG (Take, Route, Frequency, Duration) Notes Start Date End Date Status Atorvastatin Calcium 10 MG TAKE 1 TABLET BY MOUTH ONCE DAILY Active Cholecalciferol 25 MCG (1000 UT) 1 capsule Orally Once a day for 30 day(s) Active Aspir-Low 81 MG 1 tablet Orally Once a day for 30 day(s) Not-Taking amLODIPine Besylate 10 MG TAKE 1 TABLET BY MOUTH ONCE DAILY Active Ursodiol 250 MG 1 tab QID Acti ve Social History Tobacco Use: Social History Observation [...] Never (0 point) Points 1 Interpretation Negative Vital Signs Blood pressure systolic 124 mm Hg 01/14/20 25 Blood pressure diastolic 70 mm Hg 025 Height 60 in 01/13/2025 Weight 121 lbs 01/13/2025 BMI 23.63 kg/m2 01/13/2025 weight is down 2 pounds [facility] 07-17-24 Encounters Encounter Location Date Provider Diagnosis Crescencio Jones MD [address] [place] [address] [address] [place], [place] [phone] 01/13/2025 Crescencio Jones Annual physical exam Z00.00 ; Prediabetes R73.09 ; Essential (primary) hypertension I10 ; Anemia D64.9 ; Pure hypercholesterolemia E78.00 ; Colon cancer screening Z12.11 and Depression screening Z13.31 Assessments Encounter Date Diagnosis (ICD Code) Assessment Notes Treatment Notes Treatment Clinical Notes Section Notes 01/13/2025 Annual physical exam (ICD-10 - Z00.00) labs reviewed and discussed with patient 01/13/2025 Prediabetes (ICD-10 - R73.09) doing well, no need for medication at this time 01/13/2025 Essential (primary) hypertension (ICD-10 - I10) well controlled, will contnue current regiment 01/13/2025 Anemia (ICD-10 - D64.9) have explained to her that if she has an iron defi will need to send her back to dr alicia, labs pending 01/13/2025 Pure hypercholesterolemia (ICD-10 - E78.00) stable, will continue current regiment 01/13/2025 Colon cancer screeni ng (ICD-10 - Z12.11) guaiac negative 01/13/2025 Depression screening (ICD-10 - Z13.31) negative screen Plan Of Treatment Medication Medication Name Sig Start Date Stop Date Notes Atorvastatin Calcium 10 MG TAKE 1 TABLET BY MOUTH ONCE DAILY amLODIPine Besylate 10 MG TAKE 1 TABLET BY MOUTH ONCE DAILY Treatment Notes Assessment Notes Annual physical exam labs reviewed and d iscussed with patient Prediabetes doing well, no need for medication at this time Essential (primary) hypertension well co ntrolled, will contnue current regiment Anemia have explained to he r that if she has an iron defi will need to send her back to dr alicia, labs pending Pure hypercholesterolemia stable, will c ontinue current regiment Colon cancer screening guaiac negative Depression screening negative screen Next Appt Details Follow Up: 6 Months, Reason: Provider Name:Crescencio hernandez, 01/11/2026 07:15:00 AM, [address], [address], [place], [place], [phone], Provider Name:Crescencio hernandez, 01/18/2026 01:00:00 PM, [address], [address], [place], [place], [phone], Progress Notes * Cynthia MICHELE MDOB:[birth year] (84 yo F)Acc No.[id number]:01/13/2025 Progress Notes Patient: Cynthia DOWELL Provider: Tamara Jones MD :1940 A ge:84 Y S ex:Female Date:01/13/2025 Address:[address] [place] [address] Subjective: * Chief Complaints: * A nnual [facility]Draw [facility] * HPI: D epression Screening: PHQ-9 L ittle interest or pleasure in doing things N ot at all, F eeling down, depressed, or hopeless N ot at all, T rouble falling or staying asleep, or sleeping too much N ot at all, F eeling tired or having little energy N ot at all, P oor appetite or overeating N ot at all, F eeling bad about yourself or that you are a failure, or have let yourself or your family down N ot at all, T rouble concentrating on things, such as reading the newspaper or watching television N ot at all, M oving or speaking so slowly that other people could have noticed; or the opposite, being so fidgety or restless that you have been moving around a lot more than usual N ot at all, T houghts that you would be better off or of hurting yourself in some way N ot at all, T otal Score 0 . I nterpretation and Intervention D epression Screening Findings N egative, F ollow-Up for Depression : review of PHQ-9 found negative result, no follow-up needed. C ommunication Needs: Communication Needs D oes the patient have a hearing impairment N o, D oes the patient have a vision impairment? Y es, I f yes, what is the vision impairment? G lasses, D oes the patient have a cognition impairment? N o. F all Risk: History H ave you had any falls with injury in the past year? N o, H ave you had two or more falls in the past year? N o. S ymptom(s): patient is a 84 yo female here for annual visit with review of recent labs and follow up of chronic issues here for yearly exam, [facility]. S STEVO Questions: SDOH Questions I n the past year have you been worried about losing housing? N o, I n the past year have you or any family members you live with been unable to get any of the following when it was really needed? Check all that apply: N one. * ROS: G eneral/Constitutional: Change in appetite d enies. C hills d enies. F ever d enies. O phthalmologic: Blurred vision d enies. D ischarge d enies. P ain d enies. E NT: Decreased hearing d enies. S ore throat d enies.?Swollen glands d enies. E ndocrine: Cold intolerance d enies. E xcessive thirst d enies. H eat intolerance d enies. W eight loss d enies. R espiratory: Cough d enies. S hortness of breath at rest d enies. S hortness of breath with exertion d enies. W heezing d enies. C ardiovascular: Chest pain at rest d enies. C hest pain with exertion?denies. I rregular heartbeat d enies. S hortness of breath d enies. ? G astrointestinal: Abdominal pain d enies. C hange in bowel habits d enies. D iarrhea d enies. N ausea d enies. R ectal bleeding d enies. V omiting d enies . G enitourinary: Blood in urine d enies. D ifficulty urinating d enies. F requent urination d enies. U rinary incontinence D enies. M usculoskeletal: Painful joints d enies. W eakness d enies. ? S kin: Dry skin d enies. I tching d enies. D enies?Mole(s), changes in moles, new moles or any lesions of concern. D enies P hotosensitivity. R christine d enies. N eurologic: Dizziness d enies. F ainting d enies. H eadache?denies. * Medical History: * Surgical History: * Hospitalization/Major Diagno stic Procedure: * Family History: F ather: 77 yrs. M other: 94 yrs. 2 sister(s) . 4 son(s) , 2 daughter(s) . . 2 sisters and 1 brother Father-Cardiac Mother- old age, No pertinent family medical history. olderst son Bipolar. No substance abuse in family, No pertinent family medical history, No pertinent family medical history. * Social History: T obacco Use: T obacco Use/Smoking P atient is a f ormer smoker, H ow long has it been since you last smoked? > 10 years, A dditional Findings: Tobacco Non-User F ormer smoker, currently using no form of tobacco. D rugs/Alcohol: A lcohol Screen D id you have a drink containing alcohol in the past year? Y es, H ow often did you have a drink containing alcohol in the past year? M onthly or less (1 point), H ow many drinks did you have on a typical day when you were drinking in the past year? 1 or 2 drinks (0 point), H ow often did you have 6 or more drinks on one occasion in the past year? N ever (0 point), P oints 1 , I nterpretation N egative. M iscellaneous: C affeine: yes, frequency:, 1-2 cups per day. Children: yes. Exercise: no. Home smoke detector use: yes. Housing: owning. Marital status: single. Occupation: works full-time. Pets: none. Travel outside of the [place]: no. * Medications: T akingCholecalciferol 25 MCG (1000 UT) Capsule 1 capsule Orally Once a day Ursodiol 250 MG Tablet 1 tab QID Atorvastatin Calcium 10 MG Tablet TAKE 1 TABLET BY MOUTH ONCE DAILY amLODIPine Besylate 10 MG Tablet TAKE 1 TABLET BY MOUTH ONCE DAILY Taking Cholecalciferol 25 MCG (1000 UT) Capsule 1 capsule Orally Once a day Taking Ursodiol 250 MG Tablet 1 tab QID Taking Atorvastatin Calcium 10 MG Tablet TAKE 1 TABLET BY MOUTH ONCE DAILY Taking amLODIPine Besylate 10 MG Tablet TAKE 1 TABLET BY MOUTH ONCE DAILY Not-Taking/PRNAspir-Low 81 MG Tablet Delayed Release 1 tablet Orally Once a day Medication List reviewed and reconciled with the patientNot-Taking/PRN Aspir-Low 81 MG Tablet Delayed Release 1 tablet Orally Once a day Medication List reviewed and reconciled with the patient * Allergies: C odeine Sulfate: n/vyes[Allergies Verified] Objective: * Vitals: H t: 60, Wt: 121, BMI:23.63, BP:124/70, Wt-k.89. weight is down 2 pounds since 07-17-24. * P ast Orders: L ab:Hemoglobin A1c (Order Date - 01/06/2025) (Collection Date & Time - 01/06/2025 07:00 AM) Value Reference Range Hemoglobin A1c % 5.5 <6.0 - % Estimated Average Glucose 111 - mg/dL L ab:Complete Blood Count Auto Diff (Order Date - 01/06/2025) (Collection Date & Time - 01/06/2025 07:00 AM) Value Reference Range White Blood Count 6.8 4.8-10.8 - X10*3/uL Red Blood Count 4.20 4.20-5.50 - X10*6/uL Hemoglobin 10.1 L 12.0-16.0 - g/dl Hematocrit 32.2 L 37.0-47.0 - % Mean Corpuscular Volume 76.7 L 80.0-98.0 - fL Mean Corpuscular Hemoglobin 24.0 L 27.0-33.0 - pg Mean Corpuscular HGB Conc 31.4 31.0-35.0 - g/ dl Red Cell Distribution Width 15.2 11.0-16.0 - % Platelet Count 360 160-400 - X10*3/uL Mean Platelet Volume 10.9 9.4-12.3 - fL Neutrophils Percent Auto 57.0 45-73 - % Imm Gran Pct Auto 0.4 0.0-0.4 - % Lymphocytes Percent Auto 29.7 20-40 - % Monocytes Percent Auto 10.6 2-11 - % Eosinophils Percent Auto 1.3 0-4 - % Basophils Percent Auto 1.0 0-2 - % NRBC Pct Auto 0.0 0.0-0.2 - /100WBC Neutrophils Absolute Auto 3.9 2.0-8.3 - x10* 3/uL Imm Gran Abs Auto 0.03 0.00-0.03 - X10*3/uL Lymphocytes Absolute Auto 2.0 1.2-4.9 - X10* 3/uL Monocytes Absolute Auto 0.7 0.1-1.2 - X10*3/ uL Eosinophils Absolute Auto 0.1 0.0-0.4 - X10* 3/uL Basophils Absolute Auto 0.1 0.0-0.2 - X10*3/ uL NRBC Abs Auto 0.000 0.0-0.012 - X10*3/uL L ab:Comprehensive [place]. Panel Fast (Order Date - 01/06/2025) (Collection Date & Time - 01/06/2025 07:00 AM) Value Reference Range Sodium 140 135-145 - mmol/L Bilirubin Total 0.7 0.0-1.0 - mg/dL Aspartate Amino Transferase 19 5-31 - U/L Alanine Aminotransferase 10 0-31 - U/L Total Protein 7.2 6.5-8.0 - g/dL Albumin Level 4.3 3.5-5.0 - g/dL Alkaline Phosphatase 113 39-117 - U/L Potassium 3.7 3.3-5.1 - mmol/L Chloride 108 96-108 - mmol/L Carbon Dioxide 26 22-29 - mmol/L Anion Gap 10 L 12-20 - Blood Urea Nitrogen 14 9-16 - mg/dL Creatinine 0.94 0.5-1.4 - mg/dL Estimated Glomerular Filt Rate 57 - Glucose Fasting 107 H 60-99 - mg/dL Calcium 9.8 8.4-10.2 - mg/dL L ab:Lipid Panel (Order Date - 01/06/2025) (Collection Date & Time - 01/06/2025 07:00 AM) Value Reference Range Triglycerides 64 <150 - mg/dL Cholesterol 166 <200 - mg/dL LDL Cholesterol Calculated 87 <100 - mg/dL HDL Cholesterol 67 >40 - mg/dL * Examination: G eneral Examination: GENERAL APPEARANCE: w ell developed, well nourished, in no acute distress. HEAD: n ormocephalic, atraumatic. EYES: p upils equal, round, reactive to light and accommodation, sclera non-icteric. EARS: n ormal. ORAL CAVITY: m ucosa moist. THROAT: c lear. NECK/THYROID: n misael supple, full range of motion, no cervical lymphadenopathy, no bruits. SKIN: w arm and dry, no suspicious lesions. HEART: r egular rate and rhythm, S1, S2 normal, no murmurs.? LUNGS: c lear to auscultation bilaterally. BREASTS: N o mass, no lump. ABDOMEN: s oft, nontender, nondistended, bowel sounds present, normal, no organomegaly , no masses palpable. RECTAL EXAM: s tool guaiac negative, no masses palpable.? FEMALE GENITOURINARY: n ot done. EXTREMITIES: n o clubbing, cyanosis, or edema. NEUROLOGIC: n onfocal, motor strength normal upper and lower extremities, sensory exam intact. Assessment: * Assessment: 1. A nnual physical exam - Z00.00 (Primary) 2 . P rediabetes - R73.09 ? 3 . E ssential (primary) hypertension - I10 4 . A nemia - D64.9? 5. P ure hypercholesterolemia - E78.00 6 . C olon cancer screening - Z12.11 7 . D epression screening - Z13.31 Plan: * Treatment: 2. P rediabetes L AB: IRON PROFILE (Collection Date & Time - 01/13/2025 09:30 AM) L AB: Microalbumin, Random (Collection Date & Time - 01/13/2025 09:30 AM) L AB: UA ClnCatch+Micro w/rflx Cult (Collection Date & Time - 01/13/2025 09:30 AM) Notes: doing well, no need for medication at this time 3. E ssential (primary) hypertension Continue amLODIPine Besylate Tablet, 10 MG, TAKE 1 TABLET BY MOUTH ONCE DAILY. L AB: IRON PROFILE (Collection Date & Time - 01/13/2025 09:30 AM) L AB: Microalbumin, Random (Collection Date & Time - 01/13/2025 09:30 AM) L AB: UA ClnCatch+Micro w/rflx Cult (Collection Date & Time - 01/13/2025 09:30 AM) Notes: well controlled, will contnue current regiment 4. A nemia L AB: Complete Blood Count Auto Diff (Collection Date & Time - 01/13/2025 09:30 AM) Notes: have explained to her that if she has an iron defi will need to send her back to dr alicia, labs pending 5. P ure hypercholesterolemia Continue Atorvastatin Calcium Tablet, 10 MG, TAKE 1 TABLET BY MOUTH ONCE DAILY. Notes: stable, will continue current regiment 6. C olon cancer screening L AB: Occult Blood, Stool, Guaiac (Collection Date & Time - 01/13/2025) N egative Value Reference Range O ccult Blood, Stool, Guaiac Neg Notes: guaiac negative??7.?Depression screening? Notes: negative screen?? * Procedure Codes: 3 6415 VENIPUNCT, ROUTINE*78770 TEST FOR BLOOD, FECES * Follow Up: 6 Months * * Sign off status: Completed true * Provider: Tamara Jones MD Date: 0 01/13/2025 Generated for Justin dietrich/Jacquelin/eTransmitting on: 1 11/22/2024 10:01 PM EST History and Physical Notes * HPI (History of Present Illness) Category Sub-Category Detail Notes Category Not es Symptom(s) patient is a 84 yo female here for annual visit with review of recent labs and follow up of chronic issues here for yearly exam, [facility] Depression Screening PHQ-9 Little inte rest or pleasure in doing things: Not at all Feeling down, depressed, or hopeless: No t at all Trouble falling or staying asleep, or sl eeping too much: Not at all Feeling tired or having little energy: N ot at all Poor appetite or overeating: Not at all Feeling bad about yourself o r that you are a failure, or have let yourself or your family down: Not at all Trouble concentrating on thi ngs, such as reading the newspaper or watching television: Not at all Moving or speaking so slowly that other people could have noticed; or the opposite, being so fidgety or restless that you have been moving around a lot more than usual: Not at all Thoughts that you would be b chuy off or of hurting yourself in some way: Not at all Total Score: 0 Interpretation and Intervention Depression Kiley todd Findings: Negative Follow-Up for Depression: : review of PH Q-9 found negative result, no follow-up needed SDOH Questions SDOH Questions In the past year have you been worried about losing housing?: No In the past year have you or any family members you live with been unable to get any of the following when it was really needed? Check all that apply:: None Fall Risk History Have you had any falls with injury i n the past year?: No Have you had two or more falls in the year?: No Communication Needs Communication Needs Does the patient have a hearing impairment: No Does the patient have a vision impairmen t?: Yes If yes, what is the vision impairment?: Glasses Does the patient have a cognition impair ment?: No Examination Category Sub-Category Detail Notes Category Not es General Examination GENERAL APPEARANCE: well dev eloped, well nourished, in no acute distress HEAD: normocephalic, atrau matic EYES: pupils equal, round, reactive to light and accommodation, sclera non-icteric EARS: normal THROAT: clear NECK/THYROID: neck supple, full ra nge of motion, no cervical lymphadenopathy, no bruits HEART: regular rate and rhy thm, S1, S2 normal, no murmurs LUNGS: clear to auscultatio n bilaterally ABDOMEN: soft, nontender, non distended, bowel sounds present, normal, no organomegaly , no masses palpable NEUROLOGIC: nonfocal, motor stre ngth normal upper and lower extremities, sensory exam intact SKIN: warm and dry, no gilda picious lesions EXTREMITIES: no clubbing, cyanosi s, or edema BREASTS: No mass, no lump RECTAL EXAM: stool guaiac negativ e, no masses palpable FEMALE GENITOURINARY: not done ORAL CAVITY: mucosa moist
--- OUTSIDE RECORDS SUMMARY | 2025-03-06 06:00 | XMS_ITS ---
Author Organization [facility] Address [address] [place] [address] Care Team Providers Care Group Rooms Coordinator Name Role Phone Crescencio Jones MD Primary Care Provider Enzo Donaldson Jr [phone] REASON FOR VISIT fe def anemia,nausea Medications Medication SIG (Take, Route, Frequency, Duration) Notes Start Date End Date Status Omeprazole 20 MG Capsule Delayed Release 1 capsule 1/2 to 1 hour before morning meal Orally Once a day; Duration: 30 days 02/11/2025 Active Ferrous Sulfate 325 (65 Fe) MG Tablet 1 tablet Orally daily; Duration: 30 days 02/11/2025 Active Vitamin D 1000 UNIT Tablet 1 tablet Oral ly Once a day Active Latanoprost 0.005 % Solution INSTILL 1 DROP INTO EACH EYE AT BEDTIME Ophthalmic; Duration: 18 Active Atorvastatin Calcium 20mg Active Ursodiol 250 MG Tablet take 1 tablet by mouth 4 times a day; Duration: 90 days Active amLODIPine Besylate 10 MG Tablet TAKE 1 TABLET BY MOUTH ONCE DAILY Oral; Duration: 90 Active Ursodiol 300 MG Capsule TAKE 1 CAPSULE B Y MOUTH THREE TIMES DAILY *APPOINTMENT NEEDED FOR FURTHER REFILLS*; Duration: 30 Active Encounters Encounter Location Date Provider Diagnosis [facility] Out[facility] [address] [place], [place] [phone] 03/06/2025 Enzo Munroe Jr Anemia D64.9 ; Nausea R11.0 and Erosive esophagitis K22.10 Assessments Encounter Date Diagnosis (ICD Code) Assessment Notes Treatment Notes Treatment Clinical Notes Section Notes 03/06/2025 Anemia (ICD-10 - D64.9) e 03/06/2025 Nausea (ICD-10 - R11.0) e 03/06/2025 Erosive esophagitis (ICD-10 - K22.10) e Plan Of Treatment Next Appt Details Provider Name:Enzo laboy Jr, 12/24/2025 03:35:00 PM, [address] [facility], [address], [place], [address], Provider Name:Enzo laboy Jr, 02/04/2026 01:15:00 PM, [address] [facility], [address], [place], [address], Progress Notes * JELANI HUNTOB:1940 (85 yo F)Acc No.[id number]:03/06/2025 EGD/MAC Patient: RENÉ DOWELL Provider: Tomasz Munroe MD :1940 A ge:84 Y S ex:Female Date:03/06/2025 Address:[address] [place] [address] Pcp:Crescencio Jones MD Subjective: * Chief Complaints: * F e def anemia,nausea * Medications: T akingAtorvastatin Calcium 20mg Vitamin D 1000 UNIT Tablet 1 tablet Orally Once a day Latanoprost 0.005 % Solution INSTILL 1 DROP INTO EACH EYE AT BEDTIME Ophthalmic amLODIPine Besylate 10 MG Tablet TAKE 1 TABLET BY MOUTH ONCE DAILY Oral Ursodiol 300 MG Capsule TAKE 1 CAPSULE BY MOUTH THREE TIMES DAILY *APPOINTMENT NEEDED FOR FURTHER REFILLS* Ursodiol 250 MG Tablet take 1 tablet by mouth 4 times a day Omeprazole 20 MG Capsule Delayed Release 1 capsule 1/2 to 1 hour before morning meal Orally Once a day Ferrous Sulfate 325 (65 Fe) MG Tablet 1 tablet Orally daily Taking Atorvastatin Calcium 20mg Taking Vitamin D 1000 UNIT Tablet 1 tablet Orally Once a day Taking Latanoprost 0.005 % Solution INSTILL 1 DROP INTO EACH EYE AT BEDTIME Ophthalmic Taking amLODIPine Besylate 10 MG Tablet TAKE 1 TABLET BY MOUTH ONCE DAILY Oral Taking Ursodiol 300 MG Capsule TAKE 1 CAPSULE BY MOUTH THREE TIMES DAILY *APPOINTMENT NEEDED FOR FURTHER REFILLS* Taking Ursodiol 250 MG Tablet take 1 tablet by mouth 4 times a day Taking Omeprazole 20 MG Capsule Delayed Release 1 capsule 1/2 to 1 hour before morning meal Orally Once a day Taking Ferrous Sulfate 325 (65 Fe) MG Tablet 1 tablet Orally daily Assessment: * Assessment: 1. A nemia - D64.9 (Primary) 2 . N ausea - R11.0 3 . E rosive esophagitis - K22.10 e Plan: * Procedure Codes: 4 3239 UPPER GI ENDOSCOPY, BIOPSY Billing Information: * Procedure Codes: 51272 UPPER GI ENDOSCOPY, BIOPSY. * The named appointment provid er may or may not be the originator of this progress note, and it is not deemed complete until electronically signed by the appointment provider. Sign off status: Pending * Provider: Tomasz Munroe MD Date: 0 03/06/2025 Generated for Justin dietrich/Jacquelin/Evetteitting on: 1 11/22/2024 09:59 PM EST
--- OUTSIDE RECORDS SUMMARY | 2025-03-20 06:16 | XMS_ITS ---
Author Organization [facility] Jones [facility] Address [address] [place] [address] [place] [phone] Care Team Providers Care Systems Support Officer Name Role Phone Crescencio Jones Primary Care Provider REASON FOR VISIT ins referral for Encounters Encounter Location Date Provider Diagnosis Crescencio Jones MD [address] [place] [address] [place] [phone] 03/20/2025 Crescencio Jones Plan Of Treatment Next Appt Details Provider Name:Crescencio Banerjee ier, 01/11/2026 07:15:00 AM, [address] [place] [address], [address], [phone], Provider Name:Crescencio finkr, 01/18/2026 01:00:00 PM, [address] [place] [address], [phone], Progress Notes * Cynthia MICHELE MDOB:[birth year] (85 yo F)Acc No.[id number]:03/20/2025 Patient: Tirso Cynthia VILLATORO :1940 A ge:84 Y S ex:Female Address:[address] [place] [id number] * true * Date: Generated for Printi ng/Faxing/eTransmitting on: 1 11/22/2024 09:59 PM EST
--- OUTSIDE RECORDS SUMMARY | 2025-06-24 05:40 | XMS_ITS ---
Author Organization [facility] Address [address] [facility] [address] [place] [address] Care Team Providers Care Clinching Machine Operator Name Role Phone Crescencio Jones MD Primary Care Provider Petros Munroe Jr, Enzo Bolaños [phone] REASON FOR VISIT gerd Encounters Encounter Location Date Provider Diagnosis [facility] [address] [facility] [address] [place] [phone] 06/24/2025 Enzo Munroe Jr Plan Of Treatment Next Appt Details Provider Name:Enzo laboy Jr, 12/24/2025 03:35:00 PM, [address] [place] [address], [address], [place], [phone], Provider Name:Enzo laboy Jr, 02/04/2026 01:15:00 PM, [address] [place] [address], Suite [facility], [place], [address], Progress Notes * RONALD HUNTSOPHIEOB:1940 (85 yo F)Acc No.[id number]:06/24/2025 Progress Notes Patient: RENÉ DOWELL Provider: Tomasz Munroe MD :1940 A ge:85 Y S ex:Female Date:06/24/2025 Address:[address] [place], [place] [phone] Pcp:Crescencio Jones MD Subjective: * Chief Complaints: * G erd * The named appointment provid er may or may not be the originator of this progress note, and it is not deemed complete until electronically signed by the appointment provider. Sign off status: Pending * Provider: Tomasz Munroe MD Date: 0 06/24/2025 Generated for Justin dietrich/Jacquelin/Shirlene on: 1 11/22/2024 10:00 PM EST
--- OUTSIDE RECORDS SUMMARY | 2025-07-27 02:00 | XMS_ITS ---
Author Organization Crescencio Jones MD Address [address] [place], [place] [id number] Care Team Providers Care Stitcher Around Name Role Phone Crescencio Jones Primary Care Provider Results Component Value Reference Range Notes Liver Panel Reviewed date:07/27/2025 12:42:19 PM Interpretation: Performing Lab:[facility], [address] [place] [phone] Notes/Report: Bilirubin Total 0.9 0.0-1.0 mg/dL Bilirubin Direct 0.3 0.0-0.5 mg/dL Aspartate Amino Transferase 19 5-31 U/L Alanine Aminotransferase 10 0-31 U/L Total Protein 6.7 6.5-8.0 g/dL Albumin Level 4.2 3.5-5.0 g/dL Alkaline Phosphatase 104 39-117 U/L Glucose Fasting Reviewed date:07/27/2025 12:42:02 PM Interpretation: Performing Lab:[facility], [address] [place] [phone] Notes/Report: Glucose Fasting 99 60-99 mg/dL Lipid Panel with Reflex Reviewed date:07/27/2025 12:46:22 PM Interpretation: Performing Lab:[facility], [address] [place] [phone] Notes/Report: Triglycerides 93 <150 mg/dL Desirable Triglyceride: less than 150 mg/dL Borderline High Triglyceride 150-199 mg/dL High Triglyceride: 200-499 mg/dL Very High Triglyceride: greater than or equal to 5OO mg/dL Cholesterol 173 <200 mg/dL Desirable Cholesterol: less than 200 mg/dL Borderline High Cholesterol: 200-239 mg/dL High Cholesterol: greater than 239 mg/dL LDL Cholesterol Calculated 99 <100 mg/dL Desirable LDL: less than 100 mg/dL Near Optimal/Above Optimal LDL: 110-129 mg/dL Borderline High LDL: 130-159 mg/dL High LDL: 160-189 mg/dL Very High LDL: greater than or equal to 190 mg/dL HDL Cholesterol 56 >40 mg/dL Desirable HDL: greater than 40 mg/dL Note: This HDL assay may give artificially low results in patients with liver disease. Hemoglobin A1c Reviewed date:07/27/2025 12:41:53 PM Interpretation: Performing Lab:[facility], [address] [place] [phone] Notes/Report: Hemoglobin A1c % 5.4 <6.0 % Hemoglobin A1C Reference Range Adults: 4.8 - 6.0 % Non diabetic: < 6.0 % Goal: < 7.0 % Additional Action Suggested: > 8.0 % Note: Hemoglobin A1c results are invalid for patients with abnormal amounts of HbF. Blood transfusions may impact the HbA1c concentration in the patient sample. Estimated Average Glucose 108 eAG = Estimated average glucose which is %A1C expressed as average glucose, using the formula of the O2L-Ugvjgps Average Glucose study (ADAG), Diabetes Care, Vol.31,#8, May. 2007 REASON FOR VISIT fasting lipids Immunizations Vaccine Route Administration Date Status Comme nts Influenza High Dose IM Intramuscular 07/27/2025 Administer ed Encounters Encounter Location Date Provider Diagnosis Crescencio Jones MD [address] [place] [address] [place] [phone] 07/27/2025 Crescencio Jones Prediabetes R73.09 ; Encounter for administration of vaccine Z23 and Pure hypercholesterolemia E78.00 Assessments Encounter Date Diagnosis (ICD Code) Assessment Notes Treatment Notes Treatment Clinical Notes Section Notes 07/27/2025 Prediabetes (ICD-10 - R73.09) 07/27/2025 Encounter for administration of vaccine (ICD-10 - Z23) 07/27/2025 Pure hypercholesterolemia (ICD-10 - E78.00) Plan Of Treatment Next Appt Details Provider Name:Crescencio hernandez, 01/11/2026 07:15:00 AM, [address] [place] [address], [address], [place], [place], [phone], Provider Name:Crescencio Banerjee ier, 01/18/2026 01:00:00 PM, [address] [facility], [address], [place], [place], [phone], Progress Notes * Cynthia MICHELE MDOB:[birth year] (85 yo F)Acc No.[id number]:07/27/2025 Progress Note Patient: Cynthia DOWELL Provider: Tamara Jones MD :1940 A ge:85 Y S ex:Female Date:07/27/2025 Address:[address] [place], [place] [phone] Subjective: * Chief Complaints: * 1 . Fasting lipids. * Medical History: Objective: * Vitals: Assessment: * Assessment: 1. E ncounter for administration of vaccine - Z23 (Primary) 2 . P rediabetes - R73.09 3 . P ure hypercholesterolemia - E78.00 Plan: * Treatment: 2. P ure hypercholesterolemia L AB: Liver Panel (Collection Date & Time - 07/27/2025 07:00 AM) L AB: Glucose Fasting (Collection Date & Time - 07/27/2025 07:00 AM) L AB: Lipid Panel with Reflex (Collection Date & Time - 07/27/2025 07:00 AM) L AB: Hemoglobin A1c (Collection Date & Time - 07/27/2025 07:00 AM) * Immunizations: Influenza High Dose : 0.5 mL (Dose No:1) (Route: Intramuscular) given by Christa Paiz , Office Staff on Left Deltoid * Procedure Codes: 3 6415 VENIPUNCT, ROUTINE*, 38267 FLU VACC PRSV FREE INC ANTIG, G0008 ADMN FLU VAC NO FEE SCHED SAME DAY * * The named appointment provid er may or may not be the originator of this progress note, and it is not deemed complete until electronically signed by the appointment provider. Sign off status: Pending * Provider: Tamara Jones MD Date: 1 Generated for Justin dietrich/Faxing/eTransmitting on: 1 11/22/2024 09:59 PM EST
--- OUTSIDE RECORDS SUMMARY | 2025-08-03 06:30 | XMS_ITS ---
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 Name Role Phone Crescencio Jones Primary Care Provider Allergies Allergen (clinical drug ingredient) Drug/Non Drug Allergy documented on EMR Reaction Allergy Type Onset Date Status codeine Codeine Sulfate n/v Drug Allergy A ctive Results Component Value Reference Range Notes Complete Blood Count Auto Di ff Reviewed date:08/04/2025 12:44:14 PM Interpretation: Performing Lab:[facility], [address] [place] [phone] Notes/Report: White Blood Count 5.8 4.8-10.8 X10*3/uL Red Blood Count 3.58 4.20-5.50 X10*6/uL Hemoglobin 7.9 12.0-16.0 g/dl Hematocrit 26.8 37.0-47.0 % Mean Corpuscular Volume 74.9 80.0-98.0 fL Mean Corpuscular Hemoglobin 22.1 27.0-33.0 pg Mean Corpuscular HGB Conc 29.5 31.0-35.0 g/dl Red Cell Distribution Width 14.1 11.0-16.0 % Platelet Count 365 160-400 X10*3/uL Mean Platelet Volume 10.8 9.4-12.3 fL Neutrophils Percent Auto 51.9 45-73 % Imm Gran Pct Auto 0.2 0.0-0.4 % Lymphocytes Percent Auto 31.8 20-40 % Monocytes Percent Auto 11.6 2-11 % Eosinophils Percent Auto 3.1 0-4 % Basophils Percent Auto 1.4 0-2 % NRBC Pct Auto 0.0 0.0-0.2 /100WBC Neutrophils Absolute Auto 3.0 2.0-8.3 x10*3/u L Imm Gran Abs Auto 0.01 0.00-0.03 X10*3/uL Lymphocytes Absolute Auto 1.8 1.2-4.9 X10*3/u L Monocytes Absolute Auto 0.7 0.1-1.2 X10*3/uL Eosinophils Absolute Auto 0.2 0.0-0.4 X10*3/u L Basophils Absolute Auto 0.1 0.0-0.2 X10*3/uL NRBC Abs Auto 0.000 0.0-0.012 X10*3/uL IRON PROFILE Reviewed date:09/01/2025 11:49:39 AM Interpretation:08-31-2025 Performing Lab:[facility], [address] [place] [phone] Notes/Report: Iron 11 30-160 mcg/dL Total Iron Binding Capacity 368 228-428 mcg/d L Percent Iron Saturation 3 15-50 % Unsaturated Iron Binding 357 TSH reflex Free T4 Reviewed date:08/04/2025 12:43:56 PM Interpretation: Performing Lab:[facility], [address] [place] [phone] Notes/Report: TSH reflex Free T4 4.42 0.32-4.0 uIU/mL REASON FOR VISIT 6 month Patient would like to try Sertraline per her daughter, Accompanied by daughter Medications Medication SIG (Take, Route, Frequency, Duration) Notes Start Date End Date Status Aspir-Low 81 MG 1 tablet Orally Once a day for 30 day(s) Not-Taking amLODIPine Besylate 10 MG TAKE 1 TABLET BY MOUTH ONCE DAILY for 100 Active Atorvastatin Calcium 10 MG TAKE 1 TABLET BY MOUTH ONCE DAILY for 100 Active Ursodiol 250 MG 1 tab QID Not- Taking Sertraline HCl 25 MG 1 tablet Orally Onc e a day for 30 days 08/03/2025 Active Cholecalciferol 25 MCG (1000 UT) 1 capsule Orally Once a day for 30 day(s) Active Pantoprazole Sodium 40 MG 1 tablet 1/2 t o 1 hour before morning meal Orally Once a day Active Problems Problem Type SNOMED Code ICD Code Onset Dates Problem Status W/U Status Risk Notes Problem Anxiety (93803776) Anxiety (F41.9) Active confirmed Vital Signs Blood pressure systolic 152 mm Hg 08/03/20 25 Blood pressure diastolic 60 mm Hg 025 Height 60 in 08/03/2025 Weight 121 lbs 08/03/2025 BMI 23.63 kg/m2 08/03/2025 Encounters Encounter Location Date Provider Diagnosis Crescencio Jones MD [address] [place] [address] [place] [phone] 08/03/2025 Crescencio Jones Biliary cirrhosis K74.5 ; Thyroid disorder E07.9 ; Iron deficiency E61.1 and Anxiety F41.9 Assessments Encounter Date Diagnosis (ICD Code) Assessment Notes Treatment Notes Treatment Clinical Notes Section Notes 08/03/2025 Biliary cirrhosis (ICD-10 - K74.5) is not taking any meds now 08/03/2025 Thyroid disorder (ICD-10 - E07.9) has a history of radiactive iodine, will continue to monitor, pending labs 08/03/2025 Iron deficiency (ICD-10 - E61.1) has stopped taking iron about 4 weeks, pending labs 08/03/2025 Anxiety (ICD-10 - F41.9) patient verbalized understanding of medication and directions for use Plan Of Treatment Medication Medication Name Sig Start Date Stop Date Notes Sertraline HCl 25 MG 1 tablet Orally Onc e a day for 30 days 08/03/2025 Treatment Notes Assessment Notes Biliary cirrhosis is not taking any me ds now Thyroid disorder has a history of rad iactive iodine, will continue to monitor, pending labs Iron deficiency has stopped taking i radha about 4 weeks, pending labs Anxiety patient verbalized u nderstanding of medication and directions for use Next Appt Details Follow Up: 4 Weeks, Reason: Provider Name:Crescencio hernandez, 01/11/2026 07:15:00 AM, [address] [place] [address], [place] [address], [place], [place], [phone], Provider Name:Crescencio hernandez, 01/18/2026 01:00:00 PM, [address] [place] [address], Suite [facility], [place], [place], [phone], Progress Notes * Cynthia MICHELE MDOB:[birth year] (85 yo F)Acc No.[id number]:08/03/2025 Progress Notes Patient: Cynthia DOWELL Provider: Tamara Jones MD :1940 A ge:85 Y S ex:Female Date:08/03/2025 Address:[address] [place] [address] Subjective: * Chief Complaints: * 6 month Patient would like to try Sertraline per her daughterAccompanied by daughter * HPI: S ymptom(s): patient is a 85 yo female here for 6month follow up visit/ feels anxious all the time. has stopped taking the liver meds and iron pills. * ROS: G eneral/Constitutional: Denies C hills. D enies F atigue. D enies F ever. D enies H eadache. E NT: Denies S ore throat. R espiratory: Patient complaining of g ets a little short of breath. . D enies C ough. D enies S hortness of breath at rest. D enies S hortness of breath with exertion. G astrointestinal: Denies D iarrhea. D enies H eartburn. A dmits?Nausea. P sychiatric: Admits A nxiety. D enies D ifficulty sleeping. D enies S uicidal thoughts. * Medical History: * Surgical History: * Hospitalization/Major Diagno stic Procedure: * Medications: T akingPantoprazole Sodium 40 MG Tablet Delayed Release 1 tablet 1/2 to 1 hour before morning meal Orally Once a day Cholecalciferol 25 MCG (1000 UT) Capsule 1 capsule Orally Once a day Atorvastatin Calcium 10 MG Tablet TAKE 1 TABLET BY MOUTH ONCE DAILY amLODIPine Besylate 10 MG Tablet TAKE 1 TABLET BY MOUTH ONCE DAILY Taking Pantoprazole Sodium 40 MG Tablet Delayed Release 1 tablet 1/2 to 1 hour before morning meal Orally Once a day Taking Cholecalciferol 25 MCG (1000 UT) Capsule 1 capsule Orally Once a day Taking Atorvastatin Calcium 10 MG Tablet TAKE 1 TABLET BY MOUTH ONCE DAILY Taking amLODIPine Besylate 10 MG Tablet TAKE 1 TABLET BY MOUTH ONCE DAILY Not-Taking/PRNUrsodiol 250 MG Tablet 1 tab QID Aspir-Low 81 MG Tablet Delayed Release 1 tablet Orally Once a day Medication List reviewed and reconciled with the patientNot-Taking/PRN Ursodiol 250 MG Tablet 1 tab QID Not-Taking/PRN Aspir-Low 81 MG Tablet Delayed Release 1 tablet Orally Once a day Medication List reviewed and reconciled with the patient * Allergies: C odeine Sulfate: n/vyes[Allergies Verified] Objective: * Vitals: H t: 60, Wt: 121, BMI:23.63, BP:152/60, Repeat BP:120/65, Wt-k.89. * P ast Orders: L ab:Liver Panel (Order Date - 07/27/2025) (Collection Date & Time - 07/27/2025 07:00 AM) Value Reference Range Bilirubin Total 0.9 0.0-1.0 - mg/dL Bilirubin Direct 0.3 0.0-0.5 - mg/dL Aspartate Amino Transferase 19 5-31 - U/L Alanine Aminotransferase 10 0-31 - U/L Total Protein 6.7 6.5-8.0 - g/dL Albumin Level 4.2 3.5-5.0 - g/dL Alkaline Phosphatase 104 39-117 - U/L L ab:Glucose Fasting (Order Date - 07/27/2025) (Collection Date & Time - 07/27/2025 07:00 AM) Value Reference Range Glucose Fasting 99 60-99 - mg/dL L ab:Lipid Panel with Reflex (Order Date - 07/27/2025) (Collection Date & Time - 07/27/2025 07:00 AM) Value Reference Range Triglycerides 93 <150 - mg/dL Cholesterol 173 <200 - mg/dL LDL Cholesterol Calculated 99 <100 - mg/dL HDL Cholesterol 56 >40 - mg/dL L ab:Hemoglobin A1c (Order Date - 07/27/2025) (Collection Date & Time - 07/27/2025 07:00 AM) Value Reference Range Hemoglobin A1c % 5.4 <6.0 - % Estimated Average Glucose 108 - mg/dL * Examination: G eneral Examination: GENERAL APPEARANCE: a lert, well hydrated, in no distress.? HEAD: n ormocephalic. HEART: n o murmurs, rubs, gallops, regular rate and rhythm.? LUNGS: n o wheezes, rales, rhonchi, good air movement, clear to auscultation bilaterally. Assessment: * Assessment: 1. B iliary cirrhosis - K74.5 (Primary) 2 . T hyroid disorder - E07.9 ? 3 . I radha deficiency - E61.1 4 . A nxiety - F41.9 ? Plan: * Treatment: 2. T hyroid disorder L AB: IRON PROFILE (Collection Date & Time - 08/03/2025 11:55 AM) L AB: Complete Blood Count Auto Diff (Collection Date & Time - 08/03/2025 11:55 AM) L AB: TSH reflex Free T4 (Collection Date & Time - 08/03/2025 11:55 AM) Notes: has a history of radiactive iodine, will continue to monitor, pending labs 3. I radha deficiency L AB: IRON PROFILE (Collection Date & Time - 08/03/2025 11:55 AM) L AB: Complete Blood Count Auto Diff (Collection Date & Time - 08/03/2025 11:55 AM) L AB: TSH reflex Free T4 (Collection Date & Time - 08/03/2025 11:55 AM) Notes: has stopped taking iron about 4 weeks, pending labs 4. A nxiety Start Sertraline HCl Tablet, 25 MG, 1 tablet, Orally, Once a day, 30 days, 30, Refills 3. ? L AB: IRON PROFILE (Collection Date & Time - 08/03/2025 11:55 AM) L AB: Complete Blood Count Auto Diff (Collection Date & Time - 08/03/2025 11:55 AM) L AB: TSH reflex Free T4 (Collection Date & Time - 08/03/2025 11:55 AM) Notes: patient verbalized understanding of medication and directions for use * Procedure Codes: 3 6415 VENIPUNCT, ROUTINE* * Follow Up: 4 Weeks * * Sign off status: Completed true * Provider: Tamara Jones MD Date: 1 Generated for Justin dietrich/Jacquelin/eTransmitting on: 11/22/2024 10:01 PM EST History and Physical Notes * HPI (History of Present Illness) Category Sub-Category Detail Notes Category Not es Symptom(s) patient is a 85 yo female here for 6month follow up visit/ feels anxious all the time. has stopped taking the liver meds and iron pills Examination Category Sub-Category Detail Notes Category Not es General Examination GENERAL APPEARANCE: alert, w ell hydrated, in no distress HEAD: normocephalic HEART: no murmurs, rubs, ga llops, regular rate and rhythm LUNGS: no wheezes, rales, r honchi, good air movement, clear to auscultation bilaterally
--- OUTSIDE RECORDS SUMMARY | 2025-08-31 10:00 | XMS_ITS ---
Author Organization Crescencio Jones MD Address [address] [place], [place] [phone] Care Team Providers Care Correctional Counselor Name Role Phone Crescencio Jones Primary Care Provider Allergies Allergen (clinical drug ingredient) Drug/Non Drug Allergy documented on EMR Reaction Allergy Type Onset Date Status codeine Codeine Sulfate n/v Drug Allergy A ctive Reason For Referral Reason Memory loss Diagnosis 1 Memory loss (R41.3) Referral Organization Crescencio Jones MD Referring Provider First Name Crescencio Referring Provider Last Name Robert Referring Provider Speciality Internal M edicine Referred Provider Ronnie Tyson Referred Provider Specialty Neurology General Notes Bryanna Campbell 1 10/31/2024 03:32:37 PM >referral info faxed Referral Priority Routine REASON FOR VISIT 4 week must see iron, ? referral to Dr Tyson dementia, Accompanied by daughter Medications Medication SIG (Take, Route, Frequency, Duration) Notes Start Date End Date Status Aspir-Low 81 MG 1 tablet Orally Once a day for 30 day(s) Not-Taking Pantoprazole Sodium 40 MG 1 tablet 1/2 t o 1 hour before morning meal Orally Once a day Active Cholecalciferol 25 MCG (1000 UT) 1 capsule Orally Once a day for 30 day(s) Active Sertraline HCl 25 MG 1 tablet Orally Onc e a day for 30 days 08/03/2025 Active Ursodiol 250 MG 1 tab QID Not- Taking Atorvastatin Calcium 10 MG TAKE 1 TABLET BY MOUTH ONCE DAILY for 100 Active amLODIPine Besylate 10 MG TAKE 1 TABLET BY MOUTH ONCE DAILY for 100 Active Problems Problem Type SNOMED Code ICD Code Onset Dates Problem Status W/U Status Risk Notes Problem Memory loss (77551810) Memory loss (R41.3) Active confirmed Vital Signs Blood pressure systolic 170 mm Hg 08/31/20 25 Blood pressure diastolic 68 mm Hg 025 Height 60 in 08/31/2025 Weight 122 lbs 08/31/2025 BMI 23.82 kg/m2 08/31/2025 Encounters Encounter Location Date Provider Diagnosis Crescencio Jones MD [address] [place], [place] [phone] 08/31/2025 Crescencio Jones Memory loss R41.3 ; Abdominal pain R10.9 ; Shortness of breath R06.02 and Iron deficiency E61.1 Assessments Encounter Date Diagnosis (ICD Code) Assessment Notes Treatment Notes Treatment Clinical Notes Section Notes 08/31/2025 Memory loss (ICD-10 - R41.3) referral to dr tyson 08/31/2025 Abdominal pain (ICD-10 - R10.9) pending diagnostic testing/ order faxed to [facility] 08/31/2025 Shortness of breath (ICD-10 - R06.02) pending diagnostic testing/ order giving to patient 08/31/2025 Iron deficiency (ICD-10 - E61.1) will continue to monitor, pending future labs Plan Of Treatment Treatment Notes Assessment Notes Memory loss referral to dr vlad reagan Abdominal pain pending diagnostic t esting/ order faxed to [facility] Shortness of breath pending diagnostic t esting/ order giving to patient Iron deficiency will continue to mon itor, pending future labs Pending Test Test Name Order Date XR CHEST 2 VIEW PA & LAT 08/31/2025 CT abdomen pelvis wo/w con 08/31/2025 Complete Blood Count Auto Diff IRON PROFILE 08/31/2025 Referrals Referral Date Details 08/31/2025 08/31/2025, Memory l oss, Ronnie Tyson Next Appt Details Follow Up: 3 Weeks, Reason: Provider Name:Crescencio hernandez, 01/11/2026 07:15:00 AM, [address] [facility], [address], [place], [place], [phone], Provider Name:Crescencio hernandez, 01/18/2026 01:00:00 PM, [address] [facility], [address], [place], [place], [phone], Progress Notes * Cynthia MICHELE MDOB:[birth year] (85 yo F)Acc No.[id number]:08/31/2025 Patient: Tirso ALLENCynthia PAIGE Provider: Tamara Jones MD :1940 A ge:85 Y S ex:Female Date:08/31/2025 Address:[address] [place], [place] [phone] Subjective: * Chief Complaints: * 4 week must see iron? referral to Dr Tyson dementiaAccompanied by daughter * HPI: S ymptom(s): patient is a 85 yo female here for 4 week follow up/ will refer to dr tyson/ stomach is bloating and uncomfortable. can't wear a bra as it restricts breathin. * ROS: G eneral/Constitutional: Denies C hills. D enies F atigue. D enies F ever. D enies H eadache. E NT: Denies S ore throat. R espiratory: Denies C ough. A dmits S hortness of breath at rest. A dmits S hortness of breath with exertion. C ardiovascular: Denies C hest pain at rest. D enies C hest pain with exertion. D enies D izziness. D enies S hortness of breath. G astrointestinal: Admits A bdominal pain. D enies D iarrhea. A dmits H eartburn. A dmits N ausea. * Medical History: * Surgical History: * [...] TAKE 1 TABLET BY MOUTH ONCE DAILY Sertraline HCl 25 MG Tablet 1 tablet Orally Once a day Taking Pantoprazole Sodium 40 MG Tablet Delayed Release 1 tablet 1/2 to 1 hour before morning meal Orally Once a day Taking Cholecalciferol 25 MCG (1000 UT) Capsule 1 capsule Orally Once a day Taking Atorvastatin Calcium 10 MG Tablet TAKE 1 TABLET BY MOUTH ONCE DAILY Taking amLODIPine Besylate 10 MG Tablet TAKE 1 TABLET BY MOUTH ONCE DAILY Taking Sertraline HCl 25 MG Tablet 1 tablet Orally Once a day Not-Taking/PRNUrsodiol 250 MG Tablet 1 tab QID [...] Objective: * Vitals: H t: 60, Wt: 122, BMI:23.82, BP:170/68, Repeat BP:130/70, Wt-k.34. * Examination: G eneral Examination: GENERAL APPEARANCE: a lert, well hydrated, in no distress.? HEAD: n ormocephalic. SKIN: g ood turgor. HEART: r egular rate and rhythm, no murmurs, rubs, gallops.? LUNGS: c lear to auscultation bilaterally. ABDOMEN: s oft, nontender, nondistended, no organomegaly, no masses palpable. Assessment: * Assessment: 1. M dasha loss - R41.3 (Primary) 2 . A bdominal pain - R10.9 ?3. S hortness of breath - R06.02 4 . I radha deficiency - E61.1 Plan: * Treatment: 2. A bdominal pain I maging: CT abdomen pelvis wo/w con Notes: pending diagnostic testing/ order faxed to [facility] 3. S hortness of breath I maging: XR CHEST 2 VIEW PA & LAT Notes: pending diagnostic testing/ order giving to patient 4. I radha deficiency L AB: Complete Blood Count Auto Diff (Ordered for 09/14/2025) L AB: IRON PROFILE (Ordered for 09/14/2025) Notes: will continue to monitor, pending future labs * Procedure Codes: * Follow Up: 3 Weeks * * Sign off status: Completed true * Provider: Tamara Jones MD Date: 10/31/2024 Generated for Justin dietrich/Jacquelin/eTransmitting on: 11/22/2024 09:59 PM EST History and Physical Notes * HPI (History of Present Illness) Category Sub-Category Detail Notes Category Not es Symptom(s) patient is a 85 yo female here for 4 week follow up/ will refer to dr tyson/ stomach is bloating and uncomfortable. can't wear a bra as it restricts breathin Examination Category Sub-Category Detail Notes Category Not es General Examination GENERAL APPEARANCE: alert, w ell hydrated, in no distress HEAD: normocephalic HEART: regular rate and rhy thm, no murmurs, rubs, gallops LUNGS: clear to auscultatio n bilaterally ABDOMEN: soft, nontender, non distended, no organomegaly, no masses palpable SKIN: good turgor Consultation Request Notes Referral Date Referring Provider Referred Provider Not es 08/31/2025 Crescencio Jones Mohammad Memor y loss
--- OUTSIDE RECORDS SUMMARY | 2025-09-01 09:12 | XMS_ITS ---
Author Organization Crescencio Jones MD Address [address] [facility] [address] [place] [phone] Care Team Providers Care Boat Loader Helper Name Role Phone Crescencio Jones Primary Care Provider [phone] REASON FOR VISIT order change Encounters Encounter Location Date Provider Diagnosis Crescencio Jones MD [address] [place] [phone] 09/01/2025 Crescencio Jones Abdominal pain R10.9 Assessments Encounter Date Diagnosis (ICD Code) Assessment Notes Treatment Notes Treatment Clinical Notes Section Notes 09/01/2025 Abdominal pain (ICD-10 - R10.9) Plan Of Treatment Pending Test Test Name Order Date CT ABD & PELVIS WITH CONTRAST 09/01/2025 Next Appt Details Provider Name:Crescencio hernandez, 01/11/2026 07:15:00 AM, [address] [place] [address], [phone], Provider Name:Crescencio hernandez, 01/18/2026 01:00:00 PM, [address] [place] [address], [phone], Progress Notes * Cynthia MICHELE MDOB:[birth year] (85 yo F)Acc No.[id number]:09/01/2025 Patient: Tirso Cynthia VILLATORO :1940 A ge:85 Y S ex:Female Address:[address] [place] [id number] Subjective: * Chief Complaints: * O rder change * Medical History: * Surgical History: * Hospitalization/Major Diagno stic Procedure: * Medications: Objective: * Vitals: * Physical Examination: Assessment: * Assessment: 1. A bdominal pain - R10.9 Plan: * Treatment: * Procedure Codes: * true * Date: Generated for Justin dietrich/Jacquelin/Kwamesmitting on: 11/22/2024 09:59 PM EST
--- OUTSIDE RECORDS SUMMARY | 2025-09-12 05:30 | XMS_ITS ---
Author Organization Crescencio Jones MD Address [address] [place] [address] [place] [phone] Care Team Providers Care Medical Physicist Name Role Phone Crescencio Jones Primary Care Provider REASON FOR VISIT ER visit Encounters Encounter Location Date Provider Diagnosis Crescencio Jones MD [address] [place] [address] [place] [phone] 09/12/2025 Crescencio Jones Plan Of Treatment Next Appt Details Provider Name:Crescencio Banerjee ier, 01/11/2026 07:15:00 AM, [address] [place] [address], [address], [phone], Provider Name:Crescencio hernandez, 01/18/2026 01:00:00 PM, [address] [place] [address], [address], [phone], Progress Notes * Cynthia MICHELE MDOB:[birth year] (85 yo F)Acc No.[id number]:09/12/2025 Patient: Tirso Cynthia VILLATORO :1940 A ge:85 Y S ex:Female Address:[address] [place] [address] * true * Date: Generated for Printi ng/Faxing/eTransmitting on: 1 11/22/2024 10:00 PM EST
--- OUTSIDE RECORDS SUMMARY | 2025-09-14 02:45 | XMS_ITS ---
Author Organization Crescencio Jones MD Address [address] [place] [phone] Care Team Providers Care Nonprofit Fundraiser Name Role Phone Crescencio Jones Primary Care Provider REASON FOR VISIT CBC with diff, Iron Encounters Encounter Location Date Provider Diagnosis Cerscencio Jones MD [address] [place] [address] [place] [phone] 09/14/2025 Crescencio Jones Iron deficiency E61.1 Assessments Encounter Date Diagnosis (ICD Code) Assessment Notes Treatment Notes Treatment Clinical Notes Section Notes 09/14/2025 Iron deficiency (ICD-10 - E61.1) Plan Of Treatment Pending Test Test Name Order Date Complete Blood Count Auto Diff IRON PROFILE 09/14/2025 Next Appt Details Provider Name:Crescencio hernandez, 01/11/2026 07:15:00 AM, [address] [place] [address], [address], [phone], Provider Name:Crescencio hernandez, 01/18/2026 01:00:00 PM, [address] [place] [address], [address], [phone], Progress Notes * Cynthia MICHELE MDOB:[birth year] (85 yo F)Acc No.[id number]:09/14/2025 Progress Note Patient: Tirso Cynthia VILLATORO Provider: Tamara Jones MD :1940 A ge:85 Y S ex:Female Date:09/14/2025 Address:[address] [place] [address] [id number] Subjective: * Chief Complaints: * 1 . CBC with diff, Iron. * Medical History: Objective: * Vitals: Assessment: * Assessment: 1. I radha deficiency - E61.1 Plan: * Treatment: * * The named appointment provid er may or may not be the originator of this progress note, and it is not deemed complete until electronically signed by the appointment provider. Sign off status: Pending * Provider: Tamara Jones MD Date: 1 11/15/2024 Generated for Justin dietrich/Jacquelin/Evetteitting on: 11/22/2024 10:01 PM EST
--- OUTSIDE RECORDS SUMMARY | 2025-09-21 06:45 | XMS_ITS ---
Author Organization Crescencio Jones MD Address [address] [place], [place] [phone] Care Team Providers Care Oil Well Cable Tool Driller Name Role Phone Crescencio Jones Primary Care Provider [phone] Allergies Allergen (clinical drug ingredient) Drug/Non Drug Allergy documented on EMR Reaction Allergy Type Onset Date Status codeine Codeine Sulfate n/v Drug Allergy A ctive Results Component Value Reference Range Notes Complete Blood Count Auto Di ff Reviewed date:09/21/2025 04:25:57 PM Interpretation: Performing Lab:[facility], [address] [place] [phone] Notes/Report: White Blood Count 6.8 4.8-10.8 X10*3/uL Red Blood Count 4.09 4.20-5.50 X10*6/uL Hemoglobin 9.6 12.0-16.0 g/dl Hematocrit 32.4 37.0-47.0 % Mean Corpuscular Volume 79.2 80.0-98.0 fL Mean Corpuscular Hemoglobin 23.5 27.0-33.0 pg Mean Corpuscular HGB Conc 29.6 31.0-35.0 g/dl Red Cell Distribution Width 26.4 11.0-16.0 % Platelet Count 304 160-400 X10*3/uL Mean Platelet Volume 11.4 9.4-12.3 fL Neutrophils Percent Auto 73.7 45-73 % Imm Gran Pct Auto 0.3 0.0-0.4 % Lymphocytes Percent Auto 11.2 20-40 % Monocytes Percent Auto 12.6 2-11 % Eosinophils Percent Auto 1.2 0-4 % Basophils Percent Auto 1.0 0-2 % NRBC Pct Auto 0.0 0.0-0.2 /100WBC Neutrophils Absolute Auto 5.0 2.0-8.3 x10*3/u L Imm Gran Abs Auto 0.02 0.00-0.03 X10*3/uL Lymphocytes Absolute Auto 0.8 1.2-4.9 X10*3/u L Monocytes Absolute Auto 0.9 0.1-1.2 X10*3/uL Eosinophils Absolute Auto 0.1 0.0-0.4 X10*3/u L Basophils Absolute Auto 0.1 0.0-0.2 X10*3/uL NRBC Abs Auto 0.000 0.0-0.012 X10*3/uL IRON PROFILE Reviewed date:09/21/2025 04:25:45 PM Interpretation: Performing Lab:[facility], [address] [place] [phone] Notes/Report: Iron 63 30-160 mcg/dL Slight Hemolys is.Interpret result with caution. Total Iron Binding Capacity 290 228-428 mcg/d L Percent Iron Saturation 22 15-50 % Unsaturated Iron Binding 227 Reason For Referral Reason please ferny [facility] for [facility] services needs home physical therapy Diagnosis 1 Weakness (R53.1) Referral Organization Crescencio Jones MD Referring Provider First Name Crescencio Referring Provider Last Name Robert Referring Provider Speciality Internal M edicine Referred Provider JUAN CARLOS Sherman Referred Provider Specialty Unknown General Notes Bryanna Campbell 1 11/22/2024 02:34:25 PM >referral info faxed to [facility] Referral Priority Routine REASON FOR VISIT PH/ TCM, Accompanied by daughter Medications Medication SIG (Take, Route, Frequency, Duration) Notes Start Date End Date Status Aspir-Low 81 MG 1 tablet Orally Once a day for 30 day(s) Not-Taking amLODIPine Besylate 10 MG TAKE 1 TABLET BY MOUTH ONCE DAILY for 100 Active Sertraline HCl 50 MG 1 tablet Orally Onc e a day for 30 days 08/03/2025 Active Atorvastatin Calcium 10 MG TAKE 1 TABLET BY MOUTH ONCE DAILY for 100 Active Ursodiol 250 MG 1 tab QID Not- Taking Ferrous Gluconate 324 (38 Fe) MG 1 tablet Orally Three times a Week Active Vitamin D3 25 MCG (1000 UT) 1 tablet Ora lly Once a day Active Cholecalciferol 25 MCG (1000 UT) 1 capsule Orally Once a day for 30 day(s) Active Pantoprazole Sodium 40 MG 1 tablet Orall y twice a day Active Problems Problem Type SNOMED Code ICD Code Onset Dates Problem Status W/U Status Risk Notes Problem Anemia (707219280) Anemia (D64.9) Active confirmed Vital Signs Blood pressure systolic 122 mm Hg 09/21/20 25 Blood pressure diastolic 60 mm Hg 025 Height 60 in 09/21/2025 Weight 117 lbs 09/21/2025 BMI 22.85 kg/m2 09/21/2025 weight is down 5 pounds [facility] e 08-31-25 Encounters Encounter Location Date Provider Diagnosis Crescencio Jones MD [address] [place] [address] [address] [place], [place] [phone] 09/21/2025 Crescencio Jones Near syncope R55 ; Anemia D64.9 ; Weakness R53.1 and Anxiety F41.9 Assessments Encounter Date Diagnosis (ICD Code) Assessment Notes Treatment Notes Treatment Clinical Notes Section Notes 09/21/2025 Near syncope (ICD-10 - R55) order faxed to [facility] [place] 09/21/2025 Anemia (ICD-10 - D64.9) 09/21/2025 Weakness (ICD-10 - R53.1) needs home physical therapy/ needs home therapy as the weakness prevnts her from getting out of the house/ patient's daughter is checking with her insurance to see which VNA is covered by her [employer] insurnace. 09/21/2025 Anxiety (ICD-10 - F41.9) Plan Of Treatment Medication Medication Name Sig Start Date Stop Date Notes Sertraline HCl 50 MG 1 tablet Orally Onc e a day for 30 days 08/03/2025 Treatment Notes Assessment Notes Near syncope order faxed to [facility] [place] Weakness needs home physical therapy/ needs home therapy as the weakness prevnts her from getting out of the house/ patient's daughter is checking with her insurance to see which VNA is covered by her [employer] insurnace. Pending Test Test Name Order Date ECG holter monitor 48 hour 09/21/2025 Referrals Referral Date Details 09/21/2025 09/21/2025, please e [place] and treat for VNA services needs home physical therapy, [facility] Lane Next Appt Details Provider Name:Crescencio Banerjee ier, 01/11/2026 07:15:00 AM, [address] [facility], [address], [place], [place], [phone], Provider Name:Crescencio Banerjee ier, 01/18/2026 01:00:00 PM, [address] [facility], [address], [place], [place], [phone], Progress Notes * Cynthia MICHELE MDOB:[birth year] (85 yo F)Acc No.[id number]:09/21/2025 Patient: Tirso ALLENCynthia PAIGE Provider: Tamara Jones MD :1940 A ge:85 Y S ex:Female Date:09/21/2025 Address:[address] [place], [place] [phone] Subjective: * Chief Complaints: * 1 . PH/ TCM. 2. Accompanied by daughter. * HPI: S ymptom(s): patient is a 85 yo female here for transitional care management visit following recent discharge from hospital. Discharge summary has been reviewed and medications reconcilled. here for follow up from hosptial. she had episode of weakness and lowered herself to the floor. hgb and fe were low on arrival to hosptal. had been extremely tired. * ROS: G eneral/Constitutional: Denies C hills. D enies F atigue. D enies F ever. D enies H eadache. E NT: Denies S ore throat. R espiratory: Denies C ough. D enies S hortness of breath at rest. D enies S hortness of breath with exertion. G astrointestinal: Denies D iarrhea. D enies N ausea. * Medical History: H ematuria worked up 2008, colonoscopy 2003; colonoscopy 09/25/[address] Munroe, Osteoporosis doesn't want meds 2020. * Medications: T aking Vitamin D3 25 MCG (1000 UT) Tablet 1 tablet Orally Once a day , Taking Ferrous Gluconate 324 (38 Fe) MG Tablet 1 tablet Orally Three times a Week , Taking Pantoprazole Sodium 40 MG Tablet Delayed Release 1 tablet Orally twice a day , Taking Cholecalciferol 25 MCG (1000 UT) Capsule 1 capsule Orally Once a day , Taking Atorvastatin Calcium 10 MG Tablet TAKE 1 TABLET BY MOUTH ONCE DAILY , Taking amLODIPine Besylate 10 MG Tablet TAKE 1 TABLET BY MOUTH ONCE DAILY , Taking Sertraline HCl 25 MG Tablet 1 tablet Orally Once a day , Not-Taking/PRN Ursodiol 250 MG Tablet 1 tab QID , Not-Taking/PRN Aspir-Low 81 MG Tablet Delayed Release 1 tablet Orally Once a day , Medication List reviewed and reconciled with the patient * Allergies: C odeine Sulfate: n/v. Objective: * Vitals: H t: 60, Wt: 117, BMI:22.85, BP:122/60, Wt-k.07. weight is down 5 pounds since 08-31-25. * Examination: G eneral Examination: GENERAL APPEARANCE: a lert, well hydrated, in no distress.? HEAD: n ormocephalic. SKIN: g ood turgor. HEART: r egular rate and rhythm, no murmurs, rubs, gallops.? LUNGS: n o wheezes, rales, rhonchi, good air movement, clear to auscultation bilaterally. Assessment: * Assessment: 1. N ear syncope - R55 (Primary) 2 . A nemia - D64.9 3 .?Weakness - R53.1 4 . A nxiety - F41.9 Plan: * Treatment: 2. W monalisa Notes: needs home physical therapy/ needs home therapy as the weakness prevnts her from getting out of the house/ patient's daughter is checking with her insurance to see which VNA is covered by her [employer] insurnace. Referral To:JUAN CARLOS Sherman Unknown Reason:please eval and treat for VNA services needs home physical therapy * Procedure Codes: 3 6415 VENIPUNCT, ROUTINE* * * The named appointment provid er may or may not be the originator of this progress note, and it is not deemed complete until electronically signed by the appointment provider. Sign off status: Pending * Provider: Tamara Jones MD Date: 11/22/2024 Generated for Justin dietrich/Jacquelin/eTransmitting on: 1 11/22/2024 10:00 PM EST History and Physical Notes * HPI (History of Present Illness) Category Sub-Category Detail Notes Category Not es Symptom(s) patient is a 85 yo female here for transitional care management visit following recent discharge from hospital. Discharge summary has been reviewed and medications reconcilled. [facility] she had episode of weakness and lowered herself to the floor. hgb and fe were low on arrival to hosptal. had been extremely tired. Examination Category Sub-Category Detail Notes Category Not es General Examination GENERAL APPEARANCE: alert, w ell hydrated, in no distress HEAD: normocephalic HEART: regular rate and rhy thm, no murmurs, rubs, gallops LUNGS: no wheezes, rales, r honchi, good air movement, clear to auscultation bilaterally SKIN: good turgor Consultation Request Notes Referral Date Referring Provider Referred Provider Not es 09/21/2025 Crescencio Jones, JUAN CARLOS please eval and treat for VNA services needs home physical therapy
[2025-09-21 15:37] LABS: MANUAL DIFF FLAG NO
[2025-09-21 15:41] LABS: Hematocrit 32.4 % (37.0-47.0); Hemoglobin 9.6 g/dl (12.0-16.0); Imm Gran Abs Auto 0.02 X10*3/uL (0.00-0.03); Imm Gran Pct Auto 0.3 % (0.0-0.4); Lymphocytes Absolute Auto 0.8 X10*3/uL (1.2-4.9); Mean Corpuscular HGB Conc 29.6 g/dl (31.0-35.0); Mean Corpuscular Hemoglobin 23.5 pg (27.0-33.0); Mean Corpuscular Volume 79.2 fL (80.0-98.0); NRBC Abs Auto 0.000 X10*3/uL (0.0-0.012); NRBC Pct Auto 0.0 /100WBC (0.0-0.2); Platelet Count 304 X10*3/uL (160-400); Red Blood Count 4.09 X10*6/uL (4.20-5.50); White Blood Count 6.8 X10*3/uL (4.8-10.8)
[2025-09-21 15:50] LABS: Iron 63 mcg/dL (30-160); Percent Iron Saturation 22 % (15-50); Total Iron Binding Capacity 290 mcg/dL (228-428); Unsaturated Iron Binding 227 ug/dL
--- OUTSIDE RECORDS SUMMARY | 2025-09-21 22:00 | XMS_ITS | Patient Health Record ---
Author Organization [facility] Address [address] [place] [phone] Care Team Providers Care Sulfide Head Operator Name Role Phone Robert RICHMOND, Crescencio Primary Care Provider Enzo Donaldson Jr Unavailable Allergies Allergen (clinical drug ingredient) Drug/Non Drug Allergy documented on EMR Reaction Allergy Type Onset Date Status Codeine Phosphate Unknown Drug Allergy Active Results Component Value Reference Range Notes Pathology Reviewed date:03/10/2025 03:17:44 PM Interpretation: Performing Lab:[facility], [address] [place] [phone] Notes/Report: Reason For Referral No Information Medications Medication SIG (Take, Route, Frequency, Duration) Notes Start Date End Date Status Atorvastatin Calcium 20mg Active Latanoprost 0.005 % Solution INSTILL 1 DROP INTO EACH EYE AT BEDTIME Ophthalmic; Duration: 18 Active Vitamin D 1000 UNIT Tablet 1 tablet Orally Once a day Active Ursodiol 250 MG Tablet take 1 tablet by mouth 4 times a day; Duration: 90 days Active amLODIPine Besylate 10 MG Tablet TAKE 1 TABLET BY MOUTH ONCE DAILY Oral; Duration: 90 Active Omeprazole 40 MG Capsule Delayed Release 1 capsule 1/2 to 1 hour before morning meal Orally Once a day; Duration: 90 days 02/11/2025 Not-Taking/PRN Ferrous Sulfate 325 (65 Fe) MG Tablet 1 tablet Orally daily; Duration: 30 days 02/11/2025 Not-Taking/PRN Pantoprazole Sodium 40 MG Tablet Delayed Release 1 tablet 1/2 to 1 hour before morning meal Orally Once a day; Duration: 30 days 07/23/2025 Active Ferrous Gluconate 324 (38 Fe) MG Tablet 1 tablet Orally daily; Duration: 30 days 04/06/2025 Not-Taking/PRN Immunizations Vaccine Route Administration Date Status Comme nts Influenza Unknown 10/08/2018 Administered Influenza Unknown 08/09/2019 Administered Influenza Unknown 08/08/2023 Administered Influenza Unknown 05/28/2024 Administered Social History Tobacco Use: Social History Observation Description Date Details (start date - stop date) Former Smoker NA - NA Social History Drug/Alcohol: Social Info Question Answer Notes AUDIT-C (Standard) Did you have a drink containing alcohol in the past year? No Points 0 Interpretation Negative Tobacco Use: Social Info Question Answer Notes Tobacco Use/Smoking Patient is a former smoker How long has it been since you last smoked? > 10 years Additional Details Category Social Info Options Details Miscellaneous: Marital status: Single Occupation: Works at [employer] nov 2023 Problems Problem Type SNOMED Code ICD Code Onset Dates Problem Status W/U Status Risk Notes Problem Anemia (852477366) Anemia (D64.9) Active confir med Problem Erosive esophagitis (18196416) Erosive esophagitis (K22.10) Active confirmed Problem Biliary cirrhosis (7558418) Biliary cirrhosis (K74.5) Active confirmed Problem Gastroesophageal reflux disease (934574806) Gastroesophageal reflux disease, unspecified whether esophagitis present (K21.9) Active confirmed Vital Signs Temperature 97.8 degrees Fahrenheit 07/23/2025 Blood pressure diastolic 01 mm Hg 07/23/2025 Height 60 in 07/23/2025 Blood pressure systolic 001 mm Hg 07/23/2025 Weight 121.4 lbs 07/23/2025 BMI 23.71 kg/m2 07/23/2025 Encounters Encounter Location Date Provider Diagnosis [facility] [place] [facility] [address] [place] [id number] 03/06/2025 Enzo Munroe Jr Anemia D64.9 ; Nausea R11.0 and Erosive esophagitis K22.10 [facility] [address] [place] [phone] 11/20/2024 Enzo Munroe Jr Biliary cirrhosis K74.5 [facility] [address] [place] [phone] 02/11/2025 Enzo Munroe Jr Anemia D64.9 ; Nausea R11.0 and Biliary cirrhosis K74.5 [facility] [address] [place], [place] [address] [place] [address] 07/23/2025 Enzo Munroe Jr Erosive esophagitis K22.10 ; Gastroesophageal reflux disease, unspecified whether esophagitis present K21.9 and Biliary cirrhosis K74.5 [facility] [address] [place], [place] [address], [place] [address] 12/17/2024 Enzo Munroe Jr Biliary cirrhosis K74.5 [facility] [address] [place], [place] [address], [place] [address] 03/06/2025 Enzo Munroe Jr Nausea R11.0 [facility] [address] [place] [address], [place] [address] 03/10/2025 Enzo Munroe Jr [facility] [address] [place] [phone] 03/10/2025 Enzo Munroe Jr [facility] [address] [place] [phone] 04/06/2025 Enzo Munroe Jr Assessments Encounter Date [...] of endoscopy. Today's visit was 30 minutes. 03/06/2025 Nausea (ICD-10 - R11.0) e 03/06/2025 Anemia (ICD-10 - D64.9) e 07/23/2025 Gastroesophageal reflux disease, unspecified whether esophagitis [...] - K74.5) 03/06/2025 Nausea (ICD-10 - R11.0) 07/23/2025 Erosive esophagitis (ICD-10 - K22.10) We [...] see us in follow-up in 6 months. 03/06/2025 Erosive esophagitis (ICD-10 - K22.10) e [...] ENDOSCOPY 02/11/2025 Next Appt Details Provider Name:Enzo Lernerlisa laboy Jr, 12/24/2025 03:35:00 PM, [address] [place] [address] Drive, [address], [place], [address], Provider Name:Enzo eppersonbel Bynum, 02/04/2026 01:15:00 PM, [address] [facility], [address], [place], [address], Insurance Providers Payer Name Payer Address Payer Phone Subscriber Number Group Number Insured Name Patient Relationship to Insured Coverage Start Date Coverage End Date [facility] [address] [place] [phone] [id number] RENÉ HUNT Self - patient is the [...]
--- OUTSIDE RECORDS SUMMARY | 2025-09-21 22:02 | XMS_ITS | Patient Health Record ---
Author Organization Crescencio Jones MD Address [address] [place], [place] [id number] Care Team Providers Care Cartoon Animator Name Role Phone Crescencio Jones Primary Care Provider Allergies Allergen (clinical drug ingredient) Drug/Non Drug Allergy documented on EMR Reaction Allergy Type Onset Date Status codeine Codeine Sulfate n/v Drug Allergy A ctive Results Component Value Reference Range Notes Complete Blood Count Auto Di ff Reviewed date:01/06/2025 02:01:38 PM Interpretation: Performing Lab:[facility], [address] [place] [phone] Notes/Report: White Blood Count 6.8 4.8-10.8 X10*3/uL [...] NRBC Abs Auto 0.000 0.0-0.012 X10*3/uL Comprehensive [place]. Panel Fa Reviewed date:01/06/2025 12:23:15 PM Interpretation: Performing Lab:[address] [phone] Notes/Report: Sodium 140 135-145 mmol/L Potassium 3.7 [...] Panel Reviewed date:01/06/2025 12:21:16 PM Interpretation: Performing Lab:[facility], [address] [place] [phone] Notes/Report: Triglycerides 64 <150 mg/dL Desirable Triglyceride: [...] A1c Reviewed date:01/06/2025 12:21:25 PM Interpretation: Performing Lab:[facility], [address] [place] [phone] Notes/Report: Hemoglobin A1c % 5.5 <6.0 % [...] average glucose, using the formula of the R9R-Kokjdft Average Glucose study (ADAG), Diabetes Care, Vol.31,#8, 2007 Liver Panel Reviewed date:07/27/2025 12:42:19 PM Interpretation: Performing Lab:[facility], [address] [place] [phone] Notes/Report: Bilirubin Total 0.9 0.0-1.0 mg/dL Bilirubin Direct 0.3 0.0-0.5 mg/dL Aspartate Amino Transferase 19 5-31 U/L Alanine Aminotransferase 10 0-31 U/L Total Protein 6.7 6.5-8.0 g/dL Albumin Level 4.2 3.5-5.0 g/dL Alkaline Phosphatase 104 39-117 U/L Glucose Fasting Reviewed date:07/27/2025 12:42:02 PM Interpretation: Performing Lab:[facility], [address] [place] [phone] Notes/Report: Glucose Fasting 99 60-99 mg/dL Lipid Panel with Reflex Reviewed date:07/27/2025 12:46:22 PM Interpretation: Performing Lab:[facility], [address] [place] [phone] Notes/Report: Triglycerides 93 <150 mg/dL Desirable Triglyceride: [...] A1c Reviewed date:07/27/2025 12:41:53 PM Interpretation: Performing Lab:[facility], [address] [place] [phone] Notes/Report: Hemoglobin A1c % 5.4 <6.0 % [...] average glucose, using the formula of the W1H-Lxojmpc Average Glucose study (ADAG), Diabetes Care, Vol.31,#8, May. 2007 Complete Blood Count Auto Di ff Reviewed date:09/21/2025 04:25:57 PM Interpretation: Performing Lab:[facility], [address] [place] [phone] Notes/Report: White Blood Count 6.8 4.8-10.8 X10*3/uL [...] 0.0-0.2 /100WBC Neutrophils Absolute Auto 5.0 2.0-8.3 x10*3/uL Imm Gran Abs Auto 0.02 0.00-0.03 X10*3/uL Lymphocytes Absolute Auto 0.8 1.2-4.9 X10*3/uL Monocytes Absolute Auto 0.9 0.1-1.2 X10*3/uL Eosinophils Absolute Auto 0.1 0.0-0.4 X10*3/uL Basophils Absolute Auto 0.1 0.0-0.2 X10*3/uL NRBC Abs Auto 0.000 0.0-0.012 X10*3/uL IRON PROFILE Reviewed date:09/21/2025 04:25:45 PM Interpretation: Performing Lab:[facility], [address] [place] [phone] Notes/Report: Iron 63 30-160 mcg/dL Slight Hemolysis.Interpret result with caution. Total Iron Binding Capacity 290 228-428 mcg/dL Percent Iron Saturation 22 15-50 % Unsaturated Iron Binding 227 Occult Blood, Stool, Guaiac Reviewed date:01/13/2025 10:47:09 AM Interpretation:Negative Performing Lab: Notes/Report: Negative Occult Blood, Stool, Guaiac Neg Complete Blood Count Auto Di ff Reviewed date:01/14/2025 07:55:49 AM Interpretation: Performing Lab:[facility], [address] [place] [phone] Notes/Report: White Blood Count 5.9 4.8-10.8 X10*3/uL [...] PROFILE Reviewed date:01/15/2025 10:45:18 AM Interpretation: Performing Lab:[facility], [address] [place] [phone] Notes/Report: Iron 21 30-160 mcg/dL Total Iron Binding Capacity 389 228-428 mcg/dL Percent Iron Saturation 5 15-50 % Unsaturated Iron Binding 368 Microalbumin, Random Reviewed date:01/15/2025 06:41:26 PM Interpretation: Performing Lab:[facility], [address] [place] [phone] Notes/Report: Creatinine Urine 17.30 Microalbumin Urine < 5.0 Microalbum/Creatinine Ratio Ur TNP <30 ug/mg cr Unable to calculate albumin/creatinine ratio due to low microalbumin or creatinine result. UA ClnCatch+Micro w/rflx Cul t Reviewed date:01/14/2025 07:57:02 AM Interpretation: Performing Lab:[facility], [address] [place] [phone] Notes/Report: Urine, Clean Catch Color Urine Yellow Appearance Urine Clear PH 7.5 5.0-9.0 Glucose Urine UA Negative Negative mg/dL Urine Blood Negative Negative Specific [place] - Urine <= 1.005 1.005-1.025 Urine Protein Negative Neg-Trace mg/dL Urine Ketones Negative Negative mg/dL Nitrite Urine Negative Negative Leukocyte Esterase Urine Small (1+) Negative RBC Urine 0-2 0-2 /HPF WBC Urine 0-5 0-5 /HPF Squamous Epithelial Cell Urine 0-2 0-2 /HPF Bacteria Urine 1+ None Seen Hyaline Casts Urine 0-2 0-2 /LPF Complete Blood Count Auto Di ff Reviewed date:08/04/2025 12:44:14 PM Interpretation: Performing Lab:[facility], [address] [place] [phone] Notes/Report: White Blood Count 5.8 4.8-10.8 X10*3/uL [...] PROFILE Reviewed date:09/01/2025 11:49:39 AM Interpretation:08-31-2025 Performing Lab:[facility], [address] [place] [phone] Notes/Report: Iron 11 30-160 mcg/dL Total Iron Binding Capacity 368 228-428 mcg/dL Percent Iron Saturation 3 15-50 % Unsaturated Iron Binding 357 TSH reflex Free T4 Reviewed date:08/04/2025 12:43:56 PM Interpretation: Performing Lab:[facility], [address] [place] [phone] Notes/Report: TSH reflex Free T4 4.42 0.32-4.0 uIU/mL UA CC w/rflx Micro + Cult Reviewed date:10/07/2024 04:45:12 PM Interpretation: Performing Lab:[facility], [address] [place] [phone] Notes/Report: Urine, Clean Catch Color Urine Yellow Appearance Urine Clear PH 6.5 5.0-9.0 Glucose Urine UA Negative Negative mg/dL Urine Blood Negative Negative Specific [place] - Urine <= 1.005 1.005-1.025 Urine Protein Negative Neg-Trace mg/dL Urine Ketones Negative Negative mg/dL Nitrite Urine Negative Negative Leukocyte Esterase Urine Negative Negative Hold Gold Reviewed date:01/06/2025 12:21:34 PM Interpretation: Performing Lab:[facility], [address] [place] [phone] Notes/Report: Hold Gold See Note Specimen held untested for 24 hours; Call to request Chemistry testing. Hold Gold Reviewed date:01/15/2025 06:41:19 PM Interpretation: Performing Lab:[facility], [address] [place] [phone] Notes/Report: Hold Gold See Note Specimen held untested for 24 hours; Call to request Chemistry testing. Urine Culture Reviewed date:01/15/2025 09:15:15 AM Interpretation: Performing Lab:[facility], [address] [place] [phone] Notes/Report: Urine Culture Report Result Urine Culture 50,000 to 100,000 cfu/ml Urine Culture Mixed bacterial jasmine a characteristic of Urine Culture urogenital contamination. Urine Culture Reviewed date:02/22/2025 05:08:45 PM Interpretation: Performing Lab:[facility], [address] [place] [phone] Notes/Report: Urine Culture Report Result Urine Culture < 10,000 cfu/ml Pathology Reviewed date:03/09/2025 04:28:48 PM Interpretation: Performing Lab:[facility], [address] [place] [phone] Notes/Report: ------ Name: Cynthia Michele Age/Sex: 84/F : 1940 Unit#: [id number] Attend Dr: Enzo Alicia MD Re03/06/25 Status : [facility] Location: [facility] Disch: ------ SPEC : [id number] RECD : 03/06/25 STATUS: ARNAV GREEN NUM: [id number] ALEC: 03/06/[address] [facility] [address]: Enzo Alicia MD ENTERED: 03/06/25 19 [...] in 2 parts. A. Received in forma harjti labeled ?duodenal biopsies? are 2 fragments of [...] copic examination, 2 pieces in cassette B. ([facility] [place]) Special stains order ed and performed: AB/PAS on A-B; immunostain for H pylori on B. IHC S/NG Disclaimer NOTE: Unless otherwi se stated, all tissue is formalin-fixed and paraffin-embedded. Some or all of the immunohistochemical tests reported herein may have been developed and their performance characteristics determined by [facility]. They have not been cleared or appr eliazar by the U.S. Food and Drug Administration (FDA). However, the FDA has determined that such clearance or approval is not necessary. This laboratory is certified under the Clinical Laboratory Improvement Amendments of 1988 (CLIA) as qualified CONTINUED ON NEXT PAGE ------ Name: Cynthia Michele Age/Sex: 84/F : 1940 Unit#: [id number] Attend Dr: Enzo Alicia MD Re03/06/25 Status : [facility] Location: [facility] Disch: ------ SPEC : [id number] RECD : 03/06/254 STATUS: ARNAV GREEN NUM: [id number] ALEC: 03/06/25-10[address] [facility] [address]: Enzo Alicia MD ENTERED: 03/06/25-11 19 SP TYPE: Surgical OTHR DR: Crescencio Jones MD ORDERED: HE Stain/6, Gross Micro L4/2, IHC, Special st. 2/2, H. pylori, AB/PAS/2 IHC S/NG Disclaimer (Continued) to perform high comp lexity clinical laboratory testing. Copies To: Crescencio Jones MD [facility] [address] [place] [address] Enzo Alicia MD [facility] [address] [place] [address] ------ Signed (signature on file) Aure Lucero MD 03/09/25 1438 ------ END OF REPORT Leslie Colin Reviewed date:07/27/2025 12:37:05 PM Interpretation: Performing Lab:[facility], [address] [place] [phone] Notes/Report: Leslie Colin See Note Specimen held untested for 24 hours; Call to request Chemistry testing. Free T4 (Free Thyroxine) Reviewed date:08/04/2025 12:43:39 PM Interpretation: Performing Lab:[facility], [address] [place] [phone] Notes/Report: Free T4 (Free Thyroxine) 0.93 0.71-1.85 ng/dL Leslie Colin Reviewed date:08/04/2025 12:43:47 PM Interpretation: Performing Lab:[facility], [address] [place] [phone] Notes/Report: Leslie Colin See Note Specimen held untested for 24 hours; Call to request Chemistry testing. UA CC w/rflx Micro + Cult Reviewed date:08/24/2025 05:26:21 PM Interpretation: Performing Lab:[facility], [address] [place] [phone] Notes/Report: Urine, Clean Catch Color Urine Yellow Appearance Urine Clear PH 6.5 5.0-9.0 Glucose Urine UA Negative Negative mg/dL Urine Blood Negative Negative Specific [place] - Urine <= 1.005 1.005-1.025 Urine Protein Negative Neg-Trace mg/dL Urine Ketones Negative Negative mg/dL Nitrite Urine Negative Negative Leukocyte Esterase Urine Negative Negative XR chest 2V Reviewed date:08/31/2025 05:32:09 PM Interpretation: Performing Lab: Notes/Report: [facility] [address] [place] [address] XRay Report Signed Patient: Cynthia Michele MR#: [id number] 613 : 1940 Acct:[id number] Age/Sex: 85 / F ADM Date: 08/31/25 Loc: .HMGCX Attending Dr: Crescencio Jones MD Ordering Physician: Crescencio Jones MD Date of Service: 08/31/25 Procedure(s): XR chest 2V Accession Number(s): [id number] cc: Crescencio Jones MD Reason for Exam: R06.02 SOB EXAMINATION: XR CHEST CLINICAL INFORMATION: R06.02 SOB COMPARISON: None available. TECHNIQUE: 2 views of the chest were obtained. FINDINGS: The cardiac, hilar, and mediastinal contours are normal. Aortic mural calcifications. The lungs are mildly hyperaerated however clear bilaterally. No abnormal opacities. There is no pneumothorax or pleural effusion. There is no focal osseous or soft tissue abnormality. There are degenerative changes throughout the spine with mild right convex scoliosis. XR/XR chest 2V IMPRESSION: Mild pulmonary hyperaeration. No active pulmonary disease. Electronically signed by: John Klein MD 08/31/2025 04:15 PM [facility] [place] Dictated By: John Klein MD Signed By: <Electronically signed by John Klein MD in OV> 08/31/25 1615 DD/ 1602 TD/TT: 08/31/25 1606 Imaging Assistant: [address] [place] [address] XRay Report Signed Patient: John Michele MR#: [id number] 613 : 1940 Acct:[id number] Age/Sex: 85 / F ADM Date: 08/31/25 Loc: HO.HMGCX Attending Dr: Crescencio Jones MD Ordering Physician: Crescencio Jones MD Date of Service: 08/31/25 Procedure(s): XR chest 2V Accession Number(s): [id number] cc: Crescencio Jones MD Reason for Exam: R06 .02 SOB EXAMINATION: XR CHEST CLINICAL INFORMATION: R06.02 SOB COMPARISON: None available. TECHNIQUE: 2 views of the chest were obtained. FINDINGS: The cardiac, hilar, and mediastinal contours are normal. Aortic mural calcifications. The lungs are mildly hyperaerated however clear bilaterally. No abnormal opacities. There is no pneumothorax or pleural effusion. There is no focal os seous or soft tissue abnormality. There are degenerative changes throughout the spine with mild right convex scoliosis. X R/XR chest 2V IMPRESSION: Mild pulmonary hyperaeration. No active pulmonary disease. Electronically donte d by: John Klein MD 08/31/2025 04:15 PM [facility] Dictated By: John Uribe MD Signed By: <[facility]ron [facility] signed by John Klein MD in OV> 08/31/25 1615 DD/ 1602 TD/TT: 08/31/25 1606 Imaging Assistant: Reason For Referral Reason Iron Deficiency Diagnosis [...] AM >OFFICE NOTE RECD Referral Priority Routine Reason Memory loss Diagnosis 1 Memory loss (R41.3) Referral Organization Crescencio Jones MD Referring Provider First Name Crescencio Referring Provider Last Name Robert Referring Provider Speciality Internal M edicine Referred Provider Ronnie Tyson Referred Provider Specialty Neurology General Notes Lorena Campbellette 1 10/31/2024 03:32:37 PM >referral info faxed Referral Priority Routine Reason please eval and neto t for VNA services needs home physical therapy Diagnosis 1 Weakness (R53.1) Referral Organization Crescencio Jones MD Referring Provider First Name Crescencio Referring Provider Last Name Robert Referring Provider Speciality Internal edicine Referred Provider JUAN CARLOS Sherman Referred Provider Specialty Unknown General Notes Lorena Campbellette 1 11/22/2024 02:34:25 PM >referral info faxed to [facility] Referral Priority Routine Medications Medication SIG (Take, [...] tablet Orall y twice a day Active Immunizations Vaccine Route Administration Date Status Comme nts Shingles Unknown 02/22/2012 Administered Flu Vaccine Unknown 08/22/2012 Administered PPSV23 (Pnemovax) Unknown 08/22/2012 Administered Flu Vaccine IM Intramuscular 08/28/2013 Administered TDaP IM Intramuscular 08/28/2013 Administered [id number] A - Lot # Flu Vaccine IM Intramuscular 09/17/2014 Administered zFluzone Quadrivalent IM Intramuscular 08/09/2015 Administered Fluarix Quadrivalent IM Intramuscular 09/25/2016 Administe red Fluarix Quadrivalent IM Intramuscular 09/24/2017 Administe red Prevnar 13 IM Intramuscular 10/04/2017 Administered Fluarix Quadrivalent IM Intramuscular 09/03/2018 Administadele palmer PPSV23 (Pnemovax) IM Intramuscular 10/17/2018 Administered Fluarix Quadrivalent Unknown 09/15/2019 Administered Fluarix Quadrivalent IM Intramuscular 08/13/2020 Adminyolande palmer SARS-COV-2 Pfizer Unknown 11/18/2020 Administered SARS-COV-2 Pfizer Unknown 12/09/2020 Administered SARS-COV-2 Pfizer Unknown 08/31/2021 Administered Influenza High Dose Unknown 10/11/2021 Administered Influenza High Dose Unknown 08/28/2022 Administered Saida gallardo Influenza High Dose IM Intramuscular 06/29/2023 Administer [...] Problem Status W/U Status Risk Notes Problem 54298827 Age-related osteoporosis without current pathological fracture (M81.0) Active confirmed Problem Anemia (897560767) Anemia (D64.9) Active confirmed Problem 24924444 Lymphocytosis (D72.820) Active confirmed Problem Anxiety (11403274) Anxiety (F41.9) Active confirmed Problem Essential hypertension (90624011) Essential (primary) hypertension (I10) Active confirmed Problem 320033080 Other specified menopausal and perimenopausal disorders (N95.8) Active confirmed Problem 364043384 Abnormal results of liver function studies (R94.5) Active confirmed Problem 2677283 Prediabetes (R73.09) Active confirmed Problem Memory loss (08271134) Memory loss (R41.3) Active confirmed Problem 458010292 History of hemat uria (Z87.448) Active confirmed Problem 156665833 Pure hypercholesterolemia (E78.00) Active confirmed Problem 979972079 Osteopenia deter mined by x-ray (M85.80) Active confirmed Problem 4087996 Biliary cirrhosi s (K74.5) Active confirmed Vital Signs Blood pressure diastolic 60 mm Hg 09/21/2025 carine ght is down 5 pounds since 08-31-25 Height 60 in 09/21/2025 weight is down 5 pounds since 08-31-25 Blood pressure systolic 122 mm Hg 09/21/2025 weig ht is down 5 pounds since 08-31-25 Weight 117 lbs 09/21/2025 weight is down 5 pounds since 08-31-25 BMI 22.85 kg/m2 09/21/2025 weight is down 5 pounds since 08-31-25 Encounters Encounter Location Date Provider Diagnosis Crescencio Jones MD [address] [place] [id number] 01/06/2025 Crescencio Jones Blood tests for rout ine general physical examination Z00.00 ; Prediabetes R73.09 ; Pure hypercholesterolemia E78.00 and Essential (primary) hypertension I10 Crescencio Jones MD [address] [place] [id number] 07/27/2025 Crescencio Jones Prediabetes R73.09 ; Encounter for administration of vaccine Z23 and Pure hypercholesterolemia E78.00 Crescencio Jones MD [address] [place] [id number] 09/21/2025 Crescencio Jones Near syncope R55 ; A nemia D64.9 ; Weakness R53.1 and Anxiety F41.9 Crescencio Jones MD [address] [place] [id number] 01/13/2025 Crescencio Jones Annual physical exam Z00.00 ; Prediabetes R73.09 ; Essential (primary) hypertension I10 ; Anemia D64.9 ; Pure hypercholesterolemia E78.00 ; Colon cancer screening Z12.11 and Depression screening Z13.31 Crescencio Jones MD [address] [place] [id number] 08/03/2025 Crescencio Jones Biliary cirrhosis K7 4.5 ; Thyroid disorder E07.9 ; Iron deficiency E61.1 and Anxiety F41.9 Crescencio Jones MD [address] [place] [id number] 08/31/2025 Crescencio Jones Memory loss R41.3 ; Abdominal pain R10.9 ; Shortness of breath R06.02 and Iron deficiency E61.1 Crescencio Jones MD [address] [place] [id number] 03/20/2025 Crescencio Jones MD [address] [place] [id number] 09/01/2025 Crescencio Jones Abdominal pain R10.9 Crescencio Jones MD [address] [place] [id number] 09/12/2025 Crescencio Jones Assessments Encounter Date Diagnosis (ICD Code) Assessment Notes Treatment Notes Treatment Clinical Notes Section Notes 01/06/20[address] ine general physical examination (ICD-10 - Z00.00) 07/27/2025 Prediabetes (ICD-10 - R73.09) 07/27/2025 Encounter for administration of vaccine (ICD-10 - Z23) 09/21/2025 Near syncope (ICD-10 - R55) order faxed to [facility] CS dept 09/21/2025 Anemia (ICD-10 - D64.9) 01/13/2025 Annual physical exam (ICD-10 - Z00.00) labs reviewed and discussed with patient 01/13/2025 Prediabetes (ICD-10 - R73.09) doing well, no need for medication at this time 08/03/2025 Biliary cirrhosis (ICD-10 - K74.5) is not taking any meds now 08/03/2025 Thyroid disorder (ICD-10 - E07.9) has a history of radiactive iodine, will continue to monitor, pending labs 08/31/2025 Memory loss (ICD-10 - R41.3) referral to dr tyson 08/31/2025 Abdominal pain (ICD- 10 - R10.9) pending diagnostic testing/ order faxed to [facility] 09/01/2025 Abdominal pain (ICD- 10 - R10.9) 01/06/2025 Prediabetes (ICD-10 - R73.09) 07/27/2025 Pure hypercholesterolemia (ICD-10 - E78.00) 09/21/2025 Weakness (ICD-10 - R53.1) needs home physical therapy/ needs home therapy as the weakness prevnts her from getting out of the house/ patient's daughter is checking with her insurance to see which VNA is covered by her [place] insurnace. 01/13/2025 Essential (primary) hypertension (ICD-10 - I10) well controlled, will contnue current regiment 08/03/2025 Iron deficiency (ICD -10 - E61.1) has stopped taking iron about 4 weeks, pending labs 08/31/2025 Shortness of breath (ICD-10 - R06.02) pending diagnostic testing/ order giving to patient 01/06/2025 Pure hypercholesterolemia (ICD-10 - E78.00) 09/21/2025 Anxiety (ICD-10 - F41.9) 01/13/2025 Anemia (ICD-10 - D64.9) have explained to her that if she has an iron defi will need to send her back to dr alicia, labs pending 08/03/2025 Anxiety (ICD-10 - F41.9) patient verbalized understanding of medication and directions for use 01/06/2025 Essential (primary) hypertension (ICD-10 - I10) 01/13/2025 Pure hypercholesterolemia (ICD-10 - E78.00) stable, will continue current regiment 08/31/2025 Iron deficiency (ICD -10 - E61.1) will continue to monitor, pending future labs 01/13/2025 Colon cancer screeni ng (ICD-10 - Z12.11) guaiac negative 01/13/2025 Depression screening (ICD-10 - Z13.31) negative screen Plan Of Treatment Pending Test Test Name Order Date Electrocardiogram (EKG) 10/24/2019 Electrocardiogram (EKG) 08/28/2013 Electrocardiogram (EKG) 10/04/2017 Electrocardiogram (EKG) 10/17/2018 CT ABD & PELVIS WITH CONTRAST 09/01/2025 XR CHEST 2 VIEW PA & LAT 08/31/2025 Microalbumin, Random 01/06/2025 ECG holter monitor 48 hour 09/21/2025 CT abdomen pelvis wo/w con 08/31/2025 UA ClnCatch+Micro w/rflx Cult 01/06/2025 BONE DENSITY DEXA 10/24/2019 Future Test Test Name Order Date BONE DENSITY DEXA 12/01/2020 Next Appt Details Provider Name:Crescencio Banerjee ier, 01/11/2026 07:15:00 AM, [address], [address], [place], [place], [phone], Provider Name:Crescencio Banerjee ier, 01/18/2026 01:00:00 PM, [address], [address], [place], [place], [id number], Insurance Providers Payer Name Payer Address Payer Phone Subscriber Number Group Number Insured Name Patient Relationship to Insured Coverage Start Date [facility]age End Date [facility] [address] [place] [phone] [id number] Cynthia Michele Self - patient is the insured Medical (General) History Medical History History ICD Code hematuria worked up 2008 colonoscopy 2003; colonoscopy 09/25/[address] Alicia osteoporosis doesn't want meds 2020
== END 2025-09-21 11:46 | disposition home or self-care (01) ==
LOC: HO.LNP 11:45
PROVIDERS: Visit Provider Internal Medicine
DX: R55 Syncope and collapse (principal); Z13.0 Encounter for screening for diseases of the blood and blood-forming organs and certain disorders involving the immune mechanism
CPT/HCPCS: 83540; 85025